=== PATIENT | female | born 1955 ===

== ENCOUNTER 2018-06-24 10:52 | Observation (INO) | payer MEDICAID ==
[2018-06-24 10:58] VITALS: BMI 29.2
[2018-06-24] MEDS ORDERED: Sodium Chloride 0.9% 1,000 ML IV STA (11:11)
--- NOTE | 2018-06-24 11:50 | ED PDOC ---
Syncope/Near Syncope/Dizziness Time Seen by Provider: 06/24/18 11:02 Chief Complaint (Nursing): Weakness/Neurological Deficit Chief Complaint (Provider): Weakness/Neurological Deficit History Per: Patient History/Exam Limitations: no limitations Onset/Duration Of Symptoms: Days (x1 week ago ) Current Symptoms Are (Timing): Still Present Additional Complaint(s): Kathleen Stokes is a 62 year old female with a past medical history of diabetes, HTN and rheumatoid arthritis, who presents to the emergency department after being brought in by family for decreased mentation, confusion, blank stare and possible syncope this morning while having breakfast. Patient does have difficulty ambulating for the past x3 months due to rheumatoid arthritis. He does not have any new focal weakness. Patient is complaining of extremity pain but does not have fever, vomiting or urinary symptoms. PMD: patient is from [place] Past Medical History Reviewed: Historical Data, Nursing Documentation, Vital Signs Vital Signs: Last Vital Signs Temp 97 F L 06/24/18 10:58 Pulse 108 H 06/24/18 10:58 Resp 18 06/24/18 10:58 BP 132/69 06/24/18 10:58 Pulse Ox 96 06/24/18 10:58 - Medical History PMH: Diabetes, HTN, Hypercholesterolemia, Chronic Kidney Disease, Rheumatoid Arthritis - Surgical History Other surgeries: left wrist surgery - Family History Family History: States: Unknown Family Hx - Allergies Allergies/Adverse Reactions: Allergies Allergy/AdvReac Type Severity Reaction Status Date / Time No Known Allergies Allergy Verified 06/24/18 11:09 Review of Systems ROS Statement: Except As Marked, All Systems Reviewed And Found Negative Constitutional: Positive for: Fever Gastrointestinal: Positive for: Vomiting Genitourinary Female: Negative for: Dysuria, Frequency, Incontinence, Hematuria Musculoskeletal: Positive for: Other (extremity pain) Neurological: Positive for: Other (decreased mentation, confusion and blank stare; possible syncope) Physical Exam - Reviewed Nursing Documentation Reviewed: Yes Vital Signs Reviewed: Yes - Physical Exam Appears: Positive for: Non-toxic, No Acute Distress Cardiovascular/Chest: Positive for: Regular Rate, Rhythm. Negative for: Murmur Respiratory: Positive for: Normal Breath Sounds. Negative for: Respiratory Distress Gastrointestinal/Abdominal: Positive for: Normal Exam, Soft. Negative for: Tenderness Extremity: Positive for: Deformity (of fingers and lower extremities consistent with RA ). Negative for: Other (edema) Neurologic/Psych: Positive for: Alert, Oriented (x3). Negative for: Motor/Sensory Deficits - Laboratory Results Result Diagrams: 06/24/18 12:04 06/24/18 12:04 - ECG O2 Sat by Pulse Oximetry: 96 (RA) Pulse Ox Interpretation: Normal Medical Decision Making Medical Decision Making: Time: 1110 Impression: AMS as well as syncope. Will obtain CT of hea as well as CBC and other chemistry. No focal deficits at this time. Plan: --VBG shock panel --Head CT without contrast --Ekg --CMP --Cbc with differential --Chest xray --Sodium chloride 1,000 ml --Blood culture --Urine culture --UA Scribe Attestation: Documented by Florian Duong, acting as a scribe for Clayton Medina MD. Symptomatic anemia Hgb 7.6 Stool for occult blood sent. Will transfuse [address] in obs Provider Scribe Attestation: All medical record entries made by the Scribe were at my direction and personally dictated by me. I have reviewed the chart and agree that the record accurately reflects my personal performance of the history, physical exam, medical decision making, and the department course for this patient. I have also personally directed, reviewed, and agree with the discharge instructions and disposition. Disposition - Clinical Impression Clinical Impression: Anemia, Syncope - Patient ED Disposition Is Patient to be Admitted: Yes - Disposition Disposition Time: 12:45 Condition: FAIR Forms: [employer] ([employer]) - Pt Status Changed To: Hospital Disposition Of: Observation - POA Present On Arrival: None
[2018-06-24 12:06] LABS: VENOUS BLOOD GAS BASE EXCESS 1.2 mmol/L (0.0-2.0); VENOUS BLOOD GAS PCO2 44 mmHg (40-60); VENOUS BLOOD GAS PO2 45 mm/Hg (30-55); VENOUS BLOOD PH 7.39 (7.32-7.43)
[2018-06-24 12:19] LABS: ALB/GLOB RATIO 0.8 (1.0-2.1); ALBUMIN 3.3 g/dL (3.5-5.0); ALT/SGPT 32 U/L (9-52); AST/SGOT 36 U/L (14-36); BLOOD UREA NITROGEN 40 mg/dl (7-17); GFR NON-AFRICAN AMERICAN 24
[2018-06-24 12:20] LABS: BASO % 0.2 % (0.0-2.0); EOS # 0.3 K/uL (0.0-0.7); EOS % 4.2 % (0.0-4.0); HEMOGLOBIN 7.6 g/dL (12.0-16.0); LYMPH # 0.4 K/uL (1.0-4.3); LYMPH % 5.8 % (20.0-40.0); MEAN CELL VOLUME 78.5 fl (81.0-99.0); MEAN CORPUSCULAR HEMOGLOBIN 25.3 pg (27.0-31.0); MEAN CORPUSCULAR HGB CONC 32.3 g/dL (33.0-37.0); MEAN PLATELET VOLUME 8.4 fl (7.2-11.7); MONO # 0.5 K/uL (0.0-0.8); MONO % 6.9 % (0.0-10.0); NEUT # 5.5 K/uL (1.8-7.0); NEUT % 82.9 % (50.0-75.0); PLATELET COUNT 426 K/uL (130-400); RBC 2.98 Mil/uL (3.80-5.20); RED CELL DISTRIBUTION WIDTH 17.5 % (11.5-14.5); WHITE BLOOD COUNT 6.7 K/uL (4.8-10.8)
--- NOTE | 2018-06-24 12:45 | CT ---
Date of service: 06/24/2018 PROCEDURE: CT HEAD WITHOUT CONTRAST. HISTORY: r/o bleed COMPARISON: None available. TECHNIQUE: Axial computed tomography images were obtained through the head/brain without intravenous contrast. Radiation dose: Total exam DLP = 764.72 mGy-cm. This CT exam was performed using one or more of the following dose reduction techniques: Automated exposure control, adjustment of the mA and/or kV according to patient size, and/or use of iterative reconstruction technique. FINDINGS: HEMORRHAGE: No intracranial hemorrhage. 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 There are mild chronic microangiopathic changes. There is no mass, mass effect or abnormal extra-axial fluid collection. There is no territorial infarction. The midline sagittal structures are normal.There are coarse atherosclerotic calcifications in the cavernous carotid arteries. VENTRICLES: There is mild age-related global parenchymal volume loss and proportionate enlargement of the ventricles and cortical sulci. CALVARIUM: There is no calvarial fracture or extracranial soft tissue swelling. PARANASAL SINUSES: Predominantly clear. MASTOID AIR CELLS: Predominantly clear. OTHER FINDINGS: None. IMPRESSION: No acute intracranial abnormality. 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 Mild chronic microangiopathic changes and mild age-related global parenchymal volume loss.
[2018-06-24 12:56] LABS: ANISOCYTOSIS SLIGHT; BANDS 1 % (0-2); BASOPHIL 1 % (0-2); EOSINOPHIL 2 % (0-7); HYPOCHROMIC MODERATE; LARGE PLATELETS PRESENT; LYMPHOCYTE 5 % (20-50); MONOCYTE 6 % (0-10); NEUTROPHIL 85 % (42-75); OVALOCYTES SLIGHT; PLATELET CLUMPS PRESENT; PLATELET ESTIMATE INCREASED (NORMAL); TOTAL CELLS COUNTED 100
--- NOTE | 2018-06-24 14:04 | CP.PCM.HP ---
History of Present Illness - History of Present Illness History of Present Illness: 62 y/o F with a PMHx of RA, DM2, ?CKD, HTN and HLD was brought to ED by family due to generalized weakness since 1.5 weeks ago and possible syncope. Niece believes that pt had an episode of LOC that last for several minutes. Niece is b y bedside, explains that pt hit her head with table while eating due to weakness and became unresponsive to verbal and tactile stimulation for ~20 minutes. Pt remembers eating breakfast but does NOT remember anything else, just remembers coming here. Pt aslo complains of bilateral knee, ankles and leg pain that exacerbates with movement and walking. Pt denies headache, fever, chills, cough, chest pain, SOB, diaphoresis, N/V/D, rash. --Pt came from [place] 11 days ago, has been getting progressively weaker and weaker, bed-bound most of the time and complaining of bilateral leg pain. As per niece, pt has been having recurrent falls during the past several months in [place], one of them was 3 months ago which require surgical procedure for L wrist fracture. PMD: None NKDA MEDS: Gabapentin 400mg daily, Cilostazol 50mg daily, Losartan 100mg daily, Glipizide 10mg daily, Metoprolol Succ 100 Q12H, Simvastatin 40mg daily, Aspirin 81mg daily. -PMHx: RA, DM2, ?CKD, HTN and HLD. (?possible brain aneurysm as per niece, >5 years ago in [place]) -PSHx: Left wrist fracture repair. -FHx: NC -SHx: denied tobacco, alcohol or rec drugs. At ED: --CBC showed microcytic anemia, Hgb 7.6. --CMP showed BUN/Creat 40/2.1-high; GFR 24-stage 4. --VBG shock panel-unremarkable --Head CT: No acute intracranial abnormality. --Ekg: unremarkable --CXR: no active pulmonary disease. --1 L of NSS administered. Present on Admission - Present on Admission Any Indicators Present on Admission: No History of DVT/PE: No Urinary Catheter: No Decubitus Ulcer Present: No Review of Systems - Constitutional Constitutional: Weakness. absent: Chills, Fever - EENT Eyes: absent: Change in Vision Nose/Mouth/Throat: absent: Nasal Congestion, Sinus Pain, Sore Throat, Neck Pain, Neck Mass - Cardiovascular Cardiovascular: absent: Chest Pain, Claudication, Dyspnea, Edema - Respiratory Respiratory: absent: Cough, Dyspnea, Hemoptysis - Gastrointestinal Gastrointestinal: absent: Abdominal Pain, Belching, Bloating, Nausea, Vomiting - Genitourinary Genitourinary: absent: Dysuria, Hematuria, Pyuria - Musculoskeletal Musculoskeletal: Arthralgias (b/l knee, ankles and hands.), Myalgias (b/l leg pain. ) Past Patient History - Infectious Disease Hx of Infectious Diseases: None - Past Social History Smoking Status: Never Smoked - CARDIAC Hx Cardiac Disorders: Yes (HTN,HLD) - PULMONARY Hx Respiratory Disorders: No - NEUROLOGICAL Hx Neurological Disorder: No - HEENT Hx HEENT Problems: No - RENAL Hx Chronic Kidney Disease: Yes - ENDOCRINE/METABOLIC Hx Endocrine Disorders: Yes (DM) - HEMATOLOGICAL/ONCOLOGICAL Hx Blood Disorders: No - INTEGUMENTARY Hx Dermatological Problems: No - MUSCULOSKELETAL/RHEUMATOLOGICAL Hx Musculoskeletal Disorders: Yes (ARTHRITIS) - GENITOURINARY/GYNECOLOGICAL Hx Genitourinary Disorders: No - PSYCHIATRIC Hx Psychophysiologic Disorder: No - SURGICAL HISTORY Hx Surgeries: Yes Other/Comment: left wrist surgery - ANESTHESIA Hx Anesthesia: Yes Hx Anesthesia Reactions: No Meds Allergies/Adverse Reactions: Allergies Allergy/AdvReac Type Severity Reaction Status Date / Time No Known Allergies Allergy Verified 06/24/18 11:09 Physical Exam - Constitutional Appears: No Acute Distress - Head Exam Head Exam: ATRAUMATIC, NORMAL INSPECTION - Eye Exam Eye Exam: EOMI - ENT Exam ENT Exam: Mucous Membranes Moist - Neck Exam Neck exam: Positive for: Full Rom, Normal Inspection. Negative for: Lymphadenopathy - Respiratory Exam Respiratory Exam: Clear to Auscultation Bilateral, NORMAL BREATHING PATTERN. absent: Rales, Rhonchi, Wheezes - Cardiovascular Exam Cardiovascular Exam: +S1, +S2 - GI/Abdominal Exam GI & Abdominal Exam: Soft. absent: Distended, Guarding, Hernia, Rebound, Rigid, Tenderness - Extremities Exam Extremities exam: Positive for: calf tenderness, full ROM, normal inspection, tenderness (on b/l knee and foot). Negative for: pedal edema - Back Exam Back exam: absent: CVA tenderness (L), CVA tenderness (R) - Neurological Exam Neurological exam: Alert, Oriented x3 - Psychiatric Exam Psychiatric exam: Normal Mood - Skin Additional comments: On Left inguinal area: presence of ~17 cm diameter erythematous desquamative dermatitis. Results - Vital Signs Recent Vital Signs: Last Vital Signs Temp 97 F L 06/24/18 13:15 Pulse 108 H 06/24/18 13:15 Resp 18 06/24/18 13:15 BP 132/69 06/24/18 13:15 Pulse Ox 96 06/24/18 12:45 - Labs Result Diagrams: 06/24/18 12:04 06/24/18 12:04 Labs: Laboratory Results - last 24 hr 06/24/18 06/24/18 06/24/18 12:02 12:04 12:04 WBC 6.7 RBC 2.98 L Hgb 7.6 L Hct 23.4 L MCV 78.5 L MCH 25.3 L MCHC 32.3 L RDW 17.5 H Plt Count 426 H MPV 8.4 Neut % (Auto) 82.9 H Lymph % (Auto) 5.8 L Carbon % (Auto) 6.9 Eos % (Auto) 4.2 H Baso % (Auto) 0.2 Neut # (Auto) 5.5 Lymph # (Auto) 0.4 L Carbon # (Auto) 0.5 Eos # (Auto) 0.3 Baso # (Auto) 0.0 Neutrophils % (Manual) 85 H Band Neutrophils % 1 Lymphocytes % (Manual) 5 L Monocytes % (Manual) 6 Eosinophils % (Manual) 2 Basophils % (Manual) 1 Platelet Estimate Increased H Plt Clumps, EDTA Present Large Platelets Present Hypochromasia (manual) Moderate Anisocytosis (manual) Slight Ovalocytes Slight pO2 45 VBG pH 7.39 VBG pCO2 44 VBG HCO3 25.4 VBG Total CO2 28.0 VBG O2 Sat (Calc) 83.6 H VBG Base Excess 1.2 VBG Potassium 4.5 A-a O2 Difference 50.0 Sodium 135.0 135 Chloride 104.0 102 Glucose 110 H Lactate 1.7 FiO2 21.0 Potassium 4.5 Carbon Dioxide 24 Anion Gap 14 BUN 40 H Creatinine 2.1 H Est GFR ( Amer) 29 Est GFR (Non-Af Amer) 24 Random Glucose 116 H Calcium 9.0 Total Bilirubin < 0.1 L AST 36 ALT 32 Alkaline Phosphatase 75 Total Protein 7.6 Albumin 3.3 L Globulin 4.3 H Albumin/Globulin Ratio 0.8 L Venous Blood Potassium 4.5 Crossmatch BBK History Checked 06/24/18 13:10 WBC RBC Hgb Hct MCV MCH MCHC RDW Plt Count MPV Neut % (Auto) Lymph % (Auto) Carbon % (Auto) Eos % (Auto) Baso % (Auto) Neut # (Auto) Lymph # (Auto) Carbon # (Auto) Eos # (Auto) Baso # (Auto) Neutrophils % (Manual) Band Neutrophils % Lymphocytes % (Manual) Monocytes % (Manual) Eosinophils % (Manual) Basophils % (Manual) Platelet Estimate Plt Clumps, EDTA Large Platelets Hypochromasia (manual) Anisocytosis (manual) Ovalocytes pO2 VBG pH VBG pCO2 VBG HCO3 VBG Total CO2 VBG O2 Sat (Calc) VBG Base Excess VBG Potassium A-a O2 Difference Sodium Chloride Glucose Lactate FiO2 Potassium Carbon Dioxide Anion Gap BUN Creatinine Est GFR ( Amer) Est GFR (Non-Af Amer) Random Glucose Calcium Total Bilirubin AST ALT Alkaline Phosphatase Total Protein Albumin Globulin Albumin/Globulin Ratio Venous Blood Potassium Crossmatch See Detail BBK History Checked No verified bt Assessment & Plan - Assessment and Plan (Free Text) Assessment: 62 y/o F with a PMHx of RA, DM2, ?CKD, HTN and HLD admitted for evaluation and management generalized weakness, symptomatic anemia and possible syncope. PLAN: >?Syncope --Likely due to severe weakness and chronic fatigue. --CBC showed microcytic anemia, Hgb 7.6. --Head CT: No acute intracranial abnormality. --Blood works ordered: CBC, BMP, vitamin b12, HbA1c, lipid panel, vitamin D, thyroid panel, iron panel. --Echocardiogram, US of b/l carotids, were ordered. --F/U tomorrow labs. >Microcytic anemia, symptomatic --Most lively chronic, rule out iron deficiency vs anemia of chronic disease. --Tachycardic. --Hgb 7.6. --2 PRBC's being transfused. --Work-up for anemia was ordered. F/U results. --F/U FOBT >Acute kidney injury vs Chronic Kidney disease --BUN/Creat 40/2.1-high; GFR 24-stage 4. --Renal sonogram for assistance in the diagnosis of CKD. --IV Fluids: NSS at 100mL/hr. --F/U renal function test. >Weakness --Head CT: No acute intracranial abnormality. --Possibly due to chronic anemia, malnutrition, vitamin deficiency. --F/U labs: vitamin B12, CBC after transfusion. >Intertrigo --Nystatin powder TID ordered. >DM 2 --Home meds resumed --Insulin Sliding Scale --Hypoglycemia protocol --HbA1c ordered. >HTN --Home meds resumed >HLD --Home meds resumed. --Lipid panel ordered >Rheumatoid Arthritis. --Will treat pain. >DVT prophylaxis --SCD's for now --F/U FOBT --Considering Heparin or low dose Lovenox since kidney failure. - Date & Time Date: 06/24/18 Time: 15:30
[2018-06-24] MEDS ORDERED: Cilostazol 50 mg Tab UD PO SCH (15:00)
--- NOTE | 2018-06-24 15:41 | RAD ---
Date of service: 06/24/2018 HISTORY: Cough COMPARISON: No prior. FINDINGS: LUNGS: The lungs are well inflated and clear. PLEURA: No pleural effusions or pneumothorax. CARDIOVASCULAR: The heart is normal in size. No aortic atherosclerotic calcification present. OSSEOUS STRUCTURES: Within normal limits for the patient's age. VISUALIZED UPPER ABDOMEN: Normal. OTHER FINDINGS: None. IMPRESSION: No active pulmonary disease.
[2018-06-24] MEDS: Metoprolol Succinate 100 mg XL Tab PO SCH (16:36)
[2018-06-24] MEDS ORDERED: Dextrose 50% SYRINGE Inj (50 ml) IV PRN (17:16)
[2018-06-24] MEDS ORDERED: Glucagon Recombinant 1 mg Inj IM PRN (17:16)
[2018-06-24 20:58] LABS: SQUAMOUS EPITHIAL 7 /hpf (0-5); URINE BACTERIA RARE (<OCC); URINE BILIRUBIN NEGATIVE (NEGATIVE); URINE BLOOD NEGATIVE (NEGATIVE); URINE CLARITY SLIGHTY-CLOUDY (Clear); URINE COLOR YELLOW (YELLOW); URINE GLUCOSE (UA) NEG (NEGATIVE); URINE LEUKOCYTE ESTERASE NEG Leu/uL (Negative); URINE PROTEIN 30 mg/dL (NEGATIVE); URINE UROBILINOGEN 0.2-1.0 mg/dL (0.2-1.0)
[2018-06-24] MEDS: Sodium Chloride 0.9% 1,000 ML IV SCH (21:29)
[2018-06-24] MEDS: Insulin Lispro (humaLOG) 100 Units/ml Inj SC SCH (22:00)
--- NOTE | 2018-06-25 00:21 | CARD ---
APPROVED REPORT Date of service: 06/24/2018 EXAM: Two-dimensional and M-mode echocardiogram with Doppler and color Doppler. Other Information Quality : AverageRhythm : NSR Technically limited study due to Poor Short [place],due to heavly calcified annulus. INDICATION Syncope 2D DIMENSIONS IVSd0.76 (0.7-1.1cm)LVDd4.41 (3.9-5.9cm) LVOT Diameter1.79 (1.8-2.4cm)PWd0.99 (0.7-1.1cm) IVSs1.13 (0.8-1.2cm)LVDs2.98 (2.5-4.0cm) FS (%) 32.5 %PWs1.02 (0.8-1.2cm) M-Mode DIMENSIONS Left Atrium (MM)3.86 (2.5-4.0cm)Aortic Root2.51 (2.2-3.7cm) Aortic Cusp Exc.1.57 (1.5-2.0cm) Aortic Valve AoV Peak Avivsxjj902.0cm/sAoV VTI29.5cmAO Peak GR.13mmHg LVOT Peak Yarultin858.7cm/sLVOT VTI19.83cmAO Mean GR.7mmHg YUNIOR (VMAX)1.79fw1LOP (VTI)1.02cm2 Mitral Valve MV E Hphgbjhc04.2cm/sMV DECEL [id number] A Uiqdpkmm393.4cm/s MV UHK83pvY/A ratio0.5MVA (PHT)3.45cm2 TDI E/Lateral E'0.0E/Medial E'0.0 LEFT VENTRICLE The left ventricle is normal size. There is normal left ventricular wall thickness. The left ventricular systolic function is normal. The estimated ejection fraction is 60-65% No regional wall motion abnormalities noted.. Transmitral Doppler flow pattern is Grade I-abnormal relaxation pattern. No left ventricle thrombus noted on this study. There is no ventricular septal defect visualized. There is no left ventricular aneurysm. There is no mass noted in the left ventricle. RIGHT VENTRICLE The right ventricle is normal size. There is normal right ventricular wall thickness. The right ventricular systolic function is normal. ATRIA The left atrium size is normal. The right atrium size is normal. The interatrial septum is intact with no evidence for an atrial septal defect. AORTIC VALVE The aortic valve is normal in structure. No aortic regurgitation is present. There is no aortic valvular stenosis. There is no aortic valvular vegetation. MITRAL VALVE The mitral valve is normal in structure. There is mitral annular calcification. There is no evidence of mitral valve prolapse. There is no mitral valve stenosis. There is no mitral valve regurgitation noted. TRICUSPID VALVE The tricuspid valve is normal in structure. There is no tricuspid valve regurgitation noted. There is no tricuspid valve prolapse or vegetation. There is no tricuspid valve stenosis. PULMONIC VALVE The pulmonary valve is normal in structure. There is no pulmonic valvular regurgitation. There is no pulmonic valvular stenosis. GREAT VESSELS The aortic root is normal in size. The ascending aorta is normal in size. The pulmonary artery is normal. The IVC is normal in size and collapses >50% with inspiration. PERICARDIAL EFFUSION There is no pericardial effusion. There is no pleural effusion. <Conclusion> The estimated ejection fraction is 60-65% Transmitral Doppler flow pattern is Grade I-abnormal relaxation pattern. The left atrium size is normal. There is mitral annular calcification. There is no significant tricuspid valve regurgitation noted.
--- NOTE | 2018-06-25 00:29 | CARD ---
APPROVED REPORT Date of service: 06/24/2018 EKG Measurement Heart [id number] [place] [id number] <Conclusion> Normal sinus rhythm Normal ECG
[2018-06-25 06:19] LABS: BASO % 0.1 % (0.0-2.0); EOS # 0.2 K/uL (0.0-0.7); EOS % 4.1 % (0.0-4.0); HEMOGLOBIN 7.4 g/dL (12.0-16.0); LYMPH # 0.4 K/uL (1.0-4.3); LYMPH % 7.6 % (20.0-40.0); MEAN CELL VOLUME 81.1 fl (81.0-99.0); MEAN CORPUSCULAR HEMOGLOBIN 26.7 pg (27.0-31.0); MEAN CORPUSCULAR HGB CONC 32.9 g/dL (33.0-37.0); MEAN PLATELET VOLUME 7.7 fl (7.2-11.7); MONO # 0.3 K/uL (0.0-0.8); MONO % 5.4 % (0.0-10.0); NEUT # 4.3 K/uL (1.8-7.0); NEUT % 82.8 % (50.0-75.0); RBC 2.79 Mil/uL (3.80-5.20); RED CELL DISTRIBUTION WIDTH 18.2 % (11.5-14.5); WHITE BLOOD COUNT 5.2 K/uL (4.8-10.8)
[2018-06-25 06:41] LABS: CALCIUM 8.1 mg/dL (8.4-10.2)
[2018-06-25 06:43] LABS: IRON 24 ug/dL (37-170)
[2018-06-25 06:53] LABS: % IRON SATURATION 11 % (20-55); TOTAL IRON BINDING CAPACITY 216 ug/dL (250-450)
[2018-06-25 07:04] LABS: T3 0.536 nmol/L (1.49-2.60)
[2018-06-25 07:14] LABS: ERYTHROCYTE SEDIMENTATION RATE > 120 mm/hr (0-30)
[2018-06-25] MEDS: Insulin Lispro (humaLOG) 100 Units/ml Inj SC SCH ×4 (07:39→23:00)
[2018-06-25] MEDS: Sodium Chloride 0.9% 1,000 ML IV SCH ×2 (08:17→17:46)
[2018-06-25] MEDS ORDERED: Influenza Vaccine 60 MCG/0.5 ML SYR (3 yr & up) IM ONE (09:00)
[2018-06-25] MEDS ORDERED: Enoxaparin 30 mg Syringe SC SCH (09:00)
[2018-06-25] MEDS ORDERED: Pneumococcal 23-Valent Vaccine IM ONE (09:00)
[2018-06-25] MEDS: Levothyroxine 100 MCG TAB PO SCH (09:26)
[2018-06-25] MEDS: Metoprolol Succinate 100 mg XL Tab PO SCH (09:26)
--- NOTE | 2018-06-25 10:20 | CP.PCM.PN ---
Subjective - Date & Time of Evaluation Date of Evaluation: 06/25/18 Time of Evaluation: 10:14 - Subjective Subjective: Pt is feeling better,but still needs antibiotics and steroids. He is very keen on going home, and will then think about where he wants his treatment,[facility] or in Dr Jimenez's office. The chemo unit is closed until friday and the chemo nurses will be available on friday. In the meanwhile, if he decides to stay he should have a life port placed I am going to be away on vacation until jul 11, and Dr Alex Garcia will cover for me until then Objective - Vital Signs/Intake and Output Vital Signs (last 24 hours): Temp Pulse Resp BP Pulse Ox 97.4 F L 87 18 148/77 100 06/25/18 08:14 06/25/18 09:33 06/25/18 08:14 06/25/18 09:33 06/25/18 08:14 - Medications Medications: Current Medications Acetaminophen (Tylenol 325mg Tab) 650 mg PO Q6 PRN PRN Reason: Pain, moderate (4-7) Last Admin: 06/24/18 15:21 Dose: 650 mg Amlodipine Besylate (Norvasc) 5 mg PO DAILY [facility] Last Admin: 06/25/18 09:33 Dose: 5 mg Aspirin (Aspirin Chewable) 81 mg PO DAILY [facility] Last Admin: 06/25/18 09:36 Dose: 81 mg Atorvastatin Calcium (Lipitor) 20 mg PO HS [facility] Last Admin: 06/24/18 21:29 Dose: 20 mg Cilostazol (Pletal) 50 mg PO DAILY [facility] Last Admin: 06/24/18 16:37 Dose: 50 mg Dextrose (Dextrose 50% Inj) 0 ml IV STAT PRN; Protocol PRN Reason: Hypoglycemia Protocol Last Admin: 06/25/18 05:56 Dose: 25 ml Dextrose (Glutose 15) 0 gm PO ONCE PRN; Protocol PRN Reason: Hypoglycemia Protocol Enoxaparin Sodium (Lovenox) 30 mg SC DAILY [facility]; Protocol Glipizide (Glucotrol) 10 mg PO DAILY [facility] Last Admin: 06/24/18 16:39 Dose: 10 mg Glucagon (Glucagen Diagnostic Kit) 0 mg IM STAT PRN; Protocol PRN Reason: Hypoglycemia Protocol Sodium Chloride (Sodium Chloride 0.9%) 1,000 mls @ 100 mls/hr IV .Q10H [facility] Stop: 06/25/18 21:00 Last Admin: 06/25/18 08:17 Dose: 100 mls/hr Ibuprofen (Motrin Tab) 600 mg PO Q6 PRN PRN Reason: Pain, severe (8-10) Insulin Human Lispro (Humalog) 0 units SC ACCU-CHECK [facility]; Protocol Last Admin: 06/25/18 07:39 Dose: Not Given Levothyroxine Sodium (Synthroid) 100 mcg PO DAILY@0630 [facility] Last Admin: 06/25/18 09:26 Dose: 100 mcg Metoprolol Succinate (Toprol Xl) 100 mg PO DAILY [facility] Last Admin: 06/25/18 09:26 Dose: 100 mg Nystatin (Nystop Topical Powder) 1 applic TOP TID [facility] Last Admin: 06/24/18 19:48 Dose: Not Given - Labs Labs: 06/25/18 06:10 06/25/18 06:10
--- NOTE | 2018-06-25 10:31 | CP.PCM.PN ---
<Tay Guerrier - Last Filed: 06/25/18 15:38> Subjective - Date & Time of Evaluation Date of Evaluation: 06/25/18 Time of Evaluation: 09:10 - Subjective Subjective: 62 y/o F was evaluated and examined by bedside. Pt reports feeling much better, has more energy, b/l leg pain is mild and tolerable. Pt with good appetite. Pt afebrile, tolerating PO, with NO acute events overnight. Objective - Vital Signs/Intake and Output Vital Signs (last 24 hours): Temp Pulse Resp BP Pulse Ox 97.4 F L 87 18 148/77 100 06/25/18 08:14 06/25/18 09:33 06/25/18 08:14 06/25/18 09:33 06/25/18 08:14 - Medications Medications: Current Medications Acetaminophen (Tylenol 325mg Tab) 650 mg PO Q6 PRN PRN Reason: Pain, moderate (4-7) Last Admin: 06/24/18 15:21 Dose: 650 mg Amlodipine Besylate (Norvasc) 5 mg PO DAILY [facility] Last Admin: 06/25/18 09:33 Dose: 5 mg Aspirin (Aspirin Chewable) 81 mg PO DAILY [facility] Last Admin: 06/25/18 09:36 Dose: 81 mg Atorvastatin Calcium (Lipitor) 20 mg PO HS [facility] Last Admin: 06/24/18 21:29 Dose: 20 mg Cilostazol (Pletal) 50 mg PO DAILY [facility] Last Admin: 06/24/18 16:37 Dose: 50 mg Dextrose (Dextrose 50% Inj) 0 ml IV STAT PRN; Protocol PRN Reason: Hypoglycemia Protocol Last Admin: 06/25/18 05:56 Dose: 25 ml Dextrose (Glutose 15) 0 gm PO ONCE PRN; Protocol PRN Reason: Hypoglycemia Protocol Enoxaparin Sodium (Lovenox) 30 mg SC DAILY [facility]; Protocol Glipizide (Glucotrol) 10 mg PO DAILY [facility] Last Admin: 06/24/18 16:39 Dose: 10 mg Glucagon (Glucagen Diagnostic Kit) 0 mg IM STAT PRN; Protocol PRN Reason: Hypoglycemia Protocol Sodium Chloride (Sodium Chloride 0.9%) 1,000 mls @ 100 mls/hr IV .Q10H [facility] Stop: 06/25/18 21:00 Last Admin: 06/25/18 08:17 Dose: 100 mls/hr Ibuprofen (Motrin Tab) 600 mg PO Q6 PRN PRN Reason: Pain, severe (8-10) Insulin Human Lispro (Humalog) 0 units SC ACCU-CHECK [facility]; Protocol Last Admin: 06/25/18 07:39 Dose: Not Given Levothyroxine Sodium (Synthroid) 100 mcg PO DAILY@0630 [facility] Last Admin: 06/25/18 09:26 Dose: 100 mcg Metoprolol Succinate (Toprol Xl) 100 mg PO DAILY [facility] Last Admin: 06/25/18 09:26 Dose: 100 mg Nystatin (Nystop Topical Powder) 1 applic TOP TID [facility] Last Admin: 06/24/18 19:48 Dose: Not Given - Labs Labs: 06/25/18 06:10 06/25/18 06:10 - Constitutional Appears: No Acute Distress - Head Exam Head Exam: ATRAUMATIC, NORMAL INSPECTION - Eye Exam Eye Exam: EOMI, Normal appearance - ENT Exam ENT Exam: Mucous Membranes Moist - Neck Exam Neck Exam: Full ROM, Normal Inspection. absent: Meningismus - Respiratory Exam Respiratory Exam: NORMAL BREATHING PATTERN. absent: Decreased Breath Sounds, Rhonchi, Wheezes - Cardiovascular Exam Cardiovascular Exam: +S1, +S2 - GI/Abdominal Exam GI & Abdominal Exam: Soft. absent: Distended, Guarding, Tenderness - Extremities Exam Extremities Exam: Full ROM. absent: Calf Tenderness, Pedal Edema Additional comments: B/L lower leg with remarkable dark discoloration. - Back Exam Back Exam: absent: CVA tenderness (L), CVA tenderness (R) - Neurological Exam Neurological Exam: Alert, Awake, Oriented x3 - Psychiatric Exam Psychiatric exam: Normal Affect, Normal Mood - Skin Additional comments: Posible diffuse dark hyperpigmentation. Assessment and Plan - Assessment and Plan (Free Text) Assessment: 62 y/o F with a PMHx of RA, DM2, ?CKD, HTN and HLD admitted for evaluation and management generalized weakness, symptomatic anemia and possible syncope. --Head CT: No acute intracranial abnormality. PLAN: >?Syncope --Likely due to severe weakness and chronic fatigue. --Echocardiogram: LVEF 60-65%, grade I abnormal relaxation. --US of b/l carotids: Unremarkable, <50% stenosis. --Suspicion for cardiac or neuro-vascular etiologies is low. --Lipid panel was WNL. >Microcytic anemia, symptomatic --Most lively chronic, rule out iron deficiency vs anemia of chronic disease. --Hgb 7.4 decreased after 1 ubit PRBC transfusion. No gross bleeding apparent. --1 PRBC's was transfused. --Iron-low, TIBC-low, Ferritin 275-high. --Hematology consult, Dr Barrie Lopez. --F/U FOBT >Hypothyroidism --TSH 61.3-high, FT4 0.44-low --Levothyroxine 100mcg daily was initiated. --F/U serum TSH in 4-6 weeks. >Acute kidney injury vs Chronic Kidney disease --Improved from yesterday. --BUN/Creat 31/1.5-high; GFR 42-stage 3. --Renal sonogram: unremarkable. --IV Fluids: NSS at 100mL/hr. --F/U renal function test. --Losartan stopped. >Weakness --Possibly due to chronic anemia, malnutrition, vitamin deficiency, hypothyroidism --vitamin B-12: 287-bordeline low -> IM Cyanocobalamin administered. --TSH 61.3-high, FT4 0.44-low --Levothyroxine 100mcg was initiated. >Intertrigo --Nystatin powder TID ordered. >DM 2 --HbA1c 5.5, number low possibly due to anemia. --Glipizide was stopped due to hypoglycemia and HbA1c being low. --Insulin Sliding Scale --Hypoglycemia protocol >HTN --Due to Hx of CKD, Losartan was stopped. --Norvasc 5mg initiated. >HLD --Home meds resumed. --Lipid panel was WNL. >Rheumatoid Arthritis. --Will treat pain. >DVT prophylaxis --SCD's for now --Hold Lovenox due to anemia and possible bleeding. <Karoline Rousseau - Last Filed: 06/27/18 00:29> Objective - Vital Signs/Intake and Output Vital Signs (last 24 hours): Temp Pulse Resp BP Pulse Ox 98.0 F 88 20 159/70 H 98 06/26/18 15:48 06/26/18 15:48 06/26/18 15:48 06/26/18 15:48 06/26/18 15:48 - Labs Labs: 06/26/18 05:37 06/26/18 05:37 Attending/Attestation - Attestation I have personally seen and examined this patient.: Yes I have fully participated in the care of the patient.: Yes I have reviewed all pertinent clinical information, including history, physical exam and plan: Yes Notes (Text): 06/27/18 00:29 agree with findings and plan as above
--- NOTE | 2018-06-25 14:23 | US ---
Date of service: 06/25/2018 PROCEDURE: Ultrasound of the Kidneys HISTORY: CKD COMPARISON: None available. TECHNIQUE: Sonogram of the kidneys. FINDINGS: RIGHT KIDNEY: Measures: 4.5 x 10.1 cm. Normal in size, contour and echogenicity. No stone, solid mass lesion or hydronephrosis visualized. LEFT KIDNEY: Measures: 5.2 x 9.8 cm. Normal in size, contour and echogenicity. No stone, solid mass lesion or hydronephrosis visualized. OTHER FINDINGS: None. IMPRESSION: Unremarkable renal sonogram.
--- NOTE | 2018-06-25 14:23 | US ---
Date of service: 06/25/2018 PROCEDURE: Duplex ultrasound of the carotid and vertebral arteries. HISTORY: ?Syncope, ?TIA COMPARISON: None available. TECHNIQUE: Grayscale and duplex Doppler evaluation of the cervical carotid and vertebral arteries were performed. The common carotid, carotid bifurcations and cervical ICA and proximal ECA were evaluated. The vertebral arteries were evaluated for gross patency and direction. FINDINGS: RIGHT CAROTID ARTERIES: Common Carotid Artery: Maximal flow velocity of 100.0 cm/s. Carotid Bifurcation: Normal. Internal Carotid Artery:Heterogeneous plaque formation. Maximal flow velocity of 66.9 cm/s. External Carotid Artery (proximal branches): Maximal flow velocity of 159.8 cm/s. ICA/CCA Ratio: 0.9 LEFT CAROTID ARTERIES: Common Carotid Artery: Maximal flow velocity of 94.0 cm/s. Carotid Bifurcation: Normal. Internal Carotid Artery:Heterogeneous plaque formation. Maximal flow velocity of 82.0 cm/s. External Carotid Artery (proximal branches): Maximal flow velocity of 110.3 cm/s. ICA/CCA Ratio: 1.2 VERTEBRAL ARTERIES: Right Vertebral Artery: Patent. Antegrade flow. Left Vertebral Artery: Patent. Antegrade flow. OTHER FINDINGS: Atherosclerotic calcification present. IMPRESSION: Right ICA degree of stenosis: Less than 50% Left ICA degree of stenosis: Less than 50% Reference Internal Carotid Artery (ICA) Peak Systolic Velocity (PSV) for above: 1. Less than 50% stenosis less than 125 cm/s peak systolic velocity 2. 50-69% stenosis 125-230cm/s peak systolic velocity 3. Greater than 70% but less than near occlusion greater than 230 cm/s peak systolic velocity
[2018-06-26 05:56] LABS: HEMOGLOBIN 8.1 g/dL (12.0-16.0); MEAN CORPUSCULAR HEMOGLOBIN 26.1 pg (27.0-31.0); MEAN CORPUSCULAR HGB CONC 32.2 g/dL (33.0-37.0); RBC 3.11 Mil/uL (3.80-5.20); RED CELL DISTRIBUTION WIDTH 18.8 % (11.5-14.5); WHITE BLOOD COUNT 4.1 K/uL (4.8-10.8)
[2018-06-26] MEDS: Levothyroxine 100 MCG TAB PO SCH (06:06)
[2018-06-26 06:15] LABS: ALB/GLOB RATIO 0.7 (1.0-2.1); ALBUMIN 2.5 g/dL (3.5-5.0); CALCIUM 8.5 mg/dL (8.4-10.2)
[2018-06-26 06:29] VITALS: RESP 20
[2018-06-26] MEDS: Insulin Lispro (humaLOG) 100 Units/ml Inj SC SCH ×2 (07:45→12:00)
[2018-06-26] MEDS ORDERED: Cholecalciferol 1,000 INTLU TAB PO SCH (09:00)
[2018-06-26] MEDS: Metoprolol Succinate 100 mg XL Tab PO SCH (09:31)
[2018-06-26] MEDS ORDERED: Epoetin Alfa 20000 UNIT/ML Inj SC ONE (10:03)
--- NOTE | 2018-06-26 12:04 | CP.PCM.CON ---
Past Patient History - Infectious Disease Hx of Infectious Diseases: None - Past Social History Smoking Status: Never Smoked - CARDIAC Hx Cardiac Disorders: Yes (HTN,HLD) - PULMONARY Hx Respiratory Disorders: No - NEUROLOGICAL Hx Neurological Disorder: No - HEENT Hx HEENT Problems: No - RENAL Hx Chronic Kidney Disease: Yes - ENDOCRINE/METABOLIC Hx Endocrine Disorders: Yes (DM) - HEMATOLOGICAL/ONCOLOGICAL Hx Blood Disorders: No - INTEGUMENTARY Hx Dermatological Problems: No - MUSCULOSKELETAL/RHEUMATOLOGICAL Hx Musculoskeletal Disorders: Yes (ARTHRITIS) - GASTROINTESTINAL Hx Gastrointestinal Disorders: No - GENITOURINARY/GYNECOLOGICAL Hx Genitourinary Disorders: No - PSYCHIATRIC Hx Psychophysiologic Disorder: No - SURGICAL HISTORY Hx Surgeries: Yes Other/Comment: left wrist surgery - ANESTHESIA Hx Anesthesia: Yes Hx Anesthesia Reactions: No Meds Home Medications: Home Medication List Medication Instructions Recorded Confirmed Type Aspirin [Aspirin Chewable] 81 mg PO DAILY chew 06/26/18 Rx Cyanocobalamin (Vitamin B-12) 1 tab PO DAILY #30 tab 06/26/18 Rx [Vitamin B12 68 mg-2 mg] Levothyroxine [Synthroid] 100 mcg PO DAILY@0630 60 Days #60 06/26/18 Rx tab Nystatin [Nystop Topical Powder] 1 applic TOP TID #2 bottle 06/26/18 Rx amLODIPine [Norvasc] 5 mg PO DAILY 30 Days #30 tab 06/26/18 Rx Allergies/Adverse Reactions: Allergies Allergy/AdvReac Type Severity Reaction Status Date / Time No Known Allergies Allergy Verified 06/24/18 11:09 - Medications Medications: Current Medications Acetaminophen (Tylenol 325mg Tab) 650 mg PO Q6 PRN PRN Reason: Pain, moderate (4-7) Last Admin: 06/24/18 15:21 Dose: 650 mg Amlodipine Besylate (Norvasc) 5 mg PO DAILY [facility] Last Admin: 06/26/18 09:32 Dose: 5 mg Aspirin (Aspirin Chewable) 81 mg PO DAILY [facility] Last Admin: 06/26/18 09:32 Dose: 81 mg Atorvastatin Calcium (Lipitor) 20 mg PO HS [facility] Last Admin: 06/25/18 21:38 Dose: 20 mg Cholecalciferol (Vitamin D) 1,000 intlu PO DAILY [facility] Last Admin: 06/26/18 09:31 Dose: 1,000 intlu Dextrose (Dextrose 50% Inj) 0 ml IV STAT PRN; Protocol PRN Reason: Hypoglycemia Protocol Last Admin: 06/25/18 05:56 Dose: 25 ml Dextrose (Glutose 15) 0 gm PO ONCE PRN; Protocol PRN Reason: Hypoglycemia Protocol Enoxaparin Sodium (Lovenox) 30 mg SC DAILY [facility]; Protocol Last Admin: 06/25/18 11:31 Dose: 30 mg Glucagon (Glucagen Diagnostic Kit) 0 mg IM STAT PRN; Protocol PRN Reason: Hypoglycemia Protocol Ibuprofen (Motrin Tab) 600 mg PO Q6 PRN PRN Reason: Pain, severe (8-10) Last Admin: 06/25/18 14:02 Dose: 600 mg Insulin Human Lispro (Humalog) 0 units SC ACCU-CHECK [facility]; Protocol Last Admin: 06/26/18 07:45 Dose: Not Given Levothyroxine Sodium (Synthroid) 100 mcg PO DAILY@0630 [facility] Last Admin: 06/26/18 06:06 Dose: 100 mcg Metoprolol Succinate (Toprol Xl) 100 mg PO DAILY [facility] Last Admin: 06/26/18 09:31 Dose: 100 mg Nystatin (Nystop Topical Powder) 1 applic TOP TID [facility] Last Admin: 06/26/18 12:02 Dose: 1 applic Results - Vital Signs Recent Vital Signs: Last Vital Signs Temp 98.1 F 06/26/18 07:33 Pulse 89 06/26/18 10:35 Resp 20 06/26/18 07:33 BP 155/71 H 06/26/18 07:33 Pulse Ox 100 06/26/18 10:35 - Labs Result Diagrams: 06/26/18 05:37 06/26/18 05:37 Labs: Laboratory Results - last 24 hr 06/25/18 06/25/18 06/25/18 06:10 16:37 18:00 WBC RBC Hgb Hct MCV MCH MCHC RDW Plt Count Sodium Potassium Chloride Carbon Dioxide Anion Gap BUN Creatinine Est GFR ( Amer) Est GFR (Non-Af Amer) POC Glucose (mg/dL) 158 H Random Glucose Calcium Total Bilirubin AST ALT Alkaline Phosphatase Total Protein Albumin Globulin Albumin/Globulin Ratio 25-OH Vitamin D Total 17.4 L Stool Occult Blood Negative 06/25/18 06/26/18 06/26/18 22:05 05:37 05:37 WBC 4.1 L RBC 3.11 L Hgb 8.1 L Hct 25.2 L MCV 81.0 MCH 26.1 L MCHC 32.2 L RDW 18.8 H Plt Count 316 Sodium 138 Potassium 4.3 Chloride 109 H Carbon Dioxide 24 Anion Gap 9 L BUN 23 H Creatinine 1.4 H Est GFR ( Amer) 46 Est GFR (Non-Af Amer) 38 POC Glucose (mg/dL) 111 H Random Glucose 83 Calcium 8.5 Total Bilirubin 0.1 L AST 35 ALT 37 Alkaline Phosphatase 67 Total Protein 6.4 Albumin 2.5 L D Globulin 3.9 Albumin/Globulin Ratio 0.7 L 25-OH Vitamin D Total Stool Occult Blood 06/26/18 06/26/18 05:41 11:01 WBC RBC Hgb Hct MCV MCH MCHC RDW Plt Count Sodium Potassium Chloride Carbon Dioxide Anion Gap BUN Creatinine Est GFR ( Amer) Est GFR (Non-Af Amer) POC Glucose (mg/dL) 78 100 Random Glucose Calcium Total Bilirubin AST ALT Alkaline Phosphatase Total Protein Albumin Globulin Albumin/Globulin Ratio 25-OH Vitamin D Total Stool Occult Blood
--- NOTE | 2018-06-26 14:13 | CP.PCM.DIS ---
Provider - Provider Date of Admission: 06/24/18 12:42 Attending physician: Antonette Broderick MD Primary care physician: None Consults: 06/24/18 15:14 Wound Care [Nursing Referral for Wound Care] Routine Comment: Physician Instructions: Reason For Exam: redness under abdominal fold 06/25/18 08:58 Hematology Oncology Consult Routine Comment: Consulting Provider: Alex Garcia Consulting Physician: Alex Garcia Reason for Consult: anemia, remarkably elevated ferritin, Time Spent in preparation of Discharge (in minutes): 45 Diagnosis - Discharge Diagnosis (1) Hypothyroidism (acquired) Status: Acute Comment: --Levothyroxine 100mcg PO daily was initiated. (2) Microcytic anemia Status: Acute Comment: --Decreased iron, increased Ferritin, elevated ESR. Likely anemia of chronic disease due to Hx of rheumatoid arthritis. (3) Diabetes mellitus type 2 in nonobese Status: Acute Comment: --Glipizide stopped due to hypoglycemia. HbA1c 5.5. Needs follow-up. (4) Hypertension Status: Acute Comment: --Losartan stopped due to acute kidney injury and decreased renal function. Norvasc 5mg was started. Hospital Course - Lab Results Lab Results: Micro Results 06/24/18 12:04 Blood-Venous Blood Culture - Preliminary NO GROWTH AFTER 48 HOURS 06/24/18 20:16 Urine Urine Culture - Final Lactobacillus Species Most Recent Lab Values WBC 4.1 K/uL (4.8-10.8) L 06/26/18 05:37 RBC 3.11 Mil/uL (3.80-5.20) L 06/26/18 05:37 Hgb 8.1 g/dL (12.0-16.0) L 06/26/18 05:37 Hct 25.2 % (34.0-47.0) L 06/26/18 05:37 MCV 81.0 fl (81.0-99.0) 06/26/18 05:37 MCH 26.1 pg (27.0-31.0) L 06/26/18 05:37 MCHC 32.2 g/dL (33.0-37.0) L 06/26/18 05:37 RDW 18.8 % (11.5-14.5) H 06/26/18 05:37 Plt Count 316 K/uL (130-400) 06/26/18 05:37 MPV 7.7 fl (7.2-11.7) 06/25/18 06:10 Neut % (Auto) 82.8 % (50.0-75.0) H 06/25/18 06:10 Lymph % (Auto) 7.6 % (20.0-40.0) L 06/25/18 06:10 [place] % (Auto) 5.4 % (0.0-10.0) 06/25/18 06:10 Eos % (Auto) 4.1 % (0.0-4.0) H 06/25/18 06:10 Baso % (Auto) 0.1 % (0.0-2.0) 06/25/18 06:10 Neut # (Auto) 4.3 K/uL (1.8-7.0) 06/25/18 06:10 Lymph # (Auto) 0.4 K/uL (1.0-4.3) L 06/25/18 06:10 [place] # (Auto) 0.3 K/uL (0.0-0.8) 06/25/18 06:10 Eos # (Auto) 0.2 K/uL (0.0-0.7) 06/25/18 06:10 Baso # (Auto) 0.0 K/uL (0.0-0.2) 06/25/18 06:10 Neutrophils % (Manual) 85 % (42-75) H 06/24/18 12:04 Band Neutrophils % 1 % (0-2) 06/24/18 12:04 Lymphocytes % (Manual) 5 % (20-50) L 06/24/18 12:04 Monocytes % (Manual) 6 % (0-10) 06/24/18 12:04 Eosinophils % (Manual) 2 % (0-7) 06/24/18 12:04 Basophils % (Manual) 1 % (0-2) 06/24/18 12:04 Platelet Estimate Increased (NORMAL) H 06/24/18 12:04 Plt Clumps, EDTA Present 06/24/18 12:04 Large Platelets Present 06/24/18 12:04 Hypochromasia (manual) Moderate 06/24/18 12:04 Anisocytosis (manual) Slight 06/24/18 12:04 Ovalocytes Slight 06/24/18 12:04 ESR > 120 mm/hr (0-30) H 06/25/18 06:10 Retic Count 1.7 % (0.5-1.5) H 06/25/18 06:10 pO2 45 mm/Hg (30-55) 06/24/18 12:02 VBG pH 7.39 (7.32-7.43) 06/24/18 12:02 VBG pCO2 44 mmHg (40-60) 06/24/18 12:02 VBG HCO3 25.4 mmol/L 06/24/18 12:02 VBG Total CO2 28.0 mmol/L (22-28) 06/24/18 12:02 VBG O2 Sat (Calc) 83.6 % (40-65) H 06/24/18 12:02 VBG Base Excess 1.2 mmol/L (0.0-2.0) 06/24/18 12:02 VBG Potassium 4.5 mmol/L (3.6-5.2) 06/24/18 12:02 A-a O2 Difference 50.0 mm/Hg 06/24/18 12:02 Sodium 135.0 mmol/L (132-148) 06/24/18 12:02 Chloride 104.0 mmol/L (98-107) 06/24/18 12:02 Glucose 110 mg/dL (65-105) H 06/24/18 12:02 Lactate 1.7 mmol/L (0.7-2.1) 06/24/18 12:02 FiO2 21.0 % 06/24/18 12:02 Sodium 138 mmol/l (132-148) 06/26/18 05:37 Potassium 4.3 MMOL/L (3.6-5.0) 06/26/18 05:37 Chloride 109 mmol/L (98-107) H 06/26/18 05:37 Carbon Dioxide 24 mmol/L (22-30) 06/26/18 05:37 Anion Gap 9 (10-20) L 06/26/18 05:37 BUN 23 mg/dl (7-17) H 06/26/18 05:37 Creatinine 1.4 mg/dl (0.7-1.2) H 06/26/18 05:37 Est GFR ( Amer) 46 06/26/18 05:37 Est GFR (Non-Af Amer) 38 06/26/18 05:37 POC Glucose (mg/dL) 100 mg/dL (65-110) 06/26/18 11:01 Random Glucose 83 mg/dL (65-105) 06/26/18 05:37 Hemoglobin A1c 5.5 % (4.2-6.5) 06/25/18 06:10 Calcium 8.5 mg/dL (8.4-10.2) 06/26/18 05:37 Iron 24 ug/dL (37-170) L 06/25/18 06:10 TIBC 216 ug/dL (250-450) L 06/25/18 06:10 % Saturation 11 % (20-55) L 06/25/18 06:10 Ferritin 275.0 ng/Ml (11.1-264.0) H 06/25/18 06:10 Total Bilirubin 0.1 mg/dl (0.2-1.3) L 06/26/18 05:37 AST 35 U/L (14-36) 06/26/18 05:37 ALT 37 U/L (9-52) 06/26/18 05:37 Alkaline Phosphatase 67 U/L (38-126) 06/26/18 05:37 Total Protein 6.4 G/DL (6.3-8.2) 06/26/18 05:37 Albumin 2.5 g/dL (3.5-5.0) L D 06/26/18 05:37 Globulin 3.9 gm/dL (2.2-3.9) 06/26/18 05:37 Albumin/Globulin Ratio 0.7 (1.0-2.1) L 06/26/18 05:37 Triglycerides 75 mg/DL (0-149) 06/25/18 06:10 Cholesterol 101 mg/dL (0-199) 06/25/18 06:10 LDL Cholesterol Direct 49 mg/dL (0-129) 06/25/18 06:10 HDL Cholesterol 41 MG/DL (30-70) 06/25/18 06:10 Vitamin B12 287 pg/mL (239-931) 06/25/18 06:10 25-OH Vitamin D Total 17.4 NG/ML (30.0-100.0) L 06/25/18 06:10 Free T4 0.44 ng/dL (0.78-2.19) L 06/25/18 06:10 Total T3 0.536 nmol/L (1.49-2.60) L 06/25/18 06:10 TSH 3rd Generation 61.30 mIU/ML (0.46-4.68) H 06/25/18 06:10 Venous Blood Potassium 4.5 mmol/L (3.6-5.2) 06/24/18 12:02 Urine Color Yellow (YELLOW) 06/24/18 20:16 Urine Clarity Slighty-cloudy (Clear) 06/24/18 20:16 Urine pH 5.0 (5.0-8.0) 06/24/18 20:16 Ur Specific [place] 1.016 (1.003-1.030) 06/24/18 20:16 Urine Protein 30 mg/dL (NEGATIVE) 06/24/18 20:16 Urine Glucose (UA) Neg mg/dL (NEGATIVE) 06/24/18 20:16 Urine Ketones Negative mg/dL (NEGATIVE) 06/24/18 20:16 Urine Blood Negative (NEGATIVE) 06/24/18 20:16 Urine Nitrate Negative (NEGATIVE) 06/24/18 20:16 Urine Bilirubin Negative (NEGATIVE) 06/24/18 20:16 Urine Urobilinogen 0.2-1.0 mg/dL (0.2-1.0) 06/24/18 20:16 Ur Leukocyte Esterase Neg Raya/uL (Negative) 06/24/18 20:16 Urine RBC (Auto) < 1 /hpf (0-3) 06/24/18 20:16 Urine Microscopic WBC 2 /hpf (0-5) 06/24/18 20:16 Ur Squamous Epith Cells 7 /hpf (0-5) H 06/24/18 20:16 Urine Bacteria Rare (<OCC) 06/24/18 20:16 Hyaline Casts 3-5 /hpf (0-2) H 06/24/18 20:16 Stool Occult Blood Negative (NEGATIVE) 06/25/18 18:00 Blood Type O POSITIVE 06/24/18 13:10 Blood Type Confirm O POSITIVE 06/24/18 13:36 Antibody Screen Negative 06/24/18 13:10 Crossmatch See Detail 06/24/18 13:10 BBK History Checked No verified bt 06/24/18 13:10 - Hospital Course Hospital Course: 62 y/o F with a PMHx of RA, DM2, ?CKD, HTN and HLD was brought to ED by family due to generalized weakness since 1.5 weeks ago and LOC. Pt admitted for evaluation and management of generalized weakness, symptomatic anemia and possible syncope. -Hgb of 7.6 at ED. Pt was transfused 1 unit of PRBC's. Hgb dropped to 7.4. Likely duet to hemoconcentration caused by dehydration from first sample. -Labwoors remarkable for microcytic anemia, low serum iron, elevated ferritin, elevated ESR, elevated reticulocyte count. Hematology was consulted, recommended not to start iron supplementation and repeat CBC in 1 month. Procrit was adminitered today. 2 days of IM Cyanocobalamine was administered. -TSH 61.3-high, FT4 0.44-low. -Head CT: No acute intracranial abnormality. Echocardiogram: LVEF 60-65%, grade I abnormal relaxation.US of b/l carotids: Unremarkable, <50% stenosis. --Pt was initiated on Levothyroxine 100mcg PO daily. Due to MINNIE, Losartan was discontinued and PO Norvasc initiated. Pt presented hypoglycemia episodes and HgbA1c was 5.5, Glipizide was stopped. Procrit was adminitered today. 2 days of IM Cyanocobalamine was administered. Lipid panel was under control. Simvastatin was reinitiated; however, recommend to stop if bilateral leg weakness and pain persists. --Today. pt reported feeling well, no acute complaints, weakness remarkably improved, renal function improved, Hgb of 8.1, was able to walk around with walker. Pt afebrile, tolerating PO, is dicharged home with the following medications. Medication List: >Levothyroxine 100mcg tab PO daily >Amlodipine 5 mf PO daily >Nystatin Powder, to apply to L inguinal and abdomen folds 3times a day. >Vitamin B-12 tablets, 1 tab PO daily >Continue: -Metoprolol Succincate ER 100mg PO daily -Simvastatin 40mg PO daily -Gabapentin 400mg PO nightly --Appointment was made on 07/06/[address] Salinas at 09:20am. Niece was made aware of medication charge and patient f/u appointment. - Date & Time of H&P Date of H&P: 06/24/18 Time of H&P: 14:02 Discharge Exam - Head Exam Head Exam: ATRAUMATIC, NORMAL INSPECTION - Eye Exam Eye Exam: EOMI, Normal appearance - ENT Exam ENT Exam: Mucous Membranes Moist - Neck Exam Neck exam: Full Rom, Normal Inspection - Respiratory Exam Respiratory Exam: UNREMARKABLE. absent: Rhonchi, Wheezes, Respiratory Distress - Cardiovascular Exam Cardiovascular Exam: +S1, +S2 - GI/Abdominal Exam GI & Abdominal Exam: Normal Bowel Sounds, Soft. absent: Distended, Guarding, Tenderness - Back Exam Back exam: absent: CVA tenderness (L), CVA tenderness (R) - Neurological Exam Neurological exam: Alert, Oriented x3 Discharge Plan - Discharge Medications Prescriptions: amLODIPine [Norvasc] 5 mg PO DAILY 30 Days #30 tab Cyanocobalamin (Vitamin B-12) [Vitamin B12 68 mg-2 mg] 1 tab PO DAILY #30 tab Levothyroxine [Synthroid] 100 mcg PO DAILY@0630 60 Days #60 tab Nystatin [Nystop Topical Powder] 1 applic TOP TID #2 bottle - Follow Up Plan Condition: FAIR Disposition: HOME/ ROUTINE Instructions: Anemia of Chronic Disease Additional Instructions: --Appointment was made on 07/06/18 at 09:20am with Dr Salinas at [facility] ([address] [place] [address], [id number]) --Glipizide and Losartan were stopped. --Do not take Iron supplements yet. Medication List: >Levothyroxine 100mcg tab PO daily >Amlodipine 5 mf PO daily >Nystatin Powder, to apply to L inguinal and abdomen folds 3times a day. >Vitamin B-12 tablets, 1 tab PO daily >Continue: -Metoprolol Succincate ER 100mg PO daily -Simvastatin 40mg PO daily -Gabapentin 400mg PO nightly Referrals: [facility] [place] [Outside]
[2018-06-26 15:49] VITALS: BP 159/70; PULSE 88; TEMP 98; O2SAT 98
== END 2018-06-26 16:17 | disposition home or self-care (01) ==
LOC: H.ER 10:52 → H.ERHOLD 12:42 → H.TEL 14:56
PROVIDERS: ADMIT Hospitalist; ATTEND Hospitalist
DX: D50.9 Iron deficiency anemia, unspecified (principal); N17.9 Acute kidney failure, unspecified; D63.8 Anemia in other chronic diseases classified elsewhere; E86.0 Dehydration; E11.22 Type 2 diabetes mellitus with diabetic chronic kidney disease; E11.649 Type 2 diabetes mellitus with hypoglycemia without coma; E03.9 Hypothyroidism, unspecified; N18.9 Chronic kidney disease, unspecified; I12.9 Hypertensive chronic kidney disease with stage 1 through stage 4 chronic kidney disease, or unspecified chronic kidney disease; E11.42 Type 2 diabetes mellitus with diabetic polyneuropathy; B37.2 Candidiasis of skin and nail; R26.89 Other abnormalities of gait and mobility; M06.9 Rheumatoid arthritis, unspecified; E78.5 Hyperlipidemia, unspecified; E78.00 Pure hypercholesterolemia, unspecified; R70.0 Elevated erythrocyte sedimentation rate; Z23 Encounter for immunization; R29.6 Repeated falls; Z79.84 Long term (current) use of oral hypoglycemic drugs
CPT/HCPCS: 36415; 36430; 70450; 71045; 76770; 80048; 80053; 80061; 81003; 82306; 82607; 82728; 82803; 82948; 83036; 83540; 83550; 84439; 84443; 84480; 85025; 85027; 85044; 85651; 86038; 86850; 86900; 86920; 87040; 87086; 90471; 90674; 90732; 93005; 93306; 93880; 97162; 99285; G0328; G0378; G8978; G8979; J1650; J3420; J7030; P9051; Q4081

== ENCOUNTER 2018-08-31 14:06 | Inpatient (IN) | payer MEDICAID, SELFPAY ==
[2018-08-31 14:06] VITALS: BMI 29.2
[2018-08-31] MEDS ORDERED: Oxycodone/Acetaminophen 5/325 mg Tab PO STA (14:57)
--- NOTE | 2018-08-31 15:05 | ED PDOC ---
HPI: General Adult Time Seen by Provider: 08/31/18 14:40 Chief Complaint (Nursing): Weakness/Neurological Deficit Chief Complaint (Provider): Weakness/Neurological Deficit History Per: Patient, Family (niece) History/Exam Limitations: no limitations Onset/Duration Of Symptoms: Days (3x days) Current Symptoms Are (Timing): Still Present Severity: Moderate Additional Complaint(s): 62 year old female with a past medical history of hypertension and hypercholesterolemia presents to the ED for an evaluation of generalized weakness and altered mental status worsening for the past 3x days. As per patient's niece, patient has been increasingly disoriented and confused for the past 3x days. Patient also has been more weak, with less mobility, and has been falling asleep throughout the day, has been incontinent of urine, and has had a decrease in appetite. Patient also complains of worsening chronic body pain for the past 2x weeks. Niece also states that the wounds on the patient's lower extremities have opened and have been draining and odorous. Patient states that she has been taking aleve and tylenol (last dose was today) with no relief. Patient denies taking antibiotics for open leg wounds. Niece is unsure if patient has diabetes, a history of vascular problems, or dementia as the patient recently moved to the from [place] (6x months ago). Patient's niece spoke with today, who advised the patient be evaluated in the ED. Niece denies fevers, nausea, vomiting, cough,and shortness of breath. Of note: Patient was hospitalized 6x months ago for dehydration and a fall. PMD: Marie Salinas MD Past Medical History Reviewed: Historical Data, Nursing Documentation, Vital Signs Vital Signs: Last Vital Signs Temp 98.0 F 08/31/18 14:12 Pulse 89 08/31/18 14:50 Resp 17 08/31/18 14:50 BP 95/65 L 08/31/18 14:12 Pulse Ox 100 08/31/18 14:50 AVNI Report Viewed: Yes - Medical History PMH: Anemia, Arthritis, Diabetes, Fractures, HTN, Hypercholesterolemia, Chronic Kidney Disease, Rheumatoid Arthritis Denies: HIV, Hyperthyroidism, Hypothyroidism, Osteoporosis, Sickle Cell Disease - Surgical History Other surgeries: wrist surgery in [place]. brain aneurysm surgery 2x years ago [place] - Family History Family History: States: No Known Family Hx - Home Medications Home Medications: Ambulatory Orders Medication Instructions Recorded Gabapentin [Neurontin] 400 mg PO HS 06/24/18 Metoprolol Succinate 100 mg PO DAILY 06/24/18 Aspirin [Aspirin Chewable] 81 mg PO DAILY chew 06/26/18 Cyanocobalamin (Vitamin B-12) 1 tab PO DAILY #30 tab 06/26/18 [Vitamin B12 68 mg-2 mg] Levothyroxine [Synthroid] 100 mcg PO DAILY@0630 60 Days #60 06/26/18 tab amLODIPine [Norvasc] 5 mg PO DAILY 30 Days #30 tab 06/26/18 Acetaminophen [Tylenol Arthritis] 2 tab PO BID 08/31/18 - Allergies Allergies/Adverse Reactions: Allergies Allergy/AdvReac Type Severity Reaction Status Date / Time No Known Allergies Allergy Verified 06/24/18 11:09 Review of Systems Constitutional: Positive for: Weakness (increased), Other (lack of appetite). Negative for: Fever Respiratory: Negative for: Cough, Shortness of Breath Gastrointestinal: Negative for: Nausea, Vomiting Genitourinary Female: Positive for: Incontinence Musculoskeletal: Positive for: Other (worsening chronic body pain. opening of wounds with odorous draining on right heel, left foot, and left leg.) Neurological: Positive for: Altered Mental Status (confusion, disorientation) Physical Exam - Reviewed Nursing Documentation Reviewed: Yes Vital Signs Reviewed: Yes - Physical Exam Appears: Positive for: Well, Non-toxic, No Acute Distress Head Exam: Positive for: ATRAUMATIC, NORMOCEPHALIC Skin: Positive for: Normal Color, Warm, Dry Eye Exam: Positive for: Normal appearance, EOMI, PERRL ENT: Positive for: Normal ENT Inspection Cardiovascular/Chest: Positive for: Regular Rate, Rhythm Respiratory: Positive for: Normal Breath Sounds Pulses-Dorsalis Pedis (L): 2+ Pulses-Dorsalis Pedis (R): 2+ Gastrointestinal/Abdominal: Positive for: Normal Exam, Soft. Negative for: Tenderness Extremity: Positive for: Other (bilateral legs: no swelling. posterior aspect of right heel: 5 cm diameter dry wound. Lateral aspect of left foot: 5 cm diameter dry wound. Left lateral lower leg: ulcer 5 cm diameter with yellow discharge). Negative for: Swelling (no crepitus) Neurologic/Psych: Positive for: Alert, Oriented (3x) - Laboratory Results Result Diagrams: 08/31/18 15:30 08/31/18 15:30 - ECG ECG: Positive for: Interpreted By Me, Viewed By Me ECG Rhythm: Positive for: Sinus Rhythm (normal). Negative for: Normal QRS (abnormal), ST/T Changes Rate: 88 O2 Sat by Pulse Oximetry: 100 (RA) Pulse Ox Interpretation: Normal - CT Scan/US ct head w/o contrast Other Rad Studies (CT/US): Read By Radiologist, Radiology Report Reviewed (see MDM note) Medical Decision Making Medical Decision Makin:40 Initial impression: 62 year old female with open wounds of legs, generalized weakness, and altered mental status. Differential diagnoses include but are not limited to infection of the ulcers of the legs, dehydration, urinary tract infection, and acute renal failure. Less likely, but also to be considered are intracranial mass or bleeding, and CVA. Initial plan: * CT head w/o contrast * XRay foot left 3 views * Xray foot right 3 views * CMP * magnesium * phosphorous * dipstick * CBC with diff * erythrocyte sedimentation rate * PT and PTT * blood culture * urine culture * urinalysis * percocet 5/325 mg tab 1 tab PO * reevaluation 15:30 Discussed case with podiatry resident who will evaluate patient at bedside for infected foot ulcers and will consult for podiatry attending Dr. Brown. 15:43 CT head read and reviewed by radiologist FINDINGS: HEMORRHAGE: No intracranial hemorrhage. BRAIN: Good corticomedullary differentiation is seen. Reiterated diffuse cerebral a trophy and chronic microangiopathy. No suspicious extra-axial fluid collection is identified and the midline brain anatomy appears grossly nonfocal as imaged. No mass effect identified. 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 VENTRICLES: Unremarkable. No hydrocephalus. CALVARIUM: Unremarkable. PARANASAL SINUSES: Unremarkable as visualized. No significant inflammatory changes. MASTOID AIR CELLS: Unremarkable as visualized. No inflammatory changes. OTHER FINDINGS: None. IMPRESSION: No definite acute intracranial findings by standard CT criteria. 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 16:43 Spoke with regarding patient's admission. Patient will be admitted under Dr. Rousseau's service. Also discussed case with podiatry resident who recommends patient be admitted, be prescribed antibiotics, and have an MRI of lower extremities as per . ------ Scribe Attestation: Documented byNikia Back, acting as a scribe for Ca Sanchez MD. Provider Scribe Attestation: All medical record entries made by the Scribe were at my direction and personally dictated by me. I have reviewed the chart and agree that the record accurately reflects my personal performance of the history, physical exam, medical decision making, and the department course for this patient. I have also personally directed, reviewed, and agree with the discharge instructions and disposition. Disposition - Clinical Impression Clinical Impression: Anemia, Leg ulcer, Wound infection, Sepsis - Patient ED Disposition Is Patient to be Admitted: Yes Discussed With DrJoseph: Karoline Rousseau Doctor Will See Patient In The: ED Counseled Patient/Family Regarding: Studies Performed, Diagnosis - Disposition Disposition Time: 16:00 Condition: FAIR - Pt Status Changed To: Hospital Disposition Of: Inpatient - Admit Certification Admit to Inpatient:: After my assessment, the patient will require hospitalization for at least two midnights. This is because of the severity of symptoms shown, intensity of services needed, and/or the medical risk in this patient being treated as an outpatient. - POA Present On Arrival: Pressure Ulcer
[2018-08-31] MEDS ORDERED: Oxycodone/Acetaminophen 5/325 mg Tab ONE (15:07)
--- NOTE | 2018-08-31 15:47 | CT ---
Date of service: 08/31/2018 PROCEDURE: CT HEAD WITHOUT CONTRAST. HISTORY: AMS COMPARISON: Noncontrast head CT 06/24/2018. TECHNIQUE: Axial computed tomography images were obtained through the head/brain without intravenous contrast. Radiation dose: Total exam DLP = 835.28 mGy-cm. This CT exam was performed using one or more of the following dose reduction techniques: Automated exposure control, adjustment of the mA and/or kV according to patient size, and/or use of iterative reconstruction technique. FINDINGS: HEMORRHAGE: No intracranial hemorrhage. BRAIN: Good corticomedullary differentiation is seen. Reiterated diffuse cerebral atrophy and chronic microangiopathy. No suspicious extra-axial fluid collection is identified and the midline brain anatomy appears grossly nonfocal as imaged. No mass effect identified. 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 VENTRICLES: Unremarkable. No hydrocephalus. CALVARIUM: Unremarkable. PARANASAL SINUSES: Unremarkable as visualized. No significant inflammatory changes. MASTOID AIR CELLS: Unremarkable as visualized. No inflammatory changes. OTHER FINDINGS: None. IMPRESSION: No definite acute intracranial findings by standard CT criteria. 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
[2018-08-31 15:50] LABS: VENOUS BLOOD GAS BASE EXCESS 4.2 mmol/L (0.0-2.0); VENOUS BLOOD GAS PCO2 50 mmHg (40-60); VENOUS BLOOD GAS PO2 28 mm/Hg (30-55); VENOUS BLOOD PH 7.39 (7.32-7.43)
[2018-08-31 15:50] LABS: BASO % 0.3 % (0.0-2.0); EOS # 0.2 K/uL (0.0-0.7); EOS % 1.7 % (0.0-4.0); LYMPH # 0.6 K/uL (1.0-4.3); LYMPH % 6.2 % (20.0-40.0); MEAN CORPUSCULAR HEMOGLOBIN 25.5 pg (27.0-31.0); MEAN CORPUSCULAR HGB CONC 31.9 g/dL (33.0-37.0); MEAN PLATELET VOLUME 8.1 fl (7.2-11.7); MONO # 0.9 K/uL (0.0-0.8); MONO % 8.8 % (0.0-10.0); PLATELET COUNT 406 K/uL (130-400); RBC 3.14 Mil/uL (3.80-5.20); RED CELL DISTRIBUTION WIDTH 16.2 % (11.5-14.5); WHITE BLOOD COUNT 9.7 K/uL (4.8-10.8)
[2018-08-31] MEDS ORDERED: Povidone Iodine Oint 10% Foilpak UD ONE (15:57)
[2018-08-31 16:01] LABS: ALB/GLOB RATIO 0.7 (1.0-2.1); ALBUMIN 3.1 g/dL (3.5-5.0); CALCIUM 9.4 mg/dL (8.4-10.2)
[2018-08-31] MEDS ORDERED: Piperacillin/Tazobact 3.375 GM in Sodium Chloride 0.9% 100 ML IVPB STA (16:12)
[2018-08-31] MEDS ORDERED: Sodium Chloride 0.9% 1,000 ML IV STA (16:17)
--- NOTE | 2018-08-31 16:41 | CP.PCM.CON ---
History of Present Illness - History of Present Illness History of Present Illness: Podiatry consult note for attending Dr. Brown: 62 year old female with a past medical history of Rheumatoid arthritis, hypertension and hypercholesterolemia seen and evaluated in the ED for b/l LE ulcerations. Patient looks pale and toxic. Her family was at the bedside. As per patient's niece, patient has been increasingly disoriented and confused for the past 3x days. Patient also has been more weak, with less mobility, and has been falling asleep throughout the day and has had a decrease in appetite. Patient niece states that the patient has wounds in her bilateral lower extremities. She states that it started as hyperkeratotic lesions that was there since the patient came from [facility]. She states that 2 weeks ago it started to open and draining malodorous pus. Patient states that it's painful. Patient niece denies taking antibiotics for open leg wounds. Niece is unsure if patient has diabetes, a history of vascular problems, or dementia as the patient recently moved to the from [place] (6x months ago). As per the patient Niece there was no recent fevers, nausea, vomiting, cough,and shortness of breath. PMHx: RA, HTN and HLD. (?possible brain aneurysm as per niece, >5 years ago in [place]) PSHx: Left wrist fracture repair. Possible brain aneurism surgery? Allergies: NKDA Social Hx: denied tobacco, alcohol or rec drugs. Review of Systems - Review of Systems Review of Systems: As per HPI - Constitutional Constitutional: As Per HPI Past Patient History - Infectious Disease Hx of Infectious Diseases: None - Past Social History Smoking Status: Never Smoked - CARDIAC Hx Hypercholesterolemia: Yes Hx Hypertension: Yes - PULMONARY Hx Respiratory Disorders: No - NEUROLOGICAL Hx Neurological Disorder: No - HEENT Hx HEENT Problems: No - RENAL Hx Chronic Kidney Disease: Yes - ENDOCRINE/METABOLIC Hx Hyperthyroidism: No Hx Hypothyroidism: No - HEMATOLOGICAL/ONCOLOGICAL Hx Anemia: Yes Hx Human Immunodeficiency Virus (HIV): No Hx Sickle Cell Disease: No - INTEGUMENTARY Hx Dermatological Problems: No - MUSCULOSKELETAL/RHEUMATOLOGICAL Hx Arthritis: Yes Hx Fractures: Yes Hx Osteoporosis: No Hx Rheumatoid Arthritis: Yes - GASTROINTESTINAL Hx Gastrointestinal Disorders: No - GENITOURINARY/GYNECOLOGICAL Hx Genitourinary Disorders: No - PSYCHIATRIC Hx Psychophysiologic Disorder: No Hx Substance Use: No - SURGICAL HISTORY Hx Surgeries: Yes Other/Comment: left wrist surgery - ANESTHESIA Hx Anesthesia: Yes Hx Anesthesia Reactions: No Meds Allergies/Adverse Reactions: Allergies Allergy/AdvReac Type Severity Reaction Status Date / Time No Known Allergies Allergy Verified 06/24/18 11:09 - Medications Medications: Current Medications Collagenase (Santyl) 1 applic TOP DAILY SANDOR Vancomycin HCl 1 gm/ Sodium (Chloride) 250 mls @ 166.667 mls/hr IVPB STAT STA; Protocol Stop: 08/31/18 17:42 Piperacillin Sod/Tazobactam (Sod 3.375 gm/ Sodium Chloride) 100 mls @ 100 mls/hr IVPB STAT STA; Protocol Stop: 08/31/18 17:11 Sodium Chloride (Sodium Chloride 0.9%) 1,000 mls @ 1,000 mls/hr IV .Q1H STA Stop: 08/31/18 17:16 Physical Exam - Constitutional Appears: Toxic - Head Exam Head Exam: ATRAUMATIC - Extremities Exam Additional comments: B/L lower extremity focused exam: Vascular: DP/PT are 2/4 b/l, Cap refill < 3 seconds to all digits, Temp gradient warm to cool from proximal to distal, no edema appreciated to b/l extremities. Neuro: Gross sensation intact, protective sensation diminished. Derm: Left: An ulcer noted in the lateral aspect of the foot measuring 1.8 cm X 1.2 cm X 0.2 cm. Base is necrotic. Hyperkeratotic edges. positive purulent drainage noted. No tracking, positive undermining, No probe to bone. No delma-ulcerative erythema noted. Another ulcer noted in the left heel 4 cm X 2.3 cm X 0.4 cm. Base is necrotic. Hyperkeratotic edges. positive purulent drainage noted. positive tracking, positive undermining, Positive probe to bone. positive delma- ulcerative erythema noted. A third ulcer noted in the upper lateral aspect of the left leg measuring 1.5 cm X 1.2 cm X 0.1 cm. Base is necrotic. Hyperkeratotic edges. positive purulent drainage noted. No tracking, No undermining, Positive probe to bone. Delma-ulcerative erythema and induration noted. Right: ulcer noted in the left heel 3.6 cm X 1.8 cm X 0.4 cm. Base is necrotic. Hyperkeratotic edges. positive purulent drainage noted. positive tracking, positive undermining, Positive probe to bone. positive delma-ulcerative erythema noted. MSK: Muscle power 5/5 to all groups, Pain noted on palpating the delma- ulcerative areas. - Neurological Exam Neurological exam: Alert Results - Vital Signs Recent Vital Signs: Last Vital Signs Temp 98.0 F 08/31/18 14:12 Pulse 88 08/31/18 16:18 Resp 17 08/31/18 14:50 BP 95/65 L 08/31/18 14:12 Pulse Ox 100 08/31/18 16:18 - Labs Result Diagrams: 08/31/18 15:30 08/31/18 15:30 Labs: Laboratory Results - last 24 hr 08/31/18 08/31/18 08/31/18 15:30 15:30 15:47 WBC 9.7 D RBC 3.14 L Hgb 8.0 L Hct 25.1 L MCV 80.0 L MCH 25.5 L MCHC 31.9 L RDW 16.2 H Plt Count 406 H MPV 8.1 Neut % (Auto) 83.0 H Lymph % (Auto) 6.2 L [place] % (Auto) 8.8 Eos % (Auto) 1.7 Baso % (Auto) 0.3 Neut # (Auto) 8.0 H Lymph # (Auto) 0.6 L [place] # (Auto) 0.9 H Eos # (Auto) 0.2 Baso # (Auto) 0.0 pO2 28 L VBG pH 7.39 VBG pCO2 50 VBG HCO3 27.0 VBG Total CO2 31.8 H VBG O2 Sat (Calc) 52.9 VBG Base Excess 4.2 H VBG Potassium 4.3 Glucose 165 H Lactate 1.8 FiO2 21.0 Sodium 134 135.0 Potassium 4.5 Chloride 97 L 100.0 Carbon Dioxide 25 Anion Gap 17 BUN 26 H Creatinine 1.4 H Est GFR ( Amer) 46 Est GFR (Non-Af Amer) 38 Random Glucose 167 H Calcium 9.4 Phosphorus 4.2 Magnesium 2.3 Total Bilirubin 0.2 AST 26 ALT 13 Alkaline Phosphatase 96 Total Protein 7.7 Albumin 3.1 L Globulin 4.7 H Albumin/Globulin Ratio 0.7 L Venous Blood Potassium 4.3 Assessment & Plan - Assessment and Plan (Free Text) Assessment: 62 year old female with a past medical history of Rheumatoid arthritis, hypertension and hypercholesterolemia seen and evaluated in the ED for b/l LE ulcerations. Plan: Patient seen and evaluated at the ED. Discussed in detail with Dr. Brown Charts, labs and vitals reviewed; Afebrile, WBC 9.7. Wound culture collected and sent to lab. B/L foot 3 views X-ray; No acute findings LE CRISTIANE/PVR ordered. Ordered B/L foot MRI and left upper leg MRI B/L LE venous duplex orderd B/L ulcers cleaned with betadine then dressed with xeroform and DSD Ordered Santyl to be added to the dressing starting tomorrow. ID consulted. ID on board Reccs appreciated. Patient received stat dose of IV abx in the ED Patient will be admitted by the primary team. Thank you for the consult. Podiatry will follow up the patient while in house. - Date & Time Date: 08/31/18 Time: 17:01
[2018-08-31] MEDS ORDERED: Piperacillin/Tazobact 3.375 gm Inj IVPB ONE (16:49)
[2018-08-31] MEDS ORDERED: Vancomycin 1 g Inj ONE (16:50)
[2018-08-31 17:48] LABS: ANISOCYTOSIS MARKED; BANDS 4 % (0-2); HYPOCHROMIC MODERATE; LYMPHOCYTE 8 % (20-50); MICROCYTOSIS MODERATE; MONOCYTE 11 % (0-10); NEUTROPHIL 77 % (42-75); PLATELET ESTIMATE NORMAL (NORMAL); POIKILOCYTOSIS MODERATE; POLYCHROMIC SLIGHT; TOTAL CELLS COUNTED 100
[2018-08-31 17:49] LABS: OVALOCYTES SLIGHT; SCHISTOCYTES SLIGHT
--- NOTE | 2018-08-31 17:59 | RAD ---
Date of service: 08/31/2018 PROCEDURE: Bilateral ankles HISTORY: LE infection. R/O gas. COMPARISON: August 31, 2018 TECHNIQUE: Standard protocol for this study/examination. FINDINGS: Right ankle: Plantar and Achilles Tendon insertion calcaneal spurs. No fractures identified. Superficial ulcer adjacent to the calcaneus, by at least 16 mm of soft tissue. No osteomyelitis detected. Left ankle: Plantar and Achilles Tendon insertion calcaneal spurs. No fractures identified. Superficial ulcer from the adjacent calcaneus by 13 mm. IMPRESSION: Soft tissue findings/superficial ulcers. No radiographic manifestations of osteomyelitis.
--- NOTE | 2018-08-31 18:01 | RAD ---
PROCEDURE: Radiographs of the right great toe. TECHNIQUE:: AP radiograph of the right foot, with oblique and lateral view of the right great toe. COMPARISON: None. FINDINGS: BONES: No radiographic manifestations of acute osteomyelitis. JOINTS: Normal. SOFT TISSUES: Normal. OTHER FINDINGS: None. IMPRESSION: No acute findings/evidence of osteomyelitis.
--- NOTE | 2018-08-31 18:01 | RAD ---
Date of service: 08/31/2018 PROCEDURE: Left Foot Radiographs. HISTORY: left foot ulcer COMPARISON: None. FINDINGS: BONES: No radiographic evidence of osteomyelitis. JOINTS: Normal. SOFT TISSUES: Normal. OTHER FINDINGS: None. IMPRESSION: No acute findings related to/ accounting for the clinical presentation.
--- NOTE | 2018-08-31 18:02 | RAD ---
Date of service: Exam insert air singh 08/31/2018 PROCEDURE: Radiographs of the bilateral Tibiae and Fibulae. HISTORY: LE infection. R/O gas COMPARISON: None available. TECHNIQUE: Frontal and lateral views obtained. FINDINGS: BONES: RIGHT TIBIA: No fracture or destructive lesion. LEFT TIBIA: No fracture or destructive lesion. JOINT SPACES: RIGHT TIBIA: Normal. LEFT TIBIA: Normal. SOFT TISSUES: RIGHT TIBIA: Normal. LEFT TIBIA: Normal. OTHER FINDINGS: None. IMPRESSION: No acute findings, unremarkable radiographs of the bilateral tibia and fibula. No evidence of air/gas within visible soft tissues.
[2018-08-31 18:11] LABS: ERYTHROCYTE SEDIMENTATION RATE > 120 mm/hr (0-30)
[2018-08-31] MEDS ORDERED: Dextrose 50% SYRINGE Inj (50 ml) IV PRN (20:13)
[2018-08-31] MEDS ORDERED: Glucagon Recombinant 1 mg Inj IM PRN (20:13)
--- NOTE | 2018-08-31 20:31 | CP.PCM.HP ---
<Pieter Costello - Last Filed: 08/31/18 22:13> History of Present Illness - History of Present Illness History of Present Illness: History obtained from patient and niece at bedside and chart review. Pt is AOx2 Pt is a 62 y/o female with hx of HTN, DM, Hypothyroidism, Rheumatoid arthritis, Chronic foot ulcers, and brain aneurysm (repaired), brought to ED by niece on recommendation from her PMD for evaluation of foul odor drainage from her chronic foot/leg wounds. She also reports concern that for the past 2 weeks, she has been become more withdrawn, not speaking much, intermittently disoriented/confused and speaking incoherently. She also states her mobility has been more debilitated and unstable during this time. Niece states she believes she is "deeply depressed." Pt also states that she feels depressed. She denies passive/active suicidal thoughts. She denies any recent illness, fever/chills, difficulty breathing, n/v/d, hx of head trauma, or recent antibiotic use. ROS: +urinary incontinence (new) w/ foul odor urine, + Dysuria, constipation (chronic) PMD: Dr. Salinas PMHX: HTN, DM, Hypothyroidism, Rheumatoid arthritis, Chronic foot ulcers, and brain aneurysm (repaired) Hospitalizations: Last hospitalized in May for AMS, diagnosed and treated for dehydration with return of mental status to baseline PSurgHx: Left wrist fracture repair. Aneurysm Clipping? Allergies: NKDA Social Hx: denied tobacco, EOTH or rec drugs. Lives with sister. Ambulates with rolling walker. Niece denies hx of dementia Present on Admission - Present on Admission Any Indicators Present on Admission: No Review of Systems - Constitutional Constitutional: Frequent Falls, Weakness. absent: Fever - Cardiovascular Cardiovascular: Leg Ulcers. absent: Chest Pain, Dyspnea - Respiratory Respiratory: absent: Cough - Gastrointestinal Gastrointestinal: Constipation. absent: Abdominal Pain - Genitourinary Genitourinary: Urinary Incontinence. absent: Dysuria - Musculoskeletal Musculoskeletal: Arthralgias - Neurological Neurological: Behavioral Changes, Confusion - Psychiatric Psychiatric: Depression Past Patient History - Infectious Disease Hx of Infectious Diseases: None - Past Social History Smoking Status: Never Smoked - CARDIAC Hx Hypercholesterolemia: Yes Hx Hypertension: Yes - PULMONARY Hx Respiratory Disorders: No - NEUROLOGICAL Hx Neurological Disorder: No - HEENT Hx HEENT Problems: No - RENAL Hx Chronic Kidney Disease: Yes - ENDOCRINE/METABOLIC Hx Hyperthyroidism: No Hx Hypothyroidism: No - HEMATOLOGICAL/ONCOLOGICAL Hx Anemia: Yes Hx Human Immunodeficiency Virus (HIV): No Hx Sickle Cell Disease: No - INTEGUMENTARY Hx Dermatological Problems: No - MUSCULOSKELETAL/RHEUMATOLOGICAL Hx Arthritis: Yes Hx Fractures: Yes Hx Osteoporosis: No Hx Rheumatoid Arthritis: Yes - GASTROINTESTINAL Hx Gastrointestinal Disorders: No - GENITOURINARY/GYNECOLOGICAL Hx Genitourinary Disorders: No - PSYCHIATRIC Hx Psychophysiologic Disorder: No Hx Substance Use: No - SURGICAL HISTORY Hx Surgeries: Yes Other/Comment: left wrist surgery - ANESTHESIA Hx Anesthesia: Yes Hx Anesthesia Reactions: No Meds Allergies/Adverse Reactions: Allergies Allergy/AdvReac Type Severity Reaction Status Date / Time No Known Allergies Allergy Verified 06/24/18 11:09 Physical Exam - Constitutional Appears: No Acute Distress (Comfortable appearing elderly female, answers questions appropriately ) - Head Exam Head Exam: NORMAL INSPECTION - Eye Exam Eye Exam: Normal appearance - ENT Exam ENT Exam: Mucous Membranes Moist - Neck Exam Neck exam: Positive for: Full Rom - Respiratory Exam Respiratory Exam: Clear to Auscultation Bilateral. absent: Accessory Muscle Us e, Rales, Wheezes - Cardiovascular Exam Cardiovascular Exam: REGULAR RHYTHM. absent: Systolic Murmur - GI/Abdominal Exam GI & Abdominal Exam: Normal Bowel Sounds, Soft. absent: Distended, Tenderness - Extremities Exam Extremities exam: Negative for: pedal edema Additional comments: Both extremities wrapped in bandage, toes visible which are warm with good capillary refill and no motor/sensory grossly in tact. Popliteal pulse weakly palpable BL. - Back Exam Back exam: absent: CVA tenderness (L), CVA tenderness (R) - Neurological Exam Neurological exam: Alert (Alert, oriented to name and time only) - Psychiatric Exam Psychiatric exam: Normal Affect - Skin Skin Exam: Normal Color Results - Vital Signs Recent Vital Signs: Last Vital Signs Temp 98.3 F 08/31/18 17:05 Pulse 88 08/31/18 17:05 Resp 18 08/31/18 17:05 BP 147/80 08/31/18 17:05 Pulse Ox 100 08/31/18 17:05 - Labs Result Diagrams: 08/31/18 15:30 08/31/18 15:30 Labs: Laboratory Results - last 24 hr 08/31/18 08/31/18 08/31/18 15:30 15:30 15:47 WBC 9.7 D RBC 3.14 L Hgb 8.0 L Hct 25.1 L MCV 80.0 L MCH 25.5 L MCHC 31.9 L RDW 16.2 H Plt Count 406 H MPV 8.1 Neut % (Auto) 83.0 H Lymph % (Auto) 6.2 L Owsley % (Auto) 8.8 Eos % (Auto) 1.7 Baso % (Auto) 0.3 Neut # (Auto) 8.0 H Lymph # (Auto) 0.6 L Owsley # (Auto) 0.9 H Eos # (Auto) 0.2 Baso # (Auto) 0.0 Neutrophils % (Manual) 77 H Band Neutrophils % 4 H Lymphocytes % (Manual) 8 L Monocytes % (Manual) 11 H Platelet Estimate Normal Polychromasia Slight Hypochromasia (manual) Moderate Poikilocytosis (manual Moderate Anisocytosis (manual) Marked Microcytosis (manual) Moderate Ovalocytes Slight Schistocytes Slight ESR > 120 H pO2 28 L VBG pH 7.39 VBG pCO2 50 VBG HCO3 27.0 VBG Total CO2 31.8 H VBG O2 Sat (Calc) 52.9 VBG Base Excess 4.2 H VBG Potassium 4.3 Glucose 165 H Lactate 1.8 FiO2 21.0 Sodium 134 135.0 Potassium 4.5 Chloride 97 L 100.0 Carbon Dioxide 25 Anion Gap 17 BUN 26 H Creatinine 1.4 H Est GFR ( Amer) 46 Est GFR (Non-Af Amer) 38 Random Glucose 167 H Calcium 9.4 Phosphorus 4.2 Magnesium 2.3 Total Bilirubin 0.2 AST 26 ALT 13 Alkaline Phosphatase 96 Total Protein 7.7 Albumin 3.1 L Globulin 4.7 H Albumin/Globulin Ratio 0.7 L Venous Blood Potassium 4.3 Blood Type Antibody Screen BBK History Checked 08/31/18 16:45 WBC RBC Hgb Hct MCV MCH MCHC RDW Plt Count MPV Neut % (Auto) Lymph % (Auto) Owsley % (Auto) Eos % (Auto) Baso % (Auto) Neut # (Auto) Lymph # (Auto) Owsley # (Auto) Eos # (Auto) Baso # (Auto) Neutrophils % (Manual) Band Neutrophils % Lymphocytes % (Manual) Monocytes % (Manual) Platelet Estimate Polychromasia Hypochromasia (manual) Poikilocytosis (manual Anisocytosis (manual) Microcytosis (manual) Ovalocytes Schistocytes ESR pO2 VBG pH VBG pCO2 VBG HCO3 VBG Total CO2 VBG O2 Sat (Calc) VBG Base Excess VBG Potassium Glucose Lactate FiO2 Sodium Potassium Chloride Carbon Dioxide Anion Gap BUN Creatinine Est GFR ( Amer) Est GFR (Non-Af Amer) Random Glucose Calcium Phosphorus Magnesium Total Bilirubin AST ALT Alkaline Phosphatase Total Protein Albumin Globulin Albumin/Globulin Ratio Venous Blood Potassium Blood Type O POSITIVE Antibody Screen Negative BBK History Checked Patient has bt Assessment & Plan - Assessment and Plan (Free Text) Assessment: Pt is a 62 y/o female with hx of HTN, DM, Hypothyroidism, Rheumatoid arthritis, Chronic foot ulcers admitted for multiple foot/leg ulcers w/ foul odor drainage, elevated ESR, Bandemia, and Altered mental status x2 weeks. #Multiple Foot Ulcers, Bilaterally - Wound probed to bone by Podiatry, strong suspicion for Osteomyelitis - Afebrile, No leukocytosis, +Bandemia 4, Lactate normal, ESR 120 - S/P Vanco and Zosyn in ED and 1L NS Bolus - Will continue w/ Vanco and Zosyn - Pain Scale as ordered - Podiatry consulted, Dr. Brown - ID Consulted, Dr. Contreras - Wound Care Nursing, tight glycemic control, offloading from ulcers - F/U MRI: Ankle and foot BL ordered - F/U Duplex Vein BL - F/U CBC, Bcx, Wcx #Worsening Mental status - Family noted decline in neuromental status over 2 weeks - May be encephalopathy related to acute infection vs pseudodementia vs uncontrolled hypothyroidism - Head CT negative for acute process; old infarcts and age related degenerative changes seen - Neurochecks q4 - Treat all possible reversible processes; if persists consider Psych consult for possible dementia/behavior disorder/depression #Urinary Incontinence - New as per niece - May have underlying infection considering dysuria and foul odor urine - No urinary retention on exam - F/U Ucx #CKD - Stable - Crea 1.4, GFR 38 (Basline Crea 1.4-1.5, GFR 35-38) - Likely related to P-ANCA (glomerular disease) vs DM/HTN - Renal dose adjustments for nephrotoxic medication (check Vanco trough) #Hypothyroidism -Last TSH 61, T3 0.53, T4 0.4 from May -Will repeat as low thyroid function can influence mentation (myxedematous psychosis?) -C/W with home medication, Levothyroxine 100mg daily #Rheumatoid Arthritis -Pain controlled with Tylenol -Prior labs reviewed: +RF, +Anti CCP, + pANCa #Anemia - Hg 8 (Baseline 7-8), MCV 80 - Anemia workup in last admission revealed Anemia of Chronic Disease and B12 def - C/W B12 oral meds - Monitor H/H #Poor mobility/Debilitation - OT for ADL's - PT to be ordered for gait/mobility/strength pending weight bearing status from Podiatry #DVT ppx -Lovenox 40mg SQ daily given CreaCl >40 -Will avoid SCD given active ulcers Code status to be established once family has discussion, Full Code for now Next of Kin (Niece): Danni Discussed case with Dr. Soham Costello, PGY2 <Karoline Rousseau - Last Filed: 09/01/18 18:59> Results - Vital Signs Recent Vital Signs: Last Vital Signs Temp 98.9 F 09/01/18 18:16 Pulse 86 09/01/18 18:16 Resp 18 09/01/18 18:16 BP 145/82 09/01/18 18:16 Pulse Ox 99 09/01/18 16:31 - Labs Result Diagrams: 09/01/18 05:55 09/01/18 05:55 Labs: Laboratory Results - last 24 hr 08/31/18 08/31/18 08/31/18 16:45 17:03 22:35 WBC RBC Hgb Hct MCV MCH MCHC RDW Plt Count MPV Neut % (Auto) Lymph % (Auto) Owsley % (Auto) Eos % (Auto) Baso % (Auto) Neut # (Auto) Lymph # (Auto) Owsley # (Auto) Eos # (Auto) Baso # (Auto) Sodium Potassium Chloride Carbon Dioxide Anion Gap BUN Creatinine Est GFR ( Amer) Est GFR (Non-Af Amer) POC Glucose (mg/dL) 125 H Random Glucose Calcium Iron TIBC % Saturation Ferritin C-Reactive Protein 167.60 H Thyroxine (T4) TSH 3rd Generation Urine Color Urine Clarity Urine pH Ur Specific Rosalia Urine Protein Urine Glucose (UA) Urine Ketones Urine Blood Urine Nitrate Urine Bilirubin Urine Urobilinogen Ur Leukocyte Esterase Urine RBC (Auto) Urine Microscopic WBC Ur Squamous Epith Cells Urine Bacteria Hyaline Casts Blood Type O POSITIVE Antibody Screen Negative Crossmatch See Detail BBK History Checked Patient has bt 09/01/18 09/01/18 09/01/18 05:28 05:55 05:55 WBC 7.5 RBC 2.62 L Hgb 6.8 L Hct 20.8 L MCV 79.2 L MCH 25.8 L MCHC 32.6 L RDW 16.5 H Plt Count 348 MPV 8.3 Neut % (Auto) 81.8 H Lymph % (Auto) 6.6 L Owsley % (Auto) 8.6 Eos % (Auto) 2.8 Baso % (Auto) 0.2 Neut # (Auto) 6.1 Lymph # (Auto) 0.5 L Owsley # (Auto) 0.6 Eos # (Auto) 0.2 Baso # (Auto) 0.0 Sodium 134 Potassium 4.1 Chloride 98 Carbon Dioxide 27 Anion Gap 13 BUN 21 H Creatinine 1.4 H Est GFR ( Amer) 46 Est GFR (Non-Af Amer) 38 POC Glucose (mg/dL) 85 Random Glucose 85 Calcium 8.7 Iron TIBC % Saturation Ferritin C-Reactive Protein Thyroxine (T4) 6.55 TSH 3rd Generation 5.47 H Urine Color Urine Clarity Urine pH Ur Specific Rosalia Urine Protein Urine Glucose (UA) Urine Ketones Urine Blood Urine Nitrate Urine Bilirubin Urine Urobilinogen Ur Leukocyte Esterase Urine RBC (Auto) Urine Microscopic WBC Ur Squamous Epith Cells Urine Bacteria Hyaline Casts Blood Type Antibody Screen Crossmatch BBK History Checked 09/01/18 09/01/18 09/01/18 09:15 09:15 10:31 WBC RBC Hgb Hct MCV MCH MCHC RDW Plt Count MPV Neut % (Auto) Lymph % (Auto) Owsley % (Auto) Eos % (Auto) Baso % (Auto) Neut # (Auto) Lymph # (Auto) Owsley # (Auto) Eos # (Auto) Baso # (Auto) Sodium Potassium Chloride Carbon Dioxide Anion Gap BUN Creatinine Est GFR ( Amer) Est GFR (Non-Af Amer) POC Glucose (mg/dL) 141 H Random Glucose Calcium Iron 13 L TIBC 180 L % Saturation 7 L Ferritin 318.0 H C-Reactive Protein Thyroxine (T4) TSH 3rd Generation Urine Color Urine Clarity Urine pH Ur Specific Rosalia Urine Protein Urine Glucose (UA) Urine Ketones Urine Blood Urine Nitrate Urine Bilirubin Urine Urobilinogen Ur Leukocyte Esterase Urine RBC (Auto) Urine Microscopic WBC Ur Squamous Epith Cells Urine Bacteria Hyaline Casts Blood Type Antibody Screen Crossmatch BBK History Checked 09/01/18 09/01/18 13:00 15:45 WBC RBC Hgb Hct MCV MCH MCHC RDW Plt Count MPV Neut % (Auto) Lymph % (Auto) Owsley % (Auto) Eos % (Auto) Baso % (Auto) Neut # (Auto) Lymph # (Auto) Owsley # (Auto) Eos # (Auto) Baso # (Auto) Sodium Potassium Chloride Carbon Dioxide Anion Gap BUN Creatinine Est GFR ( Amer) Est GFR (Non-Af Amer) POC Glucose (mg/dL) 113 H Random Glucose Calcium Iron TIBC % Saturation Ferritin C-Reactive Protein Thyroxine (T4) TSH 3rd Generation Urine Color Yellow Urine Clarity Cloudy Urine pH 5.0 Ur Specific Rosalia 1.019 Urine Protein 30 Urine Glucose (UA) Neg Urine Ketones Negative Urine Blood Small Urine Nitrate Negative Urine Bilirubin Negative Urine Urobilinogen 0.2-1.0 Ur Leukocyte Esterase Neg Urine RBC (Auto) 5 H Urine Microscopic WBC 1 Ur Squamous Epith Cells 8 H Urine Bacteria Rare Hyaline Casts 0-2 Blood Type Antibody Screen Crossmatch BBK History Checked Attending/Attestation - Attestation I have personally seen and examined this patient.: Yes I have fully participated in the care of the patient.: Yes I have reviewed all pertinent clinical information: Yes Notes (Text): 09/01/18 18:59 agree with findings and plan as above
[2018-08-31] MEDS: Insulin Regular 100 units/ml SC SCH (22:50)
[2018-09-01] MEDS: Oxycodone/Acetaminophen 5/325 mg Tab PO PRN ×3 (03:31→23:36)
[2018-09-01] MEDS: Levothyroxine 100 MCG TAB PO SCH (06:09)
[2018-09-01 06:32] LABS: BASO % 0.2 % (0.0-2.0); EOS # 0.2 K/uL (0.0-0.7); EOS % 2.8 % (0.0-4.0); HEMOGLOBIN 6.8 g/dL (12.0-16.0); LYMPH # 0.5 K/uL (1.0-4.3); LYMPH % 6.6 % (20.0-40.0); MEAN CELL VOLUME 79.2 fl (81.0-99.0); MEAN CORPUSCULAR HEMOGLOBIN 25.8 pg (27.0-31.0); MEAN CORPUSCULAR HGB CONC 32.6 g/dL (33.0-37.0); MEAN PLATELET VOLUME 8.3 fl (7.2-11.7); MONO # 0.6 K/uL (0.0-0.8); MONO % 8.6 % (0.0-10.0); NEUT # 6.1 K/uL (1.8-7.0); NEUT % 81.8 % (50.0-75.0); RBC 2.62 Mil/uL (3.80-5.20); RED CELL DISTRIBUTION WIDTH 16.5 % (11.5-14.5); WHITE BLOOD COUNT 7.5 K/uL (4.8-10.8)
[2018-09-01 07:14] LABS: CALCIUM 8.7 mg/dL (8.4-10.2)
[2018-09-01] MEDS ORDERED: Enoxaparin 30 mg Syringe SC SCH (09:00)
[2018-09-01] MEDS: Insulin Regular 100 units/ml SC SCH ×4 (09:27→21:51)
[2018-09-01] MEDS: Pantoprazole 40 mg EC Tab PO SCH (09:28)
[2018-09-01] MEDS: Santyl Collagenase OINTMENT TOP SCH (09:28)
--- NOTE | 2018-09-01 09:30 | CP.PCM.CON ---
History of Present Illness - History of Present Illness History of Present Illness: Infectious Disease Consultation Note- HPI- History obtained from pt's niece who is at her bedside. Pt. is a 62 year old female with PMH of DM II, HTN, hypothyroidism, RA, , brain aneurysm s/p repair who was brought to ED because her niece noticed that pt. is more confused and dioriented and she also noticed foul odor from the feet of the patient. The pt. is found to have multiple chronic ulcers in her ankle and feet and the niece does not know how long these lesions have been there. pt. lives alone but her sister and niece check in on her. pt. found to have multiple chronic ulers of her feet and based on MRI found to be OM of the b/l ankles and right heel. as per niece pt. does not walk at home . pt. currently is awake and alert and she states she feels better than on admission. denies any fever or chills, denies any ROMERO, denies any cough or sob, denies any chest pain, denies any abd. pain, denies any nausea, denies any diarrhea, denies any dysurea. has pain in b/l feet . Review of Systems - Review of Systems Review of Systems: ROS- as stated in HPI. Past Patient History - Infectious Disease Hx of Infectious Diseases: None - Past Medical History & Family History Past Medical History?: Yes - Past Social History Smoking Status: Never Smoked - CARDIAC Hx Cardiac Disorders: Yes Hx Hypercholesterolemia: Yes Hx Hypertension: Yes - PULMONARY Hx Respiratory Disorders: No - NEUROLOGICAL Hx Neurological Disorder: No - HEENT Hx HEENT Problems: No - RENAL Hx Chronic Kidney Disease: Yes - ENDOCRINE/METABOLIC Hx Endocrine Disorders: No Hx Hyperthyroidism: No Hx Hypothyroidism: No - HEMATOLOGICAL/ONCOLOGICAL Hx Blood Disorders: Yes Hx Anemia: Yes Hx Sickle Cell Disease: No - INTEGUMENTARY Hx Dermatological Problems: No - MUSCULOSKELETAL/RHEUMATOLOGICAL Hx Musculoskeletal Disorders: Yes Hx Arthritis: Yes Hx Falls: Yes - GASTROINTESTINAL Hx Gastrointestinal Disorders: No - GENITOURINARY/GYNECOLOGICAL Hx Genitourinary Disorders: No - PSYCHIATRIC Hx Psychophysiologic Disorder: No Hx Substance Use: No - SURGICAL HISTORY Hx Surgeries: Yes Other/Comment: left wrist surgery, brain surgery - ANESTHESIA Hx Anesthesia: Yes Hx Anesthesia Reactions: No Meds Allergies/Adverse Reactions: Allergies Allergy/AdvReac Type Severity Reaction Status Date / Time No Known Allergies Allergy Verified 06/24/18 11:09 - Medications Medications: Current Medications Acetaminophen (Tylenol 325mg Tab) 650 mg PO Q6 PRN PRN Reason: Pain, Mild (1-3) Acetaminophen (Tylenol 325mg Tab) 650 mg PO Q6 PRN PRN Reason: Fever >100.4 F Aspirin (Aspirin Chewable) 81 mg PO DAILY [facility] Collagenase (Santyl) 1 applic TOP DAILY [facility] Cyanocobalamin (Vitamin B12 1000 Mcg Tab) 1,000 mcg PO DAILY [facility] Dextrose (Dextrose 50% Inj) 0 ml IV STAT PRN; Protocol PRN Reason: Hypoglycemia Protocol Dextrose (Glutose 15) 0 gm PO ONCE PRN; Protocol PRN Reason: Hypoglycemia Protocol Glucagon (Glucagen Diagnostic Kit) 0 mg IM STAT PRN; Protocol PRN Reason: Hypoglycemia Protocol Vancomycin HCl 500 mg/ Sodium (Chloride) 100 mls @ 100 mls/hr IVPB Q12 [facility]; Protocol Piperacillin Sod/Tazobactam (Sod 2.25 gm/ Sodium Chloride) 100 mls @ 100 mls/hr IVPB Q6H [facility]; Protocol Last Admin: 09/01/18 06:09 Dose: 100 mls/hr Insulin Human Regular (Humulin R) 0 units SC ACHS [facility]; Protocol Last Admin: 08/31/18 22:50 Dose: Not Given Levothyroxine Sodium (Synthroid) 100 mcg PO DAILY@0630 [facility] Last Admin: 09/01/18 06:09 Dose: 100 mcg Ondansetron HCl (Zofran Inj) 4 mg IVP Q6 PRN PRN Reason: Nausea/Vomiting Oxycodone/Acetaminophen (Percocet 5/325 Mg Tab) 1 tab PO Q6 PRN PRN Reason: Pain, moderate (4-7) Stop: 09/03/18 19:46 Last Admin: 09/01/18 03:31 Dose: 1 tab Pantoprazole Sodium (Protonix Ec Tab) 40 mg PO DAILY [facility] Physical Exam - Constitutional Appears: No Acute Distress - Eye Exam Eye Exam: EOMI - ENT Exam ENT Exam: Normal Oropharynx - Neck Exam Neck exam: Positive for: Full Rom - Respiratory Exam Respiratory Exam: Clear to Auscultation Bilateral, NORMAL BREATHING PATTERN - Cardiovascular Exam Cardiovascular Exam: RRR, +S1, +S2 - GI/Abdominal Exam GI & Abdominal Exam: Normal Bowel Sounds, Soft Additional comments: NT, ND - Extremities Exam Additional comments: left lateral ankle with 2 round ulcerated lesions with necrosis in middle, malodor present, no active discharge left lateral patellar region also with ulcerated ncrotic round lesion right heel region with larger uler with central necrosis and underlying scant discharge with malodor no erythema of the surrounding skin - Neurological Exam Neurological exam: Alert Additional comments: AAO x 2 - Additional Findings Additional findings: Laboratory Results - last 72 hr 08/31/18 08/31/18 08/31/18 15:30 15:30 15:47 WBC 9.7 D RBC 3.14 L Hgb 8.0 L Hct 25.1 L MCV 80.0 L MCH 25.5 L MCHC 31.9 L RDW 16.2 H Plt Count 406 H MPV 8.1 Neut % (Auto) 83.0 H Lymph % (Auto) 6.2 L [place] % (Auto) 8.8 Eos % (Auto) 1.7 Baso % (Auto) 0.3 Neut # (Auto) 8.0 H Lymph # (Auto) 0.6 L [place] # (Auto) 0.9 H Eos # (Auto) 0.2 Baso # (Auto) 0.0 Neutrophils % (Manual) 77 H Band Neutrophils % 4 H Lymphocytes % (Manual) 8 L Monocytes % (Manual) 11 H Platelet Estimate Normal Polychromasia Slight Hypochromasia (manual) Moderate Poikilocytosis (manual Moderate Anisocytosis (manual) Marked Microcytosis (manual) Moderate Ovalocytes Slight Schistocytes Slight ESR > 120 H pO2 28 L VBG pH 7.39 VBG pCO2 50 VBG HCO3 27.0 VBG Total CO2 31.8 H VBG O2 Sat (Calc) 52.9 VBG Base Excess 4.2 H VBG Potassium 4.3 Glucose 165 H Lactate 1.8 FiO2 21.0 Sodium 134 135.0 Potassium 4.5 Chloride 97 L 100.0 Carbon Dioxide 25 Anion Gap 17 BUN 26 H Creatinine 1.4 H Est GFR ( Amer) 46 Est GFR (Non-Af Amer) 38 POC Glucose (mg/dL) Random Glucose 167 H Calcium 9.4 Phosphorus 4.2 Magnesium 2.3 Iron TIBC % Saturation Ferritin Total Bilirubin 0.2 AST 26 ALT 13 Alkaline Phosphatase 96 C-Reactive Protein Total Protein 7.7 Albumin 3.1 L Globulin 4.7 H Albumin/Globulin Ratio 0.7 L Thyroxine (T4) TSH 3rd Generation Venous Blood Potassium 4.3 Urine Color Urine Clarity Urine pH Ur Specific [place] Urine Protein Urine Glucose (UA) Urine Ketones Urine Blood Urine Nitrate Urine Bilirubin Urine Urobilinogen Ur Leukocyte Esterase Urine RBC (Auto) Urine Microscopic WBC Ur Squamous Epith Cells Urine Bacteria Hyaline Casts Blood Type Antibody Screen Crossmatch BBK History Checked 08/31/18 08/31/18 08/31/18 16:45 17:03 22:35 WBC RBC Hgb Hct MCV MCH MCHC RDW Plt Count MPV Neut % (Auto) Lymph % (Auto) [place] % (Auto) Eos % (Auto) Baso % (Auto) Neut # (Auto) Lymph # (Auto) [place] # (Auto) Eos # (Auto) Baso # (Auto) Neutrophils % (Manual) Band Neutrophils % Lymphocytes % (Manual) Monocytes % (Manual) Platelet Estimate Polychromasia Hypochromasia (manual) Poikilocytosis (manual Anisocytosis (manual) Microcytosis (manual) Ovalocytes Schistocytes ESR pO2 VBG pH VBG pCO2 VBG HCO3 VBG Total CO2 VBG O2 Sat (Calc) VBG Base Excess VBG Potassium Glucose Lactate FiO2 Sodium Potassium Chloride Carbon Dioxide Anion Gap BUN Creatinine Est GFR ( Amer) Est GFR (Non-Af Amer) POC Glucose (mg/dL) 125 H Random Glucose Calcium Phosphorus Magnesium Iron TIBC % Saturation Ferritin Total Bilirubin AST ALT Alkaline Phosphatase C-Reactive Protein 167.60 H Total Protein Albumin Globulin Albumin/Globulin Ratio Thyroxine (T4) TSH 3rd Generation Venous Blood Potassium Urine Color Urine Clarity Urine pH Ur Specific [place] Urine Protein Urine Glucose (UA) Urine Ketones Urine Blood Urine Nitrate Urine Bilirubin Urine Urobilinogen Ur Leukocyte Esterase Urine RBC (Auto) Urine Microscopic WBC Ur Squamous Epith Cells Urine Bacteria Hyaline Casts Blood Type O POSITIVE Antibody Screen Negative Crossmatch See Detail BBK History Checked Patient has bt 09/01/18 09/01/18 09/01/18 05:28 05:55 05:55 WBC 7.5 RBC 2.62 L Hgb 6.8 L Hct 20.8 L MCV 79.2 L MCH 25.8 L MCHC 32.6 L RDW 16.5 H Plt Count 348 MPV 8.3 Neut % (Auto) 81.8 H Lymph % (Auto) 6.6 L [place] % (Auto) 8.6 Eos % (Auto) 2.8 Baso % (Auto) 0.2 Neut # (Auto) 6.1 Lymph # (Auto) 0.5 L [place] # (Auto) 0.6 Eos # (Auto) 0.2 Baso # (Auto) 0.0 Neutrophils % (Manual) Band Neutrophils % Lymphocytes % (Manual) Monocytes % (Manual) Platelet Estimate Polychromasia Hypochromasia (manual) Poikilocytosis (manual Anisocytosis (manual) Microcytosis (manual) Ovalocytes Schistocytes ESR pO2 VBG pH VBG pCO2 VBG HCO3 VBG Total CO2 VBG O2 Sat (Calc) VBG Base Excess VBG Potassium Glucose Lactate FiO2 Sodium 134 Potassium 4.1 Chloride 98 Carbon Dioxide 27 Anion Gap 13 BUN 21 H Creatinine 1.4 H Est GFR ( Amer) 46 Est GFR (Non-Af Amer) 38 POC Glucose (mg/dL) 85 Random Glucose 85 Calcium 8.7 Phosphorus Magnesium Iron TIBC % Saturation Ferritin Total Bilirubin AST ALT Alkaline Phosphatase C-Reactive Protein Total Protein Albumin Globulin Albumin/Globulin Ratio Thyroxine (T4) 6.55 TSH 3rd Generation 5.47 H Venous Blood Potassium Urine Color Urine Clarity Urine pH Ur Specific [place] Urine Protein Urine Glucose (UA) Urine Ketones Urine Blood Urine Nitrate Urine Bilirubin Urine Urobilinogen Ur Leukocyte Esterase Urine RBC (Auto) Urine Microscopic WBC Ur Squamous Epith Cells Urine Bacteria Hyaline Casts Blood Type Antibody Screen Crossmatch BBK History Checked 09/01/18 09/01/18 09/01/18 09:15 09:15 10:31 WBC RBC Hgb Hct MCV MCH MCHC RDW Plt Count MPV Neut % (Auto) Lymph % (Auto) [place] % (Auto) Eos % (Auto) Baso % (Auto) Neut # (Auto) Lymph # (Auto) [place] # (Auto) Eos # (Auto) Baso # (Auto) Neutrophils % (Manual) Band Neutrophils % Lymphocytes % (Manual) Monocytes % (Manual) Platelet Estimate Polychromasia Hypochromasia (manual) Poikilocytosis (manual Anisocytosis (manual) Microcytosis (manual) Ovalocytes Schistocytes ESR pO2 VBG pH VBG pCO2 VBG HCO3 VBG Total CO2 VBG O2 Sat (Calc) VBG Base Excess VBG Potassium Glucose Lactate FiO2 Sodium Potassium Chloride Carbon Dioxide Anion Gap BUN Creatinine Est GFR ( Amer) Est GFR (Non-Af Amer) POC Glucose (mg/dL) 141 H Random Glucose Calcium Phosphorus Magnesium Iron 13 L TIBC 180 L % Saturation 7 L Ferritin 318.0 H Total Bilirubin AST ALT Alkaline Phosphatase C-Reactive Protein Total Protein Albumin Globulin Albumin/Globulin Ratio Thyroxine (T4) TSH 3rd Generation Venous Blood Potassium Urine Color Urine Clarity Urine pH Ur Specific [place] Urine Protein Urine Glucose (UA) Urine Ketones Urine Blood Urine Nitrate Urine Bilirubin Urine Urobilinogen Ur Leukocyte Esterase Urine RBC (Auto) Urine Microscopic WBC Ur Squamous Epith Cells Urine Bacteria Hyaline Casts Blood Type Antibody Screen Crossmatch BBK History Checked 09/01/18 09/01/18 13:00 15:45 WBC RBC Hgb Hct MCV MCH MCHC RDW Plt Count MPV Neut % (Auto) Lymph % (Auto) [place] % (Auto) Eos % (Auto) Baso % (Auto) Neut # (Auto) Lymph # (Auto) [place] # (Auto) Eos # (Auto) Baso # (Auto) Neutrophils % (Manual) Band Neutrophils % Lymphocytes % (Manual) Monocytes % (Manual) Platelet Estimate Polychromasia Hypochromasia (manual) Poikilocytosis (manual Anisocytosis (manual) Microcytosis (manual) Ovalocytes Schistocytes ESR pO2 VBG pH VBG pCO2 VBG HCO3 VBG Total CO2 VBG O2 Sat (Calc) VBG Base Excess VBG Potassium Glucose Lactate FiO2 Sodium Potassium Chloride Carbon Dioxide Anion Gap BUN Creatinine Est GFR ( Amer) Est GFR (Non-Af Amer) POC Glucose (mg/dL) 113 H Random Glucose Calcium Phosphorus Magnesium Iron TIBC % Saturation Ferritin Total Bilirubin AST ALT Alkaline Phosphatase C-Reactive Protein Total Protein Albumin Globulin Albumin/Globulin Ratio Thyroxine (T4) TSH 3rd Generation Venous Blood Potassium Urine Color Yellow Urine Clarity Cloudy Urine pH 5.0 Ur Specific [place] 1.019 Urine Protein 30 Urine Glucose (UA) Neg Urine Ketones Negative Urine Blood Small Urine Nitrate Negative Urine Bilirubin Negative Urine Urobilinogen 0.2-1.0 Ur Leukocyte Esterase Neg Urine RBC (Auto) 5 H Urine Microscopic WBC 1 Ur Squamous Epith Cells 8 H Urine Bacteria Rare Hyaline Casts 0-2 Blood Type Antibody Screen Crossmatch BBK History Checked Microbiology 08/31/18 16:00 Foot - Left Gram Stain - Final 08/31/18 15:36 Drainage Gram Stain - Final 08/31/18 15:45 Blood Blood Culture - Preliminary NO GROWTH AFTER 24 HOURS 08/31/18 15:30 Blood Blood Culture - Preliminary NO GROWTH AFTER 24 HOURS Results - Vital Signs Recent Vital Signs: Last Vital Signs Temp 98.2 F 09/01/18 07:43 Pulse 83 09/01/18 07:43 Resp 19 09/01/18 07:43 BP 139/70 09/01/18 07:43 Pulse Ox 98 09/01/18 07:43 - Labs Result Diagrams: 09/01/18 05:55 09/01/18 05:55 Labs: Laboratory Results - last 24 hr 08/31/18 08/31/18 08/31/18 15:30 15:30 15:47 WBC 9.7 D RBC 3.14 L Hgb 8.0 L Hct 25.1 L MCV 80.0 L MCH 25.5 L MCHC 31.9 L RDW 16.2 H Plt Count 406 H MPV 8.1 Neut % (Auto) 83.0 H Lymph % (Auto) 6.2 L [place] % (Auto) 8.8 Eos % (Auto) 1.7 Baso % (Auto) 0.3 Neut # (Auto) 8.0 H Lymph # (Auto) 0.6 L [place] # (Auto) 0.9 H Eos # (Auto) 0.2 Baso # (Auto) 0.0 Neutrophils % (Manual) 77 H Band Neutrophils % 4 H Lymphocytes % (Manual) 8 L Monocytes % (Manual) 11 H Platelet Estimate Normal Polychromasia Slight Hypochromasia (manual) Moderate Poikilocytosis (manual Moderate Anisocytosis (manual) Marked Microcytosis (manual) Moderate Ovalocytes Slight Schistocytes Slight ESR > 120 H pO2 28 L VBG pH 7.39 VBG pCO2 50 VBG HCO3 27.0 VBG Total CO2 31.8 H VBG O2 Sat (Calc) 52.9 VBG Base Excess 4.2 H VBG Potassium 4.3 Glucose 165 H Lactate 1.8 FiO2 21.0 Sodium 134 135.0 Potassium 4.5 Chloride 97 L 100.0 Carbon Dioxide 25 Anion Gap 17 BUN 26 H Creatinine 1.4 H Est GFR ( Amer) 46 Est GFR (Non-Af Amer) 38 POC Glucose (mg/dL) Random Glucose 167 H Calcium 9.4 Phosphorus 4.2 Magnesium 2.3 Total Bilirubin 0.2 AST 26 ALT 13 Alkaline Phosphatase 96 Total Protein 7.7 Albumin 3.1 L Globulin 4.7 H Albumin/Globulin Ratio 0.7 L Thyroxine (T4) TSH 3rd Generation Venous Blood Potassium 4.3 Blood Type Antibody Screen Crossmatch BBK History Checked 08/31/18 08/31/18 09/01/18 16:45 22:35 05:28 WBC RBC Hgb Hct MCV MCH MCHC RDW Plt Count MPV Neut % (Auto) Lymph % (Auto) [place] % (Auto) Eos % (Auto) Baso % (Auto) Neut # (Auto) Lymph # (Auto) [place] # (Auto) Eos # (Auto) Baso # (Auto) Neutrophils % (Manual) Band Neutrophils % Lymphocytes % (Manual) Monocytes % (Manual) Platelet Estimate Polychromasia Hypochromasia (manual) Poikilocytosis (manual Anisocytosis (manual) Microcytosis (manual) Ovalocytes Schistocytes ESR pO2 VBG pH VBG pCO2 VBG HCO3 VBG Total CO2 VBG O2 Sat (Calc) VBG Base Excess VBG Potassium Glucose Lactate FiO2 Sodium Potassium Chloride Carbon Dioxide Anion Gap BUN Creatinine Est GFR ( Amer) Est GFR (Non-Af Amer) POC Glucose (mg/dL) 125 H 85 Random Glucose Calcium Phosphorus Magnesium Total Bilirubin AST ALT Alkaline Phosphatase Total Protein Albumin Globulin Albumin/Globulin Ratio Thyroxine (T4) TSH 3rd Generation Venous Blood Potassium Blood Type O POSITIVE Antibody Screen Negative Crossmatch See Detail BBK History Checked Patient has bt 09/01/18 09/01/18 05:55 05:55 WBC 7.5 RBC 2.62 L Hgb 6.8 L Hct 20.8 L MCV 79.2 L MCH 25.8 L MCHC 32.6 L RDW 16.5 H Plt Count 348 MPV 8.3 Neut % (Auto) 81.8 H Lymph % (Auto) 6.6 L [place] % (Auto) 8.6 Eos % (Auto) 2.8 Baso % (Auto) 0.2 Neut # (Auto) 6.1 Lymph # (Auto) 0.5 L [place] # (Auto) 0.6 Eos # (Auto) 0.2 Baso # (Auto) 0.0 Neutrophils % (Manual) Band Neutrophils % Lymphocytes % (Manual) Monocytes % (Manual) Platelet Estimate Polychromasia Hypochromasia (manual) Poikilocytosis (manual Anisocytosis (manual) Microcytosis (manual) Ovalocytes Schistocytes ESR pO2 VBG pH VBG pCO2 VBG HCO3 VBG Total CO2 VBG O2 Sat (Calc) VBG Base Excess VBG Potassium Glucose Lactate FiO2 Sodium 134 Potassium 4.1 Chloride 98 Carbon Dioxide 27 Anion Gap 13 BUN 21 H Creatinine 1.4 H Est GFR ( Amer) 46 Est GFR (Non-Af Amer) 38 POC Glucose (mg/dL) Random Glucose 85 Calcium 8.7 Phosphorus Magnesium Total Bilirubin AST ALT Alkaline Phosphatase Total Protein Albumin Globulin Albumin/Globulin Ratio Thyroxine (T4) 6.55 TSH 3rd Generation 5.47 H Venous Blood Potassium Blood Type Antibody Screen Crossmatch BBK History Checked Microbiology 08/31/18 16:00 Foot - Left Gram Stain - Final 08/31/18 15:36 Drainage Gram Stain - Final 08/31/18 15:45 Blood Blood Culture - Preliminary NO GROWTH AFTER 24 HOURS 08/31/18 15:30 Blood Blood Culture - Preliminary NO GROWTH AFTER 24 HOURS Assessment & Plan (1) Leg ulcer Status: Acute (2) Wound infection Status: Acute (3) Diabetes mellitus type 2 in nonobese Status: Acute (4) Osteomyelitis Status: Acute - Assessment and Plan (Free Text) Assessment: A/P- 62 year old female with multiple medical conditions and chronic foot and ankle ulcers admitted with infection of these ulcers . afebrile normal wbc High ESR MRI report as per radiology b/l ankle bone OM and right heel OM. blood cx- neg x 2 wound cx- pending Plan- pending wound cx result advise to continue with current abx regimen of zosyna nd vanco. keep vanco trough <15. based on OM pt. will need at least 4-6 weeks of abx pending wound cx result. also she will need wound care and possible debridement of the ulcers by podiatry. all above d/w patietn and her niece and with . all their questions were answered. Thank you for allowing me to take part in the care of this patient.
[2018-09-01 10:10] LABS: IRON 13 ug/dL (37-170)
[2018-09-01 10:20] LABS: % IRON SATURATION 7 % (20-55); TOTAL IRON BINDING CAPACITY 180 ug/dL (250-450)
--- NOTE | 2018-09-01 10:56 | CP.PCM.PN ---
Subjective - Date & Time of Evaluation Date of Evaluation: 09/01/18 Time of Evaluation: 10:49 - Subjective Subjective: Podiatry consult note for attending Dr. Brown: 62 year old female patient seen and evaluated in the bedside for b/l LE infected ulcerations. Patient states that she is feeling better today but she still have pain in her lower extremities. Patient denies any overnight acute events. Patient denies any overnight fevers, nausea, vomiting, cough,and shortness of breath. She denies any other pedal complaint at this time Objective - Vital Signs/Intake and Output Vital Signs (last 24 hours): Temp Pulse Resp BP Pulse Ox 98.2 F 83 19 139/70 98 09/01/18 07:43 09/01/18 07:43 09/01/18 07:43 09/01/18 07:43 09/01/18 07:43 - Medications Medications: Current Medications Acetaminophen (Tylenol 325mg Tab) 650 mg PO Q6 PRN PRN Reason: Pain, Mild (1-3) Acetaminophen (Tylenol 325mg Tab) 650 mg PO Q6 PRN PRN Reason: Fever >100.4 F Aspirin (Aspirin Chewable) 81 mg PO DAILY [facility] Collagenase (Santyl) 1 applic TOP DAILY [facility] Last Admin: 09/01/18 09:28 Dose: 1 appl Cyanocobalamin (Vitamin B12 1000 Mcg Tab) 1,000 mcg PO DAILY [facility] Last Admin: 09/01/18 09:28 Dose: 1,000 mcg Dextrose (Dextrose 50% Inj) 0 ml IV STAT PRN; Protocol PRN Reason: Hypoglycemia Protocol Dextrose (Glutose 15) 0 gm PO ONCE PRN; Protocol PRN Reason: Hypoglycemia Protocol Glucagon (Glucagen Diagnostic Kit) 0 mg IM STAT PRN; Protocol PRN Reason: Hypoglycemia Protocol Vancomycin HCl 500 mg/ Sodium (Chloride) 100 mls @ 100 mls/hr IVPB Q12 [facility]; Protocol Last Admin: 09/01/18 09:55 Dose: 100 mls/hr Piperacillin Sod/Tazobactam (Sod 2.25 gm/ Sodium Chloride) 100 mls @ 100 mls/hr IVPB Q6H [facility]; Protocol Last Admin: 09/01/18 06:09 Dose: 100 mls/hr Insulin Human Regular (Humulin R) 0 units SC ACHS [facility]; Protocol Last Admin: 09/01/18 09:27 Dose: Not Given Levothyroxine Sodium (Synthroid) 100 mcg PO DAILY@0630 [facility] Last Admin: 09/01/18 06:09 Dose: 100 mcg Ondansetron HCl (Zofran Inj) 4 mg IVP Q6 PRN PRN Reason: Nausea/Vomiting Oxycodone/Acetaminophen (Percocet 5/325 Mg Tab) 1 tab PO Q6 PRN PRN Reason: Pain, moderate (4-7) Stop: 09/03/18 19:46 Last Admin: 09/01/18 09:35 Dose: 1 tab Pantoprazole Sodium (Protonix Ec Tab) 40 mg PO DAILY [facility] Last Admin: 09/01/18 09:28 Dose: 40 mg Sodium Hypochlorite (Dakins Solution 0.125%) 1 appl EXT DAILY [facility] - Labs Labs: 09/01/18 05:55 09/01/18 05:55 - Head Exam Head Exam: ATRAUMATIC, NORMOCEPHALIC - Extremities Exam Additional comments: B/L lower extremity focused exam: Vascular: DP/PT are 2/4 b/l, Cap refill < 3 seconds to all digits, Temp gradient warm to cool from proximal to distal, no edema appreciated to b/l extremities. Neuro: Gross sensation intact, protective sensation diminished. Derm: Left: An ulcer noted in the lateral aspect of the foot measuring 1.8 cm X 1.2 cm X 0.2 cm. Base is necrotic. Hyperkeratotic edges. positive purulent drainage noted. No tracking, positive undermining, No probe to bone. No diana-ulcerative erythema noted. Another ulcer noted in the left heel 4 cm X 2.3 cm X 0.4 cm. Base is necrotic. Hyperkeratotic edges. positive purulent drainage noted. positive tracking, positive undermining, Positive probe to bone. positive diana- ulcerative erythema noted. A third ulcer noted in the upper lateral aspect of the left leg measuring 1.5 cm X 1.2 cm X 0.1 cm. Base is necrotic. Hyperkeratotic edges. positive purulent drainage noted. No tracking, No undermining, Positive probe to bone. Diana-ulcerative erythema and induration noted. Right: ulcer noted in the left heel 3.6 cm X 1.8 cm X 0.4 cm. Base is necrotic. Hyperkeratotic edges. positive purulent drainage noted. positive tracking, positive undermining, Positive probe to bone. positive diana-ulcerative erythema noted. MSK: Muscle power 5/5 to all groups, Pain noted on palpating the diana- ulcerative areas. - Neurological Exam Neurological Exam: Alert, Awake, Oriented x3 - Psychiatric Exam Psychiatric exam: Normal Affect, Normal Mood Assessment and Plan - Assessment and Plan (Free Text) Assessment: 62 year old female patient seen and evaluated in the bedside for b/l LE infected ulcerations. Plan: Patient seen and evaluated at the bedside. Discussed in detail with Dr. Stephanie Marroquin [employer] service used for translation, Number; [id number]. Charts, labs and vitals reviewed; Afebrile, WBC 7.5. Wound culture: Pending. B/L foot x-ray: No evidence of OM B/L ankle x-ray: Superficial ulcerations. B/L tib/fibula x-ray: No acute findings. LE CRISTIANE/PVR: Pending report. B/L foot MRI: Pending report. B/L ankle MRI: Pending report. Left upper leg MRI: Pending report. B/L LE venous duplex ordered B/L ulcers cleaned with saline then dressed with santyl and DSD. Ordered dakins to clean the ulcers, starting tomorrow. Ordered multipodus boot. Patient to stay in the multipodus boot while in bed. Ordered PT evaluation for offloading heel shoe. Patient to bear weight as tolerated in the heel offloading shoe. ID on board Reccs appreciated. Patient to continue IV abx as per ID. Podiatry will continue to follow up the patient while in house.
--- NOTE | 2018-09-01 11:26 | CP.PCM.PN ---
<Josie Harvey - Last Filed: 09/01/18 12:10> Subjective - Date & Time of Evaluation Date of Evaluation: 09/01/18 Time of Evaluation: 10:49 - Subjective Subjective: Progress note for Dr. Rousseau, 62 yo female seen and evaluated at bedside. Patients niece is noted to be at bedside. Patient is noted to be alert and awake. Denies weakness or pain in her legs. Denies acute overnight events. She denies any recent illness, fever/chills, difficulty breathing, n/v/d, hx of head trauma, or recent antibiotic use. Objective - Vital Signs/Intake and Output Vital Signs (last 24 hours): Temp Pulse Resp BP Pulse Ox 98.2 F 83 19 139/70 98 09/01/18 07:43 09/01/18 07:43 09/01/18 07:43 09/01/18 07:43 09/01/18 07:43 - Medications Medications: Current Medications Acetaminophen (Tylenol 325mg Tab) 650 mg PO Q6 PRN PRN Reason: Pain, Mild (1-3) Acetaminophen (Tylenol 325mg Tab) 650 mg PO Q6 PRN PRN Reason: Fever >100.4 F Aspirin (Aspirin Chewable) 81 mg PO DAILY [facility] Collagenase (Santyl) 1 applic TOP DAILY [facility] Last Admin: 09/01/18 09:28 Dose: 1 appl Cyanocobalamin (Vitamin B12 1000 Mcg Tab) 1,000 mcg PO DAILY [facility] Last Admin: 09/01/18 09:28 Dose: 1,000 mcg Dextrose (Dextrose 50% Inj) 0 ml IV STAT PRN; Protocol PRN Reason: Hypoglycemia Protocol Dextrose (Glutose 15) 0 gm PO ONCE PRN; Protocol PRN Reason: Hypoglycemia Protocol Glucagon (Glucagen Diagnostic Kit) 0 mg IM STAT PRN; Protocol PRN Reason: Hypoglycemia Protocol Vancomycin HCl 500 mg/ Sodium (Chloride) 100 mls @ 100 mls/hr IVPB Q12 [facility]; Protocol Last Admin: 09/01/18 09:55 Dose: 100 mls/hr Piperacillin Sod/Tazobactam (Sod 2.25 gm/ Sodium Chloride) 100 mls @ 100 mls/hr IVPB Q6H [facility]; Protocol Last Admin: 09/01/18 06:09 Dose: 100 mls/hr Insulin Human Regular (Humulin R) 0 units SC ACHS [facility]; Protocol Last Admin: 09/01/18 09:27 Dose: Not Given Levothyroxine Sodium (Synthroid) 100 mcg PO DAILY@0630 [facility] Last Admin: 09/01/18 06:09 Dose: 100 mcg Ondansetron HCl (Zofran Inj) 4 mg IVP Q6 PRN PRN Reason: Nausea/Vomiting Oxycodone/Acetaminophen (Percocet 5/325 Mg Tab) 1 tab PO Q6 PRN PRN Reason: Pain, moderate (4-7) Stop: 09/03/18 19:46 Last Admin: 09/01/18 09:35 Dose: 1 tab Pantoprazole Sodium (Protonix Ec Tab) 40 mg PO DAILY [facility] Last Admin: 09/01/18 09:28 Dose: 40 mg - Labs Labs: 09/01/18 05:55 09/01/18 05:55 - Constitutional Appears: Well, Non-toxic, No Acute Distress - Head Exam Head Exam: ATRAUMATIC, NORMOCEPHALIC - Eye Exam Eye Exam: Normal appearance Pupil Exam: NORMAL ACCOMODATION - ENT Exam ENT Exam: Mucous Membranes Moist - Respiratory Exam Respiratory Exam: Clear to Ausculation Bilateral, NORMAL BREATHING PATTERN - Cardiovascular Exam Cardiovascular Exam: REGULAR RHYTHM, +S1, +S2 - GI/Abdominal Exam GI & Abdominal Exam: Normal Bowel Sounds. absent: Distended, Tenderness - Extremities Exam Extremities Exam: Full ROM Additional comments: Both extremities wrapped in bandage, toes visible which are warm with good capillary refill and no motor/sensory grossly in tact. Popliteal pulse weakly palpable BL. - Neurological Exam Neurological Exam: Alert, Awake Assessment and Plan - Assessment and Plan (Free Text) Assessment: Pt is a 62 y/o female with hx of HTN, DM, Hypothyroidism, Rheumatoid arthritis, Chronic foot ulcers admitted for multiple foot/leg ulcers w/ foul odor drainage, elevated ESR, Bandemia, and Altered mental status x2 weeks. Plan: #Multiple Foot Ulcers, Bilaterally - Wound probed to bone by Podiatry, strong suspicion for Osteomyelitis - Afebrile, No leukocytosis, +Bandemia 4, Lactate normal, ESR 120 - Will continue w/ Vanco and Zosyn - Pain Scale as ordered - Podiatry consulted, Dr. Brown; recs appreciated - ID Consulted, Dr. Contreras - Wound Care Nursing, tight glycemic control, offloading from ulcers - F/U MRI: Ankle and foot BL: pending official read - F/U Duplex Vein BL - F/U Bcx, Wcx; pending - PICC Line ordered #Worsening Mental status - Family noted decline in neuromental status over 2 weeks - May be encephalopathy related to acute infection vs pseudodementia vs uncontrolled hypothyroidism - Head CT negative for acute process; old infarcts and age related degenerative changes seen - Neurochecks q4 - Treat all possible reversible processes; if persists consider Psych consult for possible dementia/behavior disorder/depression #Urinary Incontinence - May have underlying infection considering dysuria and foul odor urine - No urinary retention on exam - F/U Ucx #CKD - Stable - Crea 1.4, GFR 38 (Basline Crea 1.4-1.5, GFR 35-38) - Likely related to P-ANCA (glomerular disease) vs DM/HTN - Renal dose adjustments for nephrotoxic medication (check Vanco trough) #Hypothyroidism -TSH 5.47, T4 6.55 -C/W with home medication, Levothyroxine 100mg daily #Rheumatoid Arthritis -Pain controlled with Tylenol -Prior labs reviewed: +RF, +Anti CCP, + pANCa #Anemia - Hg 6.8 (Baseline 7-8), MCV 80 - Anemia workup in last admission revealed Anemia of Chronic Disease and B12 def - C/W B12 oral meds - Monitor H/H - 2 units of PRBC transfused after patients niece signed the consent. #Poor mobility/Debilitation - OT for ADL's - PT to be ordered for gait/mobility/strength pending weight bearing status from Podiatry #DVT ppx -Lovenox 40mg SQ daily given CreaCl >40 - Aspirin 81 mg PO - Hold off on anticoagulants secondary to low hgb -Will avoid SCD given active ulcers Code status to be established once family has discussion, Full Code for now Next of Kin (Niece): Danni <Karoline Rousseau - Last Filed: 09/01/18 18:59> Objective - Vital Signs/Intake and Output Vital Signs (last 24 hours): Temp Pulse Resp BP Pulse Ox 98.9 F 86 18 145/82 99 09/01/18 18:16 09/01/18 18:16 09/01/18 18:16 09/01/18 18:16 09/01/18 16:31 Intake and Output: 09/01/18 09/01/18 06:59 18:59 Intake Total 0 Balance 0 - Medications Medications: Current Medications Acetaminophen (Tylenol 325mg Tab) 650 mg PO Q6 PRN PRN Reason: Pain, Mild (1-3) Acetaminophen (Tylenol 325mg Tab) 650 mg PO Q6 PRN PRN Reason: Fever >100.4 F Aspirin (Aspirin Chewable) 81 mg PO DAILY [facility] Collagenase (Santyl) 1 applic TOP DAILY [facility] Last Admin: 09/01/18 09:28 Dose: 1 appl Cyanocobalamin (Vitamin B12 1000 Mcg Tab) 1,000 mcg PO DAILY [facility] Last Admin: 09/01/18 09:28 Dose: 1,000 mcg Dextrose (Dextrose 50% Inj) 0 ml IV STAT PRN; Protocol PRN Reason: Hypoglycemia Protocol Dextrose (Glutose 15) 0 gm PO ONCE PRN; Protocol PRN Reason: Hypoglycemia Protocol Enoxaparin Sodium (Lovenox) 40 mg SC DAILY [facility]; Protocol Glucagon (Glucagen Diagnostic Kit) 0 mg IM STAT PRN; Protocol PRN Reason: Hypoglycemia Protocol Vancomycin HCl 500 mg/ Sodium (Chloride) 100 mls @ 100 mls/hr IVPB Q12 [facility]; Protocol Last Admin: 09/01/18 09:55 Dose: 100 mls/hr Piperacillin Sod/Tazobactam (Sod 2.25 gm/ Sodium Chloride) 100 mls @ 100 mls/hr IVPB Q6H [facility]; Protocol Last Admin: 09/01/18 18:20 Dose: Not Given Insulin Human Regular (Humulin R) 0 units SC ACHS [facility]; Protocol Last Admin: 09/01/18 16:11 Dose: Not Given Levothyroxine Sodium (Synthroid) 100 mcg PO DAILY@0630 [facility] Last Admin: 09/01/18 06:09 Dose: 100 mcg Ondansetron HCl (Zofran Inj) 4 mg IVP Q6 PRN PRN Reason: Nausea/Vomiting Oxycodone/Acetaminophen (Percocet 5/325 Mg Tab) 1 tab PO Q6 PRN PRN Reason: Pain, moderate (4-7) Stop: 09/03/18 19:46 Last Admin: 09/01/18 09:35 Dose: 1 tab Pantoprazole Sodium (Protonix Ec Tab) 40 mg PO DAILY [facility] Last Admin: 09/01/18 09:28 Dose: 40 mg Sodium Hypochlorite (Dakins Solution 0.125%) 1 appl EXT DAILY [facility] - Labs Labs: 09/01/18 05:55 09/01/18 05:55 Attending/Attestation - Attestation I have personally seen and examined this patient.: Yes I have fully participated in the care of the patient.: Yes I have reviewed all pertinent clinical information, including history, physical exam and plan: Yes Notes (Text): 09/01/18 18:59 agree with findings and plan as above
--- NOTE | 2018-09-01 12:39 | MRI ---
Date of service: 08/31/2018 PROCEDURE: MRI Right Ankle HISTORY: Pain. COMPARISON: None available. TECHNIQUE: Multiecho multiplanar sequences were performed through the right ankle without the use of intravenous contrast. FINDINGS: ANTERIOR EXTENSOR TENDONS: No intrinsic signal abnormality identified. MEDIAL FLEXOR TENDONS: No intrinsic signal abnormality identified. PERONEAL TENDONS: No intrinsic signal abnormality identified. ANTERIOR INFERIOR TIBIOFIBULAR (SYNDESMOSIS): No intrinsic signal abnormality identified. POSTERIOR INFERIOR TIBIOFIBULAR (SYNDESMOSIS): No intrinsic signal abnormality identified. ANTERIOR TALOFIBULAR LIGAMENT: No intrinsic signal abnormality identified. POSTERIOR TALOFIBULAR LIGAMENT: No intrinsic signal abnormality identified. PLANTAR FASCIA: Intact. SINUS TARSI: Normal. ACHILLES TENDON: Normal. DELTOID LIGAMENT COMPLEX - DEEP: Normal. CALCANEOFIBULAR LIGAMENT: Normal. SPRING (PLANTAR CALCANEO-NAVICULAR) LIGAMENT: Normal. BONES: Heterogeneous signal changes are identified which included edema affecting the distal tibia and fibula, talus, tarsal bones diffusely at least the 4th and 5th metatarsal bases suspicious for osteomyelitis. The presence of edema within the flexor hallucis longus and digitorum longus muscles as well as tibialis posterior muscle further supports possibility of infectious process though inflammatory process including autoimmune would be difficult to completely exclude. Reflex sympathetic dystrophy is also not excluded and further clinical correlation is advised. CARTILAGE: Moderate diffuse chondromalacia is appreciated accompanied by cortical sclerosis compatible with degenerative changes throughout the midfoot and hindfoot anatomy indication throughout the digits. JOINT FLUID: Normal. MUSCLES: See bone section above. OTHER FINDINGS: Prominent cellulitis/ulcer identified at the posterior medial heel soft tissues with adjacent calcaneal reaction. IMPRESSION: Indeterminate pattern of bony edema throughout the ankle and midfoot/hindfoot anatomy indicative of osteomyelitis particularly at the calcaneus adjacent to a soft tissue ulcer posteriorly. Abnormal Marrow signal throughout the entire midfoot and hindfoot including inferior tibia and possibly fibula may also reflect osteomyelitis though given its widespread pattern which includes various musculature as well, consider other inflammatory causes, reflex sympathetic dystrophy and other etiologies. Further clinical correlation is recommended. Preliminary report provided by Gibson, 08/31/2018 11:44 p.m..
--- NOTE | 2018-09-01 12:49 | MRI ---
Date of service: 08/31/2018 PROCEDURE: MRI Left Ankle HISTORY: Pain. COMPARISON: Bilateral ankle radiographs 08/31/2018. TECHNIQUE: Multiecho multiplanar sequences were performed through the left ankle without the use of intravenous contrast. FINDINGS: ANTERIOR EXTENSOR TENDONS: Normal. MEDIAL FLEXOR TENDONS: Normal. PERONEAL TENDONS: Normal. ANTERIOR INFERIOR TIBIOFIBULAR (SYNDESMOSIS): Normal. POSTERIOR INFERIOR TIBIOFIBULAR (SYNDESMOSIS): Normal. ANTERIOR TALOFIBULAR LIGAMENT: Normal. POSTERIOR TALOFIBULAR LIGAMENT: Normal. PLANTAR FASCIA: Normal. SINUS TARSI: Normal. ACHILLES TENDON: Normal. DELTOID LIGAMENT COMPLEX - DEEP: Normal. CALCANEOFIBULAR LIGAMENT: Normal. SPRING (PLANTAR CALCANEO-NAVICULAR) LIGAMENT: Normal. BONES: Focal ulceration is appreciated lateral to the posterior calcaneus with local cellulitis. Lesser cellulitis seen surrounding the entire ankle and midfoot/hindfoot soft tissue complex. No abscess appreciable. However, there is edema which is quite intense identified at the inferolateral portion of the calcaneus highly suggestive of osteomyelitis. In addition, similar to the right ankle, there edema seen scattered in a heterogeneous fashion involving the talus and tarsal bones diffusely with the cuboid least affected. The bases of at least the 2nd through 5th metatarsal bones are affected. No erosive changes are identified in the pattern is nonspecific but could reflect diffuse osteomyelitis though other etiologies including select sympathetic dystrophy or other inflammatory causes are possibility with posttraumatic changes less likely. No definite fracture plane is encountered. Edematous changes in the flexor muscle compartment is appreciated distally but spares the tendons and ligaments. No suspicious fluid collection or definite abscess identified. CARTILAGE: Moderate chondromalacia affects the tibiotalar joint as well as the subtalar joint compatible with degenerative joint disease with similar changes present throughout the tarsal tarsal articulations. JOINT FLUID: Normal. MUSCLES: Normal. OTHER FINDINGS: None . IMPRESSION: Overall pattern is highly suggestive of osteomyelitis at the calcaneus and is difficult to exclude at the remaining midfoot/hindfoot and right ankle bony elements. Unfortunately, widespread mottled/heterogeneous Marrow edema is appreciated not only involving the ankle but osseous elements of the midfoot and hindfoot also suspicious for osteomyelitis with differentiated diagnosis of RSD order other inflammatory causes. Posttraumatic etiology is unlikely. Further clinical correlation is recommended.
[2018-09-01 13:23] LABS: SQUAMOUS EPITHIAL 8 /hpf (0-5); URINE BACTERIA RARE (<OCC); URINE BILIRUBIN NEGATIVE (NEGATIVE); URINE BLOOD SMALL (NEGATIVE); URINE CLARITY CLOUDY (Clear); URINE COLOR YELLOW (YELLOW); URINE GLUCOSE (UA) NEG (NEGATIVE); URINE HYALINE CAST 0-2 /hpf (0-2); URINE LEUKOCYTE ESTERASE NEG Leu/uL (Negative); URINE PROTEIN 30 mg/dL (NEGATIVE); URINE UROBILINOGEN 0.2-1.0 mg/dL (0.2-1.0)
--- NOTE | 2018-09-01 13:44 | MRI ---
Date of service: 08/31/2018 PROCEDURE: MRI Left Foot HISTORY: Pain. COMPARISON: None available. TECHNIQUE: Multiecho multiplanar sequences were performed through the left foot without the use of intravenous contrast. FINDINGS: BONES: There are abnormal bony signal changes identified throughout the entire hindfoot and midfoot bones compatible with scattered edema. The proximal phalanges of the 2nd and 3rd digits are also affected. No fracture or subluxation is seen associated and there is variable soft tissue edema in the subcutaneous fat throughout the left foot as well. No fluid collection is identified. A separate MRI of the left ankle, edema related to a soft tissue ulcer at the left heel was identified and this is a clear demonstration of osteomyelitis of the left foot. Abnormal signal changes throughout the remainder of the left foot are nonspecific could reflect the same though other etiologies including RSD, other inflammatory processes and trauma are difficult to exclude (trauma is highly unlikely in this distribution) and further clinical correlation is advised. MUSCLES: Family unremarkable muscle signal intensity throughout the left foot. SOFT TISSUES: Diffuse subcutaneous edema is appreciated throughout the left foot and ankle subcutaneous fat indicative of cellulitis without definite abscess formation appreciable. LISFRANC LIGAMENT: No intrinsic signal abnormality identified. PLANTAR PLATE: No tear appreciable. EXTENSOR TENDONS: No intrinsic signal abnormality identified. FLEXOR TENDONS: No intrinsic signal abnormality identified. OTHER FINDINGS: None. IMPRESSION: Nonspecific heterogeneous pattern of edema primarily at the left midfoot and hindfoot bones as discussed above few cellulitis is appreciate primarily affecting midfoot and hindfoot distribution as well. The 2nd and 3rd digits are also affected at the pattern is nonspecific and could reflect osteomyelitis though other etiologies including RSD and other inflammatory causes are not excluded. Further clinical correlation is advised. Posttraumatic etiology is felt to be unlikely.
--- NOTE | 2018-09-01 13:49 | MRI ---
Date of service: 08/31/2018 PROCEDURE: MRI Right Foot HISTORY: Pain. COMPARISON: None available. TECHNIQUE: Multiecho multiplanar sequences were performed through the right foot without the use of intravenous contrast. FINDINGS: BONES: Normal Marrow signal changes are scattered throughout the bones of the midfoot and hindfoot diffusely but without erosive changes identified. Similar changes affect the base of the 5th metatarsal bone in the anterior portion of the 1st metatarsal bone as well as the proximal phalanx of the great toe. Mild cellulitis pattern affects the subcutaneous fat throughout the visualized foot although no abscess identified at this time. Although osteomyelitis is clearly suggested, other etiologies are included in the differential diagnosis including reflex sympathetic dystrophy and other inflammatory causes. Posttraumatic etiology is not completely excluded though this would be unlikely given the heterogeneous relatively diffuse distribution of the findings. Further clinical correlation is recommended. MUSCLES: Normal. SOFT TISSUES: Normal. LISFRANC LIGAMENT: Normal. PLANTAR PLATE: Intact without tear. EXTENSOR TENDONS: Normal. FLEXOR TENDONS: Normal. OTHER FINDINGS: None. IMPRESSION: Nonspecific pattern of heterogeneous abnormal edema scattered throughout the midfoot and hindfoot bony anatomy as well as the 1st and 5th metatarsal bones and proximal phalanx right great toe. For osteomyelitis or other inflammatory causes. Please see limited differential diagnosis described above.
--- NOTE | 2018-09-01 14:00 | MRI ---
Date of service: 08/31/2018 PROCEDURE: LEFT LOWER EXTREMITY MRI WITHOUT CONTRAST HISTORY: left leg ulcer COMPARISON: Bilateral tibia fibula radiographs 08/31/2018. TECHNIQUE: Multiplanar multisequential MR imaging of the left lower extremity is in performed from the knee to the ankle using wide [id number] for evaluation of left leg ulcer. No similar comparison available. FINDINGS: There is an area of subcutaneous as well as deep fatty edema identified at the distal left leg soft tissues approximately 6-7 cm above the level the ankle suspicious for potential ulcer. This is not a definitive finding as the ulcer may be elsewhere but is otherwise difficult to localize. While there is no definitive edema identified in the Marrow of the mid and distal left tibia or fibula, there is prominent edema identified surrounding the left knee joint and is also incidentally captured at the right knee. Corresponding radiography does exhibit significant degenerative joint disease but somewhat discordant with the level of edema seen at the distal femur proximal tibia, particularly at the right side. Symmetric degenerative changes seen radiographically but edema pattern is somewhat more prominent at the right than left knee bony components. Osteomyelitis is not felt to be definitive consider potential other etiologies including degenerative joint disease though other inflammatory processes are possibility. Trauma is felt to be unlikely. Other inflammatory processes felt unlikely given the lack of abnormal signal in the remainder of the tibia and fibula. Motion artifacts degrade this examination significantly. Fat suppression is heterogeneous, limiting the evaluation. Still, edematous changes are suggested mildly in the subcutaneous fat bilaterally, diffusely and raise question of bilateral lower extremity cellulitis on a least a mild basis. IMPRESSION: Edematous changes are seen in the Marrow of the osseous elements at the bilateral knee joints slightly greater the right than left. Osteomyelitis is not favored. Please see discussion above with limited differs diagnosis. Questionable ulcer distal posterior leg soft tissues. Mild bilateral lower extremity cellulitis. No definite abscess appreciated bilaterally.
--- NOTE | 2018-09-01 15:07 | RAD ---
Date of service: 09/01/2018 HISTORY: PICC INSERTION VERIFICATION COMPARISON: FRONTAL CHEST RADIOGRAPH 06/24/2018. FINDINGS: Interval right PICC inserted terminating at the right atrium. Consider retracting the PICC 2-3 cm. LUNGS: Questionable overlap bronchovascular structures in the right base versus atelectasis. left lung appears clear. PLEURA: No significant pleural effusion identified, no pneumothorax apparent. CARDIOVASCULAR: No aortic atherosclerotic calcification present. Normal cardiac size. No pulmonary vascular congestion. OSSEOUS STRUCTURES: No significant abnormalities. VISUALIZED UPPER ABDOMEN: Normal. OTHER FINDINGS: None. IMPRESSION: Crowding of bronchovascular markings is suggests at the right base with atelectasis or infiltrate less likely. Remaining lung michel are clear bilaterally otherwise. Interval PICC inserted terminating at the right atrium. Consider retraction 2-3 cm followed by confirmation radiography.
--- NOTE | 2018-09-01 15:53 | RAD ---
Date of service: 09/01/2018 HISTORY: picc line re-confirmation COMPARISON: 09/01/2018. FINDINGS: The right PICC line terminates in the SVC. LUNGS: The lungs are well inflated. There is mild pulmonary venous congestion and prominent central vasculature. No focal consolidation. PLEURA: No pleural effusions or pneumothorax. CARDIOVASCULAR: The heart is normal in size. No aortic atherosclerotic calcifications present. OSSEOUS STRUCTURES: Within normal limits for the patient's age. VISUALIZED UPPER ABDOMEN: Normal. OTHER FINDINGS: None. IMPRESSION: Right PICC line terminates in the SVC. No acute findings.
--- NOTE | 2018-09-01 18:00 | US ---
Date of service: 09/01/2018 PROCEDURE: Bilateral lower extremity venous duplex Doppler. HISTORY: R/O DVT COMPARISON: None available. TECHNIQUE: Bilateral common femoral, superficial femoral,, popliteal and right posterior tibial veins were evaluated. Flow was assessed with color Doppler, compressibility, assessment of phasic flow and augmentation response. The left posterior tibial vein could not be evaluated due to bandages. FINDINGS: COMMON FEMORAL VEIN: Right CFV: Unremarkable. Left CFV: Unremarkable. SUPERFICIAL FEMORAL VEIN: Right SFV: Unremarkable. Left SFV: Unremarkable. POPLITEAL VEIN: Right Popliteal: Unremarkable. Left Popliteal: Unremarkable. POSTERIOR TIBIAL VEIN: Right PTV: Unremarkable. Left PTV: Unremarkable. OTHER FINDINGS: There are multiple enlarged right inguinal lymph nodes, the largest measures 2.0 x 1.4 x 1.1 cm. IMPRESSION: 1. No evidence of deep venous thrombosis. 2. Right inguinal lymph adenopathy, nonspecific and could be reactive, infectious or inflammatory in etiology. Clinical follow-up is advised.
[2018-09-02] MEDS: Levothyroxine 100 MCG TAB PO SCH (06:08)
[2018-09-02 06:29] LABS: HEMOGLOBIN 10.6 g/dL (12.0-16.0); MEAN CELL VOLUME 80.4 fl (81.0-99.0); MEAN CORPUSCULAR HEMOGLOBIN 26.6 pg (27.0-31.0); MEAN CORPUSCULAR HGB CONC 33.1 g/dL (33.0-37.0); RBC 3.98 Mil/uL (3.80-5.20); RED CELL DISTRIBUTION WIDTH 15.9 % (11.5-14.5); WHITE BLOOD COUNT 7.4 K/uL (4.8-10.8)
[2018-09-02 06:45] LABS: ALB/GLOB RATIO 0.7 (1.0-2.1); CALCIUM 9.1 mg/dL (8.4-10.2)
[2018-09-02] MEDS: Insulin Regular 100 units/ml SC SCH ×4 (07:53→22:16)
[2018-09-02] MEDS: Oxycodone/Acetaminophen 5/325 mg Tab PO PRN ×2 (08:53→16:14)
[2018-09-02] MEDS: Pantoprazole 40 mg EC Tab PO SCH (08:54)
[2018-09-02] MEDS: Santyl Collagenase OINTMENT TOP SCH (08:55)
--- NOTE | 2018-09-02 09:52 | CP.PCM.PN ---
Subjective - Date & Time of Evaluation Date of Evaluation: 09/02/18 Time of Evaluation: 09:45 - Subjective Subjective: Podiatry progress note for attending Dr. Brown: 62 year old female patient seen and evaluated in the bedside for b/l LE infected ulcerations. Patient was in pain in her lower extremities during the visit. SHe received the pain medication before the visit.As per her chart there was no overnight acute events. As per Chart there was no overnight fevers, nausea, vomiting, cough,and shortness of breath. She denies any other pedal complaint at this time Objective - Vital Signs/Intake and Output Vital Signs (last 24 hours): Temp Pulse Resp BP Pulse Ox 97.8 F 88 20 112/68 95 09/02/18 08:40 09/02/18 08:40 09/02/18 08:40 09/02/18 08:40 09/02/18 08:40 Intake and Output: 09/02/18 09/02/18 06:59 18:59 Intake Total 50 Balance 50 - Medications Medications: Current Medications Acetaminophen (Tylenol 325mg Tab) 650 mg PO Q6 PRN PRN Reason: Pain, Mild (1-3) Acetaminophen (Tylenol 325mg Tab) 650 mg PO Q6 PRN PRN Reason: Fever >100.4 F Aspirin (Aspirin Chewable) 81 mg PO DAILY [facility] Collagenase (Santyl) 1 applic TOP DAILY [facility] Last Admin: 09/02/18 08:55 Dose: 1 appl Cyanocobalamin (Vitamin B12 1000 Mcg Tab) 1,000 mcg PO DAILY [facility] Last Admin: 09/02/18 08:55 Dose: 1,000 mcg Dextrose (Dextrose 50% Inj) 0 ml IV STAT PRN; Protocol PRN Reason: Hypoglycemia Protocol Dextrose (Glutose 15) 0 gm PO ONCE PRN; Protocol PRN Reason: Hypoglycemia Protocol Enoxaparin Sodium (Lovenox) 40 mg SC DAILY [facility]; Protocol Glucagon (Glucagen Diagnostic Kit) 0 mg IM STAT PRN; Protocol PRN Reason: Hypoglycemia Protocol Vancomycin HCl 500 mg/ Sodium (Chloride) 100 mls @ 100 mls/hr IVPB Q12 [facility]; Protocol Last Admin: 09/02/18 08:59 Dose: 100 mls/hr Piperacillin Sod/Tazobactam (Sod 2.25 gm/ Sodium Chloride) 100 mls @ 100 mls/hr IVPB 0400,1000,1600,2200 [facility]; Protocol Last Admin: 09/02/18 09:00 Dose: 100 mls/hr Insulin Human Regular (Humulin R) 0 units SC ACHS [facility]; Protocol Last Admin: 09/02/18 07:53 Dose: Not Given Levothyroxine Sodium (Synthroid) 100 mcg PO DAILY@0630 [facility] Last Admin: 09/02/18 06:08 Dose: 100 mcg Ondansetron HCl (Zofran Inj) 4 mg IVP Q6 PRN PRN Reason: Nausea/Vomiting Oxycodone/Acetaminophen (Percocet 5/325 Mg Tab) 1 tab PO Q6 PRN PRN Reason: Pain, moderate (4-7) Stop: 09/03/18 19:46 Last Admin: 09/02/18 08:53 Dose: 1 tab Pantoprazole Sodium (Protonix Ec Tab) 40 mg PO DAILY [facility] Last Admin: 09/02/18 08:54 Dose: 40 mg Sodium Hypochlorite (Dakins Solution 0.125%) 1 appl EXT DAILY [facility] Last Admin: 09/02/18 08:54 Dose: 1 appl - Labs Labs: 09/02/18 06:00 09/02/18 06:00 - Head Exam Head Exam: ATRAUMATIC - Extremities Exam Additional comments: B/L lower extremity focused exam: Vascular: DP/PT are 2/4 b/l, Cap refill < 3 seconds to all digits, Temp gradient warm to cool from proximal to distal, no edema appreciated to b/l extremities. Neuro: Gross sensation intact, protective sensation diminished. Derm: Left: An ulcer noted in the lateral aspect of the foot measuring 1.8 cm X 1.2 cm X 0.2 cm. Base is necrotic. Hyperkeratotic edges. positive purulent drainage noted. No tracking, positive undermining, No probe to bone. No diana-ulcerative erythema noted. Another ulcer noted in the left heel 4 cm X 2.3 cm X 0.4 cm. Base is necrotic. Hyperkeratotic edges. positive purulent drainage noted. positive tracking, positive undermining, Positive probe to bone. positive diana- ulcerative erythema noted. A third ulcer noted in the upper lateral aspect of the left leg measuring 1.5 cm X 1.2 cm X 0.1 cm. Base is necrotic. Hyperkeratotic edges. positive purulent drainage noted. No tracking, No undermining, Positive probe to bone. Diana-ulcerative erythema and induration noted. Right: ulcer noted in the left heel 3.6 cm X 1.8 cm X 0.4 cm. Base is necrotic. Hyperkeratotic edges. positive purulent drainage noted. positive tracking, positive undermining, Positive probe to bone. positive diana-ulcerative erythema noted. MSK: Muscle power 5/5 to all groups, Pain noted on palpating the diana- ulcerative areas. - Neurological Exam Neurological Exam: Alert, Awake Assessment and Plan - Assessment and Plan (Free Text) Assessment: 62 year old female patient seen and evaluated in the bedside for b/l LE infected ulcerations. Plan: Patient seen and evaluated at the bedside. Discussed in detail with Dr. Stephanie Marroquin in class special education teacher service used for translation, Number; [id number]. Charts, labs and vitals reviewed; Afebrile, WBC 7.4. Wound culture: Pending. B/L foot x-ray: No evidence of OM B/L ankle x-ray: Superficial ulcerations. B/L tib/fibula x-ray: No acute findings. LE CRISTIANE/PVR: Pending report. Left ankle MRI: Overall pattern is highly suggestive of osteomyelitis at the calcaneus and is difficult to exclude at the remaining midfoot/hindfoot and right ankle bony elements. Unfortunately, widespread mottled/heterogeneous Marrow edema is appreciated not only involving the ankle but osseous elements of the midfoot and hindfoot also suspicious for osteomyelitis with differentiated diagnosis of RSD order other inflammatory causes. Posttraumatic etiology is unlikely. Further clinical correlation is recommended. Right ankle MRI: Indeterminate pattern of bony edema throughout the ankle and midfoot/hindfoot anatomy indicative of osteomyelitis particularly at the calcaneus adjacent to a soft tissue ulcer posteriorly. Abnormal Marrow signal throughout the entire midfoot and hindfoot including inferior tibia and possibly fibula may also reflect osteomyelitis though given its widespread pattern which includes various musculature as well, consider other inflammatory causes, reflex sympathetic dystrophy and other etiologies. Further clinical correlation is recommended. Right foot MRI: Nonspecific pattern of heterogeneous abnormal edema scattered throughout the midfoot and hindfoot bony anatomy as well as the 1st and 5th metatarsal bones and proximal phalanx right great toe. For osteomyelitis or other inflammatory causes. Clinical correlation suggestive of OM. Left foot MRI: Nonspecific heterogeneous pattern of edema primarily at the left midfoot and hindfoot bones as discussed above few cellulitis is appreciate primarily affecting midfoot and hindfoot distribution as well. The 2nd and 3rd digits are also affected at the pattern is nonspecific and could reflect osteomyelitis though other etiologies including RSD and other inflammatory causes are not excluded. Further clinical correlation suggestive of OM. B/L Lower Extremity MRI: Edematous changes are seen in the Marrow of the osseous elements at the bilateral knee joints slightly greater the right than left. Osteomyelitis is not favored. Questionable ulcer distal posterior leg soft tissues. Mild bilateral lower extremity cellulitis. No definite abscess appreciated bilaterally. Patient will got a PICC line yesterday for long course (4-6 weeks) of IV Abx. ESR: >120, CRP: 167.60 B/L LE venous duplex: No DVT, Right inguinal lymphadenopathy B/L ulcers cleaned with saline and dakins then dressed with santyl, Mepilex for the upper left leg wound and DSD and santyl for the rest of the ulcers. Patient to stay in the multipodus boot while in bed. Ordered PT evaluation for offloading heel shoe. Patient to bear weight as tolerated in the heel offloading shoe. ID on board Reccs appreciated. Patient to continue IV abx as per ID. Podiatry will continue to follow up the patient while in house.
--- NOTE | 2018-09-02 10:04 | CP.PCM.PN ---
Subjective - Date & Time of Evaluation Date of Evaluation: 09/02/18 Time of Evaluation: 10:04 - Subjective Subjective: ID note- Pt. seen and examined today. c/o pain in b/l feet. has right arm picc line now. Objective - Vital Signs/Intake and Output Vital Signs (last 24 hours): Temp Pulse Resp BP Pulse Ox 97.8 F 88 20 112/68 95 09/02/18 08:40 09/02/18 08:40 09/02/18 08:40 09/02/18 08:40 09/02/18 08:40 Intake and Output: 09/02/18 09/02/18 06:59 18:59 Intake Total 50 Balance 50 - Medications Medications: Current Medications Acetaminophen (Tylenol 325mg Tab) 650 mg PO Q6 PRN PRN Reason: Pain, Mild (1-3) Acetaminophen (Tylenol 325mg Tab) 650 mg PO Q6 PRN PRN Reason: Fever >100.4 F Aspirin (Aspirin Chewable) 81 mg PO DAILY [facility] Collagenase (Santyl) 1 applic TOP DAILY [facility] Last Admin: 09/02/18 08:55 Dose: 1 appl Cyanocobalamin (Vitamin B12 1000 Mcg Tab) 1,000 mcg PO DAILY [facility] Last Admin: 09/02/18 08:55 Dose: 1,000 mcg Dextrose (Dextrose 50% Inj) 0 ml IV STAT PRN; Protocol PRN Reason: Hypoglycemia Protocol Dextrose (Glutose 15) 0 gm PO ONCE PRN; Protocol PRN Reason: Hypoglycemia Protocol Enoxaparin Sodium (Lovenox) 40 mg SC DAILY [facility]; Protocol Glucagon (Glucagen Diagnostic Kit) 0 mg IM STAT PRN; Protocol PRN Reason: Hypoglycemia Protocol Vancomycin HCl 500 mg/ Sodium (Chloride) 100 mls @ 100 mls/hr IVPB Q12 [facility]; Protocol Last Admin: 09/02/18 08:59 Dose: 100 mls/hr Piperacillin Sod/Tazobactam (Sod 2.25 gm/ Sodium Chloride) 100 mls @ 100 mls/hr IVPB 0400,1000,1600,2200 [facility]; Protocol Last Admin: 09/02/18 09:00 Dose: 100 mls/hr Insulin Human Regular (Humulin R) 0 units SC ACHS [facility]; Protocol Last Admin: 09/02/18 07:53 Dose: Not Given Levothyroxine Sodium (Synthroid) 100 mcg PO DAILY@0630 [facility] Last Admin: 09/02/18 06:08 Dose: 100 mcg Ondansetron HCl (Zofran Inj) 4 mg IVP Q6 PRN PRN Reason: Nausea/Vomiting Oxycodone/Acetaminophen (Percocet 5/325 Mg Tab) 1 tab PO Q6 PRN PRN Reason: Pain, moderate (4-7) Stop: 09/03/18 19:46 Last Admin: 09/02/18 08:53 Dose: 1 tab Pantoprazole Sodium (Protonix Ec Tab) 40 mg PO DAILY [facility] Last Admin: 09/02/18 08:54 Dose: 40 mg Sodium Hypochlorite (Dakins Solution 0.125%) 1 appl EXT DAILY [facility] Last Admin: 09/02/18 08:54 Dose: 1 appl - Labs Labs: - Additional Findings Additional findings: - Constitutional Appears: No Acute Distress - Eye Exam Eye Exam: EOMI - ENT Exam ENT Exam: Normal Oropharynx - Neck Exam Neck exam: Positive for: Full Rom - Respiratory Exam Respiratory Exam: Clear to Auscultation Bilateral, NORMAL BREATHING PATTERN - Cardiovascular Exam Cardiovascular Exam: RRR, +S1, +S2 - GI/Abdominal Exam GI & Abdominal Exam: Normal Bowel Sounds, Soft Additional comments: NT, ND - Extremities Exam Additional comments: left lateral ankle with 2 round ulcerated lesions with necrosis in middle, malodor present, no active discharge left lateral patellar region also with ulcerated ncrotic round lesion right heel region with larger uler with central necrosis and underlying scant discharge with malodor no erythema of the surrounding skin - Neurological Exam Neurological exam: Alert Additional comments: AAO x 2 Laboratory Results - last 72 hr 08/31/18 08/31/18 08/31/18 15:30 15:30 15:47 WBC 9.7 D RBC 3.14 L Hgb 8.0 L Hct 25.1 L MCV 80.0 L MCH 25.5 L MCHC 31.9 L RDW 16.2 H Plt Count 406 H MPV 8.1 Neut % (Auto) 83.0 H Lymph % (Auto) 6.2 L [place] % (Auto) 8.8 Eos % (Auto) 1.7 Baso % (Auto) 0.3 Neut # (Auto) 8.0 H Lymph # (Auto) 0.6 L [place] # (Auto) 0.9 H Eos # (Auto) 0.2 Baso # (Auto) 0.0 Neutrophils % (Manual) 77 H Band Neutrophils % 4 H Lymphocytes % (Manual) 8 L Monocytes % (Manual) 11 H Platelet Estimate Normal Polychromasia Slight Hypochromasia (manual) Moderate Poikilocytosis (manual Moderate Anisocytosis (manual) Marked Microcytosis (manual) Moderate Ovalocytes Slight Schistocytes Slight ESR > 120 H pO2 28 L VBG pH 7.39 VBG pCO2 50 VBG HCO3 27.0 VBG Total CO2 31.8 H VBG O2 Sat (Calc) 52.9 VBG Base Excess 4.2 H VBG Potassium 4.3 Glucose 165 H Lactate 1.8 FiO2 21.0 Sodium 134 135.0 Potassium 4.5 Chloride 97 L 100.0 Carbon Dioxide 25 Anion Gap 17 BUN 26 H Creatinine 1.4 H Est GFR ( Amer) 46 Est GFR (Non-Af Amer) 38 POC Glucose (mg/dL) Random Glucose 167 H Calcium 9.4 Phosphorus 4.2 Magnesium 2.3 Iron TIBC % Saturation Ferritin Total Bilirubin 0.2 AST 26 ALT 13 Alkaline Phosphatase 96 C-Reactive Protein Total Protein 7.7 Albumin 3.1 L Globulin 4.7 H Albumin/Globulin Ratio 0.7 L Thyroxine (T4) TSH 3rd Generation Venous Blood Potassium 4.3 Urine Color Urine Clarity Urine pH Ur Specific [place] Urine Protein Urine Glucose (UA) Urine Ketones Urine Blood Urine Nitrate Urine Bilirubin Urine Urobilinogen Ur Leukocyte Esterase Urine RBC (Auto) Urine Microscopic WBC Ur Squamous Epith Cells Urine Bacteria Hyaline Casts Blood Type Antibody Screen Crossmatch BBK History Checked 08/31/18 08/31/18 08/31/18 16:45 17:03 22:35 WBC RBC Hgb Hct MCV MCH MCHC RDW Plt Count MPV Neut % (Auto) Lymph % (Auto) [place] % (Auto) Eos % (Auto) Baso % (Auto) Neut # (Auto) Lymph # (Auto) [place] # (Auto) Eos # (Auto) Baso # (Auto) Neutrophils % (Manual) Band Neutrophils % Lymphocytes % (Manual) Monocytes % (Manual) Platelet Estimate Polychromasia Hypochromasia (manual) Poikilocytosis (manual Anisocytosis (manual) Microcytosis (manual) Ovalocytes Schistocytes ESR pO2 VBG pH VBG pCO2 VBG HCO3 VBG Total CO2 VBG O2 Sat (Calc) VBG Base Excess VBG Potassium Glucose Lactate FiO2 Sodium Potassium Chloride Carbon Dioxide Anion Gap BUN Creatinine Est GFR ( Amer) Est GFR (Non-Af Amer) POC Glucose (mg/dL) 125 H Random Glucose Calcium Phosphorus Magnesium Iron TIBC % Saturation Ferritin Total Bilirubin AST ALT Alkaline Phosphatase C-Reactive Protein 167.60 H Total Protein Albumin Globulin Albumin/Globulin Ratio Thyroxine (T4) TSH 3rd Generation Venous Blood Potassium Urine Color Urine Clarity Urine pH Ur Specific [place] Urine Protein Urine Glucose (UA) Urine Ketones Urine Blood Urine Nitrate Urine Bilirubin Urine Urobilinogen Ur Leukocyte Esterase Urine RBC (Auto) Urine Microscopic WBC Ur Squamous Epith Cells Urine Bacteria Hyaline Casts Blood Type O POSITIVE Antibody Screen Negative Crossmatch See Detail BBK History Checked Patient has bt 09/01/18 09/01/18 09/01/18 05:28 05:55 05:55 WBC 7.5 RBC 2.62 L Hgb 6.8 L Hct 20.8 L MCV 79.2 L MCH 25.8 L MCHC 32.6 L RDW 16.5 H Plt Count 348 MPV 8.3 Neut % (Auto) 81.8 H Lymph % (Auto) 6.6 L [place] % (Auto) 8.6 Eos % (Auto) 2.8 Baso % (Auto) 0.2 Neut # (Auto) 6.1 Lymph # (Auto) 0.5 L [place] # (Auto) 0.6 Eos # (Auto) 0.2 Baso # (Auto) 0.0 Neutrophils % (Manual) Band Neutrophils % Lymphocytes % (Manual) Monocytes % (Manual) Platelet Estimate Polychromasia Hypochromasia (manual) Poikilocytosis (manual Anisocytosis (manual) Microcytosis (manual) Ovalocytes Schistocytes ESR pO2 VBG pH VBG pCO2 VBG HCO3 VBG Total CO2 VBG O2 Sat (Calc) VBG Base Excess VBG Potassium Glucose Lactate FiO2 Sodium 134 Potassium 4.1 Chloride 98 Carbon Dioxide 27 Anion Gap 13 BUN 21 H Creatinine 1.4 H Est GFR ( Amer) 46 Est GFR (Non-Af Amer) 38 POC Glucose (mg/dL) 85 Random Glucose 85 Calcium 8.7 Phosphorus Magnesium Iron TIBC % Saturation Ferritin Total Bilirubin AST ALT Alkaline Phosphatase C-Reactive Protein Total Protein Albumin Globulin Albumin/Globulin Ratio Thyroxine (T4) 6.55 TSH 3rd Generation 5.47 H Venous Blood Potassium Urine Color Urine Clarity Urine pH Ur Specific [place] Urine Protein Urine Glucose (UA) Urine Ketones Urine Blood Urine Nitrate Urine Bilirubin Urine Urobilinogen Ur Leukocyte Esterase Urine RBC (Auto) Urine Microscopic WBC Ur Squamous Epith Cells Urine Bacteria Hyaline Casts Blood Type Antibody Screen Crossmatch BBK History Checked 09/01/18 09/01/18 09/01/18 09:15 09:15 10:31 WBC RBC Hgb Hct MCV MCH MCHC RDW Plt Count MPV Neut % (Auto) Lymph % (Auto) [place] % (Auto) Eos % (Auto) Baso % (Auto) Neut # (Auto) Lymph # (Auto) [place] # (Auto) Eos # (Auto) Baso # (Auto) Neutrophils % (Manual) Band Neutrophils % Lymphocytes % (Manual) Monocytes % (Manual) Platelet Estimate Polychromasia Hypochromasia (manual) Poikilocytosis (manual Anisocytosis (manual) Microcytosis (manual) Ovalocytes Schistocytes ESR pO2 VBG pH VBG pCO2 VBG HCO3 VBG Total CO2 VBG O2 Sat (Calc) VBG Base Excess VBG Potassium Glucose Lactate FiO2 Sodium Potassium Chloride Carbon Dioxide Anion Gap BUN Creatinine Est GFR ( Amer) Est GFR (Non-Af Amer) POC Glucose (mg/dL) 141 H Random Glucose Calcium Phosphorus Magnesium Iron 13 L TIBC 180 L % Saturation 7 L Ferritin 318.0 H Total Bilirubin AST ALT Alkaline Phosphatase C-Reactive Protein Total Protein Albumin Globulin Albumin/Globulin Ratio Thyroxine (T4) TSH 3rd Generation Venous Blood Potassium Urine Color Urine Clarity Urine pH Ur Specific [place] Urine Protein Urine Glucose (UA) Urine Ketones Urine Blood Urine Nitrate Urine Bilirubin Urine Urobilinogen Ur Leukocyte Esterase Urine RBC (Auto) Urine Microscopic WBC Ur Squamous Epith Cells Urine Bacteria Hyaline Casts Blood Type Antibody Screen Crossmatch BBK History Checked 09/01/18 09/01/18 09/01/18 13:00 15:45 21:19 WBC RBC Hgb Hct MCV MCH MCHC RDW Plt Count MPV Neut % (Auto) Lymph % (Auto) [place] % (Auto) Eos % (Auto) Baso % (Auto) Neut # (Auto) Lymph # (Auto) [place] # (Auto) Eos # (Auto) Baso # (Auto) Neutrophils % (Manual) Band Neutrophils % Lymphocytes % (Manual) Monocytes % (Manual) Platelet Estimate Polychromasia Hypochromasia (manual) Poikilocytosis (manual Anisocytosis (manual) Microcytosis (manual) Ovalocytes Schistocytes ESR pO2 VBG pH VBG pCO2 VBG HCO3 VBG Total CO2 VBG O2 Sat (Calc) VBG Base Excess VBG Potassium Glucose Lactate FiO2 Sodium Potassium Chloride Carbon Dioxide Anion Gap BUN Creatinine Est GFR ( Amer) Est GFR (Non-Af Amer) POC Glucose (mg/dL) 113 H 106 Random Glucose Calcium Phosphorus Magnesium Iron TIBC % Saturation Ferritin Total Bilirubin AST ALT Alkaline Phosphatase C-Reactive Protein Total Protein Albumin Globulin Albumin/Globulin Ratio Thyroxine (T4) TSH 3rd Generation Venous Blood Potassium Urine Color Yellow Urine Clarity Cloudy Urine pH 5.0 Ur Specific [place] 1.019 Urine Protein 30 Urine Glucose (UA) Neg Urine Ketones Negative Urine Blood Small Urine Nitrate Negative Urine Bilirubin Negative Urine Urobilinogen 0.2-1.0 Ur Leukocyte Esterase Neg Urine RBC (Auto) 5 H Urine Microscopic WBC 1 Ur Squamous Epith Cells 8 H Urine Bacteria Rare Hyaline Casts 0-2 Blood Type Antibody Screen Crossmatch BBK History Checked 09/01/18 09/02/18 09/02/18 21:19 05:13 06:00 WBC 7.4 RBC 3.98 Hgb 10.6 L D Hct 32.0 L MCV 80.4 L MCH 26.6 L MCHC 33.1 RDW 15.9 H Plt Count 338 MPV Neut % (Auto) Lymph % (Auto) [place] % (Auto) Eos % (Auto) Baso % (Auto) Neut # (Auto) Lymph # (Auto) [place] # (Auto) Eos # (Auto) Baso # (Auto) Neutrophils % (Manual) Band Neutrophils % Lymphocytes % (Manual) Monocytes % (Manual) Platelet Estimate Polychromasia Hypochromasia (manual) Poikilocytosis (manual Anisocytosis (manual) Microcytosis (manual) Ovalocytes Schistocytes ESR pO2 VBG pH VBG pCO2 VBG HCO3 VBG Total CO2 VBG O2 Sat (Calc) VBG Base Excess VBG Potassium Glucose Lactate FiO2 Sodium Potassium Chloride Carbon Dioxide Anion Gap BUN Creatinine Est GFR ( Amer) Est GFR (Non-Af Amer) POC Glucose (mg/dL) 106 74 Random Glucose Calcium Phosphorus Magnesium Iron TIBC % Saturation Ferritin Total Bilirubin AST ALT Alkaline Phosphatase C-Reactive Protein Total Protein Albumin Globulin Albumin/Globulin Ratio Thyroxine (T4) TSH 3rd Generation Venous Blood Potassium Urine Color Urine Clarity Urine pH Ur Specific [place] Urine Protein Urine Glucose (UA) Urine Ketones Urine Blood Urine Nitrate Urine Bilirubin Urine Urobilinogen Ur Leukocyte Esterase Urine RBC (Auto) Urine Microscopic WBC Ur Squamous Epith Cells Urine Bacteria Hyaline Casts Blood Type Antibody Screen Crossmatch BBK History Checked 09/02/18 09/02/18 06:00 10:46 WBC RBC Hgb Hct MCV MCH MCHC RDW Plt Count MPV Neut % (Auto) Lymph % (Auto) [place] % (Auto) Eos % (Auto) Baso % (Auto) Neut # (Auto) Lymph # (Auto) [place] # (Auto) Eos # (Auto) Baso # (Auto) Neutrophils % (Manual) Band Neutrophils % Lymphocytes % (Manual) Monocytes % (Manual) Platelet Estimate Polychromasia Hypochromasia (manual) Poikilocytosis (manual Anisocytosis (manual) Microcytosis (manual) Ovalocytes Schistocytes ESR pO2 VBG pH VBG pCO2 VBG HCO3 VBG Total CO2 VBG O2 Sat (Calc) VBG Base Excess VBG Potassium Glucose Lactate FiO2 Sodium 135 Potassium 4.4 Chloride 98 Carbon Dioxide 26 Anion Gap 15 BUN 15 Creatinine 1.3 H Est GFR ( Amer) 50 Est GFR (Non-Af Amer) 41 POC Glucose (mg/dL) 138 H Random Glucose 79 Calcium 9.1 Phosphorus Magnesium Iron TIBC % Saturation Ferritin Total Bilirubin 0.7 AST 26 ALT 12 Alkaline Phosphatase 93 C-Reactive Protein Total Protein 7.3 Albumin 3.0 L Globulin 4.2 H Albumin/Globulin Ratio 0.7 L Thyroxine (T4) TSH 3rd Generation Venous Blood Potassium Urine Color Urine Clarity Urine pH Ur Specific [place] Urine Protein Urine Glucose (UA) Urine Ketones Urine Blood Urine Nitrate Urine Bilirubin Urine Urobilinogen Ur Leukocyte Esterase Urine RBC (Auto) Urine Microscopic WBC Ur Squamous Epith Cells Urine Bacteria Hyaline Casts Blood Type Antibody Screen Crossmatch BBK History Checked Microbiology 09/01/18 14:45 Urine Random Urine Culture - Final No Growth (<1,000 CFU/ML) 09/01/18 18:00 Leg - Left Gram Stain - Final 09/01/18 18:00 Leg - Left Wound Culture - Preliminary Gram Negative Deni Beta Hemolytic Strep Group B 08/31/18 15:36 Drainage Gram Stain - Final 08/31/18 15:36 Drainage Wound Culture - Preliminary Gram Negative Deni 08/31/18 16:00 Foot - Left Gram Stain - Final 08/31/18 16:00 Foot - Left Wound Culture - Preliminary Gram Negative Deni 08/31/18 15:45 Blood Blood Culture - Preliminary NO GROWTH AFTER 24 HOURS 08/31/18 15:30 Blood Blood Culture - Preliminary NO GROWTH AFTER 24 HOURS Assessment and Plan (1) Leg ulcer Status: Acute (2) Wound infection Status: Acute (3) Diabetes mellitus type 2 in nonobese Status: Acute (4) Osteomyelitis Status: Acute - Assessment and Plan (Free Text) Assessment: A/P- 62 year old female with multiple medical conditions and chronic foot and ankle ulcers admitted with infection of these ulcers . afebrile normal wbc High ESR MRI report as per radiology b/l ankle bone OM and right heel OM. blood cx- neg x 2 wound cx- GNR x 2 left leg cx- GNR and beta hemolytic strep Plan- pending wound cx ID and sensitivity advise to continue with current abx regimen of zosyn and vanco. keep vanco trough <15. based on OM pt. will need at least 4-6 weeks of abx pending wound cx result. also she will need wound care and possible debridement of the ulcers by podiatry. all above d/w negar and her niece and with .
--- NOTE | 2018-09-02 10:18 | CP.PCM.PN ---
Subjective - Date & Time of Evaluation Date of Evaluation: 09/02/18 Time of Evaluation: 10:16 - Subjective Subjective: Progress note for Dr. Burks, 62 yo female seen and evaluated at bedside. Patients niece is noted to be at bedside. Patient is noted to be alert and awake. Admits to severe pain in her legs. Denies acute overnight events. She denies any recent illness, fever/chills, difficulty breathing, n/v/d. Objective - Vital Signs/Intake and Output Vital Signs (last 24 hours): Temp Pulse Resp BP Pulse Ox 97.8 F 88 20 112/68 95 09/02/18 08:40 09/02/18 08:40 09/02/18 08:40 09/02/18 08:40 09/02/18 08:40 Intake and Output: 09/02/18 09/02/18 06:59 18:59 Intake Total 50 Balance 50 - Medications Medications: Current Medications Acetaminophen (Tylenol 325mg Tab) 650 mg PO Q6 PRN PRN Reason: Pain, Mild (1-3) Acetaminophen (Tylenol 325mg Tab) 650 mg PO Q6 PRN PRN Reason: Fever >100.4 F Aspirin (Aspirin Chewable) 81 mg PO DAILY [facility] Collagenase (Santyl) 1 applic TOP DAILY [facility] Last Admin: 09/02/18 08:55 Dose: 1 appl Cyanocobalamin (Vitamin B12 1000 Mcg Tab) 1,000 mcg PO DAILY [facility] Last Admin: 09/02/18 08:55 Dose: 1,000 mcg Dextrose (Dextrose 50% Inj) 0 ml IV STAT PRN; Protocol PRN Reason: Hypoglycemia Protocol Dextrose (Glutose 15) 0 gm PO ONCE PRN; Protocol PRN Reason: Hypoglycemia Protocol Enoxaparin Sodium (Lovenox) 40 mg SC DAILY [facility]; Protocol Glucagon (Glucagen Diagnostic Kit) 0 mg IM STAT PRN; Protocol PRN Reason: Hypoglycemia Protocol Vancomycin HCl 500 mg/ Sodium (Chloride) 100 mls @ 100 mls/hr IVPB Q12 [facility]; Protocol Last Admin: 09/02/18 08:59 Dose: 100 mls/hr Piperacillin Sod/Tazobactam (Sod 2.25 gm/ Sodium Chloride) 100 mls @ 100 mls/hr IVPB 0400,1000,1600,2200 [facility]; Protocol Last Admin: 09/02/18 09:00 Dose: 100 mls/hr Insulin Human Regular (Humulin R) 0 units SC ACHS [facility]; Protocol Last Admin: 09/02/18 07:53 Dose: Not Given Levothyroxine Sodium (Synthroid) 100 mcg PO DAILY@0630 [facility] Last Admin: 09/02/18 06:08 Dose: 100 mcg Morphine Sulfate (Morphine) 4 mg IVP Q6 PRN PRN Reason: Pain, severe (8-10) Ondansetron HCl (Zofran Inj) 4 mg IVP Q6 PRN PRN Reason: Nausea/Vomiting Oxycodone/Acetaminophen (Percocet 5/325 Mg Tab) 1 tab PO Q6 PRN PRN Reason: Pain, moderate (4-7) Stop: 09/03/18 19:46 Last Admin: 09/02/18 08:53 Dose: 1 tab Pantoprazole Sodium (Protonix Ec Tab) 40 mg PO DAILY [facility] Last Admin: 09/02/18 08:54 Dose: 40 mg Sodium Hypochlorite (Dakins Solution 0.125%) 1 appl EXT DAILY [facility] Last Admin: 09/02/18 08:54 Dose: 1 appl - Labs Labs: 09/02/18 06:00 09/02/18 06:00 - Constitutional Appears: Well, Non-toxic, No Acute Distress - Head Exam Head Exam: ATRAUMATIC - Eye Exam Eye Exam: Normal appearance Pupil Exam: NORMAL ACCOMODATION - ENT Exam ENT Exam: Mucous Membranes Moist - Cardiovascular Exam Cardiovascular Exam: REGULAR RHYTHM - Extremities Exam Additional comments: b/l lower extremity clean dry and intact Assessment and Plan - Assessment and Plan (Free Text) Assessment: Pt is a 62 y/o female with hx of HTN, DM, Hypothyroidism, Rheumatoid arthritis, Chronic foot ulcers admitted for multiple foot/leg ulcers w/ foul odor drainage, elevated ESR, Bandemia, and Altered mental status x2 weeks Plan: #Multiple Foot Ulcers, Bilaterally - Wound probed to bone by Podiatry, strong suspicion for Osteomyelitis - Afebrile, No leukocytosis, +Bandemia 4, Lactate normal, ESR 120 - Will continue w/ Vanco and Zosyn - Pain Scale as ordered - Podiatry consulted, Dr. Brown; recs appreciated - ID Consulted, Dr. Contreras - Wound Care Nursing, tight glycemic control, offloading from ulcers - MRI: Ankle and foot BL:OM of multiple bones on right and left leg and foot. - Duplex Vein no DVT - Wcx; no growth after 24 hours - PICC Line ordered and pending #Worsening Mental status - Family noted decline in neuromental status over 2 weeks - May be encephalopathy related to acute infection vs pseudodementia vs uncontrolled hypothyroidism - Head CT negative for acute process; old infarcts and age related degenerative changes seen - Neurochecks q4 - Treat all possible reversible processes; if persists consider Psych consult for possible dementia/behavior disorder/depression #Urinary Incontinence - May have underlying infection considering dysuria and foul odor urine - No urinary retention on exam - F/U Ucx #CKD - Stable - Crea 1.4, GFR 38 (Basline Crea 1.4-1.5, GFR 35-38) - Likely related to P-ANCA (glomerular disease) vs DM/HTN - Renal dose adjustments for nephrotoxic medication (check Vanco trough) #Hypothyroidism -TSH 5.47, T4 6.55 -C/W with home medication, Levothyroxine 100mg daily #Rheumatoid Arthritis -Pain controlled with Tylenol. Morphine 4 gm q6 pRN ordered for severe pain -Prior labs reviewed: +RF, +Anti CCP, + pANCa #Anemia - Hg 10.6 (Baseline 7-8), MCV 80.4 s/o transfusion of 2 units. - Anemia workup in last admission revealed Anemia of Chronic Disease and B12 def - C/W B12 oral meds - Monitor H/H #Poor mobility/Debilitation - OT for ADL's - PT to be ordered for gait/mobility/strength #DVT ppx -Lovenox 40mg SQ daily given CreaCl >40 - Aspirin 81 mg PO -Will avoid SCD given active ulcers Code status to be established once family has discussion, Full Code for now Next of Kin (Niece): Danni
[2018-09-02] MEDS: Morphine 4 MG/ML VIAL IVP PRN ×2 (12:26→22:41)
--- NOTE | 2018-09-02 17:32 | US ---
Date of service: 2018-08-31 20:17:40 PROCEDURE: Duplex ultrasound of the bilateral lower extremity arteries. Bilateral lower extremity arterial ultrasound HISTORY: B/L LE ulceration. COMPARISON: None available. TECHNIQUE: Grayscale and duplex Doppler evaluation of the bilateral common femoral, superficial femoral, popliteal, posterior tibial and dorsalis pedis arteries was performed.. FINDINGS: RIGHT LOWER EXTREMITY: RIGHT COMMON FEMORAL ARTERY: Monophasic, severely diseased spectral pattern. Maximal flow velocity of 104.9 cm/s. RIGHT SUPERFICIAL FEMORAL ARTERY: Monophasic severely disease spectral pattern. Maximal flow velocity of 83.9 cm/s. RIGHT POPLITEAL ARTERY:Monophasic severely disease spectral pattern. Maximal flow velocity of 112.4 cm/s. RIGHT POSTERIOR TIBIAL ARTERY: Monophasic severely disease spectral pattern. Maximal flow velocity of 99.8 cm/s. RIGHT DORSALIS PEDIS ARTERY: Monophasic severely disease spectral pattern. Maximal flow velocity of 57.2 cm/s. RIGHT ANTERIOR TIBIAL ARTERY: Severely diseased artery manifested monophasic blood flow. Maximal flow velocity of 57.2 centimeter/second. LEFT LOWER EXTREMITY: LEFT COMMON FEMORAL ARTERY: Monophasic severely disease spectral pattern. Maximal flow velocity of 103.9 cm/s. LEFT SUPERFICIAL FEMORAL ARTERY: Monophasic severely disease spectral pattern. Maximal flow velocity of 84.8 cm/s. LEFT POPLITEAL ARTERY:Monophasic severely disease spectral pattern. Maximal flow velocity of 125.9 cm/s. LEFT POSTERIOR TIBIAL ARTERY: Obscured by bandages. LEFT DORSALIS PEDIS ARTERY: Obscured by bandages. LEFT ANTERIOR TIBIAL ARTERY monophasic indicating severely diseased artery. Maximal flow velocity of 54.9 cm/s. OTHER FINDINGS: None. IMPRESSION: Severely disease bilateral lower extremity arterial system although a high-grade stenosis of the distal abdominal aorta and/or bilateral iliac arterial system are not completely excluded. If there is no contraindication to iodinated contrast administration, consider follow-up contrast CT angiography of the aortic iliac arterial system with bilateral lower extremity runoff.
[2018-09-03] MEDS: Levothyroxine 100 MCG TAB PO SCH (06:08)
--- NOTE | 2018-09-03 06:16 | CARD ---
APPROVED REPORT Date of service: 08/31/2018 EKG Measurement Heart [id number] <Conclusion> Normal sinus rhythm Possible Left atrial enlargement Cannot rule out small or absent R waves V1-V3, may be due to lead placement or possible septal infarct age undetermined. Abnormal ECG
[2018-09-03] MEDS: Morphine 4 MG/ML VIAL IVP PRN (07:07)
[2018-09-03] MEDS: Insulin Regular 100 units/ml SC SCH ×4 (07:14→22:00)
--- NOTE | 2018-09-03 08:44 | CP.PCM.CON ---
History of Present Illness - History of Present Illness History of Present Illness: Jamal Dorantes PGY1 Cardio consult note for Dr Baldemar Marroquin sharepoint application architect used to communicate with patient Pt is a 62 yo female non smoker with a PMH of HTN, DM, hypothyroidsim, HLD, presented to the ED after being sent in by her primary care physician for bilateral foot wounds with malodorous discharge. Pt states the pain has been going on for the past week with associated discharge. Pt is a poor historian, the history was obtained in part from chart review and speaking with the pt nurse. Pt denies chest pain or SOB. A 12 point ROS was obtained and added to the HPI where appropriate. Past Patient History - Infectious Disease Hx of Infectious Diseases: None - Past Medical History & Family History Past Medical History?: Yes - Past Social History Smoking Status: Never Smoked - CARDIAC Hx Cardiac Disorders: Yes Hx Hypercholesterolemia: Yes Hx Hypertension: Yes - PULMONARY Hx Respiratory Disorders: No - NEUROLOGICAL Hx Neurological Disorder: No - HEENT Hx HEENT Problems: No - RENAL Hx Chronic Kidney Disease: Yes - ENDOCRINE/METABOLIC Hx Endocrine Disorders: No Hx Hyperthyroidism: No Hx Hypothyroidism: No - HEMATOLOGICAL/ONCOLOGICAL Hx Blood Disorders: Yes Hx Anemia: Yes Hx Sickle Cell Disease: No - INTEGUMENTARY Hx Dermatological Problems: No - MUSCULOSKELETAL/RHEUMATOLOGICAL Hx Musculoskeletal Disorders: Yes Hx Arthritis: Yes Hx Falls: Yes - GASTROINTESTINAL Hx Gastrointestinal Disorders: No - GENITOURINARY/GYNECOLOGICAL Hx Genitourinary Disorders: No - PSYCHIATRIC Hx Psychophysiologic Disorder: No Hx Substance Use: No - SURGICAL HISTORY Hx Surgeries: Yes Other/Comment: left wrist surgery, brain surgery - ANESTHESIA Hx Anesthesia: Yes Hx Anesthesia Reactions: No Meds Allergies/Adverse Reactions: Allergies Allergy/AdvReac Type Severity Reaction Status Date / Time No Known Allergies Allergy Verified 06/24/18 11:09 - Medications Medications: Current Medications Acetaminophen (Tylenol 325mg Tab) 650 mg PO Q6 PRN PRN Reason: Pain, Mild (1-3) Acetaminophen (Tylenol 325mg Tab) 650 mg PO Q6 PRN PRN Reason: Fever >100.4 F Aspirin (Aspirin Chewable) 81 mg PO DAILY [facility] Collagenase (Santyl) 1 applic TOP DAILY [facility] Last Admin: 09/02/18 08:55 Dose: 1 appl Cyanocobalamin (Vitamin B12 1000 Mcg Tab) 1,000 mcg PO DAILY [facility] Last Admin: 09/02/18 08:55 Dose: 1,000 mcg Dextrose (Dextrose 50% Inj) 0 ml IV STAT PRN; Protocol PRN Reason: Hypoglycemia Protocol Dextrose (Glutose 15) 0 gm PO ONCE PRN; Protocol PRN Reason: Hypoglycemia Protocol Enoxaparin Sodium (Lovenox) 40 mg SC DAILY [facility]; Protocol Glucagon (Glucagen Diagnostic Kit) 0 mg IM STAT PRN; Protocol PRN Reason: Hypoglycemia Protocol Vancomycin HCl 500 mg/ Sodium (Chloride) 100 mls @ 100 mls/hr IVPB Q12 [facility]; Protocol Last Admin: 09/02/18 20:48 Dose: 100 mls/hr Piperacillin Sod/Tazobactam (Sod 2.25 gm/ Sodium Chloride) 100 mls @ 100 mls/hr IVPB 0400,1000,1600,2200 [facility]; Protocol Last Admin: 09/03/18 03:42 Dose: 100 mls/hr Insulin Human Regular (Humulin R) 0 units SC ACHS [facility]; Protocol Last Admin: 09/03/18 07:14 Dose: Not Given Levothyroxine Sodium (Synthroid) 100 mcg PO DAILY@0630 [facility] Last Admin: 09/03/18 06:08 Dose: 100 mcg Morphine Sulfate (Morphine) 4 mg IVP Q6 PRN PRN Reason: Pain, severe (8-10) Last Admin: 09/03/18 07:07 Dose: 4 mg Ondansetron HCl (Zofran Inj) 4 mg IVP Q6 PRN PRN Reason: Nausea/Vomiting Oxycodone/Acetaminophen (Percocet 5/325 Mg Tab) 1 tab PO Q6 PRN PRN Reason: Pain, moderate (4-7) Stop: 09/03/18 19:46 Last Admin: 09/02/18 16:14 Dose: 1 tab Pantoprazole Sodium (Protonix Ec Tab) 40 mg PO DAILY [facility] Last Admin: 09/02/18 08:54 Dose: 40 mg Sodium Hypochlorite (Dakins Solution 0.125%) 1 appl EXT DAILY [facility] Last Admin: 09/02/18 08:54 Dose: 1 appl Physical Exam - Constitutional Appears: No Acute Distress - Head Exam Head Exam: ATRAUMATIC, NORMOCEPHALIC - Eye Exam Eye Exam: EOMI - ENT Exam ENT Exam: Mucous Membranes Moist - Neck Exam Neck exam: Positive for: Full Rom - Respiratory Exam Respiratory Exam: Clear to Auscultation Bilateral, NORMAL BREATHING PATTERN. absent: Accessory Muscle Use, Respiratory Distress - Cardiovascular Exam Cardiovascular Exam: RRR, +S1, +S2. absent: Diastolic murmur, Systolic Murmur - GI/Abdominal Exam GI & Abdominal Exam: Normal Bowel Sounds, Soft - Extremities Exam Extremities exam: Positive for: full ROM, pedal pulses present. Negative for: pedal edema Additional comments: BL LE bandages are clean dry and intact, tender to palpation - Skin Skin Exam: Dry, Normal Color, Warm Results - Vital Signs Recent Vital Signs: Last Vital Signs Temp 97.5 F L 09/03/18 08:14 Pulse 108 H 09/03/18 08:14 Resp 20 09/03/18 08:14 BP 173/89 H 09/03/18 08:14 Pulse Ox 97 09/03/18 08:14 - Labs Result Diagrams: 09/02/18 06:00 09/02/18 06:00 Labs: Laboratory Results - last 24 hr 09/02/18 09/02/18 09/02/18 06:00 10:46 16:04 POC Glucose (mg/dL) 138 H 89 Vancomycin Trough RPR Nonreactive 09/02/18 09/03/18 09/03/18 22:21 05:20 05:40 POC Glucose (mg/dL) 106 97 Vancomycin Trough 20.1 H RPR Assessment & Plan - Assessment and Plan (Free Text) Assessment: Diabetic foot ulcer HTN Hypothyroidsim HLD HA1C follow up Foot MRI 08/31/18: possible osteomyelitis, but inflammatory causes cannot be ruled out Ankle MRI 08/31/18: bony edema which may be indicative of osteomyelitis, but there is also muscular involvement which may be from an inflammatory cause Dupplex of LE 08/31/18 severely diseased BL LE arterial system although a high grade stenosis of distal abdominal aorta, may need contrast CT angio LE US 09/01/18: no evidence of DVT Medications ASA Pt seen, examined, assessment and plan discussed with Dr Baldemar Dorantes PGY1 - Date & Time Date: 09/03/18 Time: 08:46
[2018-09-03] MEDS: Enoxaparin 40 mg Syringe SC SCH (08:52)
[2018-09-03] MEDS: Santyl Collagenase OINTMENT TOP SCH (08:52)
[2018-09-03] MEDS: Pantoprazole 40 mg EC Tab PO SCH (08:53)
--- NOTE | 2018-09-03 10:03 | CP.PCM.PN ---
Subjective - Date & Time of Evaluation Date of Evaluation: 09/03/18 Time of Evaluation: 09:57 - Subjective Subjective: Podiatry progress note for attending Dr. Brown: 62 year old female patient seen and evaluated in the bedside for b/l LE infected ulcerations. Patient states that she still has sever pain in her lower extremities at the ulcer site. As per Chart there was no overnight fevers, nausea, vomiting, cough,and shortness of breath. She denies any other pedal complaint at this time Objective - Vital Signs/Intake and Output Vital Signs (last 24 hours): Temp Pulse Resp BP Pulse Ox 97.5 F L 108 H 20 173/89 H 97 09/03/18 08:14 09/03/18 08:14 09/03/18 08:14 09/03/18 08:14 09/03/18 08:14 - Medications Medications: Current Medications Acetaminophen (Tylenol 325mg Tab) 650 mg PO Q6 PRN PRN Reason: Pain, Mild (1-3) Acetaminophen (Tylenol 325mg Tab) 650 mg PO Q6 PRN PRN Reason: Fever >100.4 F Aspirin (Aspirin Chewable) 81 mg PO DAILY [facility] Last Admin: 09/03/18 08:53 Dose: 81 mg Collagenase (Santyl) 1 applic TOP DAILY [facility] Last Admin: 09/03/18 08:52 Dose: 1 appl Cyanocobalamin (Vitamin B12 1000 Mcg Tab) 1,000 mcg PO DAILY [facility] Last Admin: 09/03/18 08:53 Dose: 1,000 mcg Dextrose (Dextrose 50% Inj) 0 ml IV STAT PRN; Protocol PRN Reason: Hypoglycemia Protocol Dextrose (Glutose 15) 0 gm PO ONCE PRN; Protocol PRN Reason: Hypoglycemia Protocol Enoxaparin Sodium (Lovenox) 40 mg SC DAILY [facility]; Protocol Last Admin: 09/03/18 08:52 Dose: 40 mg Glucagon (Glucagen Diagnostic Kit) 0 mg IM STAT PRN; Protocol PRN Reason: Hypoglycemia Protocol Vancomycin HCl 500 mg/ Sodium (Chloride) 100 mls @ 100 mls/hr IVPB Q12 [facility]; Protocol Last Admin: 09/02/18 20:48 Dose: 100 mls/hr Piperacillin Sod/Tazobactam (Sod 2.25 gm/ Sodium Chloride) 100 mls @ 100 mls/hr IVPB 0400,1000,1600,2200 [facility]; Protocol Last Admin: 09/03/18 09:00 Dose: 100 mls/hr Insulin Human Regular (Humulin R) 0 units SC ACHS [facility]; Protocol Last Admin: 09/03/18 07:14 Dose: Not Given Levothyroxine Sodium (Synthroid) 100 mcg PO DAILY@0630 [facility] Last Admin: 09/03/18 06:08 Dose: 100 mcg Morphine Sulfate (Morphine) 4 mg IVP Q6 PRN PRN Reason: Pain, severe (8-10) Last Admin: 09/03/18 07:07 Dose: 4 mg Ondansetron HCl (Zofran Inj) 4 mg IVP Q6 PRN PRN Reason: Nausea/Vomiting Oxycodone/Acetaminophen (Percocet 5/325 Mg Tab) 1 tab PO Q6 PRN PRN Reason: Pain, moderate (4-7) Stop: 09/03/18 19:46 Last Admin: 09/02/18 16:14 Dose: 1 tab Pantoprazole Sodium (Protonix Ec Tab) 40 mg PO DAILY [facility] Last Admin: 09/03/18 08:53 Dose: 40 mg Sodium Hypochlorite (Dakins Solution 0.125%) 1 appl EXT DAILY [facility] Last Admin: 09/02/18 08:54 Dose: 1 appl - Labs Labs: 09/02/18 06:00 09/02/18 06:00 - Head Exam Head Exam: ATRAUMATIC - Extremities Exam Additional comments: B/L lower extremity focused exam: Vascular: DP/PT are 2/4 b/l, Cap refill < 3 seconds to all digits, Temp gradient warm to cool from proximal to distal, no edema appreciated to b/l extremities. Neuro: Gross sensation intact, protective sensation diminished. Derm: Left: An ulcer noted in the lateral aspect of the foot measuring 1.8 cm X 1.2 cm X 0.2 cm. Base is necrotic. positive purulent drainage noted. No tracking, positive undermining, No probe to bone. No delma-ulcerative erythema noted. Another ulcer noted in the left heel 4 cm X 2.3 cm X 0.4 cm. Base is necrotic. Partially macerated edges. positive purulent drainage noted. positive tracking, positive undermining, Positive probe to bone. positive delma-ulcerative erythema noted. A third ulcer noted in the upper lateral aspect of the left leg measuring 1.5 cm X 1.2 cm X 0.1 cm. Base is necrotic. positive purulent drainage noted. No tracking, No undermining, Positive probe to bone. Delma-ulcerative erythema and induration noted. Right: ulcer noted in the left heel 3.6 cm X 1.8 cm X 0.4 cm. Base is necrotic. partially macerated edges. positive purulent drainage noted. positive tracking, positive undermining, Positive probe to bone. positive delma-ulcerative erythema noted. MSK: Muscle power 5/5 to all groups, Pain noted on palpating the delma- ulcerative areas. - Neurological Exam Neurological Exam: Alert, Awake Assessment and Plan - Assessment and Plan (Free Text) Assessment: 62 year old female patient seen and evaluated in the bedside for b/l LE infected ulcerations. Plan: -Patient seen and evaluated at the bedside. -Discussed in detail with Dr. Brown -Charts, labs and vitals reviewed; Afebrile, WBC 7.4 (09/02). -Wound culture: Citrobacter diversus, Beta hemolytic strept group B -B/L foot x-ray: No evidence of OM -B/L ankle x-ray: Superficial ulcerations. -B/L tib/fibula x-ray: No acute findings. -LE CRISTIANE/PVR: Sever biateral LE arterial disease, distal abdominal aorta stenosis and or bilateral iliac stenosis not excluded. Concider follow up contrasr CT a ngio of aorto-iliac system with bilateral LE runoff. -Left ankle MRI: Overall pattern is highly suggestive of osteomyelitis at the calcaneus and is difficult to exclude at the remaining midfoot/hindfoot and right ankle bony elements. Unfortunately, widespread mottled/heterogeneous Marrow edema is appreciated not only involving the ankle but osseous elements of the midfoot and hindfoot also suspicious for osteomyelitis with differentiated diagnosis of RSD order other inflammatory causes. Posttraumatic etiology is unlikely. Further clinical correlation is recommended. -Right ankle MRI: Indeterminate pattern of bony edema throughout the ankle and midfoot/hindfoot anatomy indicative of osteomyelitis particularly at the calcaneus adjacent to a soft tissue ulcer posteriorly. Abnormal Marrow signal throughout the entire midfoot and hindfoot including inferior tibia and possibly fibula may also reflect osteomyelitis though given its widespread pattern which includes various musculature as well, consider other inflammatory causes, reflex sympathetic dystrophy and other etiologies. Further clinical correlation is recommended. -Right foot MRI: Nonspecific pattern of heterogeneous abnormal edema scattered throughout the midfoot and hindfoot bony anatomy as well as the 1st and 5th metatarsal bones and proximal phalanx right great toe. For osteomyelitis or other inflammatory causes. Clinical correlation suggestive of OM. -Left foot MRI: Nonspecific heterogeneous pattern of edema primarily at the left midfoot and hindfoot bones as discussed above few cellulitis is appreciate primarily affecting midfoot and hindfoot distribution as well. The 2nd and 3rd digits are also affected at the pattern is nonspecific and could reflect osteomyelitis though other etiologies including RSD and other inflammatory causes are not excluded. Further clinical correlation suggestive of OM. -B/L Lower Extremity MRI: Edematous changes are seen in the Marrow of the osseous elements at the bilateral knee joints slightly greater the right than left. Osteomyelitis is not favored. Questionable ulcer distal posterior leg soft tissues. Mild bilateral lower extremity cellulitis. No definite abscess appreciated bilaterally. -Patient will got a PICC line yesterday for long course (4-6 weeks) of IV Abx. -ESR: >120, CRP: 167.60 -B/L LE venous duplex: No DVT, Right inguinal lymphadenopathy -Ordered Vascular consult. -Partial debridement of the necrotic tissues done at the bedside. -B/L ulcers cleaned with saline and dakins then dressed with santyl, Mepilex for the upper left leg wound and DSD and santyl for the rest of the ulcers. -Patient to stay in the multipodus boot while in bed. -Ordered PT evaluation for offloading heel shoe. -Patient to bear weight as tolerated in the heel offloading shoe. -ID on board Reccs appreciated. -Patient to continue IV abx as per ID. -Podiatry will continue to follow up the patient while in house.
--- NOTE | 2018-09-03 10:39 | CP.PCM.PN ---
<Josie Harvey - Last Filed: 09/03/18 11:29> Subjective - Date & Time of Evaluation Date of Evaluation: 09/03/18 Time of Evaluation: 10:37 - Subjective Subjective: Progress note for Dr. Burks 62 yo female seen and evaluated at bedside. Patients niece is noted to be at bedside. Patient is noted to be alert and awake. Admits to severe pain in her legs. Denies acute overnight events. She denies any recent illness, fever/chills, difficulty breathing, n/v/d. Objective - Vital Signs/Intake and Output Vital Signs (last 24 hours): Temp Pulse Resp BP Pulse Ox 97.5 F L 108 H 20 173/89 H 97 09/03/18 08:14 09/03/18 08:14 09/03/18 08:14 09/03/18 08:14 09/03/18 08:14 - Medications Medications: Current Medications Acetaminophen (Tylenol 325mg Tab) 650 mg PO Q6 PRN PRN Reason: Pain, Mild (1-3) Acetaminophen (Tylenol 325mg Tab) 650 mg PO Q6 PRN PRN Reason: Fever >100.4 F Aspirin (Aspirin Chewable) 81 mg PO DAILY [facility] Last Admin: 09/03/18 08:53 Dose: 81 mg Collagenase (Santyl) 1 applic TOP DAILY [facility] Last Admin: 09/03/18 08:52 Dose: 1 appl Cyanocobalamin (Vitamin B12 1000 Mcg Tab) 1,000 mcg PO DAILY [facility] Last Admin: 09/03/18 08:53 Dose: 1,000 mcg Dextrose (Dextrose 50% Inj) 0 ml IV STAT PRN; Protocol PRN Reason: Hypoglycemia Protocol Dextrose (Glutose 15) 0 gm PO ONCE PRN; Protocol PRN Reason: Hypoglycemia Protocol Enoxaparin Sodium (Lovenox) 40 mg SC DAILY [facility]; Protocol Last Admin: 09/03/18 08:52 Dose: 40 mg Glucagon (Glucagen Diagnostic Kit) 0 mg IM STAT PRN; Protocol PRN Reason: Hypoglycemia Protocol Vancomycin HCl 500 mg/ Sodium (Chloride) 100 mls @ 100 mls/hr IVPB Q12 [facility]; Protocol Last Admin: 09/02/18 20:48 Dose: 100 mls/hr Piperacillin Sod/Tazobactam (Sod 2.25 gm/ Sodium Chloride) 100 mls @ 100 mls/hr IVPB 0400,1000,1600,2200 [facility]; Protocol Last Admin: 09/03/18 09:00 Dose: 100 mls/hr Insulin Human Regular (Humulin R) 0 units SC ACHS [facility]; Protocol Last Admin: 09/03/18 07:14 Dose: Not Given Levothyroxine Sodium (Synthroid) 100 mcg PO DAILY@0630 [facility] Last Admin: 09/03/18 06:08 Dose: 100 mcg Morphine Sulfate (Morphine) 4 mg IVP Q6 PRN PRN Reason: Pain, severe (8-10) Last Admin: 09/03/18 07:07 Dose: 4 mg Ondansetron HCl (Zofran Inj) 4 mg IVP Q6 PRN PRN Reason: Nausea/Vomiting Oxycodone/Acetaminophen (Percocet 5/325 Mg Tab) 1 tab PO Q6 PRN PRN Reason: Pain, moderate (4-7) Stop: 09/03/18 19:46 Last Admin: 09/02/18 16:14 Dose: 1 tab Pantoprazole Sodium (Protonix Ec Tab) 40 mg PO DAILY [facility] Last Admin: 09/03/18 08:53 Dose: 40 mg Sodium Hypochlorite (Dakins Solution 0.125%) 1 appl EXT DAILY [facility] Last Admin: 09/02/18 08:54 Dose: 1 appl - Labs Labs: 09/02/18 06:00 09/02/18 06:00 - Constitutional Appears: Well, Non-toxic, No Acute Distress - Head Exam Head Exam: ATRAUMATIC, NORMOCEPHALIC - Eye Exam Eye Exam: Normal appearance Pupil Exam: NORMAL ACCOMODATION - ENT Exam ENT Exam: Mucous Membranes Moist - Cardiovascular Exam Cardiovascular Exam: REGULAR RHYTHM, +S1, +S2 - Extremities Exam Extremities Exam: Normal Inspection Additional comments: dressing d/c/i - Neurological Exam Neurological Exam: Alert, Awake, Oriented x3 - Psychiatric Exam Psychiatric exam: Normal Affect - Skin Skin Exam: Normal Color Assessment and Plan - Assessment and Plan (Free Text) Assessment: Pt is a 62 y/o female with hx of HTN, DM, Hypothyroidism, Rheumatoid arthritis, Chronic foot ulcers admitted for multiple foot/leg ulcers w/ foul odor drainage, elevated ESR, Bandemia, and Altered mental status x2 weeks Plan: #Multiple Foot Ulcers, Bilaterally - Wound probed to bone by Podiatry, strong suspicion for Osteomyelitis - Afebrile, No leukocytosis, +Bandemia 4, Lactate normal, ESR 120 - Will continue w/ Vanco and Zosyn - Pain Scale as ordered - Podiatry consulted, Dr. Brown; recs appreciated - ID Consulted, Dr. Conterras - Wound Care Nursing, tight glycemic control, offloading from ulcers - MRI LE from knee to ankle :showed no OM , no abscess - MRI: Left ankle MRI :showed suggestive pattern of OM at the calcaneus and is difficult to exclude at the remaining midfoot/hindfoot and right ankle bony elements. Unfortunately, widespread mottled/heterogeneous Marrow edema is appreciated not only involving the ankle but osseous elements of the midfoot and hindfoot also suspicious for osteomyelitis with differentiated diagnosis of RSD order other inflammatory causes. MRI right ankle :Indeterminate pattern of bony edema throughout the ankle and midfoot/hindfoot anatomy indicative of osteomyelitis particularly at the calcaneus adjacent to a soft tissue ulcer posteriorly. Abnormal Marrow signal throughout the entire midfoot and hindfoot including inferior tibia and possibly fibula may also reflect osteomyelitis though given its widespread pattern which includes various musculature as well, consider other inflammatory causes, reflex sympathetic dystrophy and other etiologies. Further clinical correlation is recommended. - MRI right foot :Nonspecific pattern of heterogeneous abnormal edema scattered throughout the midfoot and hindfoot bony anatomy as well as the 1st and 5th metatarsal bones and proximal phalanx right great toe. -MRI left foot :Indeterminate pattern of bony edema throughout the ankle and midfoot/hindfoot anatomy indicative of osteomyelitis particularly at the c alcaneus adjacent to a soft tissue ulcer posteriorly. Abnormal Marrow signal throughout the entire midfoot and hindfoot including inferior tibia and possibly fibula may also reflect osteomyelitis though given its widespread pattern which includes various musculature as well, consider other inflammatory causes, reflex sympathetic dystrophy and other etiologies. - Duplex Vein no DVT -Arterial duplex: severely diseased b/l LE arterial system. - Vascular consulted; Dr Mcdermott will see patient today. Recommends to hold off on CT angio. CrCl- 42.7 - Wcx; citrobacter diversus, beta hemolytic strep group b - PICC Line in place #Worsening Mental status - Family noted decline in neuromental status over 2 weeks - May be encephalopathy related to acute infection vs pseudodementia vs uncontrolled hypothyroidism - Head CT negative for acute process; old infarcts and age related degenerative changes seen - Treat all possible reversible processes; if persists consider Psych consult for possible dementia/behavior disorder/depression #Urinary Incontinence - May have underlying infection considering dysuria and foul odor urine - No urinary retention on exam - Ucx: no growth #CKD - Stable - Crea 1.4, GFR 38 (Basline Crea 1.4-1.5, GFR 35-38) - Likely related to P-ANCA (glomerular disease) vs DM/HTN - Renal dose adjustments for nephrotoxic medication (check Vanco trough) #Hypothyroidism -TSH 5.47, T4 6.55 -C/W with home medication, Levothyroxine 100mg daily #Rheumatoid Arthritis -Pain controlled with Tylenol. Morphine 4 gm q6 pRN ordered for severe pain -Prior labs reviewed: +RF, +Anti CCP, + pANCa #Anemia - Hg 10.6 (Baseline 7-8), MCV 80.4 s/o transfusion of 2 units. - Anemia workup in last admission revealed Anemia of Chronic Disease and B12 def - C/W B12 oral meds - Monitor H/H #Poor mobility/Debilitation - OT for ADL's - PT to be ordered for gait/mobility/strength #DVT ppx -Lovenox 40mg SQ daily given CreaCl >40 - Aspirin 81 mg PO -Will avoid SCD given active ulcers Code status to be established once family has discussion, Full Code for now Next of Kin (Niece): Danni <Karoline oRusseau - Last Filed: 09/04/18 18:50> Objective - Vital Signs/Intake and Output Vital Signs (last 24 hours): Temp Pulse Resp BP Pulse Ox 99.8 F H 84 20 145/77 98 09/04/18 16:34 09/04/18 16:34 09/04/18 16:34 09/04/18 16:34 09/04/18 16:34 - Medications Medications: Current Medications Acetaminophen (Tylenol 325mg Tab) 650 mg PO Q6 PRN PRN Reason: Pain, Mild (1-3) Acetaminophen (Tylenol 325mg Tab) 650 mg PO Q6 PRN PRN Reason: Fever >100.4 F Aspirin (Aspirin Chewable) 81 mg PO DAILY [facility] Last Admin: 09/04/18 09:38 Dose: 81 mg Collagenase (Santyl) 1 applic TOP DAILY [facility] Last Admin: 09/04/18 09:19 Dose: 1 appl Cyanocobalamin (Vitamin B12 1000 Mcg Tab) 1,000 mcg PO DAILY [facility] Last Admin: 09/04/18 09:39 Dose: 1,000 mcg Dextrose (Dextrose 50% Inj) 0 ml IV STAT PRN; Protocol PRN Reason: Hypoglycemia Protocol Dextrose (Glutose 15) 0 gm PO ONCE PRN; Protocol PRN Reason: Hypoglycemia Protocol Enoxaparin Sodium (Lovenox) 40 mg SC DAILY [facility]; Protocol Last Admin: 09/04/18 09:37 Dose: 40 mg Glucagon (Glucagen Diagnostic Kit) 0 mg IM STAT PRN; Protocol PRN Reason: Hypoglycemia Protocol Vancomycin HCl 500 mg/ Sodium (Chloride) 100 mls @ 100 mls/hr IVPB Q12 [facility]; Protocol Last Admin: 09/03/18 13:38 Dose: Not Given Ceftriaxone Sodium 1 gm/ (Sodium Chloride) 100 mls @ 100 mls/hr IVPB DAILY [facility]; Protocol Last Admin: 09/04/18 09:18 Dose: 100 mls/hr Insulin Human Regular (Humulin R) 0 units SC ACHS [facility]; Protocol Last Admin: 09/04/18 16:00 Dose: Not Given Levothyroxine Sodium (Synthroid) 100 mcg PO DAILY@0630 [facility] Last Admin: 09/04/18 06:48 Dose: 100 mcg Morphine Sulfate (Morphine) 4 mg IVP Q6 PRN PRN Reason: Pain, severe (8-10) Last Admin: 09/04/18 06:30 Dose: 4 mg Ondansetron HCl (Zofran Inj) 4 mg IVP Q6 PRN PRN Reason: Nausea/Vomiting Pantoprazole Sodium (Protonix Ec Tab) 40 mg PO DAILY [facility] Last Admin: 09/04/18 09:38 Dose: 40 mg Sodium Hypochlorite (Dakins Solution 0.125%) 1 appl EXT DAILY [facility] Last Admin: 09/04/18 09:17 Dose: 1 appl - Labs Labs: 09/04/18 06:15 09/04/18 06:15 Attending/Attestation - Attestation I have personally seen and examined this patient.: Yes I have fully participated in the care of the patient.: Yes I have reviewed all pertinent clinical information, including history, physical exam and plan: Yes Notes (Text): 09/04/18 18:50 agree with findings and plan as above plan for cta per IC
--- NOTE | 2018-09-03 10:47 | CP.PCM.PN ---
Subjective - Date & Time of Evaluation Date of Evaluation: 09/03/18 Time of Evaluation: 10:47 - Subjective Subjective: ID Note- Pt. seen and examined. no new events. Objective - Vital Signs/Intake and Output Vital Signs (last 24 hours): Temp Pulse Resp BP Pulse Ox 97.5 F L 108 H 20 173/89 H 97 09/03/18 08:14 09/03/18 08:14 09/03/18 08:14 09/03/18 08:14 09/03/18 08:14 - Medications Medications: Current Medications Acetaminophen (Tylenol 325mg Tab) 650 mg PO Q6 PRN PRN Reason: Pain, Mild (1-3) Acetaminophen (Tylenol 325mg Tab) 650 mg PO Q6 PRN PRN Reason: Fever >100.4 F Aspirin (Aspirin Chewable) 81 mg PO DAILY [facility] Last Admin: 09/03/18 08:53 Dose: 81 mg Collagenase (Santyl) 1 applic TOP DAILY [facility] Last Admin: 09/03/18 08:52 Dose: 1 appl Cyanocobalamin (Vitamin B12 1000 Mcg Tab) 1,000 mcg PO DAILY [facility] Last Admin: 09/03/18 08:53 Dose: 1,000 mcg Dextrose (Dextrose 50% Inj) 0 ml IV STAT PRN; Protocol PRN Reason: Hypoglycemia Protocol Dextrose (Glutose 15) 0 gm PO ONCE PRN; Protocol PRN Reason: Hypoglycemia Protocol Enoxaparin Sodium (Lovenox) 40 mg SC DAILY [facility]; Protocol Last Admin: 09/03/18 08:52 Dose: 40 mg Glucagon (Glucagen Diagnostic Kit) 0 mg IM STAT PRN; Protocol PRN Reason: Hypoglycemia Protocol Vancomycin HCl 500 mg/ Sodium (Chloride) 100 mls @ 100 mls/hr IVPB Q12 [facility]; Protocol Last Admin: 09/02/18 20:48 Dose: 100 mls/hr Piperacillin Sod/Tazobactam (Sod 2.25 gm/ Sodium Chloride) 100 mls @ 100 mls/hr IVPB 0400,1000,1600,2200 [facility]; Protocol Last Admin: 09/03/18 09:00 Dose: 100 mls/hr Insulin Human Regular (Humulin R) 0 units SC ACHS [facility]; Protocol Last Admin: 09/03/18 07:14 Dose: Not Given Levothyroxine Sodium (Synthroid) 100 mcg PO DAILY@0630 [facility] Last Admin: 09/03/18 06:08 Dose: 100 mcg Morphine Sulfate (Morphine) 4 mg IVP Q6 PRN PRN Reason: Pain, severe (8-10) Last Admin: 09/03/18 07:07 Dose: 4 mg Ondansetron HCl (Zofran Inj) 4 mg IVP Q6 PRN PRN Reason: Nausea/Vomiting Oxycodone/Acetaminophen (Percocet 5/325 Mg Tab) 1 tab PO Q6 PRN PRN Reason: Pain, moderate (4-7) Stop: 09/03/18 19:46 Last Admin: 09/02/18 16:14 Dose: 1 tab Pantoprazole Sodium (Protonix Ec Tab) 40 mg PO DAILY [facility] Last Admin: 09/03/18 08:53 Dose: 40 mg Sodium Hypochlorite (Dakins Solution 0.125%) 1 appl EXT DAILY [facility] Last Admin: 09/02/18 08:54 Dose: 1 appl - Labs Labs: - Additional Findings Additional findings: - Constitutional Appears: No Acute Distress - Eye Exam Eye Exam: EOMI - ENT Exam ENT Exam: Normal Oropharynx - Neck Exam Neck exam: Positive for: Full Rom - Respiratory Exam Respiratory Exam: Clear to Auscultation Bilateral, NORMAL BREATHING PATTERN - Cardiovascular Exam Cardiovascular Exam: RRR, +S1, +S2 - GI/Abdominal Exam GI & Abdominal Exam: Normal Bowel Sounds, Soft Additional comments: NT, ND - Extremities Exam Additional comments: left lateral ankle with 2 round ulcerated lesions with necrosis in middle, malodor present, no active discharge left lateral patellar region also with ulcerated necrotic round lesion right heel region with larger uler with central necrosis and underlying scant discharge no erythema of the surrounding skin - Neurological Exam Neurological exam: Alert Additional comments: AAO x 3 Laboratory Results - last 72 hr 08/31/18 08/31/18 08/31/18 16:45 17:03 22:35 WBC RBC Hgb Hct MCV MCH MCHC RDW Plt Count MPV Neut % (Auto) Lymph % (Auto) [place] % (Auto) Eos % (Auto) Baso % (Auto) Neut # (Auto) Lymph # (Auto) [place] # (Auto) Eos # (Auto) Baso # (Auto) Sodium Potassium Chloride Carbon Dioxide Anion Gap BUN Creatinine Est GFR ( Amer) Est GFR (Non-Af Amer) POC Glucose (mg/dL) 125 H Random Glucose Hemoglobin A1c Calcium Iron TIBC % Saturation Ferritin Total Bilirubin AST ALT Alkaline Phosphatase C-Reactive Protein 167.60 H Total Protein Albumin Globulin Albumin/Globulin Ratio Thyroxine (T4) TSH 3rd Generation Urine Color Urine Clarity Urine pH Ur Specific [place] Urine Protein Urine Glucose (UA) Urine Ketones Urine Blood Urine Nitrate Urine Bilirubin Urine Urobilinogen Ur Leukocyte Esterase Urine RBC (Auto) Urine Microscopic WBC Ur Squamous Epith Cells Urine Bacteria Hyaline Casts Vancomycin Trough RPR Blood Type O POSITIVE Antibody Screen Negative Crossmatch See Detail BBK History Checked Patient has bt 09/01/18 09/01/18 09/01/18 05:28 05:55 05:55 WBC 7.5 RBC 2.62 L Hgb 6.8 L Hct 20.8 L MCV 79.2 L MCH 25.8 L MCHC 32.6 L RDW 16.5 H Plt Count 348 MPV 8.3 Neut % (Auto) 81.8 H Lymph % (Auto) 6.6 L [place] % (Auto) 8.6 Eos % (Auto) 2.8 Baso % (Auto) 0.2 Neut # (Auto) 6.1 Lymph # (Auto) 0.5 L [place] # (Auto) 0.6 Eos # (Auto) 0.2 Baso # (Auto) 0.0 Sodium 134 Potassium 4.1 Chloride 98 Carbon Dioxide 27 Anion Gap 13 BUN 21 H Creatinine 1.4 H Est GFR ( Amer) 46 Est GFR (Non-Af Amer) 38 POC Glucose (mg/dL) 85 Random Glucose 85 Hemoglobin A1c Calcium 8.7 Iron TIBC % Saturation Ferritin Total Bilirubin AST ALT Alkaline Phosphatase C-Reactive Protein Total Protein Albumin Globulin Albumin/Globulin Ratio Thyroxine (T4) 6.55 TSH 3rd Generation 5.47 H Urine Color Urine Clarity Urine pH Ur Specific [place] Urine Protein Urine Glucose (UA) Urine Ketones Urine Blood Urine Nitrate Urine Bilirubin Urine Urobilinogen Ur Leukocyte Esterase Urine RBC (Auto) Urine Microscopic WBC Ur Squamous Epith Cells Urine Bacteria Hyaline Casts Vancomycin Trough RPR Blood Type Antibody Screen Crossmatch BBK History Checked 09/01/18 09/01/18 09/01/18 09:15 09:15 10:31 WBC RBC Hgb Hct MCV MCH MCHC RDW Plt Count MPV Neut % (Auto) Lymph % (Auto) [place] % (Auto) Eos % (Auto) Baso % (Auto) Neut # (Auto) Lymph # (Auto) [place] # (Auto) Eos # (Auto) Baso # (Auto) Sodium Potassium Chloride Carbon Dioxide Anion Gap BUN Creatinine Est GFR ( Amer) Est GFR (Non-Af Amer) POC Glucose (mg/dL) 141 H Random Glucose Hemoglobin A1c Calcium Iron 13 L TIBC 180 L % Saturation 7 L Ferritin 318.0 H Total Bilirubin AST ALT Alkaline Phosphatase C-Reactive Protein Total Protein Albumin Globulin Albumin/Globulin Ratio Thyroxine (T4) TSH 3rd Generation Urine Color Urine Clarity Urine pH Ur Specific [place] Urine Protein Urine Glucose (UA) Urine Ketones Urine Blood Urine Nitrate Urine Bilirubin Urine Urobilinogen Ur Leukocyte Esterase Urine RBC (Auto) Urine Microscopic WBC Ur Squamous Epith Cells Urine Bacteria Hyaline Casts Vancomycin Trough RPR Blood Type Antibody Screen Crossmatch BBK History Checked 09/01/18 09/01/18 09/01/18 13:00 15:45 21:19 WBC RBC Hgb Hct MCV MCH MCHC RDW Plt Count MPV Neut % (Auto) Lymph % (Auto) [place] % (Auto) Eos % (Auto) Baso % (Auto) Neut # (Auto) Lymph # (Auto) [place] # (Auto) Eos # (Auto) Baso # (Auto) Sodium Potassium Chloride Carbon Dioxide Anion Gap BUN Creatinine Est GFR ( Amer) Est GFR (Non-Af Amer) POC Glucose (mg/dL) 113 H 106 Random Glucose Hemoglobin A1c Calcium Iron TIBC % Saturation Ferritin Total Bilirubin AST ALT Alkaline Phosphatase C-Reactive Protein Total Protein Albumin Globulin Albumin/Globulin Ratio Thyroxine (T4) TSH 3rd Generation Urine Color Yellow Urine Clarity Cloudy Urine pH 5.0 Ur Specific [place] 1.019 Urine Protein 30 Urine Glucose (UA) Neg Urine Ketones Negative Urine Blood Small Urine Nitrate Negative Urine Bilirubin Negative Urine Urobilinogen 0.2-1.0 Ur Leukocyte Esterase Neg Urine RBC (Auto) 5 H Urine Microscopic WBC 1 Ur Squamous Epith Cells 8 H Urine Bacteria Rare Hyaline Casts 0-2 Vancomycin Trough RPR Blood Type Antibody Screen Crossmatch BBK History Checked 09/01/18 09/02/18 09/02/18 21:19 05:13 06:00 WBC RBC Hgb Hct MCV MCH MCHC RDW Plt Count MPV Neut % (Auto) Lymph % (Auto) [place] % (Auto) Eos % (Auto) Baso % (Auto) Neut # (Auto) Lymph # (Auto) [place] # (Auto) Eos # (Auto) Baso # (Auto) Sodium Potassium Chloride Carbon Dioxide Anion Gap BUN Creatinine Est GFR ( Amer) Est GFR (Non-Af Amer) POC Glucose (mg/dL) 106 74 Random Glucose Hemoglobin A1c Calcium Iron TIBC % Saturation Ferritin Total Bilirubin AST ALT Alkaline Phosphatase C-Reactive Protein Total Protein Albumin Globulin Albumin/Globulin Ratio Thyroxine (T4) TSH 3rd Generation Urine Color Urine Clarity Urine pH Ur Specific [place] Urine Protein Urine Glucose (UA) Urine Ketones Urine Blood Urine Nitrate Urine Bilirubin Urine Urobilinogen Ur Leukocyte Esterase Urine RBC (Auto) Urine Microscopic WBC Ur Squamous Epith Cells Urine Bacteria Hyaline Casts Vancomycin Trough RPR Nonreactive Blood Type Antibody Screen Crossmatch BBK History Checked 09/02/18 09/02/18 09/02/18 06:00 06:00 10:46 WBC 7.4 RBC 3.98 Hgb 10.6 L D Hct 32.0 L MCV 80.4 L MCH 26.6 L MCHC 33.1 RDW 15.9 H Plt Count 338 MPV Neut % (Auto) Lymph % (Auto) [place] % (Auto) Eos % (Auto) Baso % (Auto) Neut # (Auto) Lymph # (Auto) [place] # (Auto) Eos # (Auto) Baso # (Auto) Sodium 135 Potassium 4.4 Chloride 98 Carbon Dioxide 26 Anion Gap 15 BUN 15 Creatinine 1.3 H Est GFR ( Amer) 50 Est GFR (Non-Af Amer) 41 POC Glucose (mg/dL) 138 H Random Glucose 79 Hemoglobin A1c Calcium 9.1 Iron TIBC % Saturation Ferritin Total Bilirubin 0.7 AST 26 ALT 12 Alkaline Phosphatase 93 C-Reactive Protein Total Protein 7.3 Albumin 3.0 L Globulin 4.2 H Albumin/Globulin Ratio 0.7 L Thyroxine (T4) TSH 3rd Generation Urine Color Urine Clarity Urine pH Ur Specific [place] Urine Protein Urine Glucose (UA) Urine Ketones Urine Blood Urine Nitrate Urine Bilirubin Urine Urobilinogen Ur Leukocyte Esterase Urine RBC (Auto) Urine Microscopic WBC Ur Squamous Epith Cells Urine Bacteria Hyaline Casts Vancomycin Trough RPR Blood Type Antibody Screen Crossmatch BBK History Checked 09/02/18 09/02/18 09/03/18 16:04 22:21 05:20 WBC RBC Hgb Hct MCV MCH MCHC RDW Plt Count MPV Neut % (Auto) Lymph % (Auto) [place] % (Auto) Eos % (Auto) Baso % (Auto) Neut # (Auto) Lymph # (Auto) [place] # (Auto) Eos # (Auto) Baso # (Auto) Sodium Potassium Chloride Carbon Dioxide Anion Gap BUN Creatinine Est GFR ( Amer) Est GFR (Non-Af Amer) POC Glucose (mg/dL) 89 106 97 Random Glucose Hemoglobin A1c Calcium Iron TIBC % Saturation Ferritin Total Bilirubin AST ALT Alkaline Phosphatase C-Reactive Protein Total Protein Albumin Globulin Albumin/Globulin Ratio Thyroxine (T4) TSH 3rd Generation Urine Color Urine Clarity Urine pH Ur Specific [place] Urine Protein Urine Glucose (UA) Urine Ketones Urine Blood Urine Nitrate Urine Bilirubin Urine Urobilinogen Ur Leukocyte Esterase Urine RBC (Auto) Urine Microscopic WBC Ur Squamous Epith Cells Urine Bacteria Hyaline Casts Vancomycin Trough RPR Blood Type Antibody Screen Crossmatch BBK History Checked 09/03/18 09/03/18 09/03/18 05:40 10:57 11:30 WBC RBC Hgb Hct MCV MCH MCHC RDW Plt Count MPV Neut % (Auto) Lymph % (Auto) [place] % (Auto) Eos % (Auto) Baso % (Auto) Neut # (Auto) Lymph # (Auto) [place] # (Auto) Eos # (Auto) Baso # (Auto) Sodium Potassium Chloride Carbon Dioxide Anion Gap BUN Creatinine Est GFR ( Amer) Est GFR (Non-Af Amer) POC Glucose (mg/dL) 108 Random Glucose Hemoglobin A1c 6.0 Calcium Iron TIBC % Saturation Ferritin Total Bilirubin AST ALT Alkaline Phosphatase C-Reactive Protein Total Protein Albumin Globulin Albumin/Globulin Ratio Thyroxine (T4) TSH 3rd Generation Urine Color Urine Clarity Urine pH Ur Specific [place] Urine Protein Urine Glucose (UA) Urine Ketones Urine Blood Urine Nitrate Urine Bilirubin Urine Urobilinogen Ur Leukocyte Esterase Urine RBC (Auto) Urine Microscopic WBC Ur Squamous Epith Cells Urine Bacteria Hyaline Casts Vancomycin Trough 20.1 H RPR Blood Type Antibody Screen Crossmatch BBK History Checked 09/03/18 15:39 WBC RBC Hgb Hct MCV MCH MCHC RDW Plt Count MPV Neut % (Auto) Lymph % (Auto) [place] % (Auto) Eos % (Auto) Baso % (Auto) Neut # (Auto) Lymph # (Auto) [place] # (Auto) Eos # (Auto) Baso # (Auto) Sodium Potassium Chloride Carbon Dioxide Anion Gap BUN Creatinine Est GFR ( Amer) Est GFR (Non-Af Amer) POC Glucose (mg/dL) 145 H Random Glucose Hemoglobin A1c Calcium Iron TIBC % Saturation Ferritin Total Bilirubin AST ALT Alkaline Phosphatase C-Reactive Protein Total Protein Albumin Globulin Albumin/Globulin Ratio Thyroxine (T4) TSH 3rd Generation Urine Color Urine Clarity Urine pH Ur Specific [place] Urine Protein Urine Glucose (UA) Urine Ketones Urine Blood Urine Nitrate Urine Bilirubin Urine Urobilinogen Ur Leukocyte Esterase Urine RBC (Auto) Urine Microscopic WBC Ur Squamous Epith Cells Urine Bacteria Hyaline Casts Vancomycin Trough RPR Blood Type Antibody Screen Crossmatch BBK History Checked Microbiology 08/31/18 15:45 Blood Blood Culture - Preliminary NO GROWTH AFTER 3 DAYS 08/31/18 15:30 Blood Blood Culture - Preliminary NO GROWTH AFTER 3 DAYS 08/31/18 16:00 Foot - Left Gram Stain - Final 08/31/18 16:00 Foot - Left Wound Culture - Final Citrobacter Diversus Beta Hemolytic Strep Group B 09/01/18 18:00 Leg - Left Gram Stain - Final 09/01/18 18:00 Leg - Left Wound Culture - Final Citrobacter Diversus Beta Hemolytic Strep Group B 08/31/18 15:36 Drainage Gram Stain - Final 08/31/18 15:36 Drainage Wound Culture - Preliminary Citrobacter Diversus 09/01/18 14:45 Urine Random Urine Culture - Final No Growth (<1,000 CFU/ML) Assessment and Plan (1) Leg ulcer Status: Acute (2) Wound infection Status: Acute (3) Diabetes mellitus type 2 in nonobese Status: Acute (4) Osteomyelitis Status: Acute - Assessment and Plan (Free Text) Assessment: A/P- 62 year old female with multiple medical conditions and chronic foot and ankle ulcers admitted with infection of these ulcers . afebrile normal wbc High ESR MRI report as per radiology b/l ankle bone OM and right heel OM. blood cx- neg x 2 wound cx- citrobacter and strep group b left leg cx- citrobacter and beta hemolytic strep Plan- based on sensitivity of the wound cx advise to d/c zosyn. can start pt. on ceftriaoxne 1 gram daily. continue with IV vanco, keep trough <15. based on OM pt. will need at least 4-6 weeks of abx . along with wound care.
[2018-09-04] MEDS: Morphine 4 MG/ML VIAL IVP PRN (06:30)
[2018-09-04] MEDS: Insulin Regular 100 units/ml SC SCH ×4 (06:36→23:03)
[2018-09-04 06:38] LABS: HEMOGLOBIN 11.1 g/dL (12.0-16.0); MEAN CELL VOLUME 80.3 fl (81.0-99.0); MEAN CORPUSCULAR HEMOGLOBIN 26.7 pg (27.0-31.0); MEAN CORPUSCULAR HGB CONC 33.2 g/dL (33.0-37.0); RBC 4.15 Mil/uL (3.80-5.20); RED CELL DISTRIBUTION WIDTH 16.1 % (11.5-14.5); WHITE BLOOD COUNT 6.5 K/uL (4.8-10.8)
[2018-09-04] MEDS: Levothyroxine 100 MCG TAB PO SCH (06:48)
[2018-09-04 07:01] LABS: ALB/GLOB RATIO 0.7 (1.0-2.1); ALBUMIN 3.2 g/dL (3.5-5.0); CALCIUM 9.3 mg/dL (8.4-10.2)
--- NOTE | 2018-09-04 08:50 | CP.PCM.PN ---
Subjective - Date & Time of Evaluation Date of Evaluation: 09/04/18 Time of Evaluation: 08:47 - Subjective Subjective: Podiatry progress note for attending Dr. Brown: 62 year old female patient seen and evaluated in the bedside for b/l LE infected ulcerations. Patient states that she still in pain in her lower extremities at the ulcer site. As per Chart there was no overnight fevers, nausea, vomiting, cough,and shortness of breath. She denies any other pedal complaint at this time. Patient received Morphine IV before dressing change. Objective - Vital Signs/Intake and Output Vital Signs (last 24 hours): Temp Pulse Resp BP Pulse Ox 98.0 F 95 H 20 156/76 H 99 09/04/18 08:17 09/04/18 08:17 09/04/18 08:17 09/04/18 08:17 09/04/18 08:17 - Medications Medications: Current Medications Acetaminophen (Tylenol 325mg Tab) 650 mg PO Q6 PRN PRN Reason: Pain, Mild (1-3) Acetaminophen (Tylenol 325mg Tab) 650 mg PO Q6 PRN PRN Reason: Fever >100.4 F Aspirin (Aspirin Chewable) 81 mg PO DAILY [facility] Last Admin: 09/03/18 08:53 Dose: 81 mg Collagenase (Santyl) 1 applic TOP DAILY [facility] Last Admin: 09/03/18 08:52 Dose: 1 appl Cyanocobalamin (Vitamin B12 1000 Mcg Tab) 1,000 mcg PO DAILY [facility] Last Admin: 09/03/18 08:53 Dose: 1,000 mcg Dextrose (Dextrose 50% Inj) 0 ml IV STAT PRN; Protocol PRN Reason: Hypoglycemia Protocol Dextrose (Glutose 15) 0 gm PO ONCE PRN; Protocol PRN Reason: Hypoglycemia Protocol Enoxaparin Sodium (Lovenox) 40 mg SC DAILY [facility]; Protocol Last Admin: 09/03/18 08:52 Dose: 40 mg Glucagon (Glucagen Diagnostic Kit) 0 mg IM STAT PRN; Protocol PRN Reason: Hypoglycemia Protocol Vancomycin HCl 500 mg/ Sodium (Chloride) 100 mls @ 100 mls/hr IVPB Q12 [facility]; Protocol Last Admin: 09/03/18 13:38 Dose: Not Given Ceftriaxone Sodium 1 gm/ (Sodium Chloride) 100 mls @ 100 mls/hr IVPB DAILY [facility]; Protocol Insulin Human Regular (Humulin R) 0 units SC ACHS [facility]; Protocol Last Admin: 09/04/18 06:36 Dose: Not Given Levothyroxine Sodium (Synthroid) 100 mcg PO DAILY@0630 [facility] Last Admin: 09/04/18 06:48 Dose: 100 mcg Morphine Sulfate (Morphine) 4 mg IVP Q6 PRN PRN Reason: Pain, severe (8-10) Last Admin: 09/04/18 06:30 Dose: 4 mg Ondansetron HCl (Zofran Inj) 4 mg IVP Q6 PRN PRN Reason: Nausea/Vomiting Pantoprazole Sodium (Protonix Ec Tab) 40 mg PO DAILY [facility] Last Admin: 09/03/18 08:53 Dose: 40 mg Sodium Hypochlorite (Dakins Solution 0.125%) 1 appl EXT DAILY [facility] Last Admin: 09/03/18 13:40 Dose: 1 appl - Labs Labs: 09/04/18 06:15 09/04/18 06:15 - Head Exam Head Exam: ATRAUMATIC - Extremities Exam Additional comments: B/L lower extremity focused exam: Vascular: DP/PT are 2/4 b/l, Cap refill < 3 seconds to all digits, Temp gradient warm to cool from proximal to distal, no edema appreciated to b/l extremities. Neuro: Gross sensation intact, protective sensation diminished. Derm: Left: An ulcer noted in the lateral aspect of the foot measuring 1.8 cm X 1.2 cm X 0.2 cm. Base is necrotic. Minimal purulent drainage noted. No tracking, positive undermining, No probe to bone. No delma-ulcerative erythema noted. Another ulcer noted in the left heel 4 cm X 2.3 cm X 0.4 cm. Base is necrotic. Partially macerated edges. Minimal purulent drainage noted. positive tracking, positive undermining, Positive probe to bone. positive delma-ulcerative erythema noted. A third ulcer noted in the upper lateral aspect of the left leg measuring 1.5 cm X 1.2 cm X 0.1 cm. Base is necrotic. Minimal purulent drainage noted. No tracking, No undermining, Positive probe to bone. Delma-ulcerative erythema and induration noted. Right: ulcer noted in the left heel 3.6 cm X 1.8 cm X 0.4 cm. Base is necrotic. Macerated edges. Minimal purulent drainage noted. positive tracking, positive undermining, Positive probe to bone. positive delma-ulcerative erythema noted. MSK: Muscle power 5/5 to all groups, Pain noted on palpating the delma- ulcerative areas. - Neurological Exam Neurological Exam: Alert, Awake Assessment and Plan - Assessment and Plan (Free Text) Assessment: 62 year old female patient seen and evaluated in the bedside for b/l LE infected ulcerations. Plan: -Patient seen and evaluated at the bedside. -Discussed in detail with Dr. Brown -Charts, labs and vitals reviewed; Afebrile, WBC 6.5. -Wound culture: Citrobacter diversus, Beta hemolytic strept group B -B/L foot x-ray: No evidence of OM -B/L ankle x-ray: Superficial ulcerations. -B/L tib/fibula x-ray: No acute findings. -LE CRISTIANE/PVR: Sever biateral LE arterial disease, distal abdominal aorta stenosis and or bilateral iliac stenosis not excluded. Concider follow up contrasr CT angio of aorto-iliac system with bilateral LE runoff. -Left ankle MRI: Overall pattern is highly suggestive of osteomyelitis at the calcaneus and is difficult to exclude at the remaining midfoot/hindfoot and right ankle bony elements. Unfortunately, widespread mottled/heterogeneous Mar row edema is appreciated not only involving the ankle but osseous elements of the midfoot and hindfoot also suspicious for osteomyelitis with differentiated diagnosis of RSD order other inflammatory causes. Posttraumatic etiology is unlikely. Further clinical correlation is recommended. -Right ankle MRI: Indeterminate pattern of bony edema throughout the ankle and midfoot/hindfoot anatomy indicative of osteomyelitis particularly at the calcaneus adjacent to a soft tissue ulcer posteriorly. Abnormal Marrow signal throughout the entire midfoot and hindfoot including inferior tibia and possibly fibula may also reflect osteomyelitis though given its widespread pattern which includes various musculature as well, consider other inflammatory causes, reflex sympathetic dystrophy and other etiologies. Further clinical correlation is recommended. -Right foot MRI: Nonspecific pattern of heterogeneous abnormal edema scattered throughout the midfoot and hindfoot bony anatomy as well as the 1st and 5th metatarsal bones and proximal phalanx right great toe. For osteomyelitis or other inflammatory causes. Clinical correlation suggestive of OM. -Left foot MRI: Nonspecific heterogeneous pattern of edema primarily at the left midfoot and hindfoot bones as discussed above few cellulitis is appreciate primarily affecting midfoot and hindfoot distribution as well. The 2nd and 3rd digits are also affected at the pattern is nonspecific and could reflect osteomyelitis though other etiologies including RSD and other inflammatory causes are not excluded. Further clinical correlation suggestive of OM. -B/L Lower Extremity MRI: Edematous changes are seen in the Marrow of the osseous elements at the bilateral knee joints slightly greater the right than left. Osteomyelitis is not favored. Questionable ulcer distal posterior leg so ft tissues. Mild bilateral lower extremity cellulitis. No definite abscess appreciated bilaterally. -Patient will got a PICC line yesterday for long course (4-6 weeks) of IV Abx. -ESR: >120, CRP: 167.60 -B/L LE venous duplex: No DVT, Right inguinal lymphadenopathy -Ordered Vascular consult; Reccs appreciated. -Spoke to Dr. Mcdermott yesterday who will see her today and he said there is no need to order CT angio as long as the ultrasound is positive putting in consideration that her creatinine clearance is 42.7. -B/L ulcers cleaned with saline and dakins then dressed with santyl, Mepilex for the upper left leg wound and DSD and santyl for the rest of the ulcers. -Patient to stay in the multipodus boot while in bed. -Ordered PT evaluation for offloading heel shoe. -Patient to bear weight as tolerated in the heel offloading shoe. -ID on board Reccs appreciated. -Patient to continue IV abx as per ID. -Podiatry will continue to follow up the patient while in house.
[2018-09-04] MEDS: Santyl Collagenase OINTMENT TOP SCH (09:19)
[2018-09-04] MEDS: Enoxaparin 40 mg Syringe SC SCH (09:37)
[2018-09-04] MEDS: Pantoprazole 40 mg EC Tab PO SCH (09:38)
--- NOTE | 2018-09-04 09:59 | CP.PCM.PN ---
<Josie Harvey - Last Filed: 09/04/18 13:26> Subjective - Date & Time of Evaluation Date of Evaluation: 09/04/18 Time of Evaluation: 09:52 - Subjective Subjective: Progress note for Dr. Rousseau 62 yo female seen and evaluated at bedside. Patient is noted to be drowsy and in pain at the time of visit. States she has severe pain in her legs. Denies acute overnight events. She denies any recent illness, fever/chills, difficulty breathing, n/v/d. Objective - Vital Signs/Intake and Output Vital Signs (last 24 hours): Temp Pulse Resp BP Pulse Ox 98.0 F 95 H 20 156/76 H 99 09/04/18 08:17 09/04/18 08:17 09/04/18 08:17 09/04/18 08:17 09/04/18 08:17 - Medications Medications: Current Medications Acetaminophen (Tylenol 325mg Tab) 650 mg PO Q6 PRN PRN Reason: Pain, Mild (1-3) Acetaminophen (Tylenol 325mg Tab) 650 mg PO Q6 PRN PRN Reason: Fever >100.4 F Aspirin (Aspirin Chewable) 81 mg PO DAILY [facility] Last Admin: 09/04/18 09:38 Dose: 81 mg Collagenase (Santyl) 1 applic TOP DAILY [facility] Last Admin: 09/04/18 09:19 Dose: 1 appl Cyanocobalamin (Vitamin B12 1000 Mcg Tab) 1,000 mcg PO DAILY [facility] Last Admin: 09/04/18 09:39 Dose: 1,000 mcg Dextrose (Dextrose 50% Inj) 0 ml IV STAT PRN; Protocol PRN Reason: Hypoglycemia Protocol Dextrose (Glutose 15) 0 gm PO ONCE PRN; Protocol PRN Reason: Hypoglycemia Protocol Enoxaparin Sodium (Lovenox) 40 mg SC DAILY [facility]; Protocol Last Admin: 09/04/18 09:37 Dose: 40 mg Glucagon (Glucagen Diagnostic Kit) 0 mg IM STAT PRN; Protocol PRN Reason: Hypoglycemia Protocol Vancomycin HCl 500 mg/ Sodium (Chloride) 100 mls @ 100 mls/hr IVPB Q12 [facility]; Protocol Last Admin: 09/03/18 13:38 Dose: Not Given Ceftriaxone Sodium 1 gm/ (Sodium Chloride) 100 mls @ 100 mls/hr IVPB DAILY [facility]; Protocol Last Admin: 09/04/18 09:18 Dose: 100 mls/hr Insulin Human Regular (Humulin R) 0 units SC ACHS [facility]; Protocol Last Admin: 09/04/18 06:36 Dose: Not Given Levothyroxine Sodium (Synthroid) 100 mcg PO DAILY@0630 [facility] Last Admin: 09/04/18 06:48 Dose: 100 mcg Morphine Sulfate (Morphine) 4 mg IVP Q6 PRN PRN Reason: Pain, severe (8-10) Last Admin: 09/04/18 06:30 Dose: 4 mg Ondansetron HCl (Zofran Inj) 4 mg IVP Q6 PRN PRN Reason: Nausea/Vomiting Pantoprazole Sodium (Protonix Ec Tab) 40 mg PO DAILY [facility] Last Admin: 09/04/18 09:38 Dose: 40 mg Sodium Hypochlorite (Dakins Solution 0.125%) 1 appl EXT DAILY [facility] Last Admin: 09/04/18 09:17 Dose: 1 appl - Labs Labs: 09/04/18 06:15 09/04/18 06:15 - Constitutional Appears: Well, Non-toxic, No Acute Distress - Head Exam Head Exam: ATRAUMATIC, NORMOCEPHALIC - Eye Exam Eye Exam: Normal appearance Pupil Exam: NORMAL ACCOMODATION - ENT Exam ENT Exam: Mucous Membranes Moist - Respiratory Exam Respiratory Exam: Clear to Ausculation Bilateral, NORMAL BREATHING PATTERN - Cardiovascular Exam Cardiovascular Exam: REGULAR RHYTHM, +S1, +S2 - Extremities Exam Extremities Exam: Tenderness - Neurological Exam Neurological Exam: Alert, Awake, Oriented x3 - Psychiatric Exam Psychiatric exam: Normal Affect Assessment and Plan - Assessment and Plan (Free Text) Assessment: Pt is a 62 y/o female with hx of HTN, DM, Hypothyroidism, Rheumatoid arthritis, Chronic foot ulcers admitted for multiple foot/leg ulcers w/ foul odor drainage, elevated ESR, Bandemia, and Altered mental status x2 weeks Plan: #Multiple Foot Ulcers, Bilaterally - Wound probed to bone by Podiatry, strong suspicion for Osteomyelitis - Afebrile, No leukocytosis, +Bandemia 4, Lactate normal, ESR 120 - Podiatry consulted, Dr. Brown; recs appreciated - ID Consulted, Dr. Contreras; recommends 4-6 weeks of IV antibiotics - Wound Care Nursing, tight glycemic control, offloading from ulcers - MRI LE from knee to ankle :showed no OM , no abscess - MRI: Left ankle MRI :showed suggestive pattern of OM at the calcaneus and is difficult to exclude at the remaining midfoot/hindfoot and right ankle bony elements. Unfortunately, widespread mottled/heterogeneous Marrow edema is appreciated not only involving the ankle but osseous elements of the midfoot and hindfoot also suspicious for osteomyelitis with differentiated diagnosis of RSD order other inflammatory causes. MRI right ankle :Indeterminate pattern of bony edema throughout the ankle and midfoot/hindfoot anatomy indicative of osteomyelitis particularly at the calcaneus adjacent to a soft tissue ulcer posteriorly. Abnormal Marrow signal throughout the entire midfoot and hindfoot including inferior tibia and possibly fibula may also reflect osteomyelitis though given its widespread pattern which includes various musculature as well, consider other inflammatory causes, reflex sympathetic dystrophy and other etiologies. Further clinical correlation is recommended. - MRI right foot :Nonspecific pattern of heterogeneous abnormal edema scattered throughout the midfoot and hindfoot bony anatomy as well as the 1st and 5th metatarsal bones and proximal phalanx right great toe. -MRI left foot :Indeterminate pattern of bony edema throughout the ankle and midfoot/hindfoot anatomy indicative of osteomyelitis particularly at the calcaneus adjacent to a soft tissue ulcer posteriorly. Abnormal Marrow signal throughout the entire midfoot and hindfoot including inferior tibia and possibly fibula may also reflect osteomyelitis though given its widespread pattern which includes various musculature as well, consider other inflammatory causes, reflex sympathetic dystrophy and other etiologies. - Duplex Vein no DVT -Arterial duplex: severely diseased b/l LE arterial system. - Vascular consulted; Dr Mcdermott will see patient today. CT Angio ordered. - Wcx; citrobacter diversus, beta hemolytic strep group b; c/w vancomycin and ceftriaxone - PICC Line in place #Worsening Mental status - Family noted decline in neuromental status over 2 weeks - May be encephalopathy related to acute infection vs pseudodementia vs uncon trolled hypothyroidism - Head CT negative for acute process; old infarcts and age related degenerative changes seen - Treat all possible reversible processes; if persists consider Psych consult for possible dementia/behavior disorder/depression #Urinary Incontinence - May have underlying infection considering dysuria and foul odor urine - No urinary retention on exam - Ucx: no growth #CKD - Stable - Crea 1.4, GFR 38 (Basline Crea 1.4-1.5, GFR 35-38) - Likely related to P-ANCA (glomerular disease) vs DM/HTN - Renal dose adjustments for nephrotoxic medication (check Vanco trough) #Hypothyroidism -TSH 5.47, T4 6.55 -C/W with home medication, Levothyroxine 100mg daily #Rheumatoid Arthritis -Pain controlled with Tylenol. Morphine 4 gm q6 pRN ordered for severe pain -Prior labs reviewed: +RF, +Anti CCP, + pANCa #Anemia - Hg 10.6 (Baseline 7-8), MCV 80.4 s/o transfusion of 2 units. - Anemia workup in last admission revealed Anemia of Chronic Disease and B12 def - C/W B12 oral meds - Monitor H/H #Poor mobility/Debilitation - OT for ADL's - PT to be ordered for gait/mobility/strength #DVT ppx -Lovenox 40mg SQ daily given CreaCl >40 - Aspirin 81 mg PO -Will avoid SCD given active ulcers Code status to be established once family has discussion, Full Code for now Next of Kin (Niece): Danni <Karoline Rousseau - Last Filed: 09/04/18 16:17> Objective - Vital Signs/Intake and Output Vital Signs (last 24 hours): Temp Pulse Resp BP Pulse Ox 98.0 F 69 20 156/76 H 99 09/04/18 08:17 09/04/18 11:59 09/04/18 08:17 09/04/18 08:17 09/04/18 11:59 - Medications Medications: Current Medications Acetaminophen (Tylenol 325mg Tab) 650 mg PO Q6 PRN PRN Reason: Pain, Mild (1-3) Acetaminophen (Tylenol 325mg Tab) 650 mg PO Q6 PRN PRN Reason: Fever >100.4 F Aspirin (Aspirin Chewable) 81 mg PO DAILY [facility] Last Admin: 09/04/18 09:38 Dose: 81 mg Collagenase (Santyl) 1 applic TOP DAILY [facility] Last Admin: 09/04/18 09:19 Dose: 1 appl Cyanocobalamin (Vitamin B12 1000 Mcg Tab) 1,000 mcg PO DAILY [facility] Last Admin: 09/04/18 09:39 Dose: 1,000 mcg Dextrose (Dextrose 50% Inj) 0 ml IV STAT PRN; Protocol PRN Reason: Hypoglycemia Protocol Dextrose (Glutose 15) 0 gm PO ONCE PRN; Protocol PRN Reason: Hypoglycemia Protocol Enoxaparin Sodium (Lovenox) 40 mg SC DAILY [facility]; Protocol Last Admin: 09/04/18 09:37 Dose: 40 mg Glucagon (Glucagen Diagnostic Kit) 0 mg IM STAT PRN; Protocol PRN Reason: Hypoglycemia Protocol Vancomycin HCl 500 mg/ Sodium (Chloride) 100 mls @ 100 mls/hr IVPB Q12 [facility]; Protocol Last Admin: 09/03/18 13:38 Dose: Not Given Ceftriaxone Sodium 1 gm/ (Sodium Chloride) 100 mls @ 100 mls/hr IVPB DAILY [facility]; Protocol Last Admin: 09/04/18 09:18 Dose: 100 mls/hr Insulin Human Regular (Humulin R) 0 units SC ACHS [facility]; Protocol Last Admin: 09/04/18 16:00 Dose: Not Given Levothyroxine Sodium (Synthroid) 100 mcg PO DAILY@0630 [facility] Last Admin: 09/04/18 06:48 Dose: 100 mcg Morphine Sulfate (Morphine) 4 mg IVP Q6 PRN PRN Reason: Pain, severe (8-10) Last Admin: 09/04/18 06:30 Dose: 4 mg Ondansetron HCl (Zofran Inj) 4 mg IVP Q6 PRN PRN Reason: Nausea/Vomiting Pantoprazole Sodium (Protonix Ec Tab) 40 mg PO DAILY [facility] Last Admin: 09/04/18 09:38 Dose: 40 mg Sodium Hypochlorite (Dakins Solution 0.125%) 1 appl EXT DAILY [facility] Last Admin: 09/04/18 09:17 Dose: 1 appl - Labs Labs: 09/04/18 06:15 09/04/18 06:15 Attending/Attestation - Attestation I have personally seen and examined this patient.: Yes I have fully participated in the care of the patient.: Yes I have reviewed all pertinent clinical information, including history, physical exam and plan: Yes Notes (Text): 09/04/18 16:17 Agree with findings and plan as above.
[2018-09-04] MEDS ORDERED: Iodixanol 320 MG/ML 100 ML BOTTLE IV ONE ×2 (12:13→12:14)
[2018-09-04] MEDS ORDERED: Sodium Chloride 0.9% 50 ML IV ONE (12:13)
--- NOTE | 2018-09-04 12:16 | CP.PCM.PN ---
<Jamal Dorantes - Last Filed: 09/04/18 12:19> Subjective - Date & Time of Evaluation Date of Evaluation: 09/04/18 Time of Evaluation: 07:00 - Subjective Subjective: Pt seen and examined this morning. No new complaints at this time. Objective - Vital Signs/Intake and Output Vital Signs (last 24 hours): Temp Pulse Resp BP Pulse Ox 98.0 F 95 H 20 156/76 H 99 09/04/18 08:17 09/04/18 08:17 09/04/18 08:17 09/04/18 08:17 09/04/18 08:17 - Medications Medications: Current Medications Acetaminophen (Tylenol 325mg Tab) 650 mg PO Q6 PRN PRN Reason: Pain, Mild (1-3) Acetaminophen (Tylenol 325mg Tab) 650 mg PO Q6 PRN PRN Reason: Fever >100.4 F Aspirin (Aspirin Chewable) 81 mg PO DAILY [facility] Last Admin: 09/04/18 09:38 Dose: 81 mg Collagenase (Santyl) 1 applic TOP DAILY [facility] Last Admin: 09/04/18 09:19 Dose: 1 appl Cyanocobalamin (Vitamin B12 1000 Mcg Tab) 1,000 mcg PO DAILY [facility] Last Admin: 09/04/18 09:39 Dose: 1,000 mcg Dextrose (Dextrose 50% Inj) 0 ml IV STAT PRN; Protocol PRN Reason: Hypoglycemia Protocol Dextrose (Glutose 15) 0 gm PO ONCE PRN; Protocol PRN Reason: Hypoglycemia Protocol Enoxaparin Sodium (Lovenox) 40 mg SC DAILY [facility]; Protocol Last Admin: 09/04/18 09:37 Dose: 40 mg Glucagon (Glucagen Diagnostic Kit) 0 mg IM STAT PRN; Protocol PRN Reason: Hypoglycemia Protocol Vancomycin HCl 500 mg/ Sodium (Chloride) 100 mls @ 100 mls/hr IVPB Q12 [facility]; Protocol Last Admin: 09/03/18 13:38 Dose: Not Given Ceftriaxone Sodium 1 gm/ (Sodium Chloride) 100 mls @ 100 mls/hr IVPB DAILY [facility]; Protocol Last Admin: 09/04/18 09:18 Dose: 100 mls/hr Insulin Human Regular (Humulin R) 0 units SC ACHS [facility]; Protocol Last Admin: 09/04/18 06:36 Dose: Not Given Levothyroxine Sodium (Synthroid) 100 mcg PO DAILY@0630 [facility] Last Admin: 09/04/18 06:48 Dose: 100 mcg Morphine Sulfate (Morphine) 4 mg IVP Q6 PRN PRN Reason: Pain, severe (8-10) Last Admin: 09/04/18 06:30 Dose: 4 mg Ondansetron HCl (Zofran Inj) 4 mg IVP Q6 PRN PRN Reason: Nausea/Vomiting Pantoprazole Sodium (Protonix Ec Tab) 40 mg PO DAILY [facility] Last Admin: 09/04/18 09:38 Dose: 40 mg Sodium Hypochlorite (Dakins Solution 0.125%) 1 appl EXT DAILY [facility] Last Admin: 09/04/18 09:17 Dose: 1 appl - Labs Labs: 09/04/18 06:15 09/04/18 06:15 - Constitutional Appears: No Acute Distress - Head Exam Head Exam: ATRAUMATIC, NORMOCEPHALIC - Eye Exam Eye Exam: EOMI - ENT Exam ENT Exam: Mucous Membranes Moist - Neck Exam Neck Exam: Full ROM - Respiratory Exam Respiratory Exam: Clear to Ausculation Bilateral, NORMAL BREATHING PATTERN. absent: Accessory Muscle Use - Cardiovascular Exam Cardiovascular Exam: RRR, +S1, +S2. absent: Diastolic murmur, Murmur - GI/Abdominal Exam GI & Abdominal Exam: Soft, Normal Bowel Sounds. absent: Tenderness - Extremities Exam Extremities Exam: Full ROM Additional comments: BL feet bandaged, clean dry and intact - Neurological Exam Neurological Exam: Alert, Oriented x3 - Psychiatric Exam Psychiatric exam: Normal Affect, Normal Mood - Skin Skin Exam: Dry Assessment and Plan - Assessment and Plan (Free Text) Assessment: Diabetic foot ulcer HTN Hypothyroidsim HLD Plan: Diabetic foot ulcer HTN Hypothyroidsim HLD HA1C 6.0 Foot MRI 08/31/18: possible osteomyelitis, but inflammatory causes cannot be ruled out Ankle MRI 08/31/18: bony edema which may be indicative of osteomyelitis, but there is also muscular involvement which may be from an inflammatory cause Dupplex of LE 08/31/18 severely diseased BL LE arterial system although a high grade stenosis of distal abdominal aorta, may need contrast CT angio LE US 09/01/18: no evidence of DVT Medications ASA Pt seen, examined, assessment and plan discussed with Dr Baldemar Dorantes PGY1 <Yohan Mcdermott - Last Filed: 09/04/18 20:47> Objective - Vital Signs/Intake and Output Vital Signs (last 24 hours): Temp Pulse Resp BP Pulse Ox 99.8 F H 84 20 145/77 98 09/04/18 16:34 09/04/18 16:34 09/04/18 16:34 09/04/18 16:34 09/04/18 16:34 - Medications Medications: Current Medications Acetaminophen (Tylenol 325mg Tab) 650 mg PO Q6 PRN PRN Reason: Pain, Mild (1-3) Acetaminophen (Tylenol 325mg Tab) 650 mg PO Q6 PRN PRN Reason: Fever >100.4 F Aspirin (Aspirin Chewable) 81 mg PO DAILY [facility] Last Admin: 09/04/18 09:38 Dose: 81 mg Collagenase (Santyl) 1 applic TOP DAILY [facility] Last Admin: 09/04/18 09:19 Dose: 1 appl Cyanocobalamin (Vitamin B12 1000 Mcg Tab) 1,000 mcg PO DAILY [facility] Last Admin: 09/04/18 09:39 Dose: 1,000 mcg Dextrose (Dextrose 50% Inj) 0 ml IV STAT PRN; Protocol PRN Reason: Hypoglycemia Protocol Dextrose (Glutose 15) 0 gm PO ONCE PRN; Protocol PRN Reason: Hypoglycemia Protocol Enoxaparin Sodium (Lovenox) 40 mg SC DAILY [facility]; Protocol Last Admin: 09/04/18 09:37 Dose: 40 mg Glucagon (Glucagen Diagnostic Kit) 0 mg IM STAT PRN; Protocol PRN Reason: Hypoglycemia Protocol Vancomycin HCl 500 mg/ Sodium (Chloride) 100 mls @ 100 mls/hr IVPB Q12 [facility]; Protocol Last Admin: 09/04/18 20:40 Dose: 100 mls/hr Ceftriaxone Sodium 1 gm/ (Sodium Chloride) 100 mls @ 100 mls/hr IVPB DAILY [facility]; Protocol Last Admin: 09/04/18 09:18 Dose: 100 mls/hr Insulin Human Regular (Humulin R) 0 units SC ACHS [facility]; Protocol Last Admin: 09/04/18 16:00 Dose: Not Given Levothyroxine Sodium (Synthroid) 100 mcg PO DAILY@0630 [facility] Last Admin: 09/04/18 06:48 Dose: 100 mcg Morphine Sulfate (Morphine) 4 mg IVP Q6 PRN PRN Reason: Pain, severe (8-10) Last Admin: 09/04/18 06:30 Dose: 4 mg Ondansetron HCl (Zofran Inj) 4 mg IVP Q6 PRN PRN Reason: Nausea/Vomiting Pantoprazole Sodium (Protonix Ec Tab) 40 mg PO DAILY [facility] Last Admin: 09/04/18 09:38 Dose: 40 mg Sodium Hypochlorite (Dakins Solution 0.125%) 1 appl EXT DAILY [facility] Last Admin: 09/04/18 09:17 Dose: 1 appl - Labs Labs: 09/04/18 06:15 09/04/18 06:15 Attending/Attestation - Attestation I have personally seen and examined this patient.: Yes I have fully participated in the care of the patient.: Yes I have reviewed all pertinent clinical information, including history, physical exam and plan: Yes Notes (Text): 09/04/18 20:47 CTA of LE ordered will need peripheral angiogram to be scheduled next week med rx ( asa, plavix, statins, bb , arb )
[2018-09-05] MEDS: Insulin Regular 100 units/ml SC SCH ×4 (07:08→22:00)
[2018-09-05] MEDS: Levothyroxine 100 MCG TAB PO SCH (07:09)
[2018-09-05] MEDS: Pantoprazole 40 mg EC Tab PO SCH (08:48)
[2018-09-05] MEDS: Enoxaparin 40 mg Syringe SC SCH (08:48)
[2018-09-05] MEDS: Santyl Collagenase OINTMENT TOP SCH ×2 (08:49→08:51)
--- NOTE | 2018-09-05 09:33 | CP.PCM.PN ---
<Duncan Chun - Last Filed: 09/05/18 11:33> Subjective - Date & Time of Evaluation Date of Evaluation: 09/05/18 Time of Evaluation: 09:33 - Subjective Subjective: pt seen and evaluated at bedside. No acute events overnight. Afebrile. Reports pain is controlled with medications. Lying comfortably in bed, NAD. Tolerating PO intake without issue. No other complaints/concerns. Objective - Vital Signs/Intake and Output Vital Signs (last 24 hours): Temp Pulse Resp BP Pulse Ox 98.2 F 90 20 161/74 H 99 09/05/18 09:02 09/05/18 09:02 09/05/18 09:02 09/05/18 09:02 09/05/18 09:02 - Medications Medications: Current Medications Acetaminophen (Tylenol 325mg Tab) 650 mg PO Q6 PRN PRN Reason: Pain, Mild (1-3) Acetaminophen (Tylenol 325mg Tab) 650 mg PO Q6 PRN PRN Reason: Fever >100.4 F Aspirin (Aspirin Chewable) 81 mg PO DAILY [facility] Last Admin: 09/05/18 08:48 Dose: 81 mg Collagenase (Santyl) 1 applic TOP DAILY [facility] Last Admin: 09/05/18 08:51 Dose: Not Given Cyanocobalamin (Vitamin B12 1000 Mcg Tab) 1,000 mcg PO DAILY [facility] Last Admin: 09/05/18 08:49 Dose: 1,000 mcg Dextrose (Dextrose 50% Inj) 0 ml IV STAT PRN; Protocol PRN Reason: Hypoglycemia Protocol Dextrose (Glutose 15) 0 gm PO ONCE PRN; Protocol PRN Reason: Hypoglycemia Protocol Enoxaparin Sodium (Lovenox) 40 mg SC DAILY [facility]; Protocol Last Admin: 09/05/18 08:48 Dose: 40 mg Glucagon (Glucagen Diagnostic Kit) 0 mg IM STAT PRN; Protocol PRN Reason: Hypoglycemia Protocol Vancomycin HCl 500 mg/ Sodium (Chloride) 100 mls @ 100 mls/hr IVPB Q12 [facility]; Protocol Last Admin: 09/05/18 08:53 Dose: 100 mls/hr Ceftriaxone Sodium 1 gm/ (Sodium Chloride) 100 mls @ 100 mls/hr IVPB DAILY [facility]; Protocol Last Admin: 09/05/18 08:51 Dose: 100 mls/hr Insulin Human Regular (Humulin R) 0 units SC ACHS [facility]; Protocol Last Admin: 09/05/18 07:08 Dose: Not Given Levothyroxine Sodium (Synthroid) 100 mcg PO DAILY@0630 [facility] Last Admin: 09/05/18 07:09 Dose: 100 mcg Morphine Sulfate (Morphine) 4 mg IVP Q6 PRN PRN Reason: Pain, severe (8-10) Last Admin: 09/04/18 06:30 Dose: 4 mg Ondansetron HCl (Zofran Inj) 4 mg IVP Q6 PRN PRN Reason: Nausea/Vomiting Pantoprazole Sodium (Protonix Ec Tab) 40 mg PO DAILY [facility] Last Admin: 09/05/18 08:48 Dose: 40 mg Sodium Hypochlorite (Dakins Solution 0.125%) 1 appl EXT DAILY [facility] Last Admin: 09/05/18 08:50 Dose: Not Given - Labs Labs: 09/04/18 06:15 09/04/18 06:15 - Constitutional Appears: Non-toxic, No Acute Distress, Unkempt, Older Than Stated Age - Head Exam Head Exam: ATRAUMATIC, NORMOCEPHALIC - Eye Exam Eye Exam: EOMI, PERRL. absent: Scleral icterus - ENT Exam ENT Exam: Mucous Membranes Moist Additional comments: halitosis - Neck Exam Neck Exam: Full ROM - Respiratory Exam Respiratory Exam: Clear to Ausculation Bilateral, NORMAL BREATHING PATTERN. absent: Rales, Rhonchi, Wheezes - Cardiovascular Exam Cardiovascular Exam: REGULAR RHYTHM, RRR, +S1, +S2. absent: Tachycardia, JVD, Murmur - GI/Abdominal Exam GI & Abdominal Exam: Soft, Normal Bowel Sounds. absent: Distended, Firm, Guarding, Rigid, Tenderness - Extremities Exam Extremities Exam: absent: Calf Tenderness, Normal Inspection (bandages C/D/I.) - Neurological Exam Neurological Exam: Alert, Awake, CN II-XII Intact - Psychiatric Exam Psychiatric exam: Normal Affect, Normal Mood Assessment and Plan - Assessment and Plan (Free Text) Assessment: Pt is a 62 y/o female with hx of HTN, DM, Hypothyroidism, Rheumatoid arthritis, Chronic foot ulcers admitted for multiple foot/leg ulcers w/ foul odor drainage admitted for osteomyelitis. Plan: 1) Multiple Foot Ulcers, Bilaterally - Wound probed to bone by Podiatry, strong suspicion for Osteomyelitis - Afebrile, No leukocytosis, +Bandemia 4, Lactate normal, ESR 120 - Podiatry consulted, Dr. Brown; recs appreciated - ID Consulted, Dr. Contreras; recommends 4-6 weeks of IV antibiotics - Wound Care Nursing, tight glycemic control, offloading from ulcers - MRI LE from knee to ankle :showed no OM , no abscess - MRI: Left ankle MRI :showed suggestive pattern of OM at the calcaneus and is difficult to exclude at the remaining midfoot/hindfoot and right ankle bony elements. Unfortunately, widespread mottled/heterogeneous Marrow edema is appreciated not only involving the ankle but osseous elements of the midfoot and hindfoot also suspicious for osteomyelitis with differentiated diagnosis of RSD order other inflammatory causes. MRI right ankle :Indeterminate pattern of bony edema throughout the ankle and midfoot/hindfoot anatomy indicative of osteomyelitis particularly at the calcaneus adjacent to a soft tissue ulcer posteriorly. Abnormal Marrow signal throughout the entire midfoot and hindfoot including inferior tibia and possibly fibula may also reflect osteomyelitis though given its widespread pattern which includes various musculature as well, consider other inflammatory causes, reflex sympathetic dystrophy and other etiologies. Further clinical correlation is recommended. - MRI right foot :Nonspecific pattern of heterogeneous abnormal edema scattered throughout the midfoot and hindfoot bony anatomy as well as the 1st and 5th m etatarsal bones and proximal phalanx right great toe. -MRI left foot :Indeterminate pattern of bony edema throughout the ankle and midfoot/hindfoot anatomy indicative of osteomyelitis particularly at the calcaneus adjacent to a soft tissue ulcer posteriorly. Abnormal Marrow signal throughout the entire midfoot and hindfoot including inferior tibia and possibly fibula may also reflect osteomyelitis though given its widespread pattern which includes various musculature as well, consider other inflammatory causes, reflex sympathetic dystrophy and other etiologies. - Duplex Vein no DVT -Arterial duplex: severely diseased b/l LE arterial system. - Vascular consulted; Dr Mcdermott. CT Angio ordered. - Wcx; citrobacter diversus, beta hemolytic strep group b; c/w vancomycin and ceftriaxone - PICC Line in place 2) CKD - Stable - Renal dose adjustments for nephrotoxic medication (check Vanco trough) 3) Hypothyroidism -TSH 5.47, T4 6.55 -C/W with home medication, Levothyroxine 100mg daily 4) Rheumatoid Arthritis -Pain controlled with Tylenol. Morphine 4 gm q6 pRN ordered for severe pain -Prior labs reviewed: +RF, +Anti CCP, + pANCa 5) Anemia -stable 6) Poor mobility/Debilitation - OT for ADL's - PT to be ordered for gait/mobility/strength 7) DVT ppx -Lovenox 40mg SQ daily given CrCl >40 Next of Kin (Niece): Danni <Karoline Rousseau Tatiana - Last Filed: 09/05/18 18:05> Objective - Vital Signs/Intake and Output Vital Signs (last 24 hours): Temp Pulse Resp BP Pulse Ox 99.6 F 93 H 20 133/76 99 09/05/18 17:10 09/05/18 17:10 09/05/18 17:10 09/05/18 17:10 09/05/18 17:10 - Medications Medications: Current Medications Acetaminophen (Tylenol 325mg Tab) 650 mg PO Q6 PRN PRN Reason: Pain, Mild (1-3) Acetaminophen (Tylenol 325mg Tab) 650 mg PO Q6 PRN PRN Reason: Fever >100.4 F Aspirin (Aspirin Chewable) 81 mg PO DAILY [facility] Last Admin: 09/05/18 08:48 Dose: 81 mg Collagenase (Santyl) 1 applic TOP DAILY [facility] Last Admin: 09/05/18 08:51 Dose: Not Given Cyanocobalamin (Vitamin B12 1000 Mcg Tab) 1,000 mcg PO DAILY [facility] Last Admin: 09/05/18 08:49 Dose: 1,000 mcg Dextrose (Dextrose 50% Inj) 0 ml IV STAT PRN; Protocol PRN Reason: Hypoglycemia Protocol Dextrose (Glutose 15) 0 gm PO ONCE PRN; Protocol PRN Reason: Hypoglycemia Protocol Enoxaparin Sodium (Lovenox) 40 mg SC DAILY [facility]; Protocol Last Admin: 09/05/18 08:48 Dose: 40 mg Glucagon (Glucagen Diagnostic Kit) 0 mg IM STAT PRN; Protocol PRN Reason: Hypoglycemia Protocol Vancomycin HCl 500 mg/ Sodium (Chloride) 100 mls @ 100 mls/hr IVPB Q12 [facility]; Protocol Last Admin: 09/05/18 08:53 Dose: 100 mls/hr Ceftriaxone Sodium 1 gm/ (Sodium Chloride) 100 mls @ 100 mls/hr IVPB DAILY [facility]; Protocol Last Admin: 09/05/18 08:51 Dose: 100 mls/hr Insulin Human Regular (Humulin R) 0 units SC ACHS [facility]; Protocol Last Admin: 03/09/19 16:51 Dose: Not Given Levothyroxine Sodium (Synthroid) 100 mcg PO DAILY@0630 [facility] Last Admin: 09/05/18 07:09 Dose: 100 mcg Morphine Sulfate (Morphine) 4 mg IVP Q6 PRN PRN Reason: Pain, severe (8-10) Last Admin: 09/05/18 10:32 Dose: 4 mg Ondansetron HCl (Zofran Inj) 4 mg IVP Q6 PRN PRN Reason: Nausea/Vomiting Pantoprazole Sodium (Protonix Ec Tab) 40 mg PO DAILY [facility] Last Admin: 09/05/18 08:48 Dose: 40 mg Sodium Hypochlorite (Dakins Solution 0.125%) 1 appl EXT DAILY [facility] Last Admin: 09/05/18 08:50 Dose: Not Given - Labs Labs: 09/04/18 06:15 09/04/18 06:15 Attending/Attestation - Attestation I have personally seen and examined this patient.: Yes I have fully participated in the care of the patient.: Yes I have reviewed all pertinent clinical information, including history, physical exam and plan: Yes Notes (Text): 09/05/18 18:05 agree with findings and plan as above.
[2018-09-05] MEDS: Morphine 4 MG/ML VIAL IVP PRN ×2 (10:32→18:09)
--- NOTE | 2018-09-05 12:20 | CT ---
Date of service: 09/04/2018 PROCEDURE: CT Angiography Abdomen, Pelvis and Lower Extremity with Contrast HISTORY: BL non healing foot wounds COMPARISON: None. TECHNIQUE: Technique: CT angiography of the abdomen, pelvis and bilateral lower extremities performed in the arterial phase of enhancement. Coronal and sagittal reformats, and well as rotating MIP images of the vessels generated at the workstation. Intravenous contrast dose: Radiation dose: Total exam DLP = 912.83 mGy-cm. This CT exam was performed using one or more of the following dose reduction techniques: Automated exposure control, adjustment of the mA and/or kV according to patient size, and/or use of iterative reconstruction technique. FINDINGS: CT ANGIOGRAPHY: ABDOMINAL AORTA:: No triple AAA or aortic dissection. MAJOR AORTIC BRANCHES: Celiac [place]: Unremarkable. Superior mesenteric artery: Unremarkable. Inferior mesenteric artery: Unremarkable. Renal arteries: Unremarkable. PELVIC ARTERIES: Right Common Iliac: Unremarkable. Right External Iliac: Unremarkable. Right Internal Iliac: Unremarkable. Left Common Iliac: Unremarkable. Left External Iliac: Unremarkable. Left Internal Iliac: Unremarkable. RIGHT LOWER EXTREMITY ARTERIES: Right Common Femoral: Unremarkable. Right Superficial Femoral: Unremarkable. Right Profunda Femoris: Unremarkable. Right Popliteal:Unremarkable. Right Anterior Tibial: Unremarkable. Right Tibioperoneal Trunk: Unremarkable. Right Posterior Tibial: Unremarkable. Right Peroneal: Unremarkable. Right dorsalis pedis : Unremarkable. LEFT LOWER EXTREMITY ARTERIES: Left Common Femoral: Unremarkable. Left Superficial Femoral: Unremarkable. Left Profunda Femoris: Unremarkable. Left Popliteal: Unremarkable. Left Anterior Tibial: Unremarkable. Left Tibioperoneal Trunk: Unremarkable. Left Posterior Tibial: Unremarkable. Left Peronea: Unremarkable. Left Dorsalis pedis: Unremarkable. Soft tissue ulcerations with subcutaneous gas bubbles in the posterior lateral left heel and posterior medial right heel compatible with cellulitis/focal gas gangrene but no gross osteomyelitis. NON-ANGIOGRAPHIC ASPECT OF THE EXAM: LOWER THORAX: Unremarkable. LIVER: Fatty liver. No gross lesion or ductal dilatation. GALLBLADDER AND BILE DUCTS: Sludge PANCREAS: Unremarkable. No gross lesion or ductal dilatation. SPLEEN: Unremarkable. ADRENALS: Unremarkable. No mass. KIDNEYS AND URETERS: Ольга in the left kidney no hydronephrosis. No solid mass. STOMACH AND BOWEL: Unremarkable. No obstruction. No gross mural thickening. APPENDIX: Normal appendix. PERITONEUM: Unremarkable. No free fluid. No free air. LYMPH NODES: Unremarkable. No enlarged lymph nodes. BLADDER: Unremarkable. REPRODUCTIVE: Unremarkable. BONES: No acute fracture. OTHER FINDINGS: Fat containing umbilical hernia. IMPRESSION: No occlusion or evidence of hemodynamically significant stenosis in the arterial system of the abdomen, pelvis or bilateral lower extremities. No triple AAA or aortic dissection.
--- NOTE | 2018-09-05 13:58 | CP.PCM.PN ---
Subjective - Date & Time of Evaluation Date of Evaluation: 09/05/18 Time of Evaluation: 13:56 - Subjective Subjective: Podiatry progress note for attending Dr. Brown: 62 year old female patient seen and evaluated in the bedside for b/l LE infected ulcerations. Patient states that she still in pain in her lower extremities at the ulcer site. As per Chart there was no overnight fevers, nausea, vomiting, cough,and shortness of breath. She denies any other pedal complaint at this time. Objective - Vital Signs/Intake and Output Vital Signs (last 24 hours): Temp Pulse Resp BP Pulse Ox 98.2 F 90 20 161/74 H 99 09/05/18 09:02 09/05/18 09:02 09/05/18 09:02 09/05/18 09:02 09/05/18 09:02 - Medications Medications: Current Medications Acetaminophen (Tylenol 325mg Tab) 650 mg PO Q6 PRN PRN Reason: Pain, Mild (1-3) Acetaminophen (Tylenol 325mg Tab) 650 mg PO Q6 PRN PRN Reason: Fever >100.4 F Aspirin (Aspirin Chewable) 81 mg PO DAILY [facility] Last Admin: 09/05/18 08:48 Dose: 81 mg Collagenase (Santyl) 1 applic TOP DAILY [facility] Last Admin: 09/05/18 08:51 Dose: Not Given Cyanocobalamin (Vitamin B12 1000 Mcg Tab) 1,000 mcg PO DAILY [facility] Last Admin: 09/05/18 08:49 Dose: 1,000 mcg Dextrose (Dextrose 50% Inj) 0 ml IV STAT PRN; Protocol PRN Reason: Hypoglycemia Protocol Dextrose (Glutose 15) 0 gm PO ONCE PRN; Protocol PRN Reason: Hypoglycemia Protocol Enoxaparin Sodium (Lovenox) 40 mg SC DAILY [facility]; Protocol Last Admin: 09/05/18 08:48 Dose: 40 mg Glucagon (Glucagen Diagnostic Kit) 0 mg IM STAT PRN; Protocol PRN Reason: Hypoglycemia Protocol Vancomycin HCl 500 mg/ Sodium (Chloride) 100 mls @ 100 mls/hr IVPB Q12 [facility]; Protocol Last Admin: 09/05/18 08:53 Dose: 100 mls/hr Ceftriaxone Sodium 1 gm/ (Sodium Chloride) 100 mls @ 100 mls/hr IVPB DAILY [facility]; Protocol Last Admin: 09/05/18 08:51 Dose: 100 mls/hr Insulin Human Regular (Humulin R) 0 units SC ACHS [facility]; Protocol Last Admin: 09/05/18 12:38 Dose: 1 unit Levothyroxine Sodium (Synthroid) 100 mcg PO DAILY@0630 [facility] Last Admin: 09/05/18 07:09 Dose: 100 mcg Morphine Sulfate (Morphine) 4 mg IVP Q6 PRN PRN Reason: Pain, severe (8-10) Last Admin: 09/05/18 10:32 Dose: 4 mg Ondansetron HCl (Zofran Inj) 4 mg IVP Q6 PRN PRN Reason: Nausea/Vomiting Pantoprazole Sodium (Protonix Ec Tab) 40 mg PO DAILY [facility] Last Admin: 09/05/18 08:48 Dose: 40 mg Sodium Hypochlorite (Dakins Solution 0.125%) 1 appl EXT DAILY [facility] Last Admin: 09/05/18 08:50 Dose: Not Given - Labs Labs: 09/04/18 06:15 09/04/18 06:15 - Constitutional Appears: Non-toxic - Head Exam Head Exam: ATRAUMATIC - Extremities Exam Additional comments: B/L lower extremity focused exam: Vascular: DP/PT are 2/4 b/l, Cap refill < 3 seconds to all digits, Temp gradient warm to cool from proximal to distal, no edema appreciated to b/l extremities. Neuro: Gross sensation intact, protective sensation diminished. Derm: Left: An ulcer noted in the lateral aspect of the foot measuring 1.8 cm X 1.2 cm X 0.2 cm. Base is necrotic. Minimal purulent drainage noted. No tracking, positive undermining, No probe to bone. No delma-ulcerative erythema noted. Another ulcer noted in the left heel 4 cm X 2.3 cm X 0.4 cm. Base is necrotic. Partially macerated edges. Minimal purulent drainage noted. positive tracking, positive undermining, Positive probe to bone. positive delma-ulcerative erythema noted. A third ulcer noted in the upper lateral aspect of the left leg measuring 1.5 cm X 1.2 cm X 0.1 cm. Base is necrotic. Minimal purulent drainage noted. No tracking, No undermining, Positive probe to bone. Delma-ulcerative erythema and induration noted. Right: ulcer noted in the left heel 3.6 cm X 1.8 cm X 0.4 cm. Base is necrotic. Macerated edges. Minimal purulent drainage noted. positive tracking, positive undermining, Positive probe to bone. positive delma-ulcerative erythema noted. MSK: Muscle power 5/5 to all groups, Pain noted on palpating the delma- ulcerative areas. - Neurological Exam Neurological Exam: Alert, Awake, Oriented x3 - Psychiatric Exam Psychiatric exam: Normal Affect, Normal Mood Assessment and Plan - Assessment and Plan (Free Text) Assessment: 62F with b/l LE infected ulcerations. Plan: -Patient seen and evaluated at the bedside. -Discussed in detail with Dr. Brown -Charts, labs and vitals reviewed; Afebrile, WBC 6.5. -Wound culture: Citrobacter diversus, Beta hemolytic strept group B -B/L foot x-ray: No evidence of OM -B/L ankle x-ray: Superficial ulcerations. -B/L tib/fibula x-ray: No acute findings. -LE CRISTIANE/PVR: Sever biateral LE arterial disease, distal abdominal aorta stenosis and or bilateral iliac stenosis not excluded. Concider follow up contrasr CT angio of aorto-iliac system with bilateral LE runoff. -Left ankle MRI: Overall pattern is highly suggestive of osteomyelitis at the calcaneus and is difficult to exclude at the remaining midfoot/hindfoot and right ankle bony elements. Unfortunately, widespread mottled/heterogeneous Marrow edema is appreciated not only involving the ankle but osseous elements of the midfoot and hindfoot also suspicious for osteomyelitis with differentiated diagnosis of RSD order other inflammatory causes. Posttraumatic etiology is unlikely. Further clinical correlation is recommended. -Right ankle MRI: Indeterminate pattern of bony edema throughout the ankle and midfoot/hindfoot anatomy indicative of osteomyelitis particularly at the calcane us adjacent to a soft tissue ulcer posteriorly. Abnormal Marrow signal throughout the entire midfoot and hindfoot including inferior tibia and possibly fibula may also reflect osteomyelitis though given its widespread pattern which includes various musculature as well, consider other inflammatory causes, reflex sympathetic dystrophy and other etiologies. Further clinical correlation is recommended. -Right foot MRI: Nonspecific pattern of heterogeneous abnormal edema scattered t hroughout the midfoot and hindfoot bony anatomy as well as the 1st and 5th metatarsal bones and proximal phalanx right great toe. For osteomyelitis or other inflammatory causes. Clinical correlation suggestive of OM. -Left foot MRI: Nonspecific heterogeneous pattern of edema primarily at the left midfoot and hindfoot bones as discussed above few cellulitis is appreciate primarily affecting midfoot and hindfoot distribution as well. The 2nd and 3rd digits are also affected at the pattern is nonspecific and could reflect osteomyelitis though other etiologies including RSD and other inflammatory causes are not excluded. Further clinical correlation suggestive of OM. -B/L Lower Extremity MRI: Edematous changes are seen in the Marrow of the osseous elements at the bilateral knee joints slightly greater the right than left. Osteomyelitis is not favored. Questionable ulcer distal posterior leg soft tissues. Mild bilateral lower extremity cellulitis. No definite abscess appreciated bilaterally. -Patient will got a PICC line yesterday for long course (4-6 weeks) of IV Abx. -ESR: >120, CRP: 167.60 -B/L LE venous duplex: No DVT, Right inguinal lymphadenopathy -Ordered Vascular consult; Reccs appreciated. -Spoke to Dr. Mcdermott yesterday who will see her today and he said there is no need to order CT angio as long as the ultrasound is positive putting in consideration that her creatinine clearance is 42.7. -B/L ulcers cleaned with saline and dakins then dressed with santyl, Mepilex for the upper left leg wound and DSD and santyl for the rest of the ulcers. -Patient to stay in the multipodus boot while in bed. -Ordered PT evaluation for offloading heel shoe. -Patient to bear weight as tolerated in the heel offloading shoe. -ID on board Reccs appreciated. -Patient to continue IV abx as per ID. -CT angio showed no significant stenosis or blockage -Podiatry will continue to follow up the patient while in house.
[2018-09-06] MEDS: Levothyroxine 100 MCG TAB PO SCH (06:40)
[2018-09-06] MEDS: Insulin Regular 100 units/ml SC SCH ×4 (06:44→22:07)
[2018-09-06] MEDS: Enoxaparin 40 mg Syringe SC SCH (08:24)
[2018-09-06] MEDS: Santyl Collagenase OINTMENT TOP SCH (08:26)
[2018-09-06] MEDS: Pantoprazole 40 mg EC Tab PO SCH (08:26)
[2018-09-06] MEDS: Morphine 4 MG/ML VIAL IVP PRN (09:15)
--- NOTE | 2018-09-06 10:21 | CP.PCM.PN ---
<Duncan Chun - Last Filed: 09/06/18 10:28> Subjective - Date & Time of Evaluation Date of Evaluation: 09/06/18 Time of Evaluation: 10:21 - Subjective Subjective: pt seen and evaluated at bedside. No acute events overnight. Afebrile. Reports pain is controlled with medications. Lying comfortably in bed, NAD. Tolerating PO intake without issue. BP with intermittent elevations, otherwise controlled. POX 99% on RA. No other complaints/concerns. Objective - Vital Signs/Intake and Output Vital Signs (last 24 hours): Temp Pulse Resp BP Pulse Ox 98.2 F 98 H 20 139/75 97 09/06/18 08:44 09/06/18 08:44 09/06/18 08:44 09/06/18 08:44 09/06/18 08:44 - Medications Medications: Current Medications Acetaminophen (Tylenol 325mg Tab) 650 mg PO Q6 PRN PRN Reason: Pain, Mild (1-3) Last Admin: 09/06/18 06:42 Dose: 650 mg Acetaminophen (Tylenol 325mg Tab) 650 mg PO Q6 PRN PRN Reason: Fever >100.4 F Aspirin (Aspirin Chewable) 81 mg PO DAILY [facility] Last Admin: 09/06/18 08:25 Dose: 81 mg Collagenase (Santyl) 1 applic TOP DAILY [facility] Last Admin: 09/06/18 08:26 Dose: 1 appl Cyanocobalamin (Vitamin B12 1000 Mcg Tab) 1,000 mcg PO DAILY [facility] Last Admin: 09/06/18 08:26 Dose: 1,000 mcg Dextrose (Dextrose 50% Inj) 0 ml IV STAT PRN; Protocol PRN Reason: Hypoglycemia Protocol Dextrose (Glutose 15) 0 gm PO ONCE PRN; Protocol PRN Reason: Hypoglycemia Protocol Enoxaparin Sodium (Lovenox) 40 mg SC DAILY [facility]; Protocol Last Admin: 09/06/18 08:24 Dose: 40 mg Glucagon (Glucagen Diagnostic Kit) 0 mg IM STAT PRN; Protocol PRN Reason: Hypoglycemia Protocol Vancomycin HCl 500 mg/ Sodium (Chloride) 100 mls @ 100 mls/hr IVPB Q12 [facility]; Protocol Last Admin: 09/06/18 08:28 Dose: 100 mls/hr Ceftriaxone Sodium 1 gm/ (Sodium Chloride) 100 mls @ 100 mls/hr IVPB DAILY [facility]; Protocol Last Admin: 09/06/18 08:29 Dose: 100 mls/hr Insulin Human Regular (Humulin R) 0 units SC ACHS [facility]; Protocol Last Admin: 09/06/18 06:44 Dose: Not Given Levothyroxine Sodium (Synthroid) 100 mcg PO DAILY@0630 [facility] Last Admin: 09/06/18 06:40 Dose: 100 mcg Morphine Sulfate (Morphine) 4 mg IVP Q6 PRN PRN Reason: Pain, severe (8-10) Last Admin: 09/06/18 09:15 Dose: 4 mg Ondansetron HCl (Zofran Inj) 4 mg IVP Q6 PRN PRN Reason: Nausea/Vomiting Pantoprazole Sodium (Protonix Ec Tab) 40 mg PO DAILY [facility] Last Admin: 09/06/18 08:26 Dose: 40 mg Sodium Hypochlorite (Dakins Solution 0.125%) 1 appl EXT DAILY [facility] Last Admin: 09/06/18 08:25 Dose: 1 appl - Labs Labs: 09/04/18 06:15 09/04/18 06:15 - Constitutional Appears: Non-toxic, No Acute Distress, Unkempt - Head Exam Head Exam: ATRAUMATIC - Eye Exam Eye Exam: EOMI Pupil Exam: PERRL - ENT Exam ENT Exam: Mucous Membranes Moist - Respiratory Exam Respiratory Exam: Clear to Ausculation Bilateral, NORMAL BREATHING PATTERN. absent: Rales, Rhonchi, Wheezes - Cardiovascular Exam Cardiovascular Exam: REGULAR RHYTHM, RRR, +S1, +S2. absent: JVD, Rubs, Murmur - GI/Abdominal Exam GI & Abdominal Exam: Soft, Normal Bowel Sounds. absent: Tenderness - Extremities Exam Extremities Exam: absent: Pedal Edema Additional comments: b/l LE dressings C/D/I Assessment and Plan - Assessment and Plan (Free Text) Assessment: Pt is a 62 y/o female with hx of HTN, DM, Hypothyroidism, Rheumatoid arthritis, Chronic foot ulcers admitted for multiple foot/leg ulcers w/ foul odor drainage admitted for osteomyelitis. Plan: 1) Multiple Foot Ulcers, Bilaterally - Wound probed to bone by Podiatry, strong suspicion for Osteomyelitis - Afebrile, No leukocytosis, +Bandemia 4, Lactate normal, ESR 120 - Podiatry consulted, Dr. Brown; recs appreciated - ID Consulted, Dr. Contreras; recommends 4-6 weeks of IV antibiotics - Wound Care Nursing, tight glycemic control, offloading from ulcers - MRI LE from knee to ankle :showed no OM , no abscess - MRI: Left ankle MRI :showed suggestive pattern of OM at the calcaneus and is difficult to exclude at the remaining midfoot/hindfoot and right ankle bony elements. Unfortunately, widespread mottled/heterogeneous Marrow edema is appreciated not only involving the ankle but osseous elements of the midfoot and hindfoot also suspicious for osteomyelitis with differentiated diagnosis of RSD order other inflammatory causes. MRI right ankle :Indeterminate pattern of bony edema throughout the ankle and midfoot/hindfoot anatomy indicative of osteomyelitis particularly at the calcaneus adjacent to a soft tissue ulcer posteriorly. Abnormal Marrow signal throughout the entire midfoot and hindfoot including inferior tibia and possibly fibula may also reflect osteomyelitis though given its widespread pattern which includes various musculature as well, consider other inflammatory causes, reflex sympathetic dystrophy and other etiologies. Further clinical correlation is recommended. - MRI right foot :Nonspecific pattern of heterogeneous abnormal edema scattered throughout the midfoot and hindfoot bony anatomy as well as the 1st and 5th metatarsal bones and proximal phalanx right great toe. -MRI left foot :Indeterminate pattern of bony edema throughout the ankle and midfoot/hindfoot anatomy indicative of osteomyelitis particularly at the calcaneus adjacent to a soft tissue ulcer posteriorly. Abnormal Marrow signal throughout the entire midfoot and hindfoot including inferior tibia and possibly fibula may also reflect osteomyelitis though given its widespread pattern which includes various musculature as well, consider other inflammatory causes, reflex sympathetic dystrophy and other etiologies. - Duplex Vein no DVT -Arterial duplex: severely diseased b/l LE arterial system. - Vascular consulted; Dr Mcdermott. CT Angio ordered. - Wcx; citrobacter diversus, beta hemolytic strep group b; c/w vancomycin and ceftriaxone - PICC Line in place 2) CKD - Stable - Renal dose adjustments for nephrotoxic medication (check Vanco trough) 3) Hypothyroidism -TSH 5.47, T4 6.55 -C/W with home medication, Levothyroxine 100mg daily 4) Rheumatoid Arthritis -Pain controlled with Tylenol. Morphine 4 gm q6 pRN ordered for severe pain -Prior labs reviewed: +RF, +Anti CCP, + pANCa 5) Anemia -stable 6) Poor mobility/Debilitation - OT for ADL's - PT to be ordered for gait/mobility/strength 7) DVT ppx -Lovenox 40mg SQ daily given CrCl >40 Next of Kin (Niece): Danni <Karoline Rousseau - Last Filed: 09/06/18 11:39> Objective - Vital Signs/Intake and Output Vital Signs (last 24 hours): Temp Pulse Resp BP Pulse Ox 98.2 F 98 H 20 139/75 97 09/06/18 08:44 09/06/18 08:44 09/06/18 08:44 09/06/18 08:44 09/06/18 08:44 - Medications Medications: Current Medications Acetaminophen (Tylenol 325mg Tab) 650 mg PO Q6 PRN PRN Reason: Pain, Mild (1-3) Last Admin: 09/06/18 06:42 Dose: 650 mg Acetaminophen (Tylenol 325mg Tab) 650 mg PO Q6 PRN PRN Reason: Fever >100.4 F Aspirin (Aspirin Chewable) 81 mg PO DAILY [facility] Last Admin: 09/06/18 08:25 Dose: 81 mg Collagenase (Santyl) 1 applic TOP DAILY [facility] Last Admin: 09/06/18 08:26 Dose: 1 appl Cyanocobalamin (Vitamin B12 1000 Mcg Tab) 1,000 mcg PO DAILY [facility] Last Admin: 09/06/18 08:26 Dose: 1,000 mcg Dextrose (Dextrose 50% Inj) 0 ml IV STAT PRN; Protocol PRN Reason: Hypoglycemia Protocol Dextrose (Glutose 15) 0 gm PO ONCE PRN; Protocol PRN Reason: Hypoglycemia Protocol Enoxaparin Sodium (Lovenox) 40 mg SC DAILY [facility]; Protocol Last Admin: 09/06/18 08:24 Dose: 40 mg Glucagon (Glucagen Diagnostic Kit) 0 mg IM STAT PRN; Protocol PRN Reason: Hypoglycemia Protocol Vancomycin HCl 500 mg/ Sodium (Chloride) 100 mls @ 100 mls/hr IVPB Q12 [facility]; Protocol Last Admin: 09/06/18 08:28 Dose: 100 mls/hr Ceftriaxone Sodium 1 gm/ (Sodium Chloride) 100 mls @ 100 mls/hr IVPB DAILY [facility]; Protocol Last Admin: 09/06/18 08:29 Dose: 100 mls/hr Insulin Human Regular (Humulin R) 0 units SC ACHS [facility]; Protocol Last Admin: 09/06/18 11:23 Dose: Not Given Levothyroxine Sodium (Synthroid) 100 mcg PO DAILY@0630 [facility] Last Admin: 09/06/18 06:40 Dose: 100 mcg Morphine Sulfate (Morphine) 4 mg IVP Q6 PRN PRN Reason: Pain, severe (8-10) Last Admin: 09/06/18 09:15 Dose: 4 mg Ondansetron HCl (Zofran Inj) 4 mg IVP Q6 PRN PRN Reason: Nausea/Vomiting Pantoprazole Sodium (Protonix Ec Tab) 40 mg PO DAILY [facility] Last Admin: 09/06/18 08:26 Dose: 40 mg Sodium Hypochlorite (Dakins Solution 0.125%) 1 appl EXT DAILY [facility] Last Admin: 09/06/18 08:25 Dose: 1 appl - Labs Labs: 09/04/18 06:15 09/04/18 06:15 Attending/Attestation - Attestation I have personally seen and examined this patient.: Yes I have fully participated in the care of the patient.: Yes I have reviewed all pertinent clinical information, including history, physical exam and plan: Yes Notes (Text): 09/06/18 11:39 agree with findings and plan as above
--- NOTE | 2018-09-06 11:29 | CP.PCM.PN ---
Subjective - Date & Time of Evaluation Date of Evaluation: 09/06/18 Time of Evaluation: 11:28 - Subjective Subjective: Podiatry progress note - Dr. Brown 62 year old female patient seen and evaluated in the bedside for b/l LE infected ulcerations. Patient states that she still in pain in her lower extremities at the ulcer site. As per Chart there was no overnight fevers, nausea, vomiting, cough,and shortness of breath. She denies any other pedal complaint at this time. Objective - Vital Signs/Intake and Output Vital Signs (last 24 hours): Temp Pulse Resp BP Pulse Ox 98.2 F 98 H 20 139/75 97 09/06/18 08:44 09/06/18 08:44 09/06/18 08:44 09/06/18 08:44 09/06/18 08:44 - Medications Medications: Current Medications Acetaminophen (Tylenol 325mg Tab) 650 mg PO Q6 PRN PRN Reason: Pain, Mild (1-3) Last Admin: 09/06/18 06:42 Dose: 650 mg Acetaminophen (Tylenol 325mg Tab) 650 mg PO Q6 PRN PRN Reason: Fever >100.4 F Aspirin (Aspirin Chewable) 81 mg PO DAILY [facility] Last Admin: 09/06/18 08:25 Dose: 81 mg Collagenase (Santyl) 1 applic TOP DAILY [facility] Last Admin: 09/06/18 08:26 Dose: 1 appl Cyanocobalamin (Vitamin B12 1000 Mcg Tab) 1,000 mcg PO DAILY [facility] Last Admin: 09/06/18 08:26 Dose: 1,000 mcg Dextrose (Dextrose 50% Inj) 0 ml IV STAT PRN; Protocol PRN Reason: Hypoglycemia Protocol Dextrose (Glutose 15) 0 gm PO ONCE PRN; Protocol PRN Reason: Hypoglycemia Protocol Enoxaparin Sodium (Lovenox) 40 mg SC DAILY [facility]; Protocol Last Admin: 09/06/18 08:24 Dose: 40 mg Glucagon (Glucagen Diagnostic Kit) 0 mg IM STAT PRN; Protocol PRN Reason: Hypoglycemia Protocol Vancomycin HCl 500 mg/ Sodium (Chloride) 100 mls @ 100 mls/hr IVPB Q12 [facility]; Protocol Last Admin: 09/06/18 08:28 Dose: 100 mls/hr Ceftriaxone Sodium 1 gm/ (Sodium Chloride) 100 mls @ 100 mls/hr IVPB DAILY [facility]; Protocol Last Admin: 09/06/18 08:29 Dose: 100 mls/hr Insulin Human Regular (Humulin R) 0 units SC ACHS [facility]; Protocol Last Admin: 09/06/18 11:23 Dose: Not Given Levothyroxine Sodium (Synthroid) 100 mcg PO DAILY@0630 [facility] Last Admin: 09/06/18 06:40 Dose: 100 mcg Morphine Sulfate (Morphine) 4 mg IVP Q6 PRN PRN Reason: Pain, severe (8-10) Last Admin: 09/06/18 09:15 Dose: 4 mg Ondansetron HCl (Zofran Inj) 4 mg IVP Q6 PRN PRN Reason: Nausea/Vomiting Pantoprazole Sodium (Protonix Ec Tab) 40 mg PO DAILY [facility] Last Admin: 09/06/18 08:26 Dose: 40 mg Sodium Hypochlorite (Dakins Solution 0.125%) 1 appl EXT DAILY [facility] Last Admin: 09/06/18 08:25 Dose: 1 appl - Labs Labs: 09/04/18 06:15 09/04/18 06:15 - Constitutional Appears: Non-toxic - Head Exam Head Exam: ATRAUMATIC - Extremities Exam Additional comments: B/L lower extremity focused exam: Vascular: DP/PT are 2/4 b/l, Cap refill < 3 seconds to all digits, Temp gradient warm to cool from proximal to distal, no edema appreciated to b/l extremities. Neuro: Gross sensation intact, protective sensation diminished. Derm: Left: An ulcer noted in the lateral aspect of the foot measuring 1.8 cm X 1.2 cm X 0.2 cm. Base is necrotic. Minimal purulent drainage noted. No tracking, positive undermining, No probe to bone. No delma-ulcerative erythema noted. Another ulcer noted in the left heel 4 cm X 2.3 cm X 0.4 cm. Base is necrotic. Partially macerated edges. Minimal purulent drainage noted. positive tracking, positive undermining, Positive probe to bone. positive delma-ulcerative erythema noted. A third ulcer noted in the upper lateral aspect of the left leg measuring 1.5 cm X 1.2 cm X 0.1 cm. Base is necrotic. Minimal purulent drainage noted. No tracking, No undermining, Positive probe to bone. Delma-ulcerative erythema and induration noted. Right: ulcer noted in the left heel 3.6 cm X 1.8 cm X 0.4 cm. Base is necrotic. Macerated edges. Minimal purulent drainage noted. positive tracking, positive undermining, Positive probe to bone. positive delma-ulcerative erythema noted. MSK: Muscle power 5/5 to all groups, Pain noted on palpating the delma- ulcerative areas - Neurological Exam Neurological Exam: Alert, Awake, Oriented x3 - Psychiatric Exam Psychiatric exam: Normal Affect, Normal Mood Assessment and Plan - Assessment and Plan (Free Text) Assessment: 62F with b/l LE infected ulcerations. Plan: -Patient seen and evaluated at the bedside. -Discussed in detail with Dr. Brown -Charts, labs and vitals reviewed; Afebrile, WBC 6.5(3/8) -Wound culture: Citrobacter diversus, Beta hemolytic strept group B -B/L foot x-ray: No evidence of OM -B/L ankle x-ray: Superficial ulcerations. -B/L tib/fibula x-ray: No acute findings. -LE CRISTIANE/PVR: Sever biateral LE arterial disease, distal abdominal aorta stenosis and or bilateral iliac stenosis not excluded. Concider follow up contrasr CT angio of aorto-iliac system with bilateral LE runoff. -Left ankle MRI: Overall pattern is highly suggestive of osteomyelitis at the calcaneus and is difficult to exclude at the remaining midfoot/hindfoot and right ankle bony elements. Unfortunately, widespread mottled/heterogeneous Marrow edema is appreciated not only involving the ankle but osseous elements of the midfoot and hindfoot also suspicious for osteomyelitis with differentiated diagnosis of RSD order other inflammatory causes. Posttraumatic etiology is u nlikely. Further clinical correlation is recommended. -Right ankle MRI: Indeterminate pattern of bony edema throughout the ankle and midfoot/hindfoot anatomy indicative of osteomyelitis particularly at the calcaneus adjacent to a soft tissue ulcer posteriorly. Abnormal Marrow signal throughout the entire midfoot and hindfoot including inferior tibia and possibly fibula may also reflect osteomyelitis though given its widespread pattern which includes various musculature as well, consider other inflammatory causes, reflex sympathetic dystrophy and other etiologies. Further clinical correlation is recommended. -Right foot MRI: Nonspecific pattern of heterogeneous abnormal edema scattered throughout the midfoot and hindfoot bony anatomy as well as the 1st and 5th metatarsal bones and proximal phalanx right great toe. For osteomyelitis or other inflammatory causes. Clinical correlation suggestive of OM. -Left foot MRI: Nonspecific heterogeneous pattern of edema primarily at the left midfoot and hindfoot bones as discussed above few cellulitis is appreciate primarily affecting midfoot and hindfoot distribution as well. The 2nd and 3rd digits are also affected at the pattern is nonspecific and could reflect osteomyelitis though other etiologies including RSD and other inflammatory causes are not excluded. Further clinical correlation suggestive of OM. -B/L Lower Extremity MRI: Edematous changes are seen in the Marrow of the osseous elements at the bilateral knee joints slightly greater the right than left. Osteomyelitis is not favored. Questionable ulcer distal posterior leg soft tissues. Mild bilateral lower extremity cellulitis. No definite abscess appreciated bilaterally. -Patient will got a PICC line yesterday for long course (4-6 weeks) of IV Abx. -ESR: >120, CRP: 167.60 -B/L LE venous duplex: No DVT, Right inguinal lymphadenopathy -Ordered Vascular consult; Reccs appreciated. -Spoke to Dr. Mcdermott yesterday who will see her today and he said there is no need to order CT angio as long as the ultrasound is positive putting in consideration that her creatinine clearance is 42.7. -B/L ulcers cleaned with saline and dakins then dressed with santyl, Mepilex for the upper left leg wound and DSD and santyl for the rest of the ulcers. -Patient to stay in the multipodus boot while in bed. -Ordered PT evaluation for offloading heel shoe. -Patient to bear weight as tolerated in the heel offloading shoe. -ID on board Reccs appreciated. -Patient to continue IV abx as per ID. -CT angio showed no significant stenosis or blockage -Podiatry will continue to follow up the patient while in house.
[2018-09-07] MEDS: Morphine 4 MG/ML VIAL IVP PRN ×3 (05:15→18:39)
[2018-09-07] MEDS: Levothyroxine 100 MCG TAB PO SCH (05:44)
[2018-09-07] MEDS: Insulin Regular 100 units/ml SC SCH ×4 (06:54→22:02)
[2018-09-07 07:01] LABS: MEAN CELL VOLUME 81.1 fl (81.0-99.0); MEAN CORPUSCULAR HEMOGLOBIN 26.6 pg (27.0-31.0); MEAN CORPUSCULAR HGB CONC 32.8 g/dL (33.0-37.0); RBC 3.59 Mil/uL (3.80-5.20); RED CELL DISTRIBUTION WIDTH 16.3 % (11.5-14.5); WHITE BLOOD COUNT 7.5 K/uL (4.8-10.8)
[2018-09-07 07:03] LABS: HEMOGLOBIN 9.5 g/dL (12.0-16.0)
[2018-09-07 07:06] LABS: CALCIUM 9.2 mg/dL (8.4-10.2)
--- NOTE | 2018-09-07 08:53 | CP.PCM.PN ---
Subjective - Date & Time of Evaluation Date of Evaluation: 09/07/18 Time of Evaluation: 08:50 - Subjective Subjective: Podiatry progress note - Dr. Brown 62 y/o F patient seen and evaluated at the bedside for b/l LE infected ulcerations with underlying osteomyelitis. Patient states that she still in pain in her lower extremities at the ulcer site. As per Chart there was no overnight fevers, nausea, vomiting, cough,and shortness of breath. She denies any other pedal complaint at this time. Patient received 2 mg Morphine IV before the dressing change. Objective - Vital Signs/Intake and Output Vital Signs (last 24 hours): Temp Pulse Resp BP Pulse Ox 98.1 F 91 H 19 166/77 H 98 09/07/18 07:55 09/07/18 07:55 09/07/18 07:55 09/07/18 07:55 09/07/18 07:55 - Medications Medications: Current Medications Acetaminophen (Tylenol 325mg Tab) 650 mg PO Q6 PRN PRN Reason: Pain, Mild (1-3) Last Admin: 09/06/18 22:14 Dose: 650 mg Acetaminophen (Tylenol 325mg Tab) 650 mg PO Q6 PRN PRN Reason: Fever >100.4 F Aspirin (Aspirin Chewable) 81 mg PO DAILY [facility] Last Admin: 09/06/18 08:25 Dose: 81 mg Collagenase (Santyl) 1 applic TOP DAILY [facility] Last Admin: 09/06/18 08:26 Dose: 1 appl Cyanocobalamin (Vitamin B12 1000 Mcg Tab) 1,000 mcg PO DAILY [facility] Last Admin: 09/06/18 08:26 Dose: 1,000 mcg Dextrose (Dextrose 50% Inj) 0 ml IV STAT PRN; Protocol PRN Reason: Hypoglycemia Protocol Dextrose (Glutose 15) 0 gm PO ONCE PRN; Protocol PRN Reason: Hypoglycemia Protocol Enoxaparin Sodium (Lovenox) 40 mg SC DAILY [facility]; Protocol Last Admin: 09/06/18 08:24 Dose: 40 mg Glucagon (Glucagen Diagnostic Kit) 0 mg IM STAT PRN; Protocol PRN Reason: Hypoglycemia Protocol Vancomycin HCl 500 mg/ Sodium (Chloride) 100 mls @ 100 mls/hr IVPB Q12 [facility]; Protocol Last Admin: 09/06/18 22:09 Dose: 100 mls/hr Ceftriaxone Sodium 1 gm/ (Sodium Chloride) 100 mls @ 100 mls/hr IVPB DAILY [facility]; Protocol Last Admin: 09/06/18 08:29 Dose: 100 mls/hr Insulin Human Regular (Humulin R) 0 units SC ACHS [facility]; Protocol Last Admin: 09/07/18 06:54 Dose: Not Given Levothyroxine Sodium (Synthroid) 100 mcg PO DAILY@0630 [facility] Last Admin: 09/07/18 05:44 Dose: 100 mcg Morphine Sulfate (Morphine) 4 mg IVP Q6 PRN PRN Reason: Pain, severe (8-10) Last Admin: 09/07/18 05:15 Dose: 4 mg Ondansetron HCl (Zofran Inj) 4 mg IVP Q6 PRN PRN Reason: Nausea/Vomiting Pantoprazole Sodium (Protonix Ec Tab) 40 mg PO DAILY [facility] Last Admin: 09/06/18 08:26 Dose: 40 mg Sodium Hypochlorite (Dakins Solution 0.125%) 1 appl EXT DAILY [facility] Last Admin: 09/06/18 08:25 Dose: 1 appl - Labs Labs: 09/07/18 05:55 09/07/18 05:55 - Head Exam Head Exam: ATRAUMATIC - Extremities Exam Additional comments: B/L lower extremity focused exam: Vascular: DP/PT are 2/4 b/l, Cap refill < 3 seconds to all digits, Temp gradient warm to cool from proximal to distal, no edema appreciated to b/l extremities. Neuro: Gross sensation intact, protective sensation diminished. Derm: Left: An ulcer noted in the lateral aspect of the foot measuring 1.8 cm X 1.2 cm X 0.2 cm. Base is necrotic. Minimal purulent drainage noted. No tracking, positive undermining, No probe to bone. No delma-ulcerative erythema noted. Another ulcer noted in the left heel 4 cm X 2.3 cm X 0.4 cm. Base is necrotic. Partially macerated edges. Minimal purulent drainage noted. positive tracking, p ositive undermining, Positive probe to bone. positive delma-ulcerative erythema noted. A third ulcer noted in the upper lateral aspect of the left leg measuring 1.5 cm X 1.2 cm X 0.1 cm. Base is necrotic. Minimal purulent drainage noted. No tracking, No undermining, Positive probe to bone. Delma-ulcerative erythema and induration noted. Right: ulcer noted in the left heel 3.6 cm X 1.8 cm X 0.4 cm. Base is necrotic. Mildly macerated edges. Minimal purulent drainage noted. positive tracking, positive undermining, Positive probe to bone. positive delma-ulcerative erythema noted. MSK: Muscle power 5/5 to all groups, Pain noted on palpating the delma- ulcerative areas - Neurological Exam Neurological Exam: Alert, Awake Assessment and Plan - Assessment and Plan (Free Text) Assessment: 62 y/o F patient seen and evaluated at the bedside for b/l LE infected ulcerations with underlying osteomyelitis. Plan: -Patient seen and evaluated at the bedside. -Discussed in detail with Dr. Brown -Charts, labs and vitals reviewed; Afebrile, WBC 7.5 -Wound culture: Citrobacter diversus, Beta hemolytic strept group B -B/L foot x-ray: No evidence of OM -B/L ankle x-ray: Superficial ulcerations. -B/L tib/fibula x-ray: No acute findings. -LE CRISTIANE/PVR: Sever biateral LE arterial disease, distal abdominal aorta stenosis and or bilateral iliac stenosis not excluded. Concider follow up contrast CT angio of aorto-iliac system with bilateral LE runoff. -Left ankle MRI: Overall pattern is highly suggestive of osteomyelitis at the calcaneus and is difficult to exclude at the remaining midfoot/hindfoot and right ankle bony elements. Unfortunately, widespread mottled/heterogeneous Marrow edema is appreciated not only involving the ankle but osseous elements of the midfoot and hindfoot also suspicious for osteomyelitis with differentiated diagnosis of RSD order other inflammatory causes. Posttraumatic etiology is unlikely. Further clinical correlation is recommended. -Right ankle MRI: Indeterminate pattern of bony edema throughout the ankle and midfoot/hindfoot anatomy indicative of osteomyelitis particularly at the calcaneus adjacent to a soft tissue ulcer posteriorly. Abnormal Marrow signal throughout the entire midfoot and hindfoot including inferior tibia and possibly fibula may also reflect osteomyelitis though given its widespread pattern which includes various musculature as well, consider other inflammatory causes, reflex sympathetic dystrophy and other etiologies. Further clinical correlation is recommended. -Right foot MRI: Nonspecific pattern of heterogeneous abnormal edema scattered throughout the midfoot and hindfoot bony anatomy as well as the 1st and 5th metatarsal bones and proximal phalanx right great toe. For osteomyelitis or other inflammatory causes. Clinical correlation suggestive of OM. -Left foot MRI: Nonspecific heterogeneous pattern of edema primarily at the left midfoot and hindfoot bones as discussed above few cellulitis is appreciate primarily affecting midfoot and hindfoot distribution as well. The 2nd and 3rd digits are also affected at the pattern is nonspecific and could reflect osteomyelitis though other etiologies including RSD and other inflammatory causes are not excluded. Further clinical correlation suggestive of OM. -B/L Lower Extremity MRI: Edematous changes are seen in the Marrow of the osseous elements at the bilateral knee joints slightly greater the right than left. Osteomyelitis is not favored. Questionable ulcer distal posterior leg soft tissues. Mild bilateral lower extremity cellulitis. No definite abscess appreciated bilaterally. -Patient will got a PICC line yesterday for long course (4-6 weeks) of IV Abx. -ESR: >120, CRP: 167.60 -B/L LE venous duplex: No DVT, Right inguinal lymphadenopathy -Ordered Vascular consult; Reccs appreciated. -Spoke to Dr. Mcdermott yesterday who will see her today and he said there is no need to order CT angio as long as the ultrasound is positive putting in consideration that her creatinine clearance is 42.7. -Patient received 2 mg Morphine IV before the dressing change. -B/L ulcers cleaned with saline and dakins then dressed with santyl, Mepilex for the upper left leg wound and DSD and santyl for the rest of the ulcers. -Patient to stay in the multipodus boot while in bed. -Patient to bear weight as tolerated in the heel offloading shoe. -ID on board Reccs appreciated. -Patient to continue IV abx as per ID. -CT angio showed no significant stenosis or blockage -Podiatry will continue to follow up the patient while in house.
--- NOTE | 2018-09-07 09:20 | CP.PCM.PN ---
<Josie Harvey - Last Filed: 09/07/18 11:03> Subjective - Date & Time of Evaluation Date of Evaluation: 09/07/18 Time of Evaluation: 09:18 - Subjective Subjective: pt seen and evaluated at bedside. No acute events overnight. Afebrile. Reports pain is controlled with medications. Lying comfortably in bed, NAD. Tolerating PO intake without issue. BP with intermittent elevations, otherwise controlled. No other complaints/concerns. Objective - Vital Signs/Intake and Output Vital Signs (last 24 hours): Temp Pulse Resp BP Pulse Ox 98.1 F 91 H 19 166/77 H 98 09/07/18 07:55 09/07/18 07:55 09/07/18 07:55 09/07/18 07:55 09/07/18 07:55 - Medications Medications: Current Medications Acetaminophen (Tylenol 325mg Tab) 650 mg PO Q6 PRN PRN Reason: Pain, Mild (1-3) Last Admin: 09/06/18 22:14 Dose: 650 mg Acetaminophen (Tylenol 325mg Tab) 650 mg PO Q6 PRN PRN Reason: Fever >100.4 F Aspirin (Aspirin Chewable) 81 mg PO DAILY [facility] Last Admin: 09/06/18 08:25 Dose: 81 mg Collagenase (Santyl) 1 applic TOP DAILY [facility] Last Admin: 09/06/18 08:26 Dose: 1 appl Cyanocobalamin (Vitamin B12 1000 Mcg Tab) 1,000 mcg PO DAILY [facility] Last Admin: 09/06/18 08:26 Dose: 1,000 mcg Dextrose (Dextrose 50% Inj) 0 ml IV STAT PRN; Protocol PRN Reason: Hypoglycemia Protocol Dextrose (Glutose 15) 0 gm PO ONCE PRN; Protocol PRN Reason: Hypoglycemia Protocol Enoxaparin Sodium (Lovenox) 40 mg SC DAILY [facility]; Protocol Last Admin: 09/06/18 08:24 Dose: 40 mg Glucagon (Glucagen Diagnostic Kit) 0 mg IM STAT PRN; Protocol PRN Reason: Hypoglycemia Protocol Vancomycin HCl 500 mg/ Sodium (Chloride) 100 mls @ 100 mls/hr IVPB Q12 [facility]; Protocol Last Admin: 09/06/18 22:09 Dose: 100 mls/hr Ceftriaxone Sodium 1 gm/ (Sodium Chloride) 100 mls @ 100 mls/hr IVPB DAILY [facility]; Protocol Last Admin: 09/06/18 08:29 Dose: 100 mls/hr Insulin Human Regular (Humulin R) 0 units SC ACHS [facility]; Protocol Last Admin: 09/07/18 06:54 Dose: Not Given Levothyroxine Sodium (Synthroid) 100 mcg PO DAILY@0630 [facility] Last Admin: 09/07/18 05:44 Dose: 100 mcg Morphine Sulfate (Morphine) 4 mg IVP Q6 PRN PRN Reason: Pain, severe (8-10) Last Admin: 09/07/18 05:15 Dose: 4 mg Ondansetron HCl (Zofran Inj) 4 mg IVP Q6 PRN PRN Reason: Nausea/Vomiting Pantoprazole Sodium (Protonix Ec Tab) 40 mg PO DAILY [facility] Last Admin: 09/06/18 08:26 Dose: 40 mg Sodium Hypochlorite (Dakins Solution 0.125%) 1 appl EXT DAILY [facility] Last Admin: 09/06/18 08:25 Dose: 1 appl - Labs Labs: 09/07/18 05:55 09/07/18 05:55 - Constitutional Appears: Well, Non-toxic, No Acute Distress - Head Exam Head Exam: ATRAUMATIC, NORMOCEPHALIC - Eye Exam Eye Exam: Normal appearance Pupil Exam: NORMAL ACCOMODATION - ENT Exam ENT Exam: Mucous Membranes Moist - Cardiovascular Exam Cardiovascular Exam: REGULAR RHYTHM - Extremities Exam Extremities Exam: Pedal Edema, Tenderness. absent: Full ROM - Neurological Exam Neurological Exam: Alert, Awake, Oriented x3 Assessment and Plan - Assessment and Plan (Free Text) Assessment: Pt is a 62 y/o female with hx of HTN, DM, Hypothyroidism, Rheumatoid arthritis, Chronic foot ulcers admitted for multiple foot/leg ulcers w/ foul odor drainage admitted for osteomyelitis. Plan: 1) Multiple Foot Ulcers, Bilaterally - Wound probed to bone by Podiatry, strong suspicion for Osteomyelitis - Afebrile, No leukocytosis, +Bandemia 4, Lactate normal, ESR 120 - Podiatry consulted, Dr. Brown; recs appreciated; plan for wound debridement - ID Consulted, Dr. Contreras; recommends 4-6 weeks of IV antibiotics - Wound Care Nursing, tight glycemic control, offloading from ulcers - MRI LE from knee to ankle :showed no OM , no abscess - MRI: Left ankle MRI :showed suggestive pattern of OM at the calcaneus and is difficult to exclude at the remaining midfoot/hindfoot and right ankle bony elements. Unfortunately, widespread mottled/heterogeneous Marrow edema is appreciated not only involving the ankle but osseous elements of the midfoot and hindfoot also suspicious for osteomyelitis with differentiated diagnosis of RSD order other inflammatory causes. MRI right ankle :Indeterminate pattern of bony edema throughout the ankle and midfoot/hindfoot anatomy indicative of osteomyelitis particularly at the calcaneus adjacent to a soft tissue ulcer posteriorly. Abnormal Marrow signal throughout the entire midfoot and hindfoot including inferior tibia and possibly fibula may also reflect osteomyelitis though given its widespread pattern which includes various musculature as well, consider other inflammatory causes, reflex sympathetic dystrophy and other etiologies. Further clinical correlation is recommended. - MRI right foot :Nonspecific pattern of heterogeneous abnormal edema scattered throughout the midfoot and hindfoot bony anatomy as well as the 1st and 5th metatarsal bones and proximal phalanx right great toe. -MRI left foot :Indeterminate pattern of bony edema throughout the ankle and midfoot/hindfoot anatomy indicative of osteomyelitis particularly at the calc aneus adjacent to a soft tissue ulcer posteriorly. Abnormal Marrow signal throughout the entire midfoot and hindfoot including inferior tibia and possibly fibula may also reflect osteomyelitis though given its widespread pattern which includes various musculature as well, consider other inflammatory causes, reflex sympathetic dystrophy and other etiologies. - Duplex Vein no DVT -Arterial duplex: severely diseased b/l LE arterial system. - Vascular consulted; Dr Mcdermott. CT Angio ordered- no vascular intervention, all vessels patent - Wcx; citrobacter diversus, beta hemolytic strep group b; c/w vancomycin and ceftriaxone - PICC Line in place 2) CKD - Stable - Renal dose adjustments for nephrotoxic medication (check Vanco trough) 3) Hypothyroidism -TSH 5.47, T4 6.55 -C/W with home medication, Levothyroxine 100mg daily 4) Rheumatoid Arthritis -Pain controlled with Tylenol. Morphine 4 gm q6 pRN ordered for severe pain -Prior labs reviewed: +RF, +Anti CCP, + pANCa 5) Anemia -stable 6) Poor mobility/Debilitation - OT for ADL's - PT to be ordered for gait/mobility/strength 7) DVT ppx -Lovenox 40mg SQ daily given CrCl >40 8) Cognitive impairment/depression - Psych consulted; appreciate recs - Neuro consult ordered; appreciate recs 9) Constipation - No bowel movement since admission -Fleet enema ordered Next of Kin (Niece): Danni <PalomaresErnesto sánchez D - Last Filed: 09/07/18 14:45> Objective - Vital Signs/Intake and Output Vital Signs (last 24 hours): Temp Pulse Resp BP Pulse Ox 98.1 F 91 H 19 166/77 H 98 09/07/18 07:55 09/07/18 07:55 09/07/18 07:55 09/07/18 07:55 09/07/18 07:55 - Medications Medications: Current Medications Acetaminophen (Tylenol 325mg Tab) 650 mg PO Q6 PRN PRN Reason: Pain, Mild (1-3) Last Admin: 09/06/18 22:14 Dose: 650 mg Acetaminophen (Tylenol 325mg Tab) 650 mg PO Q6 PRN PRN Reason: Fever >100.4 F Aspirin (Aspirin Chewable) 81 mg PO DAILY [facility] Last Admin: 09/07/18 09:30 Dose: 81 mg Collagenase (Santyl) 1 applic TOP DAILY [facility] Last Admin: 09/07/18 09:37 Dose: Not Given Cyanocobalamin (Vitamin B12 1000 Mcg Tab) 1,000 mcg PO DAILY [facility] Last Admin: 09/07/18 09:31 Dose: 1,000 mcg Dextrose (Dextrose 50% Inj) 0 ml IV STAT PRN; Protocol PRN Reason: Hypoglycemia Protocol Dextrose (Glutose 15) 0 gm PO ONCE PRN; Protocol PRN Reason: Hypoglycemia Protocol Enoxaparin Sodium (Lovenox) 40 mg SC DAILY [facility]; Protocol Last Admin: 09/07/18 09:31 Dose: 40 mg Glucagon (Glucagen Diagnostic Kit) 0 mg IM STAT PRN; Protocol PRN Reason: Hypoglycemia Protocol Vancomycin HCl 500 mg/ Sodium (Chloride) 100 mls @ 100 mls/hr IVPB Q12 [facility]; Protocol Last Admin: 09/07/18 09:31 Dose: 100 mls/hr Ceftriaxone Sodium 1 gm/ (Sodium Chloride) 100 mls @ 100 mls/hr IVPB DAILY [facility]; Protocol Last Admin: 09/07/18 09:32 Dose: 100 mls/hr Insulin Human Regular (Humulin R) 0 units SC ACHS [facility]; Protocol Last Admin: 09/07/18 12:05 Dose: 2 unit Levothyroxine Sodium (Synthroid) 100 mcg PO DAILY@0630 [facility] Last Admin: 09/07/18 05:44 Dose: 100 mcg Morphine Sulfate (Morphine) 4 mg IVP Q6 PRN PRN Reason: Pain, severe (8-10) Last Admin: 09/07/18 11:44 Dose: 4 mg Ondansetron HCl (Zofran Inj) 4 mg IVP Q6 PRN PRN Reason: Nausea/Vomiting Pantoprazole Sodium (Protonix Ec Tab) 40 mg PO DAILY [facility] Last Admin: 09/07/18 09:30 Dose: 40 mg Sodium Hypochlorite (Dakins Solution 0.125%) 1 appl EXT DAILY [facility] Last Admin: 09/07/18 09:36 Dose: Not Given - Labs Labs: 09/07/18 05:55 09/07/18 05:55 Attending/Attestation - Attestation I have personally seen and examined this patient.: Yes I have fully participated in the care of the patient.: Yes I have reviewed all pertinent clinical information, including history, physical exam and plan: Yes Notes (Text): 09/07/18 14:44 Patient seen and examined with resident. Case discussed and agreed with assessment. Patient would need longer treatment with IV Vanco and Rocephin because of osteomyelitis.
[2018-09-07] MEDS: Pantoprazole 40 mg EC Tab PO SCH (09:30)
[2018-09-07] MEDS: Enoxaparin 40 mg Syringe SC SCH (09:31)
[2018-09-07] MEDS: Santyl Collagenase OINTMENT TOP SCH (09:37)
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
[2018-09-08] MEDS: Morphine 4 MG/ML VIAL IVP PRN ×3 (00:05→17:39)
[2018-09-08] MEDS: Levothyroxine 100 MCG TAB PO SCH (05:41)
[2018-09-08] MEDS: Insulin Regular 100 units/ml SC SCH ×4 (08:33→21:57)
[2018-09-08] MEDS: Pantoprazole 40 mg EC Tab PO SCH (09:17)
--- NOTE | 2018-09-08 09:32 | CP.PCM.PN ---
<Josie Harvey - Last Filed: 09/08/18 10:10> Subjective - Date & Time of Evaluation Date of Evaluation: 09/08/18 Time of Evaluation: 09:32 - Subjective Subjective: Pt seen and evaluated at bedside. No acute events overnight. Afebrile. Reports pain is controlled with medications. Lying comfortably in bed, NAD. BP with intermittent elevations, otherwise controlled. Patient seems happier today. No other complaints/concerns. Objective - Vital Signs/Intake and Output Vital Signs (last 24 hours): Temp Pulse Resp BP Pulse Ox 97.3 F L 95 H 18 154/76 H 98 09/08/18 08:17 09/08/18 08:17 09/08/18 08:17 09/08/18 08:17 09/08/18 08:17 - Medications Medications: Current Medications Acetaminophen (Tylenol 325mg Tab) 650 mg PO Q6 PRN PRN Reason: Pain, Mild (1-3) Last Admin: 09/06/18 22:14 Dose: 650 mg Acetaminophen (Tylenol 325mg Tab) 650 mg PO Q6 PRN PRN Reason: Fever >100.4 F Aspirin (Aspirin Chewable) 81 mg PO DAILY [facility] Last Admin: 09/07/18 09:30 Dose: 81 mg Atenolol (Tenormin) 25 mg PO DAILY [facility] Collagenase (Santyl) 1 applic TOP DAILY [facility] Last Admin: 09/07/18 09:37 Dose: Not Given Cyanocobalamin (Vitamin B12 1000 Mcg Tab) 1,000 mcg PO DAILY [facility] Last Admin: 09/08/18 09:17 Dose: 1,000 mcg Dextrose (Dextrose 50% Inj) 0 ml IV STAT PRN; Protocol PRN Reason: Hypoglycemia Protocol Dextrose (Glutose 15) 0 gm PO ONCE PRN; Protocol PRN Reason: Hypoglycemia Protocol Enoxaparin Sodium (Lovenox) 40 mg SC DAILY [facility]; Protocol Last Admin: 09/07/18 09:31 Dose: 40 mg Glucagon (Glucagen Diagnostic Kit) 0 mg IM STAT PRN; Protocol PRN Reason: Hypoglycemia Protocol Vancomycin HCl 500 mg/ Sodium (Chloride) 100 mls @ 100 mls/hr IVPB Q12 [facility]; Protocol Last Admin: 09/08/18 09:20 Dose: 100 mls/hr Ceftriaxone Sodium 1 gm/ (Sodium Chloride) 100 mls @ 100 mls/hr IVPB DAILY [facility]; Protocol Last Admin: 09/08/18 09:19 Dose: 100 mls/hr Insulin Human Regular (Humulin R) 0 units SC ACHS [facility]; Protocol Last Admin: 09/07/18 22:02 Dose: Not Given Levothyroxine Sodium (Synthroid) 100 mcg PO DAILY@0630 [facility] Last Admin: 09/08/18 05:41 Dose: 100 mcg Morphine Sulfate (Morphine) 4 mg IVP Q6 PRN PRN Reason: Pain, severe (8-10) Last Admin: 09/08/18 07:03 Dose: 4 mg Ondansetron HCl (Zofran Inj) 4 mg IVP Q6 PRN PRN Reason: Nausea/Vomiting Last Admin: 09/08/18 00:06 Dose: 4 mg Pantoprazole Sodium (Protonix Ec Tab) 40 mg PO DAILY [facility] Last Admin: 09/08/18 09:17 Dose: 40 mg Sodium Hypochlorite (Dakins Solution 0.125%) 1 appl EXT DAILY [facility] Last Admin: 09/08/18 09:16 Dose: Not Given - Labs Labs: 09/07/18 05:55 09/07/18 05:55 - Constitutional Appears: Well, Non-toxic, No Acute Distress - Head Exam Head Exam: ATRAUMATIC, NORMOCEPHALIC - Eye Exam Eye Exam: Normal appearance Pupil Exam: NORMAL ACCOMODATION - ENT Exam ENT Exam: Mucous Membranes Moist - Respiratory Exam Respiratory Exam: Clear to Ausculation Bilateral, Wheezes - Cardiovascular Exam Cardiovascular Exam: REGULAR RHYTHM, +S1, +S2 - Neurological Exam Neurological Exam: Alert, Awake, Oriented x3 - Psychiatric Exam Psychiatric exam: Normal Affect Assessment and Plan - Assessment and Plan (Free Text) Assessment: Pt is a 62 y/o female with hx of HTN, DM, Hypothyroidism, Rheumatoid arthritis, Chronic foot ulcers admitted for multiple foot/leg ulcers w/ foul odor drainage admitted for osteomyelitis. Plan: 1) Multiple Foot Ulcers, Bilaterally - Wound probed to bone by Podiatry, strong suspicion for Osteomyelitis - Afebrile, No leukocytosis, +Bandemia 4, Lactate normal, ESR 120 - Podiatry consulted, Dr. Brown; recs appreciated; plan for wound debridement ; OR for wound debridement on Friday - Patient is medically optimized for wound debridement tomorrow. 09/09. Echo and CXR reviewed, Lovenox on hold, NPO order placed - ID Consulted, Dr. Contreras; recommends 4-6 weeks of IV antibiotics - Wound Care Nursing, tight glycemic control, offloading from ulcers - MRI LE from knee to ankle :showed no OM , no abscess - MRI: Left ankle MRI :showed suggestive pattern of OM at the calcaneus and is difficult to exclude at the remaining midfoot/hindfoot and right ankle bony elements. Unfortunately, widespread mottled/heterogeneous Marrow edema is appreciated not only involving the ankle but osseous elements of the midfoot and hindfoot also suspicious for osteomyelitis with differentiated diagnosis of RSD order other inflammatory causes. MRI right ankle :Indeterminate pattern of bony edema throughout the ankle and midfoot/hindfoot anatomy indicative of osteomyelitis particularly at the calcaneus adjacent to a soft tissue ulcer posteriorly. Abnormal Marrow signal throughout the entire midfoot and hindfoot including inferior tibia and possibly fibula may also reflect osteomyelitis though given its widespread pattern which includes various musculature as well, consider other inflammatory causes, reflex sympathetic dystrophy and other etiologies. Further clinical correlation is recommended. - MRI right foot :Nonspecific pattern of heterogeneous abnormal edema scattered throughout the midfoot and hindfoot bony anatomy as well as the 1st and 5th metatarsal bones and proximal phalanx right great toe. -MRI left foot :Indeterminate pattern of bony edema throughout the ankle and midfoot/hindfoot anatomy indicative of osteomyelitis particularly at the calcaneus adjacent to a soft tissue ulcer posteriorly. Abnormal Marrow signal throughout the entire midfoot and hindfoot including inferior tibia and possibly fibula may also reflect osteomyelitis though given its widespread pattern which includes various musculature as well, consider other inflammatory causes, reflex sympathetic dystrophy and other etiologies. - Duplex Vein no DVT -Arterial duplex: severely diseased b/l LE arterial system. - Vascular consulted; Dr Mcdermott. CT Angio ordered- no vascular intervention, all vessels patent - Wcx; citrobacter diversus, beta hemolytic strep group b; c/w vancomycin and ceftriaxone - PICC Line in place 2) CKD - Stable - Renal dose adjustments for nephrotoxic medication (check Vanco trough) 3) Hypothyroidism -TSH 5.47, T4 6.55 -C/W with home medication, Levothyroxine 100mg daily 4) Rheumatoid Arthritis -Pain controlled with Tylenol. Morphine 4 gm q6 pRN ordered for severe pain -Prior labs reviewed: +RF, +Anti CCP, + pANCa 5) Anemia -stable 6) Poor mobility/Debilitation - OT for ADL's - PT to be ordered for gait/mobility/strength 7) DVT ppx -Lovenox 40mg SQ daily given CrCl >40- on hold 8) Cognitive impairment/depression - Psych consulted; appreciate recs;recommend starting remeron 7.5 mg qhs and referral to outpatient psychiatric services on discharge - Neuro consult ordered; appreciate recs 9) Constipation - No bowel movement since admission -Fleet enema ordered 10) Hypertension -Atenolol 25 mg PO QD Next of Kin (Niece): Danni <Ernesto Palomares D - Last Filed: 09/08/18 15:21> Objective - Vital Signs/Intake and Output Vital Signs (last 24 hours): Temp Pulse Resp BP Pulse Ox 97.3 F L 95 H 18 154/76 H 98 09/08/18 09:00 09/08/18 10:35 09/08/18 09:00 09/08/18 10:35 09/08/18 09:00 - Medications Medications: Current Medications Acetaminophen (Tylenol 325mg Tab) 650 mg PO Q6 PRN PRN Reason: Pain, Mild (1-3) Last Admin: 09/06/18 22:14 Dose: 650 mg Acetaminophen (Tylenol 325mg Tab) 650 mg PO Q6 PRN PRN Reason: Fever >100.4 F Aspirin (Aspirin Chewable) 81 mg PO DAILY [facility] Last Admin: 09/07/18 09:30 Dose: 81 mg Atenolol (Tenormin) 25 mg PO DAILY [facility] Last Admin: 09/08/18 10:35 Dose: 25 mg Collagenase (Santyl) 1 applic TOP DAILY [facility] Last Admin: 09/08/18 09:38 Dose: Not Given Cyanocobalamin (Vitamin B12 1000 Mcg Tab) 1,000 mcg PO DAILY [facility] Last Admin: 09/08/18 09:17 Dose: 1,000 mcg Dextrose (Dextrose 50% Inj) 0 ml IV STAT PRN; Protocol PRN Reason: Hypoglycemia Protocol Dextrose (Glutose 15) 0 gm PO ONCE PRN; Protocol PRN Reason: Hypoglycemia Protocol Enoxaparin Sodium (Lovenox) 40 mg SC DAILY [facility]; Protocol Last Admin: 09/07/18 09:31 Dose: 40 mg Glucagon (Glucagen Diagnostic Kit) 0 mg IM STAT PRN; Protocol PRN Reason: Hypoglycemia Protocol Vancomycin HCl 500 mg/ Sodium (Chloride) 100 mls @ 100 mls/hr IVPB Q12 [facility]; Protocol Last Admin: 09/08/18 09:20 Dose: 100 mls/hr Ceftriaxone Sodium 1 gm/ (Sodium Chloride) 100 mls @ 100 mls/hr IVPB DAILY [facility]; Protocol Last Admin: 09/08/18 09:19 Dose: 100 mls/hr Insulin Human Regular (Humulin R) 0 units SC ACHS [facility]; Protocol Last Admin: 09/08/18 11:08 Dose: Not Given Levothyroxine Sodium (Synthroid) 100 mcg PO DAILY@0630 [facility] Last Admin: 09/08/18 05:41 Dose: 100 mcg Morphine Sulfate (Morphine) 4 mg IVP Q6 PRN PRN Reason: Pain, severe (8-10) Last Admin: 09/08/18 07:03 Dose: 4 mg Ondansetron HCl (Zofran Inj) 4 mg IVP Q6 PRN PRN Reason: Nausea/Vomiting Last Admin: 09/08/18 00:06 Dose: 4 mg Pantoprazole Sodium (Protonix Ec Tab) 40 mg PO DAILY [facility] Last Admin: 09/08/18 09:17 Dose: 40 mg Sodium Hypochlorite (Dakins Solution 0.125%) 1 appl EXT DAILY [facility] Last Admin: 09/08/18 09:16 Dose: Not Given - Labs Labs: 09/07/18 05:55 09/07/18 05:55 Attending/Attestation - Attestation I have personally seen and examined this patient.: Yes I have fully participated in the care of the patient.: Yes I have reviewed all pertinent clinical information, including history, physical exam and plan: Yes Notes (Text): 09/08/18 15:21 Patient seen and examined with resident. Case discussed and agreed with [facility] mix[facility].
--- NOTE | 2018-09-08 09:37 | CP.PCM.PN ---
Subjective - Date & Time of Evaluation Date of Evaluation: 09/08/18 Time of Evaluation: 09:35 - Subjective Subjective: Podiatry progress note - Dr. Brown 62 y/o F patient seen and evaluated at the bedside for b/l LE infected ulcerations with underlying osteomyelitis. Patient states that she still in pain in her lower extremities at the ulcer site. As per Chart there was no overnight fevers, nausea, vomiting, cough,and shortness of breath. She denies any other pedal complaint at this time. Objective - Vital Signs/Intake and Output Vital Signs (last 24 hours): Temp Pulse Resp BP Pulse Ox 97.3 F L 95 H 18 154/76 H 98 09/08/18 08:17 09/08/18 08:17 09/08/18 08:17 09/08/18 08:17 09/08/18 08:17 - Medications Medications: Current Medications Acetaminophen (Tylenol 325mg Tab) 650 mg PO Q6 PRN PRN Reason: Pain, Mild (1-3) Last Admin: 09/06/18 22:14 Dose: 650 mg Acetaminophen (Tylenol 325mg Tab) 650 mg PO Q6 PRN PRN Reason: Fever >100.4 F Aspirin (Aspirin Chewable) 81 mg PO DAILY [facility] Last Admin: 09/07/18 09:30 Dose: 81 mg Atenolol (Tenormin) 25 mg PO DAILY [facility] Collagenase (Santyl) 1 applic TOP DAILY [facility] Last Admin: 09/07/18 09:37 Dose: Not Given Cyanocobalamin (Vitamin B12 1000 Mcg Tab) 1,000 mcg PO DAILY [facility] Last Admin: 09/08/18 09:17 Dose: 1,000 mcg Dextrose (Dextrose 50% Inj) 0 ml IV STAT PRN; Protocol PRN Reason: Hypoglycemia Protocol Dextrose (Glutose 15) 0 gm PO ONCE PRN; Protocol PRN Reason: Hypoglycemia Protocol Enoxaparin Sodium (Lovenox) 40 mg SC DAILY [facility]; Protocol Last Admin: 09/07/18 09:31 Dose: 40 mg Glucagon (Glucagen Diagnostic Kit) 0 mg IM STAT PRN; Protocol PRN Reason: Hypoglycemia Protocol Vancomycin HCl 500 mg/ Sodium (Chloride) 100 mls @ 100 mls/hr IVPB Q12 [facility]; Protocol Last Admin: 09/08/18 09:20 Dose: 100 mls/hr Ceftriaxone Sodium 1 gm/ (Sodium Chloride) 100 mls @ 100 mls/hr IVPB DAILY [facility]; Protocol Last Admin: 09/08/18 09:19 Dose: 100 mls/hr Insulin Human Regular (Humulin R) 0 units SC ACHS [facility]; Protocol Last Admin: 09/08/18 08:33 Dose: Not Given Levothyroxine Sodium (Synthroid) 100 mcg PO DAILY@0630 [facility] Last Admin: 09/08/18 05:41 Dose: 100 mcg Morphine Sulfate (Morphine) 4 mg IVP Q6 PRN PRN Reason: Pain, severe (8-10) Last Admin: 09/08/18 07:03 Dose: 4 mg Ondansetron HCl (Zofran Inj) 4 mg IVP Q6 PRN PRN Reason: Nausea/Vomiting Last Admin: 09/08/18 00:06 Dose: 4 mg Pantoprazole Sodium (Protonix Ec Tab) 40 mg PO DAILY [facility] Last Admin: 09/08/18 09:17 Dose: 40 mg Sodium Hypochlorite (Dakins Solution 0.125%) 1 appl EXT DAILY [facility] Last Admin: 09/08/18 09:16 Dose: Not Given - Labs Labs: 09/07/18 05:55 09/07/18 05:55 - Constitutional Appears: No Acute Distress - Head Exam Head Exam: ATRAUMATIC, NORMOCEPHALIC - Extremities Exam Additional comments: B/L lower extremity focused exam: Vascular: DP/PT are 2/4 b/l, Cap refill < 3 seconds to all digits, Temp gradient warm to cool from proximal to distal, no edema appreciated to b/l extremities. Neuro: Gross sensation intact, protective sensation diminished. Derm: Left: An ulcer noted in the lateral aspect of the foot measuring 1.8 cm X 1.2 cm X 0.2 cm. Base is necrotic. Partially macerated edges. Minimal purulent drainage noted. No tracking, positive undermining, No probe to bone. No delma-ulcerative erythema noted. Another ulcer noted in the left heel 4 cm X 2.3 cm X 0.4 cm. Base is necrotic. Partially macerated edges. Minimal purulent drainage noted. positive tracking, positive undermining, Positive probe to bone. positive delma-ulcerative erythema noted. A third ulcer noted in the upper la teral aspect of the left leg measuring 1.5 cm X 1.2 cm X 0.1 cm. Base is necrotic. Minimal purulent drainage noted. No tracking, No undermining, Positive probe to bone. Delma-ulcerative erythema and induration noted. Right: ulcer noted in the left heel 3.6 cm X 1.8 cm X 0.4 cm. Base is necrotic. Partially macerated edges. Minimal purulent drainage noted. positive tracking, positive undermining, Positive probe to bone. positive delma-ulcerative erythema noted. MSK: Muscle power 5/5 to all groups, Pain noted on palpating the delma- ulcerative areas - Neurological Exam Neurological Exam: Alert, Awake, Oriented x3 Assessment and Plan - Assessment and Plan (Free Text) Assessment: 62 y/o F patient seen and evaluated at the bedside for b/l LE infected ulcerations with underlying osteomyelitis. Plan: -Patient seen and evaluated at the bedside. -Discussed in detail with Dr. Brown -Charts, labs and vitals reviewed; Afebrile, WBC 7.5 (09/07) -Wound culture: Citrobacter diversus, Beta hemolytic strept group B -B/L foot x-ray: No evidence of OM -B/L ankle x-ray: Superficial ulcerations. -B/L tib/fibula x-ray: No acute findings. -LE CRISTIANE/PVR: Sever biateral LE arterial disease, distal abdominal aorta stenosis and or bilateral iliac stenosis not excluded. Concider follow up contrast CT angio of aorto-iliac system with bilateral LE runoff. -Left ankle MRI: Overall pattern is highly suggestive of osteomyelitis at the calcaneus and is difficult to exclude at the remaining midfoot/hindfoot and rig ht ankle bony elements. Unfortunately, widespread mottled/heterogeneous Marrow edema is appreciated not only involving the ankle but osseous elements of the midfoot and hindfoot also suspicious for osteomyelitis with differentiated diagnosis of RSD order other inflammatory causes. Posttraumatic etiology is unlikely. Further clinical correlation is recommended. -Right ankle MRI: Indeterminate pattern of bony edema throughout the ankle and midfoot/hindfoot anatomy indicative of osteomyelitis particularly at the calcaneus adjacent to a soft tissue ulcer posteriorly. Abnormal Marrow signal throughout the entire midfoot and hindfoot including inferior tibia and possibly fibula may also reflect osteomyelitis though given its widespread pattern which includes various musculature as well, consider other inflammatory causes, reflex sympathetic dystrophy and other etiologies. Further clinical correlation is recommended. -Right foot MRI: Nonspecific pattern of heterogeneous abnormal edema scattered throughout the midfoot and hindfoot bony anatomy as well as the 1st and 5th metatarsal bones and proximal phalanx right great toe. For osteomyelitis or other inflammatory causes. Clinical correlation suggestive of OM. -Left foot MRI: Nonspecific heterogeneous pattern of edema primarily at the left midfoot and hindfoot bones as discussed above few cellulitis is appreciate primarily affecting midfoot and hindfoot distribution as well. The 2nd and 3rd digits are also affected at the pattern is nonspecific and could reflect osteomyelitis though other etiologies including RSD and other inflammatory causes are not excluded. Further clinical correlation suggestive of OM. -B/L Lower Extremity MRI: Edematous changes are seen in the Marrow of the osseous elements at the bilateral knee joints slightly greater the right than left. Osteomyelitis is not favored. Questionable ulcer distal posterior leg soft tissues. Mild bilateral lower extremity cellulitis. No definite abscess appreciated bilaterally. -Patient will got a PICC line yesterday for long course (4-6 weeks) of IV Abx. -ESR: >120, CRP: 167.60 -B/L LE venous duplex: No DVT, Right inguinal lymphadenopathy -Ordered Vascular consult; Reccs appreciated. -B/L ulcers cleaned with saline and dakins then dressed with Xeroform, Mepilex for the upper left leg wound and DSD and Xeroform for the rest of the ulcers. -Patient to stay in the multipodus boot while in bed. -Patient to bear weight as tolerated in the heel offloading shoe. -ID on board Reccs appreciated. -Patient to continue IV abx as per ID. -CT angio showed no significant stenosis or blockage. -Patient scheduled for b/l ulcer debridement surgery in the OR this upcoming Friday09/09/2018 11:30 am. * Patient to be cleared for surgery by medicine. * Please Hold the anticoagulant at the night of the surgery. * Patient to stay NPO starting the midnight of the surgery. -Podiatry will continue to follow up the patient while in house.
[2018-09-08] MEDS: Santyl Collagenase OINTMENT TOP SCH (09:38)
[2018-09-09] MEDS: Morphine 4 MG/ML VIAL IVP PRN (02:25)
[2018-09-09] MEDS: Levothyroxine 100 MCG TAB PO SCH (06:18)
[2018-09-09 06:46] LABS: HEMOGLOBIN 8.6 g/dL (12.0-16.0); MEAN CELL VOLUME 81.2 fl (81.0-99.0); MEAN CORPUSCULAR HEMOGLOBIN 26.3 pg (27.0-31.0); MEAN CORPUSCULAR HGB CONC 32.4 g/dL (33.0-37.0); RBC 3.28 Mil/uL (3.80-5.20); RED CELL DISTRIBUTION WIDTH 15.6 % (11.5-14.5); WHITE BLOOD COUNT 6.4 K/uL (4.8-10.8)
[2018-09-09 07:13] LABS: ALB/GLOB RATIO 0.8 (1.0-2.1); ALBUMIN 2.8 g/dL (3.5-5.0); CALCIUM 9.2 mg/dL (8.4-10.2)
[2018-09-09 07:15] LABS: INR 1.1; PROTHROMBIN TIME 12.7 Seconds (9.8-13.1)
[2018-09-09 07:18] LABS: PARTIAL THROMBOPLASTIN TIME 28.1 Seconds (25.6-37.1)
[2018-09-09] MEDS: Insulin Regular 100 units/ml SC SCH ×4 (07:53→22:14)
--- NOTE | 2018-09-09 09:08 | CP.PCM.PN ---
Subjective - Date & Time of Evaluation Date of Evaluation: 09/09/18 Time of Evaluation: 09:05 - Subjective Subjective: Podiatry progress note - Dr. Brown 62 y/o F patient seen and evaluated at the bedside for b/l LE infected ulcerations with underlying osteomyelitis. Patient states that she still in pain in her lower extremities at the ulcer sites. As per Chart there was no overnight fevers, nausea, vomiting, cough,and shortness of breath. She denies any other pedal complaint at this time. Patient is aware with her surgery today. Patient confirmed her NPO status. Objective - Vital Signs/Intake and Output Vital Signs (last 24 hours): Temp Pulse Resp BP Pulse Ox 97.8 F 100 H 18 170/76 H 98 09/09/18 08:52 09/09/18 08:52 09/09/18 08:52 09/09/18 08:52 09/09/18 08:52 - Medications Medications: Current Medications Acetaminophen (Tylenol 325mg Tab) 650 mg PO Q6 PRN PRN Reason: Pain, Mild (1-3) Last Admin: 09/06/18 22:14 Dose: 650 mg Acetaminophen (Tylenol 325mg Tab) 650 mg PO Q6 PRN PRN Reason: Fever >100.4 F Aspirin (Aspirin Chewable) 81 mg PO DAILY [facility] Last Admin: 09/07/18 09:30 Dose: 81 mg Atenolol (Tenormin) 25 mg PO DAILY [facility] Last Admin: 09/08/18 10:35 Dose: 25 mg Collagenase (Santyl) 1 applic TOP DAILY [facility] Last Admin: 09/08/18 09:38 Dose: Not Given Cyanocobalamin (Vitamin B12 1000 Mcg Tab) 1,000 mcg PO DAILY [facility] Last Admin: 09/08/18 09:17 Dose: 1,000 mcg Dextrose (Dextrose 50% Inj) 0 ml IV STAT PRN; Protocol PRN Reason: Hypoglycemia Protocol Dextrose (Glutose 15) 0 gm PO ONCE PRN; Protocol PRN Reason: Hypoglycemia Protocol Enoxaparin Sodium (Lovenox) 40 mg SC DAILY [facility]; Protocol Last Admin: 09/07/18 09:31 Dose: 40 mg Glucagon (Glucagen Diagnostic Kit) 0 mg IM STAT PRN; Protocol PRN Reason: Hypoglycemia Protocol Vancomycin HCl 500 mg/ Sodium (Chloride) 100 mls @ 100 mls/hr IVPB Q12 [facility]; Protocol Last Admin: 09/08/18 21:19 Dose: 100 mls/hr Ceftriaxone Sodium 1 gm/ (Sodium Chloride) 100 mls @ 100 mls/hr IVPB DAILY [facility]; Protocol Last Admin: 09/08/18 09:19 Dose: 100 mls/hr Insulin Human Regular (Humulin R) 0 units SC ACHS [facility]; Protocol Last Admin: 09/08/18 21:57 Dose: Not Given Levothyroxine Sodium (Synthroid) 100 mcg PO DAILY@0630 [facility] Last Admin: 09/09/18 06:18 Dose: 100 mcg Ondansetron HCl (Zofran Inj) 4 mg IVP Q6 PRN PRN Reason: Nausea/Vomiting Last Admin: 09/08/18 00:06 Dose: 4 mg Pantoprazole Sodium (Protonix Ec Tab) 40 mg PO DAILY [facility] Last Admin: 09/08/18 09:17 Dose: 40 mg Sodium Hypochlorite (Dakins Solution 0.125%) 1 appl EXT DAILY [facility] Last Admin: 09/08/18 09:16 Dose: Not Given - Labs Labs: 09/09/18 06:25 09/09/18 06:25 PT 12.7 Seconds (9.8-13.1) 09/09/18 07:05 INR 1.1 09/09/18 07:05 APTT 28.1 Seconds (25.6-37.1) 09/09/18 07:05 - Constitutional Appears: Non-toxic, No Acute Distress - Head Exam Head Exam: ATRAUMATIC, NORMOCEPHALIC - Extremities Exam Additional comments: B/L lower extremity focused exam: Patient is going to surgery today, B/L LE dressing was C/D/I. Dressing left intact. - Neurological Exam Neurological Exam: Alert, Awake Assessment and Plan - Assessment and Plan (Free Text) Assessment: 62 y/o F patient seen and evaluated at the bedside for b/l LE infected ulcerations with underlying osteomyelitis. Plan: -Patient seen and evaluated at the bedside. -Discussed in detail with Dr. Stephanie Boyce service captain number [id number] used for Nigerian translation. -Charts, labs and vitals reviewed; Afebrile, WBC 6.4 -Wound culture: Citrobacter diversus, Beta hemolytic strept group B -B/L foot x-ray: No evidence of OM -B/L ankle x-ray: Superficial ulcerations. -B/L tib/fibula x-ray: No acute findings. -LE CRISTIANE/PVR: Sever biateral LE arterial disease, distal abdominal aorta stenosis and or bilateral iliac stenosis not excluded. Concider follow up contrast CT angio of aorto-iliac system with bilateral LE runoff. -Left ankle MRI: Overall pattern is highly suggestive of osteomyelitis at the calcaneus and is difficult to exclude at the remaining midfoot/hindfoot and right ankle bony elements. Unfortunately, widespread mottled/heterogeneous Marrow edema is appreciated not only involving the ankle but osseous elements of the midfoot and hindfoot also suspicious for osteomyelitis with differentiated diagnosis of RSD order other inflammatory causes. Posttraumatic etiology is unlikely. Further clinical correlation is recommended. -Right ankle MRI: Indeterminate pattern of bony edema throughout the ankle and midfoot/hindfoot anatomy indicative of osteomyelitis particularly at the calcaneus adjacent to a soft tissue ulcer posteriorly. Abnormal Marrow signal throughout the entire midfoot and hindfoot including inferior tibia and possibly fibula may also reflect osteomyelitis though given its widespread pattern which includes various musculature as well, consider other inflammatory causes, reflex sympathetic dystrophy and other etiologies. Further clinical correlation is recommended. -Right foot MRI: Nonspecific pattern of heterogeneous abnormal edema scattered throughout the midfoot and hindfoot bony anatomy as well as the 1st and 5th metatarsal bones and proximal phalanx right great toe. For osteomyelitis or other inflammatory causes. Clinical correlation suggestive of OM. -Left foot MRI: Nonspecific heterogeneous pattern of edema primarily at the left midfoot and hindfoot bones as discussed above few cellulitis is appreciate primarily affecting midfoot and hindfoot distribution as well. The 2nd and 3rd digits are also affected at the pattern is nonspecific and could reflect osteomyelitis though other etiologies including RSD and other inflammatory causes are not excluded. Further clinical correlation suggestive of OM. -B/L Lower Extremity MRI: Edematous changes are seen in the Marrow of the osseous elements at the bilateral knee joints slightly greater the right than left. Osteomyelitis is not favored. Questionable ulcer distal posterior leg soft tissues. Mild bilateral lower extremity cellulitis. No definite abscess appreciated bilaterally. -Patient will got a PICC line yesterday for long course (4-6 weeks) of IV Abx. -ESR: >120, CRP: 167.60 -B/L LE venous duplex: No DVT, Right inguinal lymphadenopathy -Ordered Vascular consult; Reccs appreciated. -B/L LE Dressing was C/D/I. Dressing left intact. -Patient to stay in the multipodus boot while in bed. -Patient to bear weight as tolerated in the heel offloading shoe. -ID on board Reccs appreciated. -Patient to continue IV abx as per ID. -CT angio showed no significant stenosis or blockage. -Patient scheduled for b/l ulcer debridement surgery in the OR today at 11:30 am. * Patient is cleared for surgery by medicine. * Anticoagulant Held. * Patient to stay NPO starting the midnight of the surgery. -Podiatry will continue to follow up the patient while in house.
[2018-09-09] MEDS: Pantoprazole 40 mg EC Tab PO SCH (09:53)
[2018-09-09] MEDS: Santyl Collagenase OINTMENT TOP SCH (09:54)
[2018-09-09] MEDS ORDERED: Morphine 4 MG/ML VIAL IVP PRN (10:10)
--- NOTE | 2018-09-09 10:15 | CP.PCM.HP ---
<Josie Harvey - Last Filed: 09/09/18 10:18> History of Present Illness - History of Present Illness History of Present Illness: History obtained from patient and niece at bedside and chart review. Pt is AOx2 Pt is a 62 y/o female with hx of HTN, DM, Hypothyroidism, Rheumatoid arthritis, Chronic foot ulcers, and brain aneurysm (repaired), brought to ED by niece on recommendation from her PMD for evaluation of foul odor drainage from her chronic foot/leg wounds. She also reports concern that for the past few weeks, she has been become more withdrawn, not speaking much, intermittently disoriented/confused and speaking incoherently. She also states her mobility has been more debilitated and unstable during this time. Niece states she believes she is "deeply depressed." Pt also states that she feels depressed. She denies passive/active suicidal thoughts. She denies any recent illness, fever/chills, difficulty breathing, n/v/d, hx of head trauma, or recent antibiotic use. ROS: +urinary incontinence (new) w/ foul odor urine, + Dysuria, constipation (chronic) PMD: Dr. Salinas PMHX: HTN, DM, Hypothyroidism, Rheumatoid arthritis, Chronic foot ulcers, and brain aneurysm (repaired) Hospitalizations: Last hospitalized in May for AMS, diagnosed and treated for dehydration with return of mental status to baseline PSurgHx: Left wrist fracture repair. Aneurysm Clipping? Allergies: NKDA Social Hx: denied tobacco, EOTH or rec drugs. Lives with sister. Ambulates with rolling walker. Niece denies hx of dementia Present on Admission - Present on Admission Any Indicators Present on Admission: No Past Patient History - Infectious Disease Hx of Infectious Diseases: None - Past Medical History & Family History Past Medical History?: Yes - Past Social History Smoking Status: Never Smoked - CARDIAC Hx Hypercholesterolemia: Yes Hx Hypertension: Yes - PULMONARY Hx Respiratory Disorders: No - NEUROLOGICAL Hx Neurological Disorder: No - HEENT Hx HEENT Problems: No - RENAL Hx Chronic Kidney Disease: Yes - ENDOCRINE/METABOLIC Hx Diabetes Mellitus Type 2: Yes Hx Hypothyroidism: Yes - HEMATOLOGICAL/ONCOLOGICAL Hx Blood Disorders: Yes Hx Anemia: Yes Hx Sickle Cell Disease: No - INTEGUMENTARY Hx Dermatological Problems: No - MUSCULOSKELETAL/RHEUMATOLOGICAL Hx Rheumatoid Arthritis: Yes - GASTROINTESTINAL Hx Gastrointestinal Disorders: No - GENITOURINARY/GYNECOLOGICAL Hx Genitourinary Disorders: No - PSYCHIATRIC Hx Psychophysiologic Disorder: No Hx Substance Use: No - SURGICAL HISTORY Hx Surgeries: Yes Other/Comment: left wrist surgery, brain surgery - ANESTHESIA Hx Anesthesia: Yes Hx Anesthesia Reactions: No Meds Allergies/Adverse Reactions: Allergies Allergy/AdvReac Type Severity Reaction Status Date / Time No Known Allergies Allergy Verified 06/24/18 11:09 Physical Exam - Constitutional Appears: Well, Non-toxic, No Acute Distress - Head Exam Head Exam: ATRAUMATIC, NORMOCEPHALIC - Eye Exam Eye Exam: Normal appearance Pupil Exam: NORMAL ACCOMODATION - ENT Exam ENT Exam: Mucous Membranes Moist - Respiratory Exam Respiratory Exam: NORMAL BREATHING PATTERN - Cardiovascular Exam Cardiovascular Exam: REGULAR RHYTHM, +S1, +S2 - Extremities Exam Additional comments: B/L feet dressing with kerlix, clean dry and intact - Neurological Exam Neurological exam: Alert, Oriented x3 - Psychiatric Exam Psychiatric exam: Normal Affect Results - Vital Signs Recent Vital Signs: Last Vital Signs Temp 97.8 F 09/09/18 08:52 Pulse 100 H 09/09/18 09:56 Resp 18 09/09/18 08:52 BP 170/76 H 09/09/18 09:56 Pulse Ox 98 09/09/18 08:52 - Labs Result Diagrams: 09/09/18 06:25 09/09/18 06:25 Labs: Laboratory Results - last 24 hr 09/08/18 09/08/18 09/08/18 10:48 16:05 20:56 WBC RBC Hgb Hct MCV MCH MCHC RDW Plt Count PT INR APTT Sodium Potassium Chloride Carbon Dioxide Anion Gap BUN Creatinine Est GFR ( Amer) Est GFR (Non-Af Amer) POC Glucose (mg/dL) 108 111 H 105 Random Glucose Calcium Total Bilirubin AST ALT Alkaline Phosphatase Total Protein Albumin Globulin Albumin/Globulin Ratio Vancomycin Trough 09/09/18 09/09/18 09/09/18 05:48 06:25 06:25 WBC 6.4 RBC 3.28 L Hgb 8.6 L Hct 26.6 L MCV 81.2 MCH 26.3 L MCHC 32.4 L RDW 15.6 H Plt Count 278 PT INR APTT Sodium Potassium Chloride Carbon Dioxide Anion Gap BUN Creatinine Est GFR ( Amer) Est GFR (Non-Af Amer) POC Glucose (mg/dL) 87 Random Glucose Calcium Total Bilirubin AST ALT Alkaline Phosphatase Total Protein Albumin Globulin Albumin/Globulin Ratio Vancomycin Trough 24.5 H 09/09/18 09/09/18 06:25 07:05 WBC RBC Hgb Hct MCV MCH MCHC RDW Plt Count PT 12.7 INR 1.1 APTT 28.1 Sodium 137 Potassium 3.8 Chloride 103 Carbon Dioxide 29 Anion Gap 9 L BUN 17 Creatinine 1.5 H Est GFR ( Amer) 42 Est GFR (Non-Af Amer) 35 POC Glucose (mg/dL) Random Glucose 89 Calcium 9.2 Total Bilirubin 0.2 AST 24 ALT 15 Alkaline Phosphatase 77 Total Protein 6.5 Albumin 2.8 L Globulin 3.7 Albumin/Globulin Ratio 0.8 L Vancomycin Trough Assessment & Plan - Assessment and Plan (Free Text) Assessment: Pt is a 62 y/o female with hx of HTN, DM, Hypothyroidism, Rheumatoid arthritis, Chronic foot ulcers admitted for multiple foot/leg ulcers w/ foul odor drainage admitted for osteomyelitis. Patient is currently getting 4-6 weeks of IV antibiotics for osteomyelitis of multiple bones in the feet. Plan: 1) Multiple Foot Ulcers, Bilaterally - Wound probed to bone by Podiatry, strong suspicion for Osteomyelitis - Afebrile, No leukocytosis, +Bandemia 4, Lactate normal, ESR 120 - Podiatry consulted, Dr. Brown; recs appreciated; plan for wound debridement ; OR for wound debridement on Friday - Patient is medically optimized for wound debridement today. 09/09. Echo and CXR reviewed, Lovenox on hold, NPO order placed - ID Consulted, Dr. Contreras; recommends 4-6 weeks of IV antibiotics - Wound Care Nursing, tight glycemic control, offloading from ulcers - MRI LE from knee to ankle :showed no OM , no abscess - MRI: Left ankle MRI :showed suggestive pattern of OM at the calcaneus and is difficult to exclude at the remaining midfoot/hindfoot and right ankle bony bud ments. Unfortunately, widespread mottled/heterogeneous Marrow edema is appreciated not only involving the ankle but osseous elements of the midfoot and hindfoot also suspicious for osteomyelitis with differentiated diagnosis of RSD order other inflammatory causes. MRI right ankle :Indeterminate pattern of bony edema throughout the ankle and midfoot/hindfoot anatomy indicative of osteomyelitis particularly at the calcaneus adjacent to a soft tissue ulcer posteriorly. Abnormal Marrow signal throughout the entire midfoot and hindfoot including inferior tibia and possibly fibula may also reflect osteomyelitis though given its widespread pattern which includes various musculature as well, consider other inflammatory causes, reflex sympathetic dystrophy and other etiologies. Further clinical correlation is recommended. - MRI right foot :Nonspecific pattern of heterogeneous abnormal edema scattered throughout the midfoot and hindfoot bony anatomy as well as the 1st and 5th metatarsal bones and proximal phalanx right great toe. -MRI left foot :Indeterminate pattern of bony edema throughout the ankle and midfoot/hindfoot anatomy indicative of osteomyelitis particularly at the calcaneus adjacent to a soft tissue ulcer posteriorly. Abnormal Marrow signal throughout the entire midfoot and hindfoot including inferior tibia and possibly fibula may also reflect osteomyelitis though given its widespread pattern which includes various musculature as well, consider other inflammatory causes, reflex sympathetic dystrophy and other etiologies. - Duplex Vein no DVT -Arterial duplex: severely diseased b/l LE arterial system. - Vascular consulted; Dr Mcdermott. CT Angio ordered- no vascular intervention, all vessels patent - Wcx; citrobacter diversus, beta hemolytic strep group b; c/w vancomycin and ceftriaxone - PICC Line in place 2) CKD - Stable - Renal dose adjustments for nephrotoxic medication (check Vanco trough) 3) Hypothyroidism -TSH 5.47, T4 6.55 -C/W with home medication, Levothyroxine 100mg daily 4) Rheumatoid Arthritis -Pain controlled with Tylenol. Morphine 4 gm q6 pRN ordered for severe pain -Prior labs reviewed: +RF, +Anti CCP, + pANCa 5) Anemia -stable - Hgb 8.6 f/u post op - PT/PTT/INR ordered 6) Poor mobility/Debilitation - OT for ADL's - PT to be ordered for gait/mobility/strength 7) DVT ppx -Lovenox 40mg SQ daily given CrCl >40- on hold 8) Cognitive impairment/depression - Psych consulted; appreciate recs;recommend starting remeron 7.5 mg qhs and referral to outpatient psychiatric services on discharge - Neuro consult ordered; appreciate recs 9) Constipation - No bowel movement since admission -Fleet enema ordered 10) Hypertension -Atenolol 25 mg PO QD Next of Kin (Niece): Danni <Ernesto Palomares D - Last Filed: 09/09/18 11:32> Results - Vital Signs Recent Vital Signs: Last Vital Signs Temp 97.8 F 09/09/18 08:52 Pulse 100 H 09/09/18 09:56 Resp 18 09/09/18 08:52 BP 170/76 H 09/09/18 09:56 Pulse Ox 98 09/09/18 08:52 - Labs Result Diagrams: 09/09/18 06:25 09/09/18 06:25 Labs: Laboratory Results - last 24 hr 09/08/18 09/08/18 09/09/18 16:05 20:56 05:48 WBC RBC Hgb Hct MCV MCH MCHC RDW Plt Count PT INR APTT Sodium Potassium Chloride Carbon Dioxide Anion Gap BUN Creatinine Est GFR ( Amer) Est GFR (Non-Af Amer) POC Glucose (mg/dL) 111 H 105 87 Random Glucose Calcium Total Bilirubin AST ALT Alkaline Phosphatase Total Protein Albumin Globulin Albumin/Globulin Ratio Vancomycin Trough 09/09/18 09/09/18 09/09/18 06:25 06:25 06:25 WBC 6.4 RBC 3.28 L Hgb 8.6 L Hct 26.6 L MCV 81.2 MCH 26.3 L MCHC 32.4 L RDW 15.6 H Plt Count 278 PT INR APTT Sodium 137 Potassium 3.8 Chloride 103 Carbon Dioxide 29 Anion Gap 9 L BUN 17 Creatinine 1.5 H Est GFR ( Amer) 42 Est GFR (Non-Af Amer) 35 POC Glucose (mg/dL) Random Glucose 89 Calcium 9.2 Total Bilirubin 0.2 AST 24 ALT 15 Alkaline Phosphatase 77 Total Protein 6.5 Albumin 2.8 L Globulin 3.7 Albumin/Globulin Ratio 0.8 L Vancomycin Trough 24.5 H 09/09/18 09/09/18 07:05 11:17 WBC RBC Hgb Hct MCV MCH MCHC RDW Plt Count PT 12.7 INR 1.1 APTT 28.1 Sodium Potassium Chloride Carbon Dioxide Anion Gap BUN Creatinine Est GFR ( Amer) Est GFR (Non-Af Amer) POC Glucose (mg/dL) 79 Random Glucose Calcium Total Bilirubin AST ALT Alkaline Phosphatase Total Protein Albumin Globulin Albumin/Globulin Ratio Vancomycin Trough Attending/Attestation - Attestation I have personally seen and examined this patient.: Yes I have fully participated in the care of the patient.: Yes I have reviewed all pertinent clinical information: Yes Notes (Text): 09/09/18 11:30 Patient seen and examined with resident. Case discussed and agreed with mercy mixon. Patient is a 62 yo female admitted because of stasis dermatitis complicated with cellulitis and possible osteomyelitis of both legs. Patient is scheduled for surgical debridement by podiatry today
[2018-09-09] MEDS ORDERED: Propofol 10 mg/ml Inj (20 ML) ONE (11:21)
[2018-09-09] MEDS ORDERED: Midazolam 2 MG/2 ML VIAL ONE (11:23)
[2018-09-09] MEDS ORDERED: Lidocaine Hydrochloride 15 ML INJ ONE (11:33)
[2018-09-09] MEDS ORDERED: Bupivacaine HCl 0.25% PF (30 ml) Inj ONE (11:33)
[2018-09-09] MEDS ORDERED: Sodium Chloride 0.9% 250 ML IV ONE (11:45)
[2018-09-09] MEDS ORDERED: Lidocaine 1% Inj (20ml) IJ ONE (12:00)
[2018-09-09] MEDS ORDERED: Silver Sulfadiazine 1% CREAM (50 gm) ONE (12:05)
--- NOTE | 2018-09-09 12:31 | PCM.SURG1 ---
Surgeon's Initial Post Op Note - Surgeon's Notes Surgeon: Dr. Brown Reimbursement Director: Dr. Jerome PGY1 Type of Anesthesia: IV Sedation, Local Anesthesia Administered By: Tamela Pre-Operative Diagnosis: Bilateral lower extremity chronic wounds with osteomyelitis Operative Findings: see dictation. I 22cc 1:1 mix 0.25% marcaine plain 1% lidocaine plain. Versajet setting 4. silvadene DSD VADIM Post-Operative Diagnosis: same Operation Performed: wound debridement bilateral lower extremities with versajet Specimen/Specimens Removed: none Estimated Blood Loss: EBL {In ML}: 10 Blood Products Given: N/A Drains Used: No Drains Post-Op Condition: Good Date of Surgery/Procedure: 09/09/18 Time of Surgery/Procedure: 12:32
[2018-09-09 15:34] LABS: HEMOGLOBIN 9.8 g/dL (12.0-16.0)
[2018-09-09] MEDS: Sodium Chloride 0.9% 1,000 ML IV SCH ×2 (16:34→22:30)
--- NOTE | 2018-09-09 21:29 | CP.PCM.PN ---
Subjective - Date & Time of Evaluation Date of Evaluation: 09/09/18 Time of Evaluation: 14:00 - Subjective Subjective: ID Note- Pt. seen and examined today . pt. is s/p debridement of the b/l foot and left leg wound by podiatry earlier today. remains afebirle. Objective - Vital Signs/Intake and Output Vital Signs (last 24 hours): Temp Pulse Resp BP Pulse Ox 98 F 86 20 172/72 H 98 09/09/18 18:15 09/09/18 18:15 09/09/18 18:15 09/09/18 18:15 09/09/18 18:15 Intake and Output: 09/09/18 09/10/18 18:59 06:59 Intake Total 250 Balance 250 - Medications Medications: Current Medications Acetaminophen (Tylenol 325mg Tab) 650 mg PO Q6 PRN PRN Reason: Pain, Mild (1-3) Last Admin: 09/06/18 22:14 Dose: 650 mg Acetaminophen (Tylenol 325mg Tab) 650 mg PO Q6 PRN PRN Reason: Fever >100.4 F Aspirin (Aspirin Chewable) 81 mg PO DAILY [facility] Last Admin: 09/07/18 09:30 Dose: 81 mg Atenolol (Tenormin) 25 mg PO DAILY [facility] Last Admin: 09/09/18 09:56 Dose: 25 mg Collagenase (Santyl) 1 applic TOP DAILY [facility] Last Admin: 09/09/18 09:54 Dose: Not Given Cyanocobalamin (Vitamin B12 1000 Mcg Tab) 1,000 mcg PO DAILY [facility] Last Admin: 09/09/18 09:56 Dose: Not Given Dextrose (Dextrose 50% Inj) 0 ml IV STAT PRN; Protocol PRN Reason: Hypoglycemia Protocol Dextrose (Glutose 15) 0 gm PO ONCE PRN; Protocol PRN Reason: Hypoglycemia Protocol Enoxaparin Sodium (Lovenox) 40 mg SC DAILY [facility]; Protocol Last Admin: 09/07/18 09:31 Dose: 40 mg Glucagon (Glucagen Diagnostic Kit) 0 mg IM STAT PRN; Protocol PRN Reason: Hypoglycemia Protocol Vancomycin HCl 500 mg/ Sodium (Chloride) 100 mls @ 100 mls/hr IVPB Q12 [facility]; Protocol Last Admin: 09/09/18 21:14 Dose: 100 mls/hr Ceftriaxone Sodium 1 gm/ (Sodium Chloride) 100 mls @ 100 mls/hr IVPB DAILY [facility]; Protocol Last Admin: 09/09/18 09:54 Dose: 100 mls/hr Sodium Chloride (Sodium Chloride 0.9%) 1,000 mls @ 100 mls/hr IV .Q10H [facility] Last Admin: 09/09/18 16:34 Dose: 100 mls/hr Insulin Human Regular (Humulin R) 0 units SC ACHS [facility]; Protocol Last Admin: 09/09/18 17:24 Dose: Not Given Levothyroxine Sodium (Synthroid) 100 mcg PO DAILY@0630 [facility] Last Admin: 09/09/18 06:18 Dose: 100 mcg Morphine Sulfate (Morphine) 4 mg IVP Q6 PRN PRN Reason: Pain, severe (8-10) Last Admin: 09/09/18 18:36 Dose: 4 mg Morphine Sulfate (Morphine) 1 mg IVP Q15M PRN PRN Reason: Pain, moderate (4-7) Last Admin: 09/09/18 12:55 Dose: 1 mg Ondansetron HCl (Zofran Inj) 4 mg IVP Q6 PRN PRN Reason: Nausea/Vomiting Last Admin: 09/08/18 00:06 Dose: 4 mg Pantoprazole Sodium (Protonix Ec Tab) 40 mg PO DAILY [facility] Last Admin: 09/09/18 09:53 Dose: Not Given Silver Sulfadiazine (Silvadene 1% 20 Gm) 1 ea TOP DAILY [facility] Sodium Hypochlorite (Dakins Solution 0.125%) 1 appl EXT DAILY [facility] Last Admin: 09/09/18 09:52 Dose: Not Given - Labs Labs: - Additional Findings Additional findings: - Constitutional Appears: No Acute Distress - Eye Exam Eye Exam: EOMI - ENT Exam ENT Exam: Normal Oropharynx - Neck Exam Neck exam: Positive for: Full Rom - Respiratory Exam Respiratory Exam: Clear to Auscultation Bilateral, NORMAL BREATHING PATTERN - Cardiovascular Exam Cardiovascular Exam: RRR, +S1, +S2 - GI/Abdominal Exam GI & Abdominal Exam: Normal Bowel Sounds, Soft Additional comments: NT, ND - Extremities Exam Additional comments: \wrapped in post surgical dressing, dressing clean - Neurological Exam Neurological exam: Alert Additional comments: AAO x 3 Laboratory Results - last 72 hr 09/06/18 09/07/18 09/07/18 21:43 04:44 04:46 WBC RBC Hgb Hct MCV MCH MCHC RDW Plt Count PT INR APTT Sodium Potassium Chloride Carbon Dioxide Anion Gap BUN Creatinine Est GFR ( Amer) Est GFR (Non-Af Amer) POC Glucose (mg/dL) 119 H 95 95 Random Glucose Calcium Total Bilirubin AST ALT Alkaline Phosphatase Total Protein Albumin Globulin Albumin/Globulin Ratio Vancomycin Trough 09/07/18 09/07/18 09/07/18 05:55 05:55 10:37 WBC 7.5 RBC 3.59 L Hgb 9.5 L Hct 29.1 L MCV 81.1 MCH 26.6 L MCHC 32.8 L RDW 16.3 H Plt Count 285 PT INR APTT Sodium 136 Potassium 4.0 Chloride 104 Carbon Dioxide 25 Anion Gap 11 BUN 19 H Creatinine 1.4 H Est GFR ( Amer) 46 Est GFR (Non-Af Amer) 38 POC Glucose (mg/dL) 221 H Random Glucose 102 Calcium 9.2 Total Bilirubin AST ALT Alkaline Phosphatase Total Protein Albumin Globulin Albumin/Globulin Ratio Vancomycin Trough 09/07/18 09/07/18 09/08/18 15:18 20:51 05:24 WBC RBC Hgb Hct MCV MCH MCHC RDW Plt Count PT INR APTT Sodium Potassium Chloride Carbon Dioxide Anion Gap BUN Creatinine Est GFR ( Amer) Est GFR (Non-Af Amer) POC Glucose (mg/dL) 115 H 125 H 100 Random Glucose Calcium Total Bilirubin AST ALT Alkaline Phosphatase Total Protein Albumin Globulin Albumin/Globulin Ratio Vancomycin Trough 09/08/18 09/08/18 09/08/18 10:48 16:05 20:56 WBC RBC Hgb Hct MCV MCH MCHC RDW Plt Count PT INR APTT Sodium Potassium Chloride Carbon Dioxide Anion Gap BUN Creatinine Est GFR ( Amer) Est GFR (Non-Af Amer) POC Glucose (mg/dL) 108 111 H 105 Random Glucose Calcium Total Bilirubin AST ALT Alkaline Phosphatase Total Protein Albumin Globulin Albumin/Globulin Ratio Vancomycin Trough 09/09/18 09/09/18 09/09/18 05:48 06:25 06:25 WBC 6.4 RBC 3.28 L Hgb 8.6 L Hct 26.6 L MCV 81.2 MCH 26.3 L MCHC 32.4 L RDW 15.6 H Plt Count 278 PT INR APTT Sodium Potassium Chloride Carbon Dioxide Anion Gap BUN Creatinine Est GFR ( Amer) Est GFR (Non-Af Amer) POC Glucose (mg/dL) 87 Random Glucose Calcium Total Bilirubin AST ALT Alkaline Phosphatase Total Protein Albumin Globulin Albumin/Globulin Ratio Vancomycin Trough 24.5 H 09/09/18 09/09/18 09/09/18 06:25 07:05 11:17 WBC RBC Hgb Hct MCV MCH MCHC RDW Plt Count PT 12.7 INR 1.1 APTT 28.1 Sodium 137 Potassium 3.8 Chloride 103 Carbon Dioxide 29 Anion Gap 9 L BUN 17 Creatinine 1.5 H Est GFR ( Amer) 42 Est GFR (Non-Af Amer) 35 POC Glucose (mg/dL) 79 Random Glucose 89 Calcium 9.2 Total Bilirubin 0.2 AST 24 ALT 15 Alkaline Phosphatase 77 Total Protein 6.5 Albumin 2.8 L Globulin 3.7 Albumin/Globulin Ratio 0.8 L Vancomycin Trough 09/09/18 09/09/18 09/09/18 12:35 15:07 15:52 WBC RBC Hgb 9.8 L Hct 30.2 L MCV MCH MCHC RDW Plt Count PT INR APTT Sodium Potassium Chloride Carbon Dioxide Anion Gap BUN Creatinine Est GFR ( Amer) Est GFR (Non-Af Amer) POC Glucose (mg/dL) 81 80 Random Glucose Calcium Total Bilirubin AST ALT Alkaline Phosphatase Total Protein Albumin Globulin Albumin/Globulin Ratio Vancomycin Trough 09/09/18 20:50 WBC RBC Hgb Hct MCV MCH MCHC RDW Plt Count PT INR APTT Sodium Potassium Chloride Carbon Dioxide Anion Gap BUN Creatinine Est GFR ( Amer) Est GFR (Non-Af Amer) POC Glucose (mg/dL) 93 Random Glucose Calcium Total Bilirubin AST ALT Alkaline Phosphatase Total Protein Albumin Globulin Albumin/Globulin Ratio Vancomycin Trough Microbiology 08/31/18 15:30 Blood Blood Culture - Final NO GROWTH AFTER 5 DAYS 08/31/18 15:30 Blood Gram Stain - Final TEST NOT PERFORMED 08/31/18 15:45 Blood Blood Culture - Final NO GROWTH AFTER 5 DAYS 08/31/18 15:45 Blood Gram Stain - Final TEST NOT PERFORMED 08/31/18 15:36 Drainage Gram Stain - Final 08/31/18 15:36 Drainage Wound Culture - Final Citrobacter Diversus 08/31/18 16:00 Foot - Left Gram Stain - Final 08/31/18 16:00 Foot - Left Wound Culture - Final Citrobacter Diversus Beta Hemolytic Strep Group B 09/01/18 18:00 Leg - Left Gram Stain - Final 09/01/18 18:00 Leg - Left Wound Culture - Final Citrobacter Diversus Beta Hemolytic Strep Group B 09/01/18 14:45 Urine Random Urine Culture - Final No Growth (<1,000 CFU/ML) Assessment and Plan (1) Leg ulcer Status: Acute (2) Wound infection Status: Acute (3) Diabetes mellitus type 2 in nonobese Status: Acute (4) Osteomyelitis Status: Acute - Assessment and Plan (Free Text) Assessment: A/P- 62 year old female with multiple medical conditions and chronic foot and ankle ulcers admitted with infection of these ulcers . afebrile normal wbc High ESR MRI report as per radiology b/l ankle bone OM and right heel OM. blood cx- neg x 2 wound cx- citrobacter and strep group b left leg cx- citrobacter and beta hemolytic strep Plan- continue pt. on ceftriaoxne 1 gram daily. day #7 continue with IV vanco, keep trough <15. day #9 await Or wound cx results. advise toatl of 4 weeks of antibiotics, can be switched to oarl antibiotics once pt. is ready for discharge since as per podiatry the necrotic regions were debrided.
[2018-09-10] MEDS: Sodium Chloride 0.9% 1,000 ML IV SCH ×3 (06:22→21:52)
[2018-09-10] MEDS: Levothyroxine 100 MCG TAB PO SCH (06:23)
[2018-09-10 06:50] LABS: HEMOGLOBIN 8.4 g/dL (12.0-16.0); MEAN CELL VOLUME 81.6 fl (81.0-99.0); MEAN CORPUSCULAR HEMOGLOBIN 26.7 pg (27.0-31.0); MEAN CORPUSCULAR HGB CONC 32.7 g/dL (33.0-37.0); RBC 3.14 Mil/uL (3.80-5.20); RED CELL DISTRIBUTION WIDTH 15.6 % (11.5-14.5); WHITE BLOOD COUNT 6.4 K/uL (4.8-10.8)
[2018-09-10 07:07] LABS: ALB/GLOB RATIO 0.7 (1.0-2.1); ALBUMIN 2.7 g/dL (3.5-5.0); CALCIUM 8.8 mg/dL (8.4-10.2)
[2018-09-10] MEDS ORDERED: Silver Sulfadiazine 1% Cream (20 gm) TOP SCH (09:00)
--- NOTE | 2018-09-10 09:18 | PCM.OP ---
Operative Report - Operative Report Date of Surgery/Procedure: 09/09/18 Time of Surgery/Procedure: 11:45 Surgeon: Dr. Brown DPM Business Process Lead: Dr. Jerome PGY-1 Anesthesia/Sedation: IV sedation with local Pre-Operative Diagnosis: Bilateral nonhealing wounds with osteomyelitis Post-Operative Diagnosis: same Indication for Surgery: The patient is a 62 year-old female with the above diagnoses. The patient has exhausted all conservative treatment at this time and now requires surgical intervention. The patient signed the consent after careful explanation of risks, benefits, complication and alternatives for surgical procedure. No guarantees were given nor implied. NPO status was confirmed prior to taking p atient to the OR. Operative Findings: Preparation: The patient was brought in to the operating room and placed on the operating room table in a supine position. Timeout was performed for identification of the correct patient and procedure. After induction IV sedation, the patient received a total of 20 mL of a 1:1 mixture of 0.25% Marcaine plain and 2% lidocaine plain in an ankle block type fashion bilaterally with v block delivered to all wounds, bilateral extremities were then prepped and draped in normal sterile manner and the procedure began. No tourniquet was used during the procedure. Procedure/Operation Description: Attention was directed to the bilateral legs, where non-healing wounds were noted with a mixed fibrotic and granular wound base with no exposed bone or tendon appreciated. Necrotic tissue was noted to the base of the left and right heel wounds with overlying biofilm formation evident. Using Versajet on power level 4 as well as utilizing a soft tissue curette, the base of the ulcerations were excisionally debrided of all fibrotic and non-viable tissue until fresh, healthy, bleeding granular tissue appeared at the surgical field. The ulcers were then irrigated with sterile saline using a bulb syringe. Silvadene cream and sterile dressing were then applied to the wound beds. Estimated Blood Loss: 10 Complications: none Discharge & Condition: The patient tolerated the anesthesia and procedure well and was escorted to the recovery room with vital signs stable and neurovascular status intact to both legs. Patient is to remain non-weight bearing to bilateral extremities. Podiatry will continue to follow patient while in house. Patient will follow up with Dr. Brown upon discharge.
[2018-09-10] MEDS ORDERED: Oxycodone/Acetaminophen 5/325 mg Tab PO PRN ×2 (09:28)
[2018-09-10] MEDS: Insulin Regular 100 units/ml SC SCH ×4 (09:38→23:56)
[2018-09-10] MEDS: Enoxaparin 40 mg Syringe SC SCH (09:39)
[2018-09-10] MEDS: Pantoprazole 40 mg EC Tab PO SCH (09:40)
--- NOTE | 2018-09-10 10:31 | CP.PCM.PN ---
Subjective - Date & Time of Evaluation Date of Evaluation: 09/10/18 Time of Evaluation: 10:24 - Subjective Subjective: Podiatry progress note - Dr. Brown 62 y/o F patient seen and evaluated at the bedside for b/l LE infected ulcerations with underlying osteomyelitis, 1 day S/P b/l Wound debridement. Patient states that she still in pain in her lower extremities at the ulcer site but it's less now. As per Chart there was no overnight fevers, nausea, vomiting, cough,and shortness of breath. She denies any other pedal complaint at this time. Objective - Vital Signs/Intake and Output Vital Signs (last 24 hours): Temp Pulse Resp BP Pulse Ox 98.1 F 87 18 139/70 97 09/10/18 08:04 09/10/18 09:46 09/10/18 08:04 09/10/18 09:46 09/10/18 08:04 - Medications Medications: Current Medications Acetaminophen (Tylenol 325mg Tab) 650 mg PO Q6 PRN PRN Reason: Pain, Mild (1-3) Last Admin: 09/06/18 22:14 Dose: 650 mg Acetaminophen (Tylenol 325mg Tab) 650 mg PO Q6 PRN PRN Reason: Fever >100.4 F Amlodipine Besylate (Norvasc) 5 mg PO DAILY [facility] Last Admin: 09/10/18 09:46 Dose: 5 mg Aspirin (Aspirin Chewable) 81 mg PO DAILY [facility] Last Admin: 09/10/18 09:38 Dose: 81 mg Collagenase (Santyl) 1 applic TOP DAILY [facility] Last Admin: 09/09/18 09:54 Dose: Not Given Cyanocobalamin (Vitamin B12 1000 Mcg Tab) 1,000 mcg PO DAILY [facility] Last Admin: 09/10/18 09:42 Dose: 1,000 mcg Dextrose (Dextrose 50% Inj) 0 ml IV STAT PRN; Protocol PRN Reason: Hypoglycemia Protocol Dextrose (Glutose 15) 0 gm PO ONCE PRN; Protocol PRN Reason: Hypoglycemia Protocol Enoxaparin Sodium (Lovenox) 40 mg SC DAILY [facility]; Protocol Last Admin: 09/10/18 09:39 Dose: 40 mg Gabapentin (Neurontin) 400 mg PO HS [facility] Glucagon (Glucagen Diagnostic Kit) 0 mg IM STAT PRN; Protocol PRN Reason: Hypoglycemia Protocol Ceftriaxone Sodium 1 gm/ (Sodium Chloride) 100 mls @ 100 mls/hr IVPB DAILY [facility]; Protocol Last Admin: 09/10/18 09:40 Dose: 100 mls/hr Sodium Chloride (Sodium Chloride 0.9%) 1,000 mls @ 100 mls/hr IV .Q10H [facility] Last Admin: 09/10/18 06:22 Dose: 100 mls/hr Vancomycin HCl 1 gm/ Sodium (Chloride) 250 mls @ 166.667 mls/hr IVPB Q12 [facility]; Protocol Insulin Human Regular (Humulin R) 0 units SC ACHS [facility]; Protocol Last Admin: 09/10/18 09:38 Dose: Not Given Levothyroxine Sodium (Synthroid) 100 mcg PO DAILY@0630 [facility] Last Admin: 09/10/18 06:23 Dose: 100 mcg Metoprolol Succinate (Toprol Xl) 100 mg PO DAILY [facility] Mirtazapine (Remeron) 7.5 mg PO HS [facility] Morphine Sulfate (Morphine) 4 mg IVP Q6 PRN PRN Reason: Pain, severe (8-10) Last Admin: 09/09/18 18:36 Dose: 4 mg Morphine Sulfate (Morphine) 1 mg IVP Q15M PRN PRN Reason: Pain, moderate (4-7) Last Admin: 09/09/18 12:55 Dose: 1 mg Ondansetron HCl (Zofran Inj) 4 mg IVP Q6 PRN PRN Reason: Nausea/Vomiting Last Admin: 09/08/18 00:06 Dose: 4 mg Oxycodone/Acetaminophen (Percocet 5/325 Mg Tab) 1 tab PO Q4 PRN PRN Reason: Pain, moderate (4-7) Stop: 09/13/18 09:29 Oxycodone/Acetaminophen (Percocet 5/325 Mg Tab) 2 tab PO Q6 PRN PRN Reason: Pain, severe (8-10) Stop: 09/13/18 09:29 Pantoprazole Sodium (Protonix Ec Tab) 40 mg PO DAILY [facility] Last Admin: 09/10/18 09:40 Dose: 40 mg Silver Sulfadiazine (Silvadene 1% 20 Gm) 1 ea TOP DAILY [facility] Sodium Hypochlorite (Dakins Solution 0.125%) 1 appl EXT DAILY [facility] Last Admin: 09/09/18 09:52 Dose: Not Given - Labs Labs: 09/10/18 06:00 03/14/19 06:00 PT 12.7 Seconds (9.8-13.1) 09/09/18 07:05 INR 1.1 09/09/18 07:05 APTT 28.1 Seconds (25.6-37.1) 09/09/18 07:05 - Constitutional Appears: Non-toxic - Head Exam Head Exam: ATRAUMATIC, NORMOCEPHALIC - Extremities Exam Additional comments: B/L lower extremity focused exam: Vascular: DP/PT are 2/4 b/l, Cap refill < 3 seconds to all digits, Temp gradient warm to cool from proximal to distal, no edema appreciated to b/l extremities. Neuro: Gross sensation intact, protective sensation diminished. Derm: Left: An ulcer noted in the lateral aspect of the foot measuring 2 cm X 1.4 cm X 0.2 cm post debridement. Base is 90% granular, 10% fibrotic. Positive sanguineous drainage noted. No tracking, No undermining, No probe to bone. No delma-ulcerative erythema noted. Another ulcer noted in the left heel 4.3 cm X 2.5 cm X 0.4 cm post debridement. Base is 90% granular, 10% fibrotic. Positive sanguineous drainage noted. positive tracking, No undermining, Positive probe to bone. positive delma-ulcerative erythema noted. A third ulcer noted in the upper lateral aspect of the left leg measuring 1.5 cm X 1.2 cm X 0.1 cm post debridement. Base is 100% granular. Positive sanguineous drainage noted. No tracking, No undermining, Positive probe to bone. Delma-ulcerative erythema and induration noted. Right: ulcer noted in the left heel 3.9 cm X 2 cm X 0.4 cm post debridement. Base is 90% granular, 10% fibrotic. Positive sanguineous drainage noted. positive tracking, No undermining, Positive probe to bone. positive delma- ulcerative erythema noted. MSK: Muscle power 5/5 to all groups, Pain noted on palpating the delma- ulcerative areas - Neurological Exam Neurological Exam: Alert, Awake Assessment and Plan - Assessment and Plan (Free Text) Assessment: 62 y/o F patient seen and evaluated at the bedside for b/l LE infected ul cerations with underlying osteomyelitis. 1 day S/P b/l Wound debridement. Plan: -Patient seen and evaluated at the bedside. -Discussed in detail with Dr. Brown -Charts, labs and vitals reviewed; Afebrile, WBC 6.4 -Wound culture: Citrobacter diversus, Beta hemolytic strept group B -Intraoperative deep wound cultures: Pending -B/L foot x-ray: No evidence of OM -B/L ankle x-ray: Superficial ulcerations. -B/L tib/fibula x-ray: No acute findings. -LE CRISTIANE/PVR: Sever biateral LE arterial disease, distal abdominal aorta stenosis and or bilateral iliac stenosis not excluded. Concider follow up contrast CT angio of aorto-iliac system with bilateral LE runoff. -Left ankle MRI: Overall pattern is highly suggestive of osteomyelitis at the calcaneus and is difficult to exclude at the remaining midfoot/hindfoot and right ankle bony elements. Unfortunately, widespread mottled/heterogeneous Marrow edema is appreciated not only involving the ankle but osseous elements of the midfoot and hindfoot also suspicious for osteomyelitis with differentiated diagnosis of RSD order other inflammatory causes. Posttraumatic etiology is unlikely. Further clinical correlation is recommended. -Right ankle MRI: Indeterminate pattern of bony edema throughout the ankle and midfoot/hindfoot anatomy indicative of osteomyelitis particularly at the calcaneus adjacent to a soft tissue ulcer posteriorly. Abnormal Marrow signal throughout the entire midfoot and hindfoot including inferior tibia and possibly fibula may also reflect osteomyelitis though given its widespread pattern which includes various musculature as well, consider other inflammatory causes, reflex sympathetic dystrophy and other etiologies. Further clinical correlation is recommended. -Right foot MRI: Nonspecific pattern of heterogeneous abnormal edema scattered throughout the midfoot and hindfoot bony anatomy as well as the 1st and 5th metatarsal bones and proximal phalanx right great toe. For osteomyelitis or other inflammatory causes. Clinical correlation suggestive of OM. -Left foot MRI: Nonspecific heterogeneous pattern of edema primarily at the left midfoot and hindfoot bones as discussed above few cellulitis is appreciate primarily affecting midfoot and hindfoot distribution as well. The 2nd and 3rd digits are also affected at the pattern is nonspecific and could reflect osteomyelitis though other etiologies including RSD and other inflammatory causes are not excluded. Further clinical correlation suggestive of OM. -B/L Lower Extremity MRI: Edematous changes are seen in the Marrow of the osseous elements at the bilateral knee joints slightly greater the right than left. Osteomyelitis is not favored. Questionable ulcer distal posterior leg soft tissues. Mild bilateral lower extremity cellulitis. No definite abscess appreciated bilaterally. -Patient will got a PICC line yesterday for long course (4-6 weeks) of IV Abx. -ESR: >120, CRP: 167.60 -B/L LE venous duplex: No DVT, Right inguinal lymphadenopathy -Ordered Vascular consult; Reccs appreciated. -B/L ulcers cleaned with saline then dressed with Xeroform, Mepilex for the upper left leg wound and DSD and Xeroform for the rest of the ulcers. -Ordered SSD cream to be added to the dressing starting tomorrow -Patient to stay in the multipodus boot while in bed. -Patient to bear weight as tolerated in the heel offloading shoe. -ID on board Reccs appreciated. -Patient to continue IV abx as per ID. -CT angio showed no significant stenosis or blockage. -Podiatry will continue to follow up the patient while in house.
--- NOTE | 2018-09-10 11:27 | CP.PCM.PN ---
<HarveyJosie - Last Filed: 09/10/18 12:47> Subjective - Date & Time of Evaluation Date of Evaluation: 09/10/18 Time of Evaluation: 11:26 - Subjective Subjective: 62 yo female patient seen and evaluated 1 day s/p b/l foot wound debridement. Patient admits to moderate pain to both feet, however controlled with pain medications. Patients niece at bedside. No acute overnight events. Objective - Vital Signs/Intake and Output Vital Signs (last 24 hours): Temp Pulse Resp BP Pulse Ox 98.1 F 87 18 139/70 97 09/10/18 08:04 09/10/18 09:46 09/10/18 08:04 09/10/18 09:46 09/10/18 08:04 - Medications Medications: Current Medications Acetaminophen (Tylenol 325mg Tab) 650 mg PO Q6 PRN PRN Reason: Pain, Mild (1-3) Last Admin: 09/06/18 22:14 Dose: 650 mg Acetaminophen (Tylenol 325mg Tab) 650 mg PO Q6 PRN PRN Reason: Fever >100.4 F Amlodipine Besylate (Norvasc) 5 mg PO DAILY [facility] Last Admin: 09/10/18 09:46 Dose: 5 mg Aspirin (Aspirin Chewable) 81 mg PO DAILY [facility] Last Admin: 09/10/18 09:38 Dose: 81 mg Collagenase (Santyl) 1 applic TOP DAILY [facility] Last Admin: 09/09/18 09:54 Dose: Not Given Cyanocobalamin (Vitamin B12 1000 Mcg Tab) 1,000 mcg PO DAILY [facility] Last Admin: 09/10/18 09:42 Dose: 1,000 mcg Dextrose (Dextrose 50% Inj) 0 ml IV STAT PRN; Protocol PRN Reason: Hypoglycemia Protocol Dextrose (Glutose 15) 0 gm PO ONCE PRN; Protocol PRN Reason: Hypoglycemia Protocol Enoxaparin Sodium (Lovenox) 40 mg SC DAILY [facility]; Protocol Last Admin: 09/10/18 09:39 Dose: 40 mg Gabapentin (Neurontin) 400 mg PO HS [facility] Glucagon (Glucagen Diagnostic Kit) 0 mg IM STAT PRN; Protocol PRN Reason: Hypoglycemia Protocol Ceftriaxone Sodium 1 gm/ (Sodium Chloride) 100 mls @ 100 mls/hr IVPB DAILY [facility]; Protocol Last Admin: 09/10/18 09:40 Dose: 100 mls/hr Sodium Chloride (Sodium Chloride 0.9%) 1,000 mls @ 100 mls/hr IV .Q10H [facility] Last Admin: 09/10/18 06:22 Dose: 100 mls/hr Vancomycin HCl 1 gm/ Sodium (Chloride) 250 mls @ 166.667 mls/hr IVPB Q12 [facility]; Protocol Insulin Human Regular (Humulin R) 0 units SC ACHS [facility]; Protocol Last Admin: 09/10/18 09:38 Dose: Not Given Levothyroxine Sodium (Synthroid) 100 mcg PO DAILY@0630 [facility] Last Admin: 09/10/18 06:23 Dose: 100 mcg Metoprolol Succinate (Toprol Xl) 100 mg PO DAILY [facility] Mirtazapine (Remeron) 7.5 mg PO HS [facility] Morphine Sulfate (Morphine) 4 mg IVP Q6 PRN PRN Reason: Pain, severe (8-10) Last Admin: 09/09/18 18:36 Dose: 4 mg Morphine Sulfate (Morphine) 1 mg IVP Q15M PRN PRN Reason: Pain, moderate (4-7) Last Admin: 09/09/18 12:55 Dose: 1 mg Ondansetron HCl (Zofran Inj) 4 mg IVP Q6 PRN PRN Reason: Nausea/Vomiting Last Admin: 09/08/18 00:06 Dose: 4 mg Oxycodone/Acetaminophen (Percocet 5/325 Mg Tab) 1 tab PO Q4 PRN PRN Reason: Pain, moderate (4-7) Stop: 09/13/18 09:29 Oxycodone/Acetaminophen (Percocet 5/325 Mg Tab) 2 tab PO Q6 PRN PRN Reason: Pain, severe (8-10) Stop: 09/13/18 09:29 Pantoprazole Sodium (Protonix Ec Tab) 40 mg PO DAILY [facility] Last Admin: 09/10/18 09:40 Dose: 40 mg Silver Sulfadiazine (Silvadene 1% 20 Gm) 1 ea TOP DAILY [facility] Silver Sulfadiazine (Silvadene 1% 20 Gm) 1 ea TOP DAILY [facility] Sodium Hypochlorite (Dakins Solution 0.125%) 1 appl EXT DAILY [facility] Last Admin: 09/09/18 09:52 Dose: Not Given - Labs Labs: 09/10/18 06:00 09/10/18 06:00 PT 12.7 Seconds (9.8-13.1) 09/09/18 07:05 INR 1.1 09/09/18 07:05 APTT 28.1 Seconds (25.6-37.1) 09/09/18 07:05 - Constitutional Appears: Well, Non-toxic, No Acute Distress - Head Exam Head Exam: ATRAUMATIC, NORMOCEPHALIC - Eye Exam Eye Exam: Normal appearance Pupil Exam: NORMAL ACCOMODATION - ENT Exam ENT Exam: Mucous Membranes Moist - Respiratory Exam Respiratory Exam: Clear to Ausculation Bilateral, NORMAL BREATHING PATTERN - Cardiovascular Exam Cardiovascular Exam: REGULAR RHYTHM, +S1, +S2 - Neurological Exam Neurological Exam: Alert, Awake - Psychiatric Exam Psychiatric exam: Normal Affect Assessment and Plan - Assessment and Plan (Free Text) Assessment: Pt is a 62 y/o female with hx of HTN, DM, Hypothyroidism, Rheumatoid arthritis, Chronic foot ulcers admitted for multiple foot/leg ulcers w/ foul odor drainage admitted for osteomyelitis. Patient is currently getting 4-6 weeks of IV antibiotics for osteomyelitis of multiple bones in the feet. Plan: 1) Multiple Foot Ulcers, Bilaterally - Wound probed to bone by Podiatry, strong suspicion for Osteomyelitis - Afebrile, No leukocytosis, +Bandemia 4, Lactate normal, ESR 120 - Podiatry consulted, Dr. Brown; recs appreciated; wound debrided on 09/09. - ID Consulted, Dr. Contreras; recommends 4-6 weeks of IV antibiotics ; awaiting intraop cultures- possible DC with PO antibiotics - Wound Care Nursing, tight glycemic control, offloading from ulcers - MRI LE from knee to ankle :showed no OM , no abscess - MRI: Left ankle MRI :showed suggestive pattern of OM at the calcaneus and is difficult to exclude at the remaining midfoot/hindfoot and right ankle bony elements. Unfortunately, widespread mottled/heterogeneous Marrow edema is appreciated not only involving the ankle but osseous elements of the midfoot and hindfoot also suspicious for osteomyelitis with differentiated diagnosis of RSD order other inflammatory causes. MRI right ankle :Indeterminate pattern of bony edema throughout the ankle and midfoot/hindfoot anatomy indicative of osteomyelitis particularly at the calcaneus adjacent to a soft tissue ulcer posteriorly. Abnormal Marrow signal throughout the entire midfoot and hindfoot including inferior tibia and possibly fibula may also reflect osteomyelitis though given its widespread pattern which includes various musculature as well, consider other inflammatory causes, reflex sympathetic dystrophy and other etiologies. Further clinical correlation is recommended. - MRI right foot :Nonspecific pattern of heterogeneous abnormal edema scattered throughout the midfoot and hindfoot bony anatomy as well as the 1st and 5th metatarsal bones and proximal phalanx right great toe. -MRI left foot :Indeterminate pattern of bony edema throughout the ankle and midfoot/hindfoot anatomy indicative of osteomyelitis particularly at the calcaneus adjacent to a soft tissue ulcer posteriorly. Abnormal Marrow signal throughout the entire midfoot and hindfoot including inferior tibia and possibly fibula may also reflect osteomyelitis though given its widespread pattern which includes various musculature as well, consider other inflammatory causes, reflex sympathetic dystrophy and other etiologies. - Duplex Vein no DVT -Arterial duplex: severely diseased b/l LE arterial system. - Vascular consulted; Dr Mcdermott. CT Angio ordered- no vascular intervention, all vessels patent - Wcx; citrobacter diversus, beta hemolytic strep group b; c/w vancomycin and ceftriaxone - Intra-op wound cx pending - PICC Line in place 2) CKD - Stable - Renal dose adjustments for nephrotoxic medication (check Vanco trough) -Vanc trough 28.5- vanc on hold 3) Hypothyroidism -TSH 5.47, T4 6.55 -C/W with home medication, Levothyroxine 100mg daily 4) Rheumatoid Arthritis -Pain controlled with Tylenol. Morphine 4 gm q6 pRN ordered for severe pain -Prior labs reviewed: +RF, +Anti CCP, + pANCa 5) Anemia -stable - Hgb 8.4 6) Poor mobility/Debilitation - OT for ADL's - PT ordered for gait/mobility/strength 7) DVT ppx -Lovenox 40mg SQ daily given CrCl >40 8) Cognitive impairment/depression - Psych consulted; appreciate recs;recommend starting remeron 7.5 mg qhs and referral to outpatient psychiatric services on discharge - Neuro consult ordered; appreciate recs 9) Constipation - controlled 10) Hypertension -c/w home medications Next of Kin (Niece): Danni <Ernesto Palomares D - Last Filed: 09/13/18 11:27> Objective - Vital Signs/Intake and Output Vital Signs (last 24 hours): Temp Pulse Resp BP Pulse Ox 98 F 76 18 150/76 99 09/10/18 12:08 09/10/18 13:57 09/10/18 12:08 09/10/18 13:57 09/10/18 12:08 - Medications Medications: Current Medications Acetaminophen (Tylenol 325mg Tab) 650 mg PO Q6 PRN PRN Reason: Pain, Mild (1-3) Last Admin: 09/06/18 22:14 Dose: 650 mg Acetaminophen (Tylenol 325mg Tab) 650 mg PO Q6 PRN PRN Reason: Fever >100.4 F Amlodipine Besylate (Norvasc) 5 mg PO DAILY [facility] Last Admin: 09/10/18 09:46 Dose: 5 mg Aspirin (Aspirin Chewable) 81 mg PO DAILY [facility] Last Admin: 09/10/18 09:38 Dose: 81 mg Collagenase (Santyl) 1 applic TOP DAILY [facility] Last Admin: 09/09/18 09:54 Dose: Not Given Cyanocobalamin (Vitamin B12 1000 Mcg Tab) 1,000 mcg PO DAILY [facility] Last Admin: 09/10/18 09:42 Dose: 1,000 mcg Dextrose (Dextrose 50% Inj) 0 ml IV STAT PRN; Protocol PRN Reason: Hypoglycemia Protocol Dextrose (Glutose 15) 0 gm PO ONCE PRN; Protocol PRN Reason: Hypoglycemia Protocol Enoxaparin Sodium (Lovenox) 40 mg SC DAILY [facility]; Protocol Last Admin: 09/10/18 09:39 Dose: 40 mg Gabapentin (Neurontin) 400 mg PO HS [facility] Glucagon (Glucagen Diagnostic Kit) 0 mg IM STAT PRN; Protocol PRN Reason: Hypoglycemia Protocol Ceftriaxone Sodium 1 gm/ (Sodium Chloride) 100 mls @ 100 mls/hr IVPB DAILY [facility]; Protocol Last Admin: 09/10/18 09:40 Dose: 100 mls/hr Sodium Chloride (Sodium Chloride 0.9%) 1,000 mls @ 100 mls/hr IV .Q10H [facility] Last Admin: 09/10/18 06:22 Dose: 100 mls/hr Vancomycin HCl 1 gm/ Sodium (Chloride) 250 mls @ 166.667 mls/hr IVPB Q12 [facility]; Protocol Insulin Human Regular (Humulin R) 0 units SC ACHS [facility]; Protocol Last Admin: 09/10/18 13:42 Dose: Not Given Levothyroxine Sodium (Synthroid) 100 mcg PO DAILY@0630 [facility] Last Admin: 09/10/18 06:23 Dose: 100 mcg Metoprolol Succinate (Toprol Xl) 100 mg PO DAILY [facility] Last Admin: 09/10/18 13:57 Dose: 100 mg Mirtazapine (Remeron) 7.5 mg PO HS [facility] Morphine Sulfate (Morphine) 4 mg IVP Q6 PRN PRN Reason: Pain, severe (8-10) Last Admin: 09/09/18 18:36 Dose: 4 mg Morphine Sulfate (Morphine) 1 mg IVP Q15M PRN PRN Reason: Pain, moderate (4-7) Last Admin: 09/09/18 12:55 Dose: 1 mg Ondansetron HCl (Zofran Inj) 4 mg IVP Q6 PRN PRN Reason: Nausea/Vomiting Last Admin: 09/08/18 00:06 Dose: 4 mg Oxycodone/Acetaminophen (Percocet 5/325 Mg Tab) 1 tab PO Q4 PRN PRN Reason: Pain, moderate (4-7) Stop: 09/13/18 09:29 Last Admin: 09/10/18 14:07 Dose: 1 tab Oxycodone/Acetaminophen (Percocet 5/325 Mg Tab) 2 tab PO Q6 PRN PRN Reason: Pain, severe (8-10) Stop: 09/13/18 09:29 Pantoprazole Sodium (Protonix Ec Tab) 40 mg PO DAILY [facility] Last Admin: 09/10/18 09:40 Dose: 40 mg Silver Sulfadiazine (Silvadene 1% 20 Gm) 1 ea TOP DAILY [facility] Silver Sulfadiazine (Silvadene 1% 20 Gm) 1 ea TOP DAILY [facility] Sodium Hypochlorite (Dakins Solution 0.125%) 1 appl EXT DAILY [facility] Last Admin: 09/09/18 09:52 Dose: Not Given - Labs Labs: 09/10/18 06:00 09/10/18 06:00 PT 12.7 Seconds (9.8-13.1) 09/09/18 07:05 INR 1.1 09/09/18 07:05 APTT 28.1 Seconds (25.6-37.1) 09/09/18 07:05 Attending/Attestation - Attestation I have personally seen and examined this patient.: Yes I have fully participated in the care of the patient.: Yes I have reviewed all pertinent clinical information, including history, physical exam and plan: Yes Notes (Text): 09/10/18 14:13 Patient seen and examined. Case discussed and agreed with assessment.
[2018-09-10] MEDS: Metoprolol Succinate 100 mg XL Tab PO SCH (13:57)
[2018-09-10] MEDS ORDERED: Potassium Chloride 20 mEq/15 ml LIQ UD PO ONE (15:03)
[2018-09-11] MEDS: Sodium Chloride 0.9% 1,000 ML IV SCH ×2 (04:32→16:29)
[2018-09-11] MEDS: Levothyroxine 100 MCG TAB PO SCH (06:19)
[2018-09-11 06:40] LABS: HEMOGLOBIN 8.8 g/dL (12.0-16.0); MEAN CELL VOLUME 81.1 fl (81.0-99.0); MEAN CORPUSCULAR HEMOGLOBIN 27.2 pg (27.0-31.0); MEAN CORPUSCULAR HGB CONC 33.5 g/dL (33.0-37.0); RBC 3.24 Mil/uL (3.80-5.20); RED CELL DISTRIBUTION WIDTH 15.6 % (11.5-14.5); WHITE BLOOD COUNT 6.4 K/uL (4.8-10.8)
[2018-09-11 06:59] LABS: ALB/GLOB RATIO 0.7 (1.0-2.1); ALBUMIN 2.5 g/dL (3.5-5.0); ALT/SGPT 22 U/L (9-52); AST/SGOT 34 U/L (14-36); BLOOD UREA NITROGEN 15 mg/dl (7-17); CALCIUM 8.6 mg/dL (8.4-10.2); GFR NON-AFRICAN AMERICAN 45
--- NOTE | 2018-09-11 09:34 | CP.PCM.PN ---
<HarveyJosie - Last Filed: 09/11/18 10:35> Subjective - Date & Time of Evaluation Date of Evaluation: 09/11/18 Time of Evaluation: 09:29 - Subjective Subjective: 62 yo female patient seen and evaluated 2 day s/p b/l foot wound debridement. Patient admits to mild pain to both feet, however controlled with pain medications. Patients niece at bedside. No acute overnight events. Objective - Vital Signs/Intake and Output Vital Signs (last 24 hours): Temp Pulse Resp BP Pulse Ox 97.2 F L 76 18 171/74 H 100 09/11/18 08:23 09/11/18 08:23 09/11/18 08:23 09/11/18 08:23 09/11/18 08:23 - Medications Medications: Current Medications Acetaminophen (Tylenol 325mg Tab) 650 mg PO Q6 PRN PRN Reason: Pain, Mild (1-3) Last Admin: 09/06/18 22:14 Dose: 650 mg Acetaminophen (Tylenol 325mg Tab) 650 mg PO Q6 PRN PRN Reason: Fever >100.4 F Amlodipine Besylate (Norvasc) 5 mg PO DAILY [facility] Last Admin: 09/10/18 09:46 Dose: 5 mg Aspirin (Aspirin Chewable) 81 mg PO DAILY [facility] Last Admin: 09/10/18 09:38 Dose: 81 mg Cyanocobalamin (Vitamin B12 1000 Mcg Tab) 1,000 mcg PO DAILY [facility] Last Admin: 09/10/18 09:42 Dose: 1,000 mcg Dextrose (Dextrose 50% Inj) 0 ml IV STAT PRN; Protocol PRN Reason: Hypoglycemia Protocol Dextrose (Glutose 15) 0 gm PO ONCE PRN; Protocol PRN Reason: Hypoglycemia Protocol Enoxaparin Sodium (Lovenox) 40 mg SC DAILY [facility]; Protocol Last Admin: 09/10/18 09:39 Dose: 40 mg Gabapentin (Neurontin) 400 mg PO HS [facility] Last Admin: 09/10/18 21:32 Dose: 400 mg Glucagon (Glucagen Diagnostic Kit) 0 mg IM STAT PRN; Protocol PRN Reason: Hypoglycemia Protocol Ceftriaxone Sodium 1 gm/ (Sodium Chloride) 100 mls @ 100 mls/hr IVPB DAILY [facility]; Protocol Last Admin: 09/10/18 09:40 Dose: 100 mls/hr Sodium Chloride (Sodium Chloride 0.9%) 1,000 mls @ 100 mls/hr IV .Q10H [facility] Last Admin: 09/11/18 04:32 Dose: 100 mls/hr Vancomycin HCl 1 gm/ Sodium (Chloride) 250 mls @ 166.667 mls/hr IVPB DAILY [facility]; Protocol Insulin Human Regular (Humulin R) 0 units SC ACHS [facility]; Protocol Last Admin: 09/10/18 23:56 Dose: Not Given Levothyroxine Sodium (Synthroid) 100 mcg PO DAILY@0630 [facility] Last Admin: 09/11/18 06:19 Dose: 100 mcg Metoprolol Succinate (Toprol Xl) 100 mg PO DAILY [facility] Last Admin: 09/10/18 13:57 Dose: 100 mg Mirtazapine (Remeron) 7.5 mg PO HS [facility] Last Admin: 09/10/18 21:32 Dose: 7.5 mg Morphine Sulfate (Morphine) 4 mg IVP Q6 PRN PRN Reason: Pain, severe (8-10) Last Admin: 09/09/18 18:36 Dose: 4 mg Morphine Sulfate (Morphine) 1 mg IVP Q15M PRN PRN Reason: Pain, moderate (4-7) Last Admin: 09/09/18 12:55 Dose: 1 mg Ondansetron HCl (Zofran Inj) 4 mg IVP Q6 PRN PRN Reason: Nausea/Vomiting Last Admin: 09/08/18 00:06 Dose: 4 mg Oxycodone/Acetaminophen (Percocet 5/325 Mg Tab) 1 tab PO Q4 PRN PRN Reason: Pain, moderate (4-7) Stop: 09/13/18 09:29 Last Admin: 09/10/18 14:07 Dose: 1 tab Oxycodone/Acetaminophen (Percocet 5/325 Mg Tab) 2 tab PO Q6 PRN PRN Reason: Pain, severe (8-10) Stop: 09/13/18 09:29 Pantoprazole Sodium (Protonix Ec Tab) 40 mg PO DAILY [facility] Last Admin: 09/10/18 09:40 Dose: 40 mg Silver Sulfadiazine (Silvadene 1% 20 Gm) 1 ea TOP DAILY [facility] Sodium Hypochlorite (Dakins Solution 0.125%) 1 appl EXT DAILY [facility] Last Admin: 09/09/18 09:52 Dose: Not Given - Labs Labs: 09/11/18 06:00 03/15/19 06:00 PT 12.7 Seconds (9.8-13.1) 09/09/18 07:05 INR 1.1 09/09/18 07:05 APTT 28.1 Seconds (25.6-37.1) 09/09/18 07:05 - Constitutional Appears: Well, Non-toxic, No Acute Distress - Head Exam Head Exam: ATRAUMATIC, NORMOCEPHALIC - Eye Exam Eye Exam: Normal appearance - ENT Exam ENT Exam: Mucous Membranes Moist - GI/Abdominal Exam GI & Abdominal Exam: Soft, Normal Bowel Sounds - Neurological Exam Neurological Exam: Alert, Awake - Psychiatric Exam Psychiatric exam: Depressed Assessment and Plan - Assessment and Plan (Free Text) Assessment: Pt is a 62 y/o female with hx of HTN, DM, Hypothyroidism, Rheumatoid arthritis, Chronic foot ulcers admitted for multiple foot/leg ulcers w/ foul odor drainage admitted for osteomyelitis. Patient is currently getting 4-6 weeks of IV antibiotics for osteomyelitis of multiple bones in the feet. Plan: 1) Multiple Foot Ulcers, Bilaterally - Wound probed to bone by Podiatry, strong suspicion for Osteomyelitis - Afebrile, No leukocytosis, +Bandemia 4, Lactate normal, ESR 120 - Podiatry consulted, Dr. Brown; recs appreciated; wound debrided on 09/09. - ID Consulted, Dr. Contreras; recommends 4-6 weeks of IV antibiotics ; awaiting intraop cultures- possible DC with PO antibiotics - Wound Care Nursing, tight glycemic control, offloading from ulcers - MRI LE from knee to ankle :showed no OM , no abscess - MRI: Left ankle MRI :showed suggestive pattern of OM at the calcaneus and is difficult to exclude at the remaining midfoot/hindfoot and right ankle bony elements. Unfortunately, widespread mottled/heterogeneous Marrow edema is appreciated not only involving the ankle but osseous elements of the midfoot and hindfoot also suspicious for osteomyelitis with differentiated diagnosis of RSD order other inflammatory causes. MRI right ankle :Indeterminate pattern of bony edema throughout the ankle and midfoot/hindfoot anatomy indicative of osteomyelitis particularly at the calcaneus adjacent to a soft tissue ulcer posteriorly. Abnormal Marrow signal throughout the entire midfoot and hindfoot including inferior tibia and possibly fibula may also reflect osteomyelitis though given its widespread pattern which includes various musculature as well, consider other inflammatory causes, reflex sympathetic dystrophy and other etiologies. Further clinical correlation is recommended. - MRI right foot :Nonspecific pattern of heterogeneous abnormal edema scattered throughout the midfoot and hindfoot bony anatomy as well as the 1st and 5th metatarsal bones and proximal phalanx right great toe. -MRI left foot :Indeterminate pattern of bony edema throughout the ankle and midfoot/hindfoot anatomy indicative of osteomyelitis particularly at the calcaneus adjacent to a soft tissue ulcer posteriorly. Abnormal Marrow signal throughout the entire midfoot and hindfoot including inferior tibia and possibly fibula may also reflect osteomyelitis though given its widespread pattern which includes various musculature as well, consider other inflammatory causes, reflex sympathetic dystrophy and other etiologies. - Duplex Vein no DVT -Arterial duplex: severely diseased b/l LE arterial system. - Vascular consulted; Dr Mcdermott. CT Angio ordered- no vascular intervention, all vessels patent - Wcx; citrobacter diversus, beta hemolytic strep group b; c/w vancomycin and ceftriaxone - Intra-op wound cx pending - PICC Line in place 2) CKD - Stable - Renal dose adjustments for nephrotoxic medication (check Vanco trough) -Vanc trough 28.5- vanc on hold 3) Hypothyroidism -TSH 5.47, T4 6.55 -C/W with home medication, Levothyroxine 100mg daily 4) Rheumatoid Arthritis -Pain controlled with Tylenol. Morphine 4 gm q6 pRN ordered for severe pain -Prior labs reviewed: +RF, +Anti CCP, + pANCa 5) Anemia -stable - Hgb 8.4 6) Poor mobility/Debilitation - OT for ADL's - PT ordered for gait/mobility/strength 7) DVT ppx -Lovenox 40mg SQ daily given CrCl >40 8) Cognitive impairment/depression - Psych consulted; appreciate recs;recommend starting remeron 7.5 mg qhs and referral to outpatient psychiatric services on discharge - Neuro consult ordered; appreciate recs 9) Constipation - controlled 10) Hypertension -c/w home medications Next of Kin (Niece): Danni <Karoline Rousseau - Last Filed: 09/12/18 19:09> Objective - Vital Signs/Intake and Output Vital Signs (last 24 hours): Temp Pulse Resp BP Pulse Ox 98.6 F 91 H 20 146/71 99 09/12/18 15:50 09/12/18 15:50 09/12/18 15:50 09/12/18 15:50 09/12/18 15:50 - Medications Medications: Current Medications Acetaminophen (Tylenol 325mg Tab) 650 mg PO Q6 PRN PRN Reason: Pain, Mild (1-3) Last Admin: 09/11/18 15:25 Dose: 650 mg Acetaminophen (Tylenol 325mg Tab) 650 mg PO Q6 PRN PRN Reason: Fever >100.4 F Amlodipine Besylate (Norvasc) 5 mg PO DAILY [facility] Last Admin: 09/12/18 08:25 Dose: 5 mg Aspirin (Aspirin Chewable) 81 mg PO DAILY [facility] Last Admin: 09/12/18 08:25 Dose: 81 mg Cyanocobalamin (Vitamin B12 1000 Mcg Tab) 1,000 mcg PO DAILY [facility] Last Admin: 09/12/18 08:28 Dose: 1,000 mcg Dextrose (Dextrose 50% Inj) 0 ml IV STAT PRN; Protocol PRN Reason: Hypoglycemia Protocol Dextrose (Glutose 15) 0 gm PO ONCE PRN; Protocol PRN Reason: Hypoglycemia Protocol Enoxaparin Sodium (Lovenox) 40 mg SC DAILY [facility]; Protocol Last Admin: 09/12/18 08:24 Dose: 40 mg Gabapentin (Neurontin) 400 mg PO HS [facility] Last Admin: 09/11/18 21:23 Dose: 400 mg Glucagon (Glucagen Diagnostic Kit) 0 mg IM STAT PRN; Protocol PRN Reason: Hypoglycemia Protocol Ceftriaxone Sodium 1 gm/ (Sodium Chloride) 100 mls @ 100 mls/hr IVPB DAILY [facility]; Protocol Last Admin: 09/12/18 08:23 Dose: 100 mls/hr Sodium Chloride (Sodium Chloride 0.9%) 1,000 mls @ 100 mls/hr IV .Q10H [facility] Last Admin: 09/12/18 11:41 Dose: 100 mls/hr Insulin Human Regular (Humulin R) 0 units SC ACHS [facility]; Protocol Last Admin: 09/12/18 16:44 Dose: 1 unit Levothyroxine Sodium (Synthroid) 100 mcg PO DAILY@0630 [facility] Last Admin: 09/12/18 07:11 Dose: 100 mcg Metoprolol Succinate (Toprol Xl) 100 mg PO DAILY [facility] Last Admin: 09/12/18 08:28 Dose: 100 mg Mirtazapine (Remeron) 7.5 mg PO HS [facility] Last Admin: 09/11/18 21:23 Dose: 7.5 mg Ondansetron HCl (Zofran Inj) 4 mg IVP Q6 PRN PRN Reason: Nausea/Vomiting Last Admin: 09/08/18 00:06 Dose: 4 mg Oxycodone/Acetaminophen (Percocet 5/325 Mg Tab) 1 tab PO Q4 PRN PRN Reason: Pain, moderate (4-7) Stop: 09/13/18 09:29 Last Admin: 09/10/18 14:07 Dose: 1 tab Oxycodone/Acetaminophen (Percocet 5/325 Mg Tab) 2 tab PO Q6 PRN PRN Reason: Pain, severe (8-10) Stop: 09/13/18 09:29 Pantoprazole Sodium (Protonix Ec Tab) 40 mg PO DAILY [facility] Last Admin: 09/12/18 08:25 Dose: 40 mg Silver Sulfadiazine (Silvadene 1% 20 Gm) 1 ea TOP DAILY [facility] Last Admin: 09/12/18 08:27 Dose: 1 applic Sodium Hypochlorite (Dakins Solution 0.125%) 1 appl EXT DAILY [facility] Last Admin: 09/12/18 08:26 Dose: 1 appl - Labs Labs: 09/12/18 08:30 09/12/18 08:30 PT 12.7 Seconds (9.8-13.1) 09/09/18 07:05 INR 1.1 09/09/18 07:05 APTT 28.1 Seconds (25.6-37.1) 09/09/18 07:05 Attending/Attestation - Attestation I have personally seen and examined this patient.: Yes I have fully participated in the care of the patient.: Yes I have reviewed all pertinent clinical information, including history, physical exam and plan: Yes Notes (Text): 09/12/18 19:09 Agree with findings and plan as above.
[2018-09-11] MEDS: Enoxaparin 40 mg Syringe SC SCH (09:39)
[2018-09-11] MEDS: Insulin Regular 100 units/ml SC SCH ×4 (09:39→21:22)
[2018-09-11] MEDS: Pantoprazole 40 mg EC Tab PO SCH (09:40)
[2018-09-11] MEDS: Silver Sulfadiazine 1% Cream (20 gm) TOP SCH (09:42)
[2018-09-11] MEDS: Metoprolol Succinate 100 mg XL Tab PO SCH (09:43)
--- NOTE | 2018-09-11 12:55 | CP.PCM.PN ---
Subjective - Date & Time of Evaluation Date of Evaluation: 09/11/18 Time of Evaluation: 12:53 - Subjective Subjective: Podiatry progress note - Dr. Brown 62 y/o F patient seen and evaluated at the bedside for b/l LE infected ulcerations with underlying osteomyelitis, 2 days S/P b/l Wound debridement. Patient states that her pain in her lower extremities at the ulcer site is less than before. As per Chart there was no overnight fevers, nausea, vomiting, cough,and shortness of breath. She denies any other pedal complaint at this time. Objective - Vital Signs/Intake and Output Vital Signs (last 24 hours): Temp Pulse Resp BP Pulse Ox 98 F 76 18 171/74 H 99 09/11/18 09:00 09/11/18 09:43 09/11/18 09:00 09/11/18 09:43 09/11/18 09:00 - Medications Medications: Current Medications Acetaminophen (Tylenol 325mg Tab) 650 mg PO Q6 PRN PRN Reason: Pain, Mild (1-3) Last Admin: 09/06/18 22:14 Dose: 650 mg Acetaminophen (Tylenol 325mg Tab) 650 mg PO Q6 PRN PRN Reason: Fever >100.4 F Amlodipine Besylate (Norvasc) 5 mg PO DAILY [facility] Last Admin: 09/11/18 09:40 Dose: 5 mg Aspirin (Aspirin Chewable) 81 mg PO DAILY [facility] Last Admin: 09/11/18 09:38 Dose: 81 mg Cyanocobalamin (Vitamin B12 1000 Mcg Tab) 1,000 mcg PO DAILY [facility] Last Admin: 09/11/18 09:43 Dose: 1,000 mcg Dextrose (Dextrose 50% Inj) 0 ml IV STAT PRN; Protocol PRN Reason: Hypoglycemia Protocol Dextrose (Glutose 15) 0 gm PO ONCE PRN; Protocol PRN Reason: Hypoglycemia Protocol Enoxaparin Sodium (Lovenox) 40 mg SC DAILY [facility]; Protocol Last Admin: 09/11/18 09:39 Dose: 40 mg Gabapentin (Neurontin) 400 mg PO HS [facility] Last Admin: 09/10/18 21:32 Dose: 400 mg Glucagon (Glucagen Diagnostic Kit) 0 mg IM STAT PRN; Protocol PRN Reason: Hypoglycemia Protocol Ceftriaxone Sodium 1 gm/ (Sodium Chloride) 100 mls @ 100 mls/hr IVPB DAILY [facility]; Protocol Last Admin: 09/11/18 09:41 Dose: 100 mls/hr Sodium Chloride (Sodium Chloride 0.9%) 1,000 mls @ 100 mls/hr IV .Q10H [facility] Last Admin: 09/11/18 04:32 Dose: 100 mls/hr Vancomycin HCl 1 gm/ Sodium (Chloride) 250 mls @ 166.667 mls/hr IVPB DAILY [facility]; Protocol Last Admin: 09/11/18 10:56 Dose: 166.667 mls/hr Insulin Human Regular (Humulin R) 0 units SC ACHS [facility]; Protocol Last Admin: 09/11/18 12:08 Dose: Not Given Levothyroxine Sodium (Synthroid) 100 mcg PO DAILY@0630 [facility] Last Admin: 09/11/18 06:19 Dose: 100 mcg Metoprolol Succinate (Toprol Xl) 100 mg PO DAILY [facility] Last Admin: 09/11/18 09:43 Dose: 100 mg Mirtazapine (Remeron) 7.5 mg PO HS [facility] Last Admin: 09/10/18 21:32 Dose: 7.5 mg Morphine Sulfate (Morphine) 1 mg IVP Q15M PRN PRN Reason: Pain, moderate (4-7) Last Admin: 09/09/18 12:55 Dose: 1 mg Ondansetron HCl (Zofran Inj) 4 mg IVP Q6 PRN PRN Reason: Nausea/Vomiting Last Admin: 09/08/18 00:06 Dose: 4 mg Oxycodone/Acetaminophen (Percocet 5/325 Mg Tab) 1 tab PO Q4 PRN PRN Reason: Pain, moderate (4-7) Stop: 09/13/18 09:29 Last Admin: 09/10/18 14:07 Dose: 1 tab Oxycodone/Acetaminophen (Percocet 5/325 Mg Tab) 2 tab PO Q6 PRN PRN Reason: Pain, severe (8-10) Stop: 09/13/18 09:29 Pantoprazole Sodium (Protonix Ec Tab) 40 mg PO DAILY [facility] Last Admin: 09/11/18 09:40 Dose: 40 mg Silver Sulfadiazine (Silvadene 1% 20 Gm) 1 ea TOP DAILY [facility] Last Admin: 09/11/18 09:42 Dose: 1 applic Sodium Hypochlorite (Dakins Solution 0.125%) 1 appl EXT DAILY [facility] Last Admin: 09/11/18 10:20 Dose: 1 appl - Labs Labs: 09/11/18 06:00 09/11/18 06:00 PT 12.7 Seconds (9.8-13.1) 09/09/18 07:05 INR 1.1 09/09/18 07:05 APTT 28.1 Seconds (25.6-37.1) 09/09/18 07:05 - Constitutional Appears: Non-toxic, No Acute Distress - Head Exam Head Exam: ATRAUMATIC, NORMOCEPHALIC - Extremities Exam Additional comments: B/L lower extremity focused exam: Vascular: DP/PT are 2/4 b/l, Cap refill < 3 seconds to all digits, Temp gradient warm to cool from proximal to distal, no edema appreciated to b/l extremities. Neuro: Gross sensation intact, protective sensation diminished. Derm: Left: An ulcer noted in the lateral aspect of the foot measuring 2 cm X 1.4 cm X 0.2 cm post debridement. Base is 90% granular, 10% fibrotic. Positive sanguineous drainage noted. No tracking, No undermining, No probe to bone. No delma-ulcerative erythema noted. Another ulcer noted in the left heel 4.3 cm X 2.5 cm X 0.4 cm post debridement. Base is 90% granular, 10% fibrotic. Positive sanguineous drainage noted. positive tracking, No undermining, Positive probe to bone. positive delma-ulcerative erythema noted. A third ulcer noted in the upper lateral aspect of the left leg measuring 1.5 cm X 1.2 cm X 0.1 cm post debridement. Base is 100% granular. Positive sanguineous drainage noted. No tracking, No undermining, Positive probe to bone. Delma-ulcerative erythema and induration noted. Right: ulcer noted in the left heel 3.9 cm X 2 cm X 0.4 cm post debridement. Base is 90% granular, 10% fibrotic. Positive sanguineous drainage noted. positive tracking, No undermining, Positive probe to bone. positive delma- ulcerative erythema noted. MSK: Muscle power 5/5 to all groups, Pain noted on palpating the delma- ulcerative areas - Neurological Exam Neurological Exam: Alert, Awake Assessment and Plan - Assessment and Plan (Free Text) Assessment: 62 y/o F patient seen and evaluated at the bedside for b/l LE infected ulcerations with underlying osteomyelitis. 2 day S/P b/l Wound debridement. Plan: -Patient seen and evaluated at the bedside. -Discussed in detail with Dr. Brown -Charts, labs and vitals reviewed; Afebrile, WBC 6.4 -Wound culture: Citrobacter diversus, Beta hemolytic strept group B -Intraoperative deep wound cultures: No growth (preliminary) -B/L foot x-ray: No evidence of OM -B/L ankle x-ray: Superficial ulcerations. -B/L tib/fibula x-ray: No acute findings. -LE CRISTIANE/PVR: Sever biateral LE arterial disease, distal abdominal aorta stenosis and or bilateral iliac stenosis not excluded. Concider follow up contrast CT angio of aorto-iliac system with bilateral LE runoff. -Left ankle MRI: Overall pattern is highly suggestive of osteomyelitis at the calcaneus and is difficult to exclude at the remaining midfoot/hindfoot and right ankle bony elements. Unfortunately, widespread mottled/heterogeneous Marrow edema is appreciated not only involving the ankle but osseous elements of the midfoot and hindfoot also suspicious for osteomyelitis with differentiated diagnosis of RSD order other inflammatory causes. Posttraumatic etiology is unlikely. Further clinical correlation is recommended. -Right ankle MRI: Indeterminate pattern of bony edema throughout the ankle and midfoot/hindfoot anatomy indicative of osteomyelitis particularly at the calc aneus adjacent to a soft tissue ulcer posteriorly. Abnormal Marrow signal throughout the entire midfoot and hindfoot including inferior tibia and possibly fibula may also reflect osteomyelitis though given its widespread pattern which includes various musculature as well, consider other inflammatory causes, reflex sympathetic dystrophy and other etiologies. Further clinical correlation is recommended. -Right foot MRI: Nonspecific pattern of heterogeneous abnormal edema scattered throughout the midfoot and hindfoot bony anatomy as well as the 1st and 5th metatarsal bones and proximal phalanx right great toe. For osteomyelitis or other inflammatory causes. Clinical correlation suggestive of OM. -Left foot MRI: Nonspecific heterogeneous pattern of edema primarily at the left midfoot and hindfoot bones as discussed above few cellulitis is appreciate primarily affecting midfoot and hindfoot distribution as well. The 2nd and 3rd digits are also affected at the pattern is nonspecific and could reflect osteomyelitis though other etiologies including RSD and other inflammatory causes are not excluded. Further clinical correlation suggestive of OM. -B/L Lower Extremity MRI: Edematous changes are seen in the Marrow of the osseous elements at the bilateral knee joints slightly greater the right than left. Osteomyelitis is not favored. Questionable ulcer distal posterior leg soft tissues. Mild bilateral lower extremity cellulitis. No definite abscess appreciated bilaterally. -Patient will got a PICC line yesterday for long course (4-6 weeks) of IV Abx. -ESR: >120, CRP: 167.60 -B/L LE venous duplex: No DVT, Right inguinal lymphadenopathy -Ordered Vascular consult; Reccs appreciated. -B/L ulcers cleaned with saline then dressed with SSD, Mepilex for the upper left leg wound and DSD and SSD for the rest of the ulcers. -Patient to stay in the multipodus boot while in bed. -Patient to bear weight as tolerated in the heel offloading shoe. -Ordered PT evaluation and treatment. -ID on board Reccs appreciated. -Patient to continue IV abx as per ID. -CT angio showed no significant stenosis or blockage. -Podiatry will continue to follow up the patient while in house.
[2018-09-11] MEDS ORDERED: Potassium Chloride 20 mEq/15 ml LIQ UD PO ONE (13:26)
--- NOTE | 2018-09-11 16:05 | CP.PCM.PN ---
Subjective - Date & Time of Evaluation Date of Evaluation: 09/11/18 Time of Evaluation: 16:04 - Subjective Subjective: Id note- Pt. seen and examined today. denies any fever or chills. case d/w podiatry resident and as per them the necrotic regions of the wound were debrided in OR the other day and clean base remains. Objective - Vital Signs/Intake and Output Vital Signs (last 24 hours): Temp Pulse Resp BP Pulse Ox 98 F 80 18 171/74 H 98 09/11/18 09:00 09/11/18 15:06 09/11/18 09:00 09/11/18 09:43 09/11/18 15:06 - Medications Medications: Current Medications Acetaminophen (Tylenol 325mg Tab) 650 mg PO Q6 PRN PRN Reason: Pain, Mild (1-3) Last Admin: 09/11/18 15:25 Dose: 650 mg Acetaminophen (Tylenol 325mg Tab) 650 mg PO Q6 PRN PRN Reason: Fever >100.4 F Amlodipine Besylate (Norvasc) 5 mg PO DAILY [facility] Last Admin: 09/11/18 09:40 Dose: 5 mg Aspirin (Aspirin Chewable) 81 mg PO DAILY [facility] Last Admin: 09/11/18 09:38 Dose: 81 mg Cyanocobalamin (Vitamin B12 1000 Mcg Tab) 1,000 mcg PO DAILY [facility] Last Admin: 09/11/18 09:43 Dose: 1,000 mcg Dextrose (Dextrose 50% Inj) 0 ml IV STAT PRN; Protocol PRN Reason: Hypoglycemia Protocol Dextrose (Glutose 15) 0 gm PO ONCE PRN; Protocol PRN Reason: Hypoglycemia Protocol Enoxaparin Sodium (Lovenox) 40 mg SC DAILY [facility]; Protocol Last Admin: 09/11/18 09:39 Dose: 40 mg Gabapentin (Neurontin) 400 mg PO HS [facility] Last Admin: 09/10/18 21:32 Dose: 400 mg Glucagon (Glucagen Diagnostic Kit) 0 mg IM STAT PRN; Protocol PRN Reason: Hypoglycemia Protocol Ceftriaxone Sodium 1 gm/ (Sodium Chloride) 100 mls @ 100 mls/hr IVPB DAILY [facility]; Protocol Last Admin: 09/11/18 09:41 Dose: 100 mls/hr Sodium Chloride (Sodium Chloride 0.9%) 1,000 mls @ 100 mls/hr IV .Q10H [facility] Last Admin: 09/11/18 04:32 Dose: 100 mls/hr Vancomycin HCl 1 gm/ Sodium (Chloride) 250 mls @ 166.667 mls/hr IVPB DAILY [facility]; Protocol Last Admin: 09/11/18 10:56 Dose: 166.667 mls/hr Insulin Human Regular (Humulin R) 0 units SC ACHS [facility]; Protocol Last Admin: 09/11/18 12:08 Dose: Not Given Levothyroxine Sodium (Synthroid) 100 mcg PO DAILY@0630 [facility] Last Admin: 09/11/18 06:19 Dose: 100 mcg Metoprolol Succinate (Toprol Xl) 100 mg PO DAILY [facility] Last Admin: 09/11/18 09:43 Dose: 100 mg Mirtazapine (Remeron) 7.5 mg PO HS [facility] Last Admin: 09/10/18 21:32 Dose: 7.5 mg Morphine Sulfate (Morphine) 1 mg IVP Q15M PRN PRN Reason: Pain, moderate (4-7) Last Admin: 09/09/18 12:55 Dose: 1 mg Ondansetron HCl (Zofran Inj) 4 mg IVP Q6 PRN PRN Reason: Nausea/Vomiting Last Admin: 09/08/18 00:06 Dose: 4 mg Oxycodone/Acetaminophen (Percocet 5/325 Mg Tab) 1 tab PO Q4 PRN PRN Reason: Pain, moderate (4-7) Stop: 09/13/18 09:29 Last Admin: 09/10/18 14:07 Dose: 1 tab Oxycodone/Acetaminophen (Percocet 5/325 Mg Tab) 2 tab PO Q6 PRN PRN Reason: Pain, severe (8-10) Stop: 09/13/18 09:29 Pantoprazole Sodium (Protonix Ec Tab) 40 mg PO DAILY [facility] Last Admin: 09/11/18 09:40 Dose: 40 mg Silver Sulfadiazine (Silvadene 1% 20 Gm) 1 ea TOP DAILY [facility] Last Admin: 09/11/18 09:42 Dose: 1 applic Sodium Hypochlorite (Dakins Solution 0.125%) 1 appl EXT DAILY [facility] Last Admin: 09/11/18 10:20 Dose: 1 appl - Labs Labs: - Additional Findings Additional findings: - Constitutional Appears: No Acute Distress - Eye Exam Eye Exam: EOMI - ENT Exam ENT Exam: Normal Oropharynx - Neck Exam Neck exam: Positive for: Full Rom - Respiratory Exam Respiratory Exam: Clear to Auscultation Bilateral, NORMAL BREATHING PATTERN - Cardiovascular Exam Cardiovascular Exam: RRR, +S1, +S2 - GI/Abdominal Exam GI & Abdominal Exam: Normal Bowel Sounds, Soft Additional comments: NT, ND - Extremities Exam Additional comments: left lateral below knee wound , no necrosis, no pus, only mild sangionous discharge left lateral ankle with 2 round ulcerated lesions without any malodor right heel region with larger ulcer witout any pus no erythema of the surrounding skin - Neurological Exam Neurological exam: Alert Additional comments: AAO x 3 Laboratory Results - last 72 hr 09/08/18 09/08/18 09/09/18 16:05 20:56 05:48 WBC RBC Hgb Hct MCV MCH MCHC RDW Plt Count PT INR APTT Sodium Potassium Chloride Carbon Dioxide Anion Gap BUN Creatinine Est GFR ( Amer) Est GFR (Non-Af Amer) POC Glucose (mg/dL) 111 H 105 87 Random Glucose Calcium Total Bilirubin AST ALT Alkaline Phosphatase Total Protein Albumin Globulin Albumin/Globulin Ratio Stool Occult Blood Vancomycin Trough C. difficile Ag & Toxin 09/09/18 09/09/18 09/09/18 06:25 06:25 06:25 WBC 6.4 RBC 3.28 L Hgb 8.6 L Hct 26.6 L MCV 81.2 MCH 26.3 L MCHC 32.4 L RDW 15.6 H Plt Count 278 PT INR APTT Sodium 137 Potassium 3.8 Chloride 103 Carbon Dioxide 29 Anion Gap 9 L BUN 17 Creatinine 1.5 H Est GFR ( Amer) 42 Est GFR (Non-Af Amer) 35 POC Glucose (mg/dL) Random Glucose 89 Calcium 9.2 Total Bilirubin 0.2 AST 24 ALT 15 Alkaline Phosphatase 77 Total Protein 6.5 Albumin 2.8 L Globulin 3.7 Albumin/Globulin Ratio 0.8 L Stool Occult Blood Vancomycin Trough 24.5 H C. difficile Ag & Toxin 09/09/18 09/09/18 09/09/18 07:05 11:17 12:35 WBC RBC Hgb Hct MCV MCH MCHC RDW Plt Count PT 12.7 INR 1.1 APTT 28.1 Sodium Potassium Chloride Carbon Dioxide Anion Gap BUN Creatinine Est GFR ( Amer) Est GFR (Non-Af Amer) POC Glucose (mg/dL) 79 81 Random Glucose Calcium Total Bilirubin AST ALT Alkaline Phosphatase Total Protein Albumin Globulin Albumin/Globulin Ratio Stool Occult Blood Vancomycin Trough C. difficile Ag & Toxin 09/09/18 09/09/18 09/09/18 15:07 15:52 20:50 WBC RBC Hgb 9.8 L Hct 30.2 L MCV MCH MCHC RDW Plt Count PT INR APTT Sodium Potassium Chloride Carbon Dioxide Anion Gap BUN Creatinine Est GFR ( Amer) Est GFR (Non-Af Amer) POC Glucose (mg/dL) 80 93 Random Glucose Calcium Total Bilirubin AST ALT Alkaline Phosphatase Total Protein Albumin Globulin Albumin/Globulin Ratio Stool Occult Blood Vancomycin Trough C. difficile Ag & Toxin 09/10/18 09/10/18 09/10/18 05:16 06:00 06:00 WBC 6.4 RBC 3.14 L Hgb 8.4 L Hct 25.6 L MCV 81.6 MCH 26.7 L MCHC 32.7 L RDW 15.6 H Plt Count 297 PT INR APTT Sodium 137 Potassium 3.4 L Chloride 104 Carbon Dioxide 26 Anion Gap 10 BUN 18 H Creatinine 1.3 H Est GFR ( Amer) 50 Est GFR (Non-Af Amer) 41 POC Glucose (mg/dL) 115 H Random Glucose 103 Calcium 8.8 Total Bilirubin 0.2 AST 23 ALT 12 Alkaline Phosphatase 71 Total Protein 6.3 Albumin 2.7 L Globulin 3.6 Albumin/Globulin Ratio 0.7 L Stool Occult Blood Vancomycin Trough C. difficile Ag & Toxin 09/10/18 09/10/18 09/10/18 06:00 11:07 15:59 WBC RBC Hgb Hct MCV MCH MCHC RDW Plt Count PT INR APTT Sodium Potassium Chloride Carbon Dioxide Anion Gap BUN Creatinine Est GFR ( Amer) Est GFR (Non-Af Amer) POC Glucose (mg/dL) 150 H 197 H Random Glucose Calcium Total Bilirubin AST ALT Alkaline Phosphatase Total Protein Albumin Globulin Albumin/Globulin Ratio Stool Occult Blood Vancomycin Trough 28.5 H C. difficile Ag & Toxin 09/10/18 09/10/18 09/10/18 16:00 16:00 21:26 WBC RBC Hgb Hct MCV MCH MCHC RDW Plt Count PT INR APTT Sodium Potassium Chloride Carbon Dioxide Anion Gap BUN Creatinine Est GFR ( Amer) Est GFR (Non-Af Amer) POC Glucose (mg/dL) 193 H Random Glucose Calcium Total Bilirubin AST ALT Alkaline Phosphatase Total Protein Albumin Globulin Albumin/Globulin Ratio Stool Occult Blood Negative Vancomycin Trough C. difficile Ag & Toxin Negative 09/11/18 09/11/18 09/11/18 05:01 05:21 06:00 WBC 6.4 RBC 3.24 L Hgb 8.8 L Hct 26.3 L MCV 81.1 MCH 27.2 MCHC 33.5 RDW 15.6 H Plt Count 296 PT INR APTT Sodium Potassium Chloride Carbon Dioxide Anion Gap BUN Creatinine Est GFR ( Amer) Est GFR (Non-Af Amer) POC Glucose (mg/dL) 74 71 Random Glucose Calcium Total Bilirubin AST ALT Alkaline Phosphatase Total Protein Albumin Globulin Albumin/Globulin Ratio Stool Occult Blood Vancomycin Trough C. difficile Ag & Toxin 09/11/18 09/11/18 09/11/18 06:00 06:27 10:42 WBC RBC Hgb Hct MCV MCH MCHC RDW Plt Count PT INR APTT Sodium 139 Potassium 3.4 L Chloride 109 H Carbon Dioxide 24 Anion Gap 9 L BUN 15 Creatinine 1.2 Est GFR ( Amer) 55 Est GFR (Non-Af Amer) 45 POC Glucose (mg/dL) 94 97 Random Glucose 96 Calcium 8.6 Total Bilirubin < 0.1 L AST 34 ALT 22 Alkaline Phosphatase 87 Total Protein 6.1 L Albumin 2.5 L Globulin 3.6 Albumin/Globulin Ratio 0.7 L Stool Occult Blood Vancomycin Trough C. difficile Ag & Toxin Microbiology 09/09/18 14:00 Foot - Left Gram Stain - Final 09/09/18 14:00 Foot - Left Wound Culture - Preliminary No growth. 08/31/18 15:30 Blood Blood Culture - Final NO GROWTH AFTER 5 DAYS 08/31/18 15:30 Blood Gram Stain - Final TEST NOT PERFORMED 08/31/18 15:45 Blood Blood Culture - Final NO GROWTH AFTER 5 DAYS 08/31/18 15:45 Blood Gram Stain - Final TEST NOT PERFORMED 08/31/18 15:36 Drainage Gram Stain - Final 08/31/18 15:36 Drainage Wound Culture - Final Citrobacter Diversus 08/31/18 16:00 Foot - Left Gram Stain - Final 08/31/18 16:00 Foot - Left Wound Culture - Final Citrobacter Diversus Beta Hemolytic Strep Group B 09/01/18 18:00 Leg - Left Gram Stain - Final 09/01/18 18:00 Leg - Left Wound Culture - Final Citrobacter Diversus Beta Hemolytic Strep Group B 09/01/18 14:45 Urine Random Urine Culture - Final No Growth (<1,000 CFU/ML) Assessment and Plan (1) Leg ulcer Status: Acute (2) Wound infection Status: Acute (3) Diabetes mellitus type 2 in nonobese Status: Acute (4) Osteomyelitis Status: Acute - Assessment and Plan (Free Text) Assessment: A/P- 62 year old female with multiple medical conditions and chronic foot and ankle ulcers admitted with infection of these ulcers . s/p debridement of the necrotic ulcers by podiatry afebrile normal wbc High ESR MRI report as per radiology b/l ankle bone OM and right heel OM. blood cx- neg x 2 wound cx- citrobacter and strep group b left leg cx- citrobacter and beta hemolytic strep Plan- continue pt. on ceftriaoxne 1 gram daily. day #9 continue with IV vanco, keep trough <15. day #11 await Or wound cx results. advise total of 4 weeks of antibiotics, can be switched to oral antibiotics after 2 weeks of Iv Antibiotic therapy, if IV antibiotics can't be provided at home or if pt. can't go to [facility]. choice of po antibiotics cipro for the citrobacter and ampicillin for the hemolytic strep . wound care as per podiatry. all above d/w patient and with podiatry resident as well.
[2018-09-12] MEDS: Sodium Chloride 0.9% 1,000 ML IV SCH ×2 (03:21→11:41)
[2018-09-12] MEDS: Levothyroxine 100 MCG TAB PO SCH (07:11)
--- NOTE | 2018-09-12 07:16 | CP.PCM.PN ---
Subjective - Date & Time of Evaluation Date of Evaluation: 09/12/18 Time of Evaluation: 08:24 - Subjective Subjective: Podiatry progress note - Dr. Brown 62 y/o F patient seen and evaluated at the bedside for b/l LE infected ulcerations with underlying osteomyelitis, 3 days S/P b/l Wound debridement. Patient lethargic, not answering questions, however complaining of pain with movement. As per Chart no overnight fevers, nausea, vomiting, cough, and shortness of breath. Objective - Vital Signs/Intake and Output Vital Signs (last 24 hours): Temp Pulse Resp BP Pulse Ox 98.2 F 84 20 148/71 99 09/11/18 17:00 09/11/18 17:00 09/11/18 17:00 09/11/18 17:00 09/11/18 17:00 - Medications Medications: Current Medications Acetaminophen (Tylenol 325mg Tab) 650 mg PO Q6 PRN PRN Reason: Pain, Mild (1-3) Last Admin: 09/11/18 15:25 Dose: 650 mg Acetaminophen (Tylenol 325mg Tab) 650 mg PO Q6 PRN PRN Reason: Fever >100.4 F Amlodipine Besylate (Norvasc) 5 mg PO DAILY [facility] Last Admin: 09/11/18 09:40 Dose: 5 mg Aspirin (Aspirin Chewable) 81 mg PO DAILY [facility] Last Admin: 09/11/18 09:38 Dose: 81 mg Cyanocobalamin (Vitamin B12 1000 Mcg Tab) 1,000 mcg PO DAILY [facility] Last Admin: 09/11/18 09:43 Dose: 1,000 mcg Dextrose (Dextrose 50% Inj) 0 ml IV STAT PRN; Protocol PRN Reason: Hypoglycemia Protocol Dextrose (Glutose 15) 0 gm PO ONCE PRN; Protocol PRN Reason: Hypoglycemia Protocol Enoxaparin Sodium (Lovenox) 40 mg SC DAILY [facility]; Protocol Last Admin: 09/11/18 09:39 Dose: 40 mg Gabapentin (Neurontin) 400 mg PO HS [facility] Last Admin: 09/11/18 21:23 Dose: 400 mg Glucagon (Glucagen Diagnostic Kit) 0 mg IM STAT PRN; Protocol PRN Reason: Hypoglycemia Protocol Ceftriaxone Sodium 1 gm/ (Sodium Chloride) 100 mls @ 100 mls/hr IVPB DAILY [facility]; Protocol Last Admin: 09/11/18 09:41 Dose: 100 mls/hr Sodium Chloride (Sodium Chloride 0.9%) 1,000 mls @ 100 mls/hr IV .Q10H [facility] Last Admin: 09/12/18 03:21 Dose: 100 mls/hr Insulin Human Regular (Humulin R) 0 units SC ACHS [facility]; Protocol Last Admin: 09/11/18 21:22 Dose: Not Given Levothyroxine Sodium (Synthroid) 100 mcg PO DAILY@0630 [facility] Last Admin: 09/12/18 07:11 Dose: 100 mcg Metoprolol Succinate (Toprol Xl) 100 mg PO DAILY [facility] Last Admin: 09/11/18 09:43 Dose: 100 mg Mirtazapine (Remeron) 7.5 mg PO HS [facility] Last Admin: 09/11/18 21:23 Dose: 7.5 mg Morphine Sulfate (Morphine) 1 mg IVP Q15M PRN PRN Reason: Pain, moderate (4-7) Last Admin: 09/09/18 12:55 Dose: 1 mg Ondansetron HCl (Zofran Inj) 4 mg IVP Q6 PRN PRN Reason: Nausea/Vomiting Last Admin: 09/08/18 00:06 Dose: 4 mg Oxycodone/Acetaminophen (Percocet 5/325 Mg Tab) 1 tab PO Q4 PRN PRN Reason: Pain, moderate (4-7) Stop: 09/13/18 09:29 Last Admin: 09/10/18 14:07 Dose: 1 tab Oxycodone/Acetaminophen (Percocet 5/325 Mg Tab) 2 tab PO Q6 PRN PRN Reason: Pain, severe (8-10) Stop: 09/13/18 09:29 Pantoprazole Sodium (Protonix Ec Tab) 40 mg PO DAILY [facility] Last Admin: 09/11/18 09:40 Dose: 40 mg Silver Sulfadiazine (Silvadene 1% 20 Gm) 1 ea TOP DAILY [facility] Last Admin: 09/11/18 09:42 Dose: 1 applic Sodium Hypochlorite (Dakins Solution 0.125%) 1 appl EXT DAILY [facility] Last Admin: 09/11/18 10:20 Dose: 1 appl - Labs Labs: 09/11/18 06:00 09/11/18 06:00 PT 12.7 Seconds (9.8-13.1) 09/09/18 07:05 INR 1.1 09/09/18 07:05 APTT 28.1 Seconds (25.6-37.1) 09/09/18 07:05 - Constitutional Appears: Well, Non-toxic, No Acute Distress - Head Exam Head Exam: ATRAUMATIC, NORMOCEPHALIC - Extremities Exam Additional comments: B/L lower extremity focused exam: Vascular: DP/PT are 2/4 b/l, Cap refill < 3 seconds to all digits, Temp gradient warm to cool from proximal to distal, no edema appreciated to b/l extremities. Neuro: Gross sensation intact, protective sensation diminished. Derm: Left: An ulcer noted in the lateral aspect of the foot measuring 2 cm X 1.4 cm X 0.2 cm post debridement. Base is 90% granular, 10% fibrotic. Positive sanguineous drainage noted. No tracking, No undermining, No probe to bone. No delma-ulcerative erythema noted. Another ulcer noted in the left heel 4.3 cm X 2.5 cm X 0.4 cm post debridement. Base is 90% granular, 10% fibrotic. Positive sanguineous drainage noted. positive tracking, No undermining, Positive probe to bone. positive delma-ulcerative erythema noted. A third ulcer noted in the upper lateral aspect of the left leg measuring 1.5 cm X 1.2 cm X 0.1 cm post debridement. Base is 100% granular. Positive sanguineous drainage noted. No tracking, No undermining, Positive probe to bone. Delma-ulcerative erythema and induration noted. Right: ulcer noted in the left heel 3.9 cm X 2 cm X 0.4 cm post debridement. Base is 90% granular, 10% fibrotic. Positive sanguineous drainage noted. positive tracking, No undermining, Positive probe to bone. positive delma- ulcerative erythema noted. MSK: Muscle power 5/5 to all groups, Pain noted on palpating the delma- ulcerative areas - Neurological Exam Neurological Exam: Alert, Awake, Oriented x3 - Psychiatric Exam Psychiatric exam: Normal Affect, Normal Mood Assessment and Plan - Assessment and Plan (Free Text) Assessment: 62 y/o F patient seen and evaluated at the bedside for b/l LE infected ulcerations with underlying osteomyelitis, 3 days S/P Wound debridement. Plan: Patient seen and evaluated at the bedside. Discussed in detail with Dr. Brown Charts, labs and vitals reviewed; Afebrile, WBC 6.4 ESR: >120, CRP: 167.60 Wound culture: Citrobacter diversus, Beta hemolytic strept group B B/L foot/ankle/tib/fib x-ray: No evidence of OM LE CRISTIANE/PVR: Sever biateral LE arterial disease, distal abdominal aorta stenosis and or bilateral iliac stenosis not excluded. Concider follow up contrast CT angio of aorto-iliac system with bilateral LE runoff Left ankle MRI: Overall pattern is highly suggestive of osteomyelitis at the calcaneus and is difficult to exclude at the remaining midfoot/hindfoot and right ankle bony elements. Unfortunately, widespread mottled/heterogeneous Marrow edema is appreciated not only involving the ankle but osseous elements of the midfoot and hindfoot also suspicious for osteomyelitis with differentiated diagnosis of RSD order other inflammatory causes. Posttraumatic etiology is unlikely. Further clinical correlation is recommended Right ankle MRI: Indeterminate pattern of bony edema throughout the ankle and midfoot/hindfoot anatomy indicative of osteomyelitis particularly at the calcaneus adjacent to a soft tissue ulcer posteriorly. Abnormal Marrow signal throughout the entire midfoot and hindfoot including inferior tibia and possibly fibula may also reflect osteomyelitis though given its widespread pattern which includes various musculature as well, consider other inflammatory causes, reflex sympathetic dystrophy and other etiologies. Further clinical correlation is recommended Right foot MRI: Nonspecific pattern of heterogeneous abnormal edema scattered throughout the midfoot and hindfoot bony anatomy as well as the 1st and 5th metatarsal bones and proximal phalanx right great toe. For osteomyelitis or other inflammatory causes. Clinical correlation suggestive of OM. Left foot MRI: Nonspecific heterogeneous pattern of edema primarily at the left midfoot and hindfoot bones as discussed above few cellulitis is appreciate primarily affecting midfoot and hindfoot distribution as well. The 2nd and 3rd digits are also affected at the pattern is nonspecific and could reflect osteomyelitis though other etiologies including RSD and other inflammatory causes are not excluded. Further clinical correlation suggestive of OM B/L Lower Extremity MRI: Edematous changes are seen in the Marrow of the osseous elements at the bilateral knee joints slightly greater the right than left. Osteomyelitis is not favored. Questionable ulcer distal posterior leg soft tissues. Mild bilateral lower extremity cellulitis. No definite abscess appreciated bilaterally CT angio showed no significant stenosis or blockage B/L LE venous duplex: No DVT, Right inguinal lymphadenopathy Patient received PICC line yesterday for senior care course (4-6 weeks) of IV Abx Vascular consult: Reccs appreciated B/L ulcers cleaned with saline then dressed with SSD, Mepilex for the upper left leg wound and DSD and SSD Patient to stay in the multipodus boot while in bed. Patient to bear weight as tolerated in the heel offloading shoe. Continue Physical therapy ID on board Reccs appreciated. Patient to continue IV abx as per ID. Intraoperative deep wound cultures: No growth (preliminary) Podiatry will continue to follow up the patient while in house
[2018-09-12] MEDS: Insulin Regular 100 units/ml SC SCH ×4 (07:34→21:16)
[2018-09-12] MEDS: Enoxaparin 40 mg Syringe SC SCH (08:24)
[2018-09-12] MEDS: Pantoprazole 40 mg EC Tab PO SCH (08:25)
[2018-09-12] MEDS: Silver Sulfadiazine 1% Cream (20 gm) TOP SCH (08:27)
[2018-09-12] MEDS: Metoprolol Succinate 100 mg XL Tab PO SCH (08:28)
[2018-09-12 09:24] LABS: HEMOGLOBIN 8.8 g/dL (12.0-16.0); MEAN CELL VOLUME 80.8 fl (81.0-99.0); MEAN CORPUSCULAR HEMOGLOBIN 26.3 pg (27.0-31.0); MEAN CORPUSCULAR HGB CONC 32.6 g/dL (33.0-37.0); RBC 3.34 Mil/uL (3.80-5.20); RED CELL DISTRIBUTION WIDTH 15.9 % (11.5-14.5); WHITE BLOOD COUNT 5.9 K/uL (4.8-10.8)
[2018-09-12 09:39] LABS: ALB/GLOB RATIO 0.6 (1.0-2.1); ALBUMIN 2.4 g/dL (3.5-5.0); ALT/SGPT 28 U/L (9-52); AST/SGOT 40 U/L (14-36); BLOOD UREA NITROGEN 15 mg/dl (7-17); GFR NON-AFRICAN AMERICAN 28
--- NOTE | 2018-09-12 11:04 | CP.PCM.PN ---
<Margaret oHpe - Last Filed: 09/12/18 11:23> Subjective - Date & Time of Evaluation Date of Evaluation: 09/12/18 Time of Evaluation: 09:15 - Subjective Subjective: 62 yo female patient seen and evaluated at bedside s/p b/l foot wound debridement, day 3. Patient admits to mild pain to both feet when palpated however endorses is controlled with pain medications. No acute overnight events. Denies fever, nausea, chills, abd or CP. Objective - Vital Signs/Intake and Output Vital Signs (last 24 hours): Temp Pulse Resp BP Pulse Ox 97.8 F 80 20 136/74 100 09/12/18 08:05 09/12/18 08:05 09/12/18 08:05 09/12/18 08:05 09/12/18 08:05 - Medications Medications: Current Medications Acetaminophen (Tylenol 325mg Tab) 650 mg PO Q6 PRN PRN Reason: Pain, Mild (1-3) Last Admin: 09/11/18 15:25 Dose: 650 mg Acetaminophen (Tylenol 325mg Tab) 650 mg PO Q6 PRN PRN Reason: Fever >100.4 F Amlodipine Besylate (Norvasc) 5 mg PO DAILY [facility] Last Admin: 09/12/18 08:25 Dose: 5 mg Aspirin (Aspirin Chewable) 81 mg PO DAILY [facility] Last Admin: 09/12/18 08:25 Dose: 81 mg Cyanocobalamin (Vitamin B12 1000 Mcg Tab) 1,000 mcg PO DAILY [facility] Last Admin: 09/12/18 08:28 Dose: 1,000 mcg Dextrose (Dextrose 50% Inj) 0 ml IV STAT PRN; Protocol PRN Reason: Hypoglycemia Protocol Dextrose (Glutose 15) 0 gm PO ONCE PRN; Protocol PRN Reason: Hypoglycemia Protocol Enoxaparin Sodium (Lovenox) 40 mg SC DAILY [facility]; Protocol Last Admin: 09/12/18 08:24 Dose: 40 mg Gabapentin (Neurontin) 400 mg PO HS [facility] Last Admin: 09/11/18 21:23 Dose: 400 mg Glucagon (Glucagen Diagnostic Kit) 0 mg IM STAT PRN; Protocol PRN Reason: Hypoglycemia Protocol Ceftriaxone Sodium 1 gm/ (Sodium Chloride) 100 mls @ 100 mls/hr IVPB DAILY [facility]; Protocol Last Admin: 09/12/18 08:23 Dose: 100 mls/hr Sodium Chloride (Sodium Chloride 0.9%) 1,000 mls @ 100 mls/hr IV .Q10H [facility] Last Admin: 09/12/18 03:21 Dose: 100 mls/hr Insulin Human Regular (Humulin R) 0 units SC ACHS [facility]; Protocol Last Admin: 09/12/18 07:34 Dose: Not Given Levothyroxine Sodium (Synthroid) 100 mcg PO DAILY@0630 [facility] Last Admin: 09/12/18 07:11 Dose: 100 mcg Metoprolol Succinate (Toprol Xl) 100 mg PO DAILY [facility] Last Admin: 09/12/18 08:28 Dose: 100 mg Mirtazapine (Remeron) 7.5 mg PO HS [facility] Last Admin: 09/11/18 21:23 Dose: 7.5 mg Morphine Sulfate (Morphine) 1 mg IVP Q15M PRN PRN Reason: Pain, moderate (4-7) Last Admin: 09/09/18 12:55 Dose: 1 mg Ondansetron HCl (Zofran Inj) 4 mg IVP Q6 PRN PRN Reason: Nausea/Vomiting Last Admin: 09/08/18 00:06 Dose: 4 mg Oxycodone/Acetaminophen (Percocet 5/325 Mg Tab) 1 tab PO Q4 PRN PRN Reason: Pain, moderate (4-7) Stop: 09/13/18 09:29 Last Admin: 09/10/18 14:07 Dose: 1 tab Oxycodone/Acetaminophen (Percocet 5/325 Mg Tab) 2 tab PO Q6 PRN PRN Reason: Pain, severe (8-10) Stop: 09/13/18 09:29 Pantoprazole Sodium (Protonix Ec Tab) 40 mg PO DAILY [facility] Last Admin: 09/12/18 08:25 Dose: 40 mg Silver Sulfadiazine (Silvadene 1% 20 Gm) 1 ea TOP DAILY [facility] Last Admin: 09/12/18 08:27 Dose: 1 applic Sodium Hypochlorite (Dakins Solution 0.125%) 1 appl EXT DAILY [facility] Last Admin: 09/12/18 08:26 Dose: 1 appl - Labs Labs: 09/12/18 08:30 09/12/18 08:30 PT 12.7 Seconds (9.8-13.1) 09/09/18 07:05 INR 1.1 09/09/18 07:05 APTT 28.1 Seconds (25.6-37.1) 09/09/18 07:05 - Constitutional Appears: No Acute Distress, Other (Sleepy) - Head Exam Head Exam: NORMAL INSPECTION - Eye Exam Eye Exam: EOMI, PERRL - Respiratory Exam Respiratory Exam: Clear to Ausculation Bilateral, NORMAL BREATHING PATTERN - Cardiovascular Exam Cardiovascular Exam: REGULAR RHYTHM, +S1, +S2 - GI/Abdominal Exam GI & Abdominal Exam: Soft, Normal Bowel Sounds. absent: Distended, Tenderness - Extremities Exam Extremities Exam: absent: Calf Tenderness Additional comments: Clean dressing noted b/l foot. Able to move toes w/o pain or difficulty. - Neurological Exam Neurological Exam: Alert, Awake, Oriented x3 - Skin Skin Exam: Dry, Warm Assessment and Plan - Assessment and Plan (Free Text) Assessment: Pt is a 62 y/o female with hx of HTN, DM, Hypothyroidism, Rheumatoid arthritis, Chronic foot ulcers admitted for multiple foot/leg ulcers w/ foul odor drainage admitted for osteomyelitis. Patient is currently getting 4-6 weeks of IV a ntibiotics for osteomyelitis of multiple bones in the feet. Plan: 1) Multiple Foot Ulcers, Bilaterally - s/p wound debriment day 3 - Podiatry on board - Afebrile, No leukocytosis, +Bandemia 4, Lactate normal, ESR 120 - ID Consulted, Dr. Contreras; recommends 4-6 weeks of IV antibiotics - awaiting intraop cultures- possible DC with PO antibiotics - Wound Care Nursing, tight glycemic control, offloading from ulcers - MRI LE from knee to ankle :showed no OM , no abscess - MRI: Left ankle MRI :showed suggestive pattern of OM at the calcaneus and is difficult to exclude at the remaining midfoot/hindfoot and right ankle bony elements. Also suspicious for osteomyelitis with differentiated diagnosis of RSD order other inflammatory causes. MRI right ankle :Indeterminate pattern of bony edema throughout the ankle and midfoot/hindfoot anatomy indicative of osteomyelitis particularly at the calcaneus adjacent to a soft tissue ulcer posteriorly. Abnormal Marrow signal throughout the entire midfoot and hindfoot including inferior tibia and possibly fibula may also reflect osteomyelitis though given its widespread pattern which includes various musculature as well, consider other inflammatory causes, reflex sympathetic dystrophy and other etiologies. Further clinical correlation is recommended. - MRI right foot :Nonspecific pattern of heterogeneous abnormal edema scattered throughout the midfoot and hindfoot bony anatomy as well as the 1st and 5th metatarsal bones and proximal phalanx right great toe. -MRI left foot :Indeterminate pattern of bony edema throughout the ankle and midfoot/hindfoot anatomy indicative of osteomyelitis particularly at the calcaneus adjacent to a soft tissue ulcer posteriorly. Abnormal Marrow signal throughout the entire midfoot and hindfoot including inferior tibia and possibly fibula may also reflect osteomyelitis though given its widespread pattern which includes various musculature as well, consider other inflammatory causes, reflex sympathetic dystrophy and other etiologies. - Duplex Vein no DVT - Arterial duplex: severely diseased b/l LE arterial system. - Vascular consulted; Dr Mcdermott. CT Angio ordered- no vascular intervention, all vessels patent - Wcx; citrobacter diversus, beta hemolytic strep group b; c/w vancomycin and ceftriaxone - Intra-op wound cx pending - PICC Line in place 2) CKD - Stable - Renal dose adjustments for nephrotoxic medication (check Vanco trough) - Vanc trough 28.5- vanc on hold, keep trough <15 3) Hypothyroidism -TSH 5.47, T4 6.55 -C/W with home medication, Levothyroxine 100mg daily 4) Rheumatoid Arthritis -Pain controlled with Tylenol. Morphine 4 gm q6 pRN ordered for severe pain -Prior labs reviewed: +RF, +Anti CCP, + pANCa 5) Anemia - stable - Hgb 8.8 - no signs of active bleeding 6) Poor mobility/Debilitation - OT for ADL's - PT ordered for gait/mobility/strength 7) DVT ppx -Lovenox 40mg SQ daily given CrCl >40 8) Cognitive impairment/depression - Psych consulted; appreciate recs;recommend starting remeron 7.5 mg qhs and r eferral to outpatient psychiatric services on discharge - Neuro consult ordered; appreciate recs 9) Constipation - controlled 10) Hypertension -c/w home medications Case discussed with Dr Soham Natarajan PGY 2 <Karoline Rousseau - Last Filed: 09/12/18 19:06> Objective - Vital Signs/Intake and Output Vital Signs (last 24 hours): Temp Pulse Resp BP Pulse Ox 98.6 F 91 H 20 146/71 99 09/12/18 15:50 09/12/18 15:50 09/12/18 15:50 09/12/18 15:50 09/12/18 15:50 - Medications Medications: Current Medications Acetaminophen (Tylenol 325mg Tab) 650 mg PO Q6 PRN PRN Reason: Pain, Mild (1-3) Last Admin: 09/11/18 15:25 Dose: 650 mg Acetaminophen (Tylenol 325mg Tab) 650 mg PO Q6 PRN PRN Reason: Fever >100.4 F Amlodipine Besylate (Norvasc) 5 mg PO DAILY [facility] Last Admin: 09/12/18 08:25 Dose: 5 mg Aspirin (Aspirin Chewable) 81 mg PO DAILY [facility] Last Admin: 09/12/18 08:25 Dose: 81 mg Cyanocobalamin (Vitamin B12 1000 Mcg Tab) 1,000 mcg PO DAILY [facility] Last Admin: 09/12/18 08:28 Dose: 1,000 mcg Dextrose (Dextrose 50% Inj) 0 ml IV STAT PRN; Protocol PRN Reason: Hypoglycemia Protocol Dextrose (Glutose 15) 0 gm PO ONCE PRN; Protocol PRN Reason: Hypoglycemia Protocol Enoxaparin Sodium (Lovenox) 40 mg SC DAILY [facility]; Protocol Last Admin: 09/12/18 08:24 Dose: 40 mg Gabapentin (Neurontin) 400 mg PO HS [facility] Last Admin: 09/11/18 21:23 Dose: 400 mg Glucagon (Glucagen Diagnostic Kit) 0 mg IM STAT PRN; Protocol PRN Reason: Hypoglycemia Protocol Ceftriaxone Sodium 1 gm/ (Sodium Chloride) 100 mls @ 100 mls/hr IVPB DAILY [facility]; Protocol Last Admin: 09/12/18 08:23 Dose: 100 mls/hr Sodium Chloride (Sodium Chloride 0.9%) 1,000 mls @ 100 mls/hr IV .Q10H [facility] Last Admin: 09/12/18 11:41 Dose: 100 mls/hr Insulin Human Regular (Humulin R) 0 units SC ACHS [facility]; Protocol Last Admin: 09/12/18 16:44 Dose: 1 unit Levothyroxine Sodium (Synthroid) 100 mcg PO DAILY@0630 [facility] Last Admin: 09/12/18 07:11 Dose: 100 mcg Metoprolol Succinate (Toprol Xl) 100 mg PO DAILY [facility] Last Admin: 09/12/18 08:28 Dose: 100 mg Mirtazapine (Remeron) 7.5 mg PO HS [facility] Last Admin: 09/11/18 21:23 Dose: 7.5 mg Ondansetron HCl (Zofran Inj) 4 mg IVP Q6 PRN PRN Reason: Nausea/Vomiting Last Admin: 09/08/18 00:06 Dose: 4 mg Oxycodone/Acetaminophen (Percocet 5/325 Mg Tab) 1 tab PO Q4 PRN PRN Reason: Pain, moderate (4-7) Stop: 09/13/18 09:29 Last Admin: 09/10/18 14:07 Dose: 1 tab Oxycodone/Acetaminophen (Percocet 5/325 Mg Tab) 2 tab PO Q6 PRN PRN Reason: Pain, severe (8-10) Stop: 09/13/18 09:29 Pantoprazole Sodium (Protonix Ec Tab) 40 mg PO DAILY [facility] Last Admin: 09/12/18 08:25 Dose: 40 mg Silver Sulfadiazine (Silvadene 1% 20 Gm) 1 ea TOP DAILY [facility] Last Admin: 09/12/18 08:27 Dose: 1 applic Sodium Hypochlorite (Dakins Solution 0.125%) 1 appl EXT DAILY [facility] Last Admin: 09/12/18 08:26 Dose: 1 appl - Labs Labs: 09/12/18 08:30 09/12/18 08:30 PT 12.7 Seconds (9.8-13.1) 09/09/18 07:05 INR 1.1 09/09/18 07:05 APTT 28.1 Seconds (25.6-37.1) 09/09/18 07:05 Attending/Attestation - Attestation I have personally seen and examined this patient.: Yes I have fully participated in the care of the patient.: Yes I have reviewed all pertinent clinical information, including history, physical exam and plan: Yes Notes (Text): 09/12/18 19:06 Agree with findings and plan as above.
[2018-09-13] MEDS: Sodium Chloride 0.9% 1,000 ML IV SCH ×4 (01:56→22:59)
[2018-09-13] MEDS: Levothyroxine 100 MCG TAB PO SCH (06:01)
[2018-09-13 06:58] LABS: HEMOGLOBIN 7.6 g/dL (12.0-16.0); MEAN CELL VOLUME 81.2 fl (81.0-99.0); MEAN CORPUSCULAR HEMOGLOBIN 26.4 pg (27.0-31.0); MEAN CORPUSCULAR HGB CONC 32.5 g/dL (33.0-37.0); RBC 2.89 Mil/uL (3.80-5.20); RED CELL DISTRIBUTION WIDTH 15.6 % (11.5-14.5); WHITE BLOOD COUNT 5.1 K/uL (4.8-10.8)
[2018-09-13 07:15] LABS: ALB/GLOB RATIO 0.6 (1.0-2.1); ALBUMIN 2.2 g/dL (3.5-5.0); ALT/SGPT 25 U/L (9-52); AST/SGOT 37 U/L (14-36); BLOOD UREA NITROGEN 19 mg/dl (7-17); CALCIUM 8.3 mg/dL (8.4-10.2); GFR NON-AFRICAN AMERICAN 24
[2018-09-13] MEDS: Insulin Regular 100 units/ml SC SCH ×4 (07:54→21:37)
--- NOTE | 2018-09-13 08:49 | CP.PCM.PN ---
Subjective - Date & Time of Evaluation Date of Evaluation: 09/13/18 Time of Evaluation: 08:47 - Subjective Subjective: Podiatry progress note - Dr. Brown 62 y/o F patient seen and evaluated at the bedside for b/l LE infected ulcerations with underlying osteomyelitis, 4 days S/P b/l Wound debridement. Patient lethargic, not answering questions, however complaining of pain with movement. As per Chart no overnight fevers, nausea, vomiting, cough, and shortness of breath. Objective - Vital Signs/Intake and Output Vital Signs (last 24 hours): Temp Pulse Resp BP Pulse Ox 97.7 F 84 20 146/71 98 09/13/18 08:06 09/13/18 08:06 09/13/18 08:06 09/12/18 15:50 09/13/18 08:06 - Medications Medications: Current Medications Acetaminophen (Tylenol 325mg Tab) 650 mg PO Q6 PRN PRN Reason: Pain, Mild (1-3) Last Admin: 09/12/18 23:55 Dose: 650 mg Acetaminophen (Tylenol 325mg Tab) 650 mg PO Q6 PRN PRN Reason: Fever >100.4 F Amlodipine Besylate (Norvasc) 5 mg PO DAILY [facility] Last Admin: 09/12/18 08:25 Dose: 5 mg Aspirin (Aspirin Chewable) 81 mg PO DAILY [facility] Last Admin: 09/12/18 08:25 Dose: 81 mg Cyanocobalamin (Vitamin B12 1000 Mcg Tab) 1,000 mcg PO DAILY [facility] Last Admin: 09/12/18 08:28 Dose: 1,000 mcg Dextrose (Dextrose 50% Inj) 0 ml IV STAT PRN; Protocol PRN Reason: Hypoglycemia Protocol Dextrose (Glutose 15) 0 gm PO ONCE PRN; Protocol PRN Reason: Hypoglycemia Protocol Gabapentin (Neurontin) 400 mg PO HS [facility] Last Admin: 09/12/18 21:15 Dose: 400 mg Glucagon (Glucagen Diagnostic Kit) 0 mg IM STAT PRN; Protocol PRN Reason: Hypoglycemia Protocol Ceftriaxone Sodium 1 gm/ (Sodium Chloride) 100 mls @ 100 mls/hr IVPB DAILY [facility]; Protocol Last Admin: 09/12/18 08:23 Dose: 100 mls/hr Sodium Chloride (Sodium Chloride 0.9%) 1,000 mls @ 100 mls/hr IV .Q10H [facility] Last Admin: 09/13/18 01:56 Dose: 100 mls/hr Insulin Human Regular (Humulin R) 0 units SC ACHS [facility]; Protocol Last Admin: 09/13/18 07:54 Dose: Not Given Levothyroxine Sodium (Synthroid) 100 mcg PO DAILY@0630 [facility] Last Admin: 09/13/18 06:01 Dose: 100 mcg Metoprolol Succinate (Toprol Xl) 100 mg PO DAILY [facility] Last Admin: 09/12/18 08:28 Dose: 100 mg Mirtazapine (Remeron) 7.5 mg PO HS [facility] Last Admin: 09/12/18 21:14 Dose: 7.5 mg Ondansetron HCl (Zofran Inj) 4 mg IVP Q6 PRN PRN Reason: Nausea/Vomiting Last Admin: 09/08/18 00:06 Dose: 4 mg Oxycodone/Acetaminophen (Percocet 5/325 Mg Tab) 1 tab PO Q4 PRN PRN Reason: Pain, moderate (4-7) Stop: 09/13/18 09:29 Last Admin: 09/10/18 14:07 Dose: 1 tab Oxycodone/Acetaminophen (Percocet 5/325 Mg Tab) 2 tab PO Q6 PRN PRN Reason: Pain, severe (8-10) Stop: 09/13/18 09:29 Pantoprazole Sodium (Protonix Ec Tab) 40 mg PO DAILY [facility] Last Admin: 09/12/18 08:25 Dose: 40 mg Silver Sulfadiazine (Silvadene 1% 20 Gm) 1 ea TOP DAILY [facility] Last Admin: 09/12/18 08:27 Dose: 1 applic Sodium Hypochlorite (Dakins Solution 0.125%) 1 appl EXT DAILY [facility] Last Admin: 09/12/18 08:26 Dose: 1 appl - Labs Labs: 09/13/18 05:10 09/13/18 05:10 PT 12.7 Seconds (9.8-13.1) 09/09/18 07:05 INR 1.1 09/09/18 07:05 APTT 28.1 Seconds (25.6-37.1) 09/09/18 07:05 - Constitutional Appears: Well, Non-toxic, No Acute Distress - Head Exam Head Exam: ATRAUMATIC, NORMOCEPHALIC - Extremities Exam Additional comments: Dressing clean, dry and intact at this time - Neurological Exam Neurological Exam: Alert, Awake, Oriented x3 - Psychiatric Exam Psychiatric exam: Normal Affect, Normal Mood Assessment and Plan - Assessment and Plan (Free Text) Assessment: 62 y/o F patient seen and evaluated at the bedside for b/l LE infected ulcerations with underlying osteomyelitis, 4 days S/P Wound debridement. Plan: Patient seen and evaluated at the bedside. Discussed in detail with Dr. Brown Charts, labs and vitals reviewed; Afebrile, WBC 6.4 ESR: >120, CRP: 167.60 Wound culture: Citrobacter diversus, Beta hemolytic strept group B B/L foot/ankle/tib/fib x-ray: No evidence of OM LE CRISTIANE/PVR: Sever biateral LE arterial disease, distal abdominal aorta stenosis and or bilateral iliac stenosis not excluded. Concider follow up contrast CT angio of aorto-iliac system with bilateral LE runoff Left ankle MRI: Overall pattern is highly suggestive of osteomyelitis at the calcaneus and is difficult to exclude at the remaining midfoot/hindfoot and right ankle bony elements. Unfortunately, widespread mottled/heterogeneous Marrow edema is appreciated not only involving the ankle but osseous elements of the midfoot and hindfoot also suspicious for osteomyelitis with differentiated diagnosis of RSD order other inflammatory causes. Posttraumatic etiology is unlikely. Further clinical correlation is recommended Right ankle MRI: Indeterminate pattern of bony edema throughout the ankle and midfoot/hindfoot anatomy indicative of osteomyelitis particularly at the calcaneus adjacent to a soft tissue ulcer posteriorly. Abnormal Marrow signal throughout the entire midfoot and hindfoot including inferior tibia and possibly fibula may also reflect osteomyelitis though given its widespread pattern which includes various musculature as well, consider other inflammatory causes, reflex sympathetic dystrophy and other etiologies. Further clinical correlation is recommended Right foot MRI: Nonspecific pattern of heterogeneous abnormal edema scattered throughout the midfoot and hindfoot bony anatomy as well as the 1st and 5th metatarsal bones and proximal phalanx right great toe. For osteomyelitis or other inflammatory causes. Clinical correlation suggestive of OM. Left foot MRI: Nonspecific heterogeneous pattern of edema primarily at the left midfoot and hindfoot bones as discussed above few cellulitis is appreciate primarily affecting midfoot and hindfoot distribution as well. The 2nd and 3rd digits are also affected at the pattern is nonspecific and could reflect osteomyelitis though other etiologies including RSD and other inflammatory causes are not excluded. Further clinical correlation suggestive of OM B/L Lower Extremity MRI: Edematous changes are seen in the Marrow of the osseous elements at the bilateral knee joints slightly greater the right than left. Osteomyelitis is not favored. Questionable ulcer distal posterior leg soft tissues. Mild bilateral lower extremity cellulitis. No definite abscess appreciated bilaterally CT angio showed no significant stenosis or blockage B/L LE venous duplex: No DVT, Right inguinal lymphadenopathy Patient received PICC line yesterday for chcf course (4-6 weeks) of IV Abx Vascular consult: Reccs appreciated Patient to stay in the multipodus boot while in bed. Patient to bear weight as tolerated in the heel offloading shoe. Continue Physical therapy ID on board Reccs appreciated. Patient to continue IV abx as per ID. Intra-operative deep wound cultures: Final no growth NO dressing change today as patient in pain, will change again 09/14/18 Podiatry will continue to follow up the patient while in house
[2018-09-13] MEDS: Silver Sulfadiazine 1% Cream (20 gm) TOP SCH (09:07)
[2018-09-13] MEDS: Pantoprazole 40 mg EC Tab PO SCH (09:07)
[2018-09-13] MEDS: Metoprolol Succinate 100 mg XL Tab PO SCH (09:08)
--- NOTE | 2018-09-13 11:05 | CP.PCM.PN ---
<Neville Wilson - Last Filed: 09/13/18 12:56> Subjective - Date & Time of Evaluation Date of Evaluation: 09/13/18 Time of Evaluation: 07:30 - Subjective Subjective: Patient seen and examined at [facility] s/p B/L foot wound debridement, day 4. Pt report moderate pain on feet upon paalpation, however endorses is controlled with pain medication. No acute event overnight. Denies nausea, vomiting, fever chills, chest pain, abdominal pain. Objective - Vital Signs/Intake and Output Vital Signs (last 24 hours): Temp Pulse Resp BP Pulse Ox 97.7 F 84 20 170/71 H 98 09/13/18 08:06 09/13/18 09:08 09/13/18 08:06 09/13/18 09:08 09/13/18 08:06 - Medications Medications: Current Medications Acetaminophen (Tylenol 325mg Tab) 650 mg PO Q6 PRN PRN Reason: Pain, Mild (1-3) Last Admin: 09/12/18 23:55 Dose: 650 mg Acetaminophen (Tylenol 325mg Tab) 650 mg PO Q6 PRN PRN Reason: Fever >100.4 F Amlodipine Besylate (Norvasc) 5 mg PO DAILY [facility] Last Admin: 09/13/18 09:07 Dose: 5 mg Aspirin (Aspirin Chewable) 81 mg PO DAILY [facility] Last Admin: 09/13/18 09:05 Dose: 81 mg Cyanocobalamin (Vitamin B12 1000 Mcg Tab) 1,000 mcg PO DAILY [facility] Last Admin: 09/13/18 09:08 Dose: 1,000 mcg Dextrose (Dextrose 50% Inj) 0 ml IV STAT PRN; Protocol PRN Reason: Hypoglycemia Protocol Dextrose (Glutose 15) 0 gm PO ONCE PRN; Protocol PRN Reason: Hypoglycemia Protocol Gabapentin (Neurontin) 400 mg PO HS [facility] Last Admin: 09/12/18 21:15 Dose: 400 mg Glucagon (Glucagen Diagnostic Kit) 0 mg IM STAT PRN; Protocol PRN Reason: Hypoglycemia Protocol Ceftriaxone Sodium 1 gm/ (Sodium Chloride) 100 mls @ 100 mls/hr IVPB DAILY [facility]; Protocol Last Admin: 09/13/18 09:11 Dose: 100 mls/hr Sodium Chloride (Sodium Chloride 0.9%) 1,000 mls @ 100 mls/hr IV .Q10H [facility] Last Admin: 09/13/18 01:56 Dose: 100 mls/hr Insulin Human Regular (Humulin R) 0 units SC ACHS [facility]; Protocol Last Admin: 09/13/18 07:54 Dose: Not Given Levothyroxine Sodium (Synthroid) 100 mcg PO DAILY@0630 [facility] Last Admin: 09/13/18 06:01 Dose: 100 mcg Metoprolol Succinate (Toprol Xl) 100 mg PO DAILY [facility] Last Admin: 09/13/18 09:08 Dose: 100 mg Mirtazapine (Remeron) 7.5 mg PO HS [facility] Last Admin: 09/12/18 21:14 Dose: 7.5 mg Ondansetron HCl (Zofran Inj) 4 mg IVP Q6 PRN PRN Reason: Nausea/Vomiting Last Admin: 09/08/18 00:06 Dose: 4 mg Pantoprazole Sodium (Protonix Ec Tab) 40 mg PO DAILY [facility] Last Admin: 09/13/18 09:07 Dose: 40 mg Silver Sulfadiazine (Silvadene 1% 20 Gm) 1 ea TOP DAILY [facility] Last Admin: 09/13/18 09:07 Dose: Not Given Sodium Hypochlorite (Dakins Solution 0.125%) 1 appl EXT DAILY [facility] Last Admin: 09/13/18 09:06 Dose: Not Given - Labs Labs: 09/13/18 05:10 09/13/18 05:10 PT 12.7 Seconds (9.8-13.1) 09/09/18 07:05 INR 1.1 09/09/18 07:05 APTT 28.1 Seconds (25.6-37.1) 09/09/18 07:05 Assessment and Plan - Assessment and Plan (Free Text) Assessment: Pt is a 62 y/o female with hx of HTN, DM, Hypothyroidism, Rheumatoid arthritis, Chronic foot ulcers admitted for multiple foot/leg ulcers w/ foul odor drainage admitted for osteomyelitis. Day 4 Plan: 1) Multiple Foot Ulcers, Bilaterally - s/p wound debriment day 4 - Podiatry on board - Afebrile, No leukocytosis, +Bandemia 4, Lactate normal, ESR 120 - ID Consulted, Dr. Contreras; recommends 4-6 weeks of IV antibiotics - awaiting intraop cultures- possible DC with PO antibiotics - Wound Care Nursing, tight glycemic control, offloading from ulcers - MRI LE from knee to ankle :showed no OM , no abscess - Duplex Vein no DVT - Arterial duplex: severely diseased b/l LE arterial system. - Vascular consulted; Dr Mcdermott. CT Angio ordered- no vascular intervention, all vessels patent - Wcx; citrobacter diversus, beta hemolytic strep group b; c/w vancomycin and ceftriaxone - Intra-op wound cx pending - PICC Line in place 2) CKD - Stable - Renal dose adjustments for nephrotoxic medication (check Vanco trough) - Vanc trough 28.5- vanc on hold, keep trough <15 3) Hypothyroidism -TSH 5.47, T4 6.55 -C/W with home medication, Levothyroxine 100mg daily 4) Rheumatoid Arthritis -Pain controlled with Tylenol. Morphine 4 gm q6 pRN ordered for severe pain -Prior labs reviewed: +RF, +Anti CCP, + pANCa 5) Anemia - stable - Hgb 8.8 - no signs of active bleeding 6) Poor mobility/Debilitation - OT for ADL's - PT ordered for gait/mobility/strength 7) DVT ppx -Lovenox 40mg SQ daily given CrCl >40 8) Cognitive impairment/depression - Psych consulted; appreciate recs;recommend starting remeron 7.5 mg qhs and referral to outpatient psychiatric services on discharge - Neuro consult ordered; appreciate recs 9) Constipation - controlled 10) Hypertension -c/w home medications <Ernesto Palomares D - Last Filed: 09/13/18 16:35> Objective - Vital Signs/Intake and Output Vital Signs (last 24 hours): Temp Pulse Resp BP Pulse Ox 98.4 F 78 20 158/80 H 100 09/13/18 16:19 09/13/18 16:19 09/13/18 16:19 09/13/18 16:19 09/13/18 16:19 - Medications Medications: Current Medications Acetaminophen (Tylenol 325mg Tab) 650 mg PO Q6 PRN PRN Reason: Pain, Mild (1-3) Last Admin: 09/12/18 23:55 Dose: 650 mg Acetaminophen (Tylenol 325mg Tab) 650 mg PO Q6 PRN PRN Reason: Fever >100.4 F Amlodipine Besylate (Norvasc) 5 mg PO DAILY [facility] Last Admin: 09/13/18 09:07 Dose: 5 mg Aspirin (Aspirin Chewable) 81 mg PO DAILY [facility] Last Admin: 09/13/18 09:05 Dose: 81 mg Cyanocobalamin (Vitamin B12 1000 Mcg Tab) 1,000 mcg PO DAILY [facility] Last Admin: 09/13/18 09:08 Dose: 1,000 mcg Dextrose (Dextrose 50% Inj) 0 ml IV STAT PRN; Protocol PRN Reason: Hypoglycemia Protocol Dextrose (Glutose 15) 0 gm PO ONCE PRN; Protocol PRN Reason: Hypoglycemia Protocol Enoxaparin Sodium (Lovenox) 30 mg SC DAILY [facility]; Protocol Gabapentin (Neurontin) 400 mg PO HS [facility] Last Admin: 09/12/18 21:15 Dose: 400 mg Glucagon (Glucagen Diagnostic Kit) 0 mg IM STAT PRN; Protocol PRN Reason: Hypoglycemia Protocol Ceftriaxone Sodium 1 gm/ (Sodium Chloride) 100 mls @ 100 mls/hr IVPB DAILY [facility]; Protocol Last Admin: 09/13/18 09:11 Dose: 100 mls/hr Sodium Chloride (Sodium Chloride 0.9%) 1,000 mls @ 150 mls/hr IV .Q6H40M [facility] Insulin Human Regular (Humulin R) 0 units SC ACHS [facility]; Protocol Last Admin: 09/13/18 16:15 Dose: 1 unit Levothyroxine Sodium (Synthroid) 100 mcg PO DAILY@0630 [facility] Last Admin: 09/13/18 06:01 Dose: 100 mcg Metoprolol Succinate (Toprol Xl) 100 mg PO DAILY [facility] Last Admin: 09/13/18 09:08 Dose: 100 mg Mirtazapine (Remeron) 7.5 mg PO HS [facility] Last Admin: 09/12/18 21:14 Dose: 7.5 mg Ondansetron HCl (Zofran Inj) 4 mg IVP Q6 PRN PRN Reason: Nausea/Vomiting Last Admin: 09/08/18 00:06 Dose: 4 mg Pantoprazole Sodium (Protonix Ec Tab) 40 mg PO DAILY [facility] Last Admin: 09/13/18 09:07 Dose: 40 mg Silver Sulfadiazine (Silvadene 1% 20 Gm) 1 ea TOP DAILY [facility] Last Admin: 09/13/18 09:07 Dose: Not Given Sodium Hypochlorite (Dakins Solution 0.125%) 1 appl EXT DAILY [facility] Last Admin: 09/13/18 09:06 Dose: Not Given - Labs Labs: 09/13/18 05:10 09/13/18 05:10 PT 12.7 Seconds (9.8-13.1) 09/09/18 07:05 INR 1.1 09/09/18 07:05 APTT 28.1 Seconds (25.6-37.1) 09/09/18 07:05 Attending/Attestation - Attestation I have personally seen and examined this patient.: Yes I have fully participated in the care of the patient.: Yes I have reviewed all pertinent clinical information, including history, physical exam and plan: Yes Notes (Text): 09/13/18 16:33 Patient seen and examined with resident. Case discussed and agreed with assessment. Patient is a 62 yo female with non-healing and infected ulcers of both legs with strong probability of osteomyelitis.
[2018-09-14] MEDS: Sodium Chloride 0.9% 1,000 ML IV SCH ×3 (05:39→17:09)
[2018-09-14] MEDS: Levothyroxine 100 MCG TAB PO SCH (06:30)
[2018-09-14 07:27] LABS: HEMOGLOBIN 7.9 g/dL (12.0-16.0); MEAN CELL VOLUME 81.3 fl (81.0-99.0); MEAN CORPUSCULAR HEMOGLOBIN 26.4 pg (27.0-31.0); MEAN CORPUSCULAR HGB CONC 32.5 g/dL (33.0-37.0); RED CELL DISTRIBUTION WIDTH 16.2 % (11.5-14.5); WHITE BLOOD COUNT 5.2 K/uL (4.8-10.8)
[2018-09-14 07:37] LABS: ALB/GLOB RATIO 0.7 (1.0-2.1); ALBUMIN 2.2 g/dL (3.5-5.0); ALT/SGPT 24 U/L (9-52); AST/SGOT 33 U/L (14-36); BLOOD UREA NITROGEN 19 mg/dl (7-17); CALCIUM 8.2 mg/dL (8.4-10.2); GFR NON-AFRICAN AMERICAN 24
--- NOTE | 2018-09-14 08:09 | CP.PCM.PN ---
Subjective - Date & Time of Evaluation Date of Evaluation: 09/14/18 Time of Evaluation: 08:09 - Subjective Subjective: Podiatry Progress Note: Dr. Brown 62 year old female patient seen and evaluated for b/l LE ulcerations with underlying OM. Patient is 5 days s/p b/l wound debridement. Patient alert, however not responding to questions at this time. Per chart, no acute events overnight. Objective - Vital Signs/Intake and Output Vital Signs (last 24 hours): Temp Pulse Resp BP Pulse Ox 98.5 F 83 20 152/78 H 100 09/14/18 00:07 09/14/18 00:07 09/14/18 00:07 09/14/18 00:07 09/14/18 00:07 - Medications Medications: Current Medications Acetaminophen (Tylenol 325mg Tab) 650 mg PO Q6 PRN PRN Reason: Pain, Mild (1-3) Last Admin: 09/12/18 23:55 Dose: 650 mg Acetaminophen (Tylenol 325mg Tab) 650 mg PO Q6 PRN PRN Reason: Fever >100.4 F Amlodipine Besylate (Norvasc) 5 mg PO DAILY [facility] Last Admin: 09/13/18 09:07 Dose: 5 mg Aspirin (Aspirin Chewable) 81 mg PO DAILY [facility] Last Admin: 09/13/18 09:05 Dose: 81 mg Cyanocobalamin (Vitamin B12 1000 Mcg Tab) 1,000 mcg PO DAILY [facility] Last Admin: 09/13/18 09:08 Dose: 1,000 mcg Dextrose (Dextrose 50% Inj) 0 ml IV STAT PRN; Protocol PRN Reason: Hypoglycemia Protocol Dextrose (Glutose 15) 0 gm PO ONCE PRN; Protocol PRN Reason: Hypoglycemia Protocol Enoxaparin Sodium (Lovenox) 30 mg SC DAILY [facility]; Protocol Gabapentin (Neurontin) 400 mg PO HS [facility] Last Admin: 09/13/18 21:25 Dose: 400 mg Glucagon (Glucagen Diagnostic Kit) 0 mg IM STAT PRN; Protocol PRN Reason: Hypoglycemia Protocol Ceftriaxone Sodium 1 gm/ (Sodium Chloride) 100 mls @ 100 mls/hr IVPB DAILY [facility]; Protocol Last Admin: 09/13/18 09:11 Dose: 100 mls/hr Sodium Chloride (Sodium Chloride 0.9%) 1,000 mls @ 150 mls/hr IV .Q6H40M [facility] Last Admin: 09/14/18 06:04 Dose: 150 mls/hr Insulin Human Regular (Humulin R) 0 units SC ACHS [facility]; Protocol Last Admin: 09/13/18 21:37 Dose: Not Given Levothyroxine Sodium (Synthroid) 100 mcg PO DAILY@0630 [facility] Last Admin: 09/14/18 06:30 Dose: 100 mcg Metoprolol Succinate (Toprol Xl) 100 mg PO DAILY [facility] Last Admin: 09/13/18 09:08 Dose: 100 mg Mirtazapine (Remeron) 7.5 mg PO HS [facility] Last Admin: 09/13/18 21:25 Dose: 7.5 mg Ondansetron HCl (Zofran Inj) 4 mg IVP Q6 PRN PRN Reason: Nausea/Vomiting Last Admin: 09/08/18 00:06 Dose: 4 mg Pantoprazole Sodium (Protonix Ec Tab) 40 mg PO DAILY [facility] Last Admin: 09/13/18 09:07 Dose: 40 mg Silver Sulfadiazine (Silvadene 1% 20 Gm) 1 ea TOP DAILY [facility] Last Admin: 09/13/18 09:07 Dose: Not Given Sodium Hypochlorite (Dakins Solution 0.125%) 1 appl EXT DAILY [facility] Last Admin: 09/13/18 09:06 Dose: Not Given - Labs Labs: 09/14/18 06:15 09/14/18 06:15 PT 12.7 Seconds (9.8-13.1) 09/09/18 07:05 INR 1.1 09/09/18 07:05 APTT 28.1 Seconds (25.6-37.1) 09/09/18 07:05 - Constitutional Appears: Non-toxic, No Acute Distress - Extremities Exam Additional comments: B/L lower extremity focused exam: Vascular: DP/PT are 2/4 b/l, Cap refill < 3 seconds to all digits, Temp gradient warm to cool from proximal to distal, no edema appreciated to b/l extremities. Neuro: Gross sensation intact, protective sensation diminished. Derm: Left: An ulcer noted in the lateral aspect of the foot measuring 2 cm X 1.4 cm X 0.2 cm. Base is 90% granular, 10% fibrotic. Positive sanginous drainage noted. No tracking, No undermining, No probe to bone. No delma-ulcerative erythema noted. Another ulcer noted in the left heel 4.3 cm X 2.5 cm X 0.4 cm post debridement. Base is 90% granular, 10% fibrotic. Positive sanguineous drainage noted. positive tracking, No undermining, Positive probe to bone. positive delma- ulcerative erythema noted. A third ulcer noted in the upper lateral aspect of the left leg measuring 1.5 cm X 1.2 cm X 0.1 cm. Base is 100% granular. No tracking, No undermining, Positive probe to bone. Delma-ulcerative erythema and induration noted. Right: ulcer noted in the left heel 3.9 cm X 2 cm X 0.4 cm. Base is 90% granular, 10% fibrotic. Positive sanguineous drainage noted. positive tracking, No undermining, Positive probe to bone. positive delma-ulcerative erythema noted. Ortho: Muscle power 5/5 to all groups, Pain noted on palpating the delma- ulcerative areas - Neurological Exam Neurological Exam: Alert, Awake Assessment and Plan - Assessment and Plan (Free Text) Assessment: 62F with b/l LE infected ulcerations with underlying osteomyelitis, 5 days s/p w ound debridement. Plan: Patient seen and evaluated at the bedside. Discussed in detail with Dr. Brown Afebrile, WBC 5.2, ESR: >120, CRP: 167.60 Wound culture: Citrobacter diversus, Beta hemolytic strept group B B/L foot/ankle/tib/fib x-ray: No evidence of OM LE CRISTIANE/PVR: Sever biateral LE arterial disease, distal abdominal aorta stenosis and or bilateral iliac stenosis not excluded. Concider follow up contrast CT angio of aorto-iliac system with bilateral LE runoff Left ankle MRI: Overall pattern is highly suggestive of osteomyelitis at the calcaneus and is difficult to exclude at the remaining midfoot/hindfoot and right ankle bony elements. Unfortunately, widespread mottled/heterogeneous Marrow edema is appreciated not only involving the ankle but osseous elements of the midfoot and hindfoot also suspicious for osteomyelitis with differentiated diagnosis of RSD order other inflammatory causes. Posttraumatic etiology is unlikely. Further clinical correlation is recommended Right ankle MRI: Indeterminate pattern of bony edema throughout the ankle and midfoot/hindfoot anatomy indicative of osteomyelitis particularly at the calcaneus adjacent to a soft tissue ulcer posteriorly. Abnormal Marrow signal throughout the entire midfoot and hindfoot including inferior tibia and possibly fibula may also reflect osteomyelitis though given its widespread pattern which includes various musculature as well, consider other inflammatory causes, reflex sympathetic dystrophy and other etiologies. Further clinical correlation is recommended Right foot MRI: Nonspecific pattern of heterogeneous abnormal edema scattered throughout the midfoot and hindfoot bony anatomy as well as the 1st and 5th metatarsal bones and proximal phalanx right great toe. For osteomyelitis or other inflammatory causes. Clinical correlation suggestive of OM. Left foot MRI: Nonspecific heterogeneous pattern of edema primarily at the left midfoot and hindfoot bones as discussed above few cellulitis is appreciate primarily affecting midfoot and hindfoot distribution as well. The 2nd and 3rd digits are also affected at the pattern is nonspecific and could reflect osteomyelitis though other etiologies including RSD and other inflammatory causes are not excluded. Further clinical correlation suggestive of OM B/L Lower Extremity MRI: Edematous changes are seen in the Marrow of the osseous elements at the bilateral knee joints slightly greater the right than left. Osteomyelitis is not favored. Questionable ulcer distal posterior leg soft tissues. Mild bilateral lower extremity cellulitis. No definite abscess appreciated bilaterally CT angio showed no significant stenosis or blockage B/L LE venous duplex: No DVT, Right inguinal lymphadenopathy Vascular consult: Reccs appreciated Patient to stay in the multipodus boot while in bed. Patient to bear weight as tolerated in the heel offloading shoe. Continue Physical therapy Patient to continue IV abx as per ID. Intra-operative deep wound cultures: Final no growth Podiatry will continue to follow up the patient while in house
[2018-09-14] MEDS: Pantoprazole 40 mg EC Tab PO SCH (08:31)
[2018-09-14] MEDS: Enoxaparin 30 mg Syringe SC SCH (08:31)
[2018-09-14] MEDS: Metoprolol Succinate 100 mg XL Tab PO SCH (08:32)
[2018-09-14] MEDS: Silver Sulfadiazine 1% Cream (20 gm) TOP SCH (08:33)
[2018-09-14] MEDS: Insulin Regular 100 units/ml SC SCH ×4 (08:34→21:47)
--- NOTE | 2018-09-14 10:36 | CP.PCM.PN ---
<HarveyJosie - Last Filed: 09/14/18 15:49> Subjective - Date & Time of Evaluation Date of Evaluation: 09/14/18 Time of Evaluation: 10:33 - Subjective Subjective: Patient seen and examined at bedside s/p B/L foot wound debridement. Reports pain to lower extremity. No acute event overnight. Denies nausea, vomiting, fever chills, chest pain, abdominal pain. Objective - Vital Signs/Intake and Output Vital Signs (last 24 hours): Temp Pulse Resp BP Pulse Ox 97.6 F 86 20 168/76 H 98 09/14/18 09:00 09/14/18 09:00 09/14/18 09:00 09/14/18 09:00 09/14/18 09:00 - Medications Medications: Current Medications Acetaminophen (Tylenol 325mg Tab) 650 mg PO Q6 PRN PRN Reason: Pain, Mild (1-3) Last Admin: 09/12/18 23:55 Dose: 650 mg Acetaminophen (Tylenol 325mg Tab) 650 mg PO Q6 PRN PRN Reason: Fever >100.4 F Amlodipine Besylate (Norvasc) 5 mg PO DAILY [facility] Last Admin: 09/14/18 08:32 Dose: 5 mg Aspirin (Aspirin Chewable) 81 mg PO DAILY [facility] Last Admin: 09/14/18 08:32 Dose: 81 mg Cyanocobalamin (Vitamin B12 1000 Mcg Tab) 1,000 mcg PO DAILY [facility] Last Admin: 09/14/18 08:33 Dose: 1,000 mcg Dextrose (Dextrose 50% Inj) 0 ml IV STAT PRN; Protocol PRN Reason: Hypoglycemia Protocol Dextrose (Glutose 15) 0 gm PO ONCE PRN; Protocol PRN Reason: Hypoglycemia Protocol Enoxaparin Sodium (Lovenox) 30 mg SC DAILY [facility]; Protocol Last Admin: 09/14/18 08:31 Dose: 30 mg Gabapentin (Neurontin) 400 mg PO HS [facility] Last Admin: 09/13/18 21:25 Dose: 400 mg Glucagon (Glucagen Diagnostic Kit) 0 mg IM STAT PRN; Protocol PRN Reason: Hypoglycemia Protocol Ceftriaxone Sodium 1 gm/ (Sodium Chloride) 100 mls @ 100 mls/hr IVPB DAILY [facility]; Protocol Last Admin: 09/14/18 08:33 Dose: 100 mls/hr Sodium Chloride (Sodium Chloride 0.9%) 1,000 mls @ 150 mls/hr IV .Q6H40M [facility] Last Admin: 09/14/18 06:04 Dose: 150 mls/hr Insulin Human Regular (Humulin R) 0 units SC ACHS [facility]; Protocol Last Admin: 09/14/18 08:34 Dose: Not Given Levothyroxine Sodium (Synthroid) 100 mcg PO DAILY@0630 [facility] Last Admin: 09/14/18 06:30 Dose: 100 mcg Metoprolol Succinate (Toprol Xl) 100 mg PO DAILY [facility] Last Admin: 09/14/18 08:32 Dose: 100 mg Mirtazapine (Remeron) 7.5 mg PO HS [facility] Last Admin: 09/13/18 21:25 Dose: 7.5 mg Ondansetron HCl (Zofran Inj) 4 mg IVP Q6 PRN PRN Reason: Nausea/Vomiting Last Admin: 09/08/18 00:06 Dose: 4 mg Pantoprazole Sodium (Protonix Ec Tab) 40 mg PO DAILY [facility] Last Admin: 09/14/18 08:31 Dose: 40 mg Silver Sulfadiazine (Silvadene 1% 20 Gm) 1 ea TOP DAILY [facility] Last Admin: 09/14/18 08:33 Dose: 1 applic Sodium Hypochlorite (Dakins Solution 0.125%) 1 appl EXT DAILY [facility] Last Admin: 09/14/18 08:34 Dose: 1 appl - Labs Labs: 09/14/18 06:15 09/14/18 06:15 PT 12.7 Seconds (9.8-13.1) 09/09/18 07:05 INR 1.1 09/09/18 07:05 APTT 28.1 Seconds (25.6-37.1) 09/09/18 07:05 - Constitutional Appears: Well, Non-toxic, No Acute Distress - Head Exam Head Exam: ATRAUMATIC, NORMOCEPHALIC - Eye Exam Eye Exam: Normal appearance Pupil Exam: NORMAL ACCOMODATION - ENT Exam ENT Exam: Mucous Membranes Moist - Respiratory Exam Respiratory Exam: NORMAL BREATHING PATTERN - Cardiovascular Exam Cardiovascular Exam: REGULAR RHYTHM, +S1, +S2 - Neurological Exam Neurological Exam: Alert, Awake, Oriented x3 - Psychiatric Exam Psychiatric exam: Normal Affect Assessment and Plan - Assessment and Plan (Free Text) Assessment: Pt is a 62 y/o female with hx of HTN, DM, Hypothyroidism, Rheumatoid arthritis, Chronic foot ulcers admitted for multiple foot/leg ulcers w/ foul odor drainage admitted for osteomyelitis. Plan: 1) Multiple Foot Ulcers, Bilaterally - s/p wound debriment day 4 - Podiatry on board - Afebrile, No leukocytosis, +Bandemia 4, Lactate normal, ESR 120 - ID Consulted, Dr. Contreras; recommends 4-6 weeks of IV antibiotics - awaiting intraop cultures- possible DC with PO antibiotics - Wound Care Nursing, tight glycemic control, offloading from ulcers - MRI LE from knee to ankle :showed no OM , no abscess - Duplex Vein no DVT - Arterial duplex: severely diseased b/l LE arterial system. - Vascular consulted; Dr Mcdermott. CT Angio ordered- no vascular intervention, all vessels patent - Wcx; citrobacter diversus, beta hemolytic strep group b; c/w vancomycin and ceftriaxone - Intra-op wound cx pending - PICC Line in place 2) CKD - Stable - Renal dose adjustments for nephrotoxic medication (check Vanco trough) - Vanc trough 28.5- vanc on hold at this time, keep trough <15 3) Hypothyroidism -TSH 5.47, T4 6.55 -C/W with home medication, Levothyroxine 100mg daily 4) Rheumatoid Arthritis -Pain controlled with Tylenol. Morphine 4 gm q6 pRN ordered for severe pain -Prior labs reviewed: +RF, +Anti CCP, + pANCa 5) Anemia - acute - Hgb 7.9; 1 unit of PRBC to be transfused - no signs of active bleeding 6) Poor mobility/Debilitation - OT for ADL's - PT ordered for gait/mobility/strength; WBAT in heel offloading shoe 7) DVT ppx -Lovenox 40mg SQ daily given CrCl >40 8) Cognitive impairment/depression - Psych consulted; appreciate recs;recommend starting remeron 7.5 mg qhs and referral to outpatient psychiatric services on discharge - Neuro consult ordered; appreciate recs 9) Constipation - controlled 10) Hypertension -c/w home medications <Ernesto Palomares D - Last Filed: 09/14/18 16:48> Objective - Vital Signs/Intake and Output Vital Signs (last 24 hours): Temp Pulse Resp BP Pulse Ox 98.8 F 76 18 159/80 H 98 09/14/18 15:18 09/14/18 15:34 09/14/18 15:18 09/14/18 15:18 09/14/18 15:34 Intake and Output: 09/14/18 09/14/18 06:59 18:59 Intake Total 375 Balance 375 - Medications Medications: Current Medications Acetaminophen (Tylenol 325mg Tab) 650 mg PO Q6 PRN PRN Reason: Pain, Mild (1-3) Last Admin: 09/12/18 23:55 Dose: 650 mg Acetaminophen (Tylenol 325mg Tab) 650 mg PO Q6 PRN PRN Reason: Fever >100.4 F Amlodipine Besylate (Norvasc) 5 mg PO DAILY [facility] Last Admin: 09/14/18 08:32 Dose: 5 mg Aspirin (Aspirin Chewable) 81 mg PO DAILY [facility] Last Admin: 09/14/18 08:32 Dose: 81 mg Cyanocobalamin (Vitamin B12 1000 Mcg Tab) 1,000 mcg PO DAILY [facility] Last Admin: 09/14/18 08:33 Dose: 1,000 mcg Dextrose (Dextrose 50% Inj) 0 ml IV STAT PRN; Protocol PRN Reason: Hypoglycemia Protocol Dextrose (Glutose 15) 0 gm PO ONCE PRN; Protocol PRN Reason: Hypoglycemia Protocol Enoxaparin Sodium (Lovenox) 30 mg SC DAILY [facility]; Protocol Last Admin: 09/14/18 08:31 Dose: 30 mg Gabapentin (Neurontin) 400 mg PO HS [facility] Last Admin: 09/13/18 21:25 Dose: 400 mg Glucagon (Glucagen Diagnostic Kit) 0 mg IM STAT PRN; Protocol PRN Reason: Hypoglycemia Protocol Ceftriaxone Sodium 1 gm/ (Sodium Chloride) 100 mls @ 100 mls/hr IVPB DAILY [facility]; Protocol Last Admin: 09/14/18 08:33 Dose: 100 mls/hr Sodium Chloride (Sodium Chloride 0.9%) 1,000 mls @ 150 mls/hr IV .Q6H40M [facility] Last Admin: 09/14/18 06:04 Dose: 150 mls/hr Insulin Human Regular (Humulin R) 0 units SC ACHS [facility]; Protocol Last Admin: 09/14/18 12:25 Dose: 1 unit Levothyroxine Sodium (Synthroid) 100 mcg PO DAILY@0630 [facility] Last Admin: 09/14/18 06:30 Dose: 100 mcg Metoprolol Succinate (Toprol Xl) 100 mg PO DAILY [facility] Last Admin: 09/14/18 08:32 Dose: 100 mg Mirtazapine (Remeron) 7.5 mg PO HS [facility] Last Admin: 09/13/18 21:25 Dose: 7.5 mg Ondansetron HCl (Zofran Inj) 4 mg IVP Q6 PRN PRN Reason: Nausea/Vomiting Last Admin: 09/08/18 00:06 Dose: 4 mg Pantoprazole Sodium (Protonix Ec Tab) 40 mg PO DAILY [facility] Last Admin: 09/14/18 08:31 Dose: 40 mg Silver Sulfadiazine (Silvadene 1% 20 Gm) 1 ea TOP DAILY [facility] Last Admin: 09/14/18 08:33 Dose: 1 applic Sodium Hypochlorite (Dakins Solution 0.125%) 1 appl EXT DAILY [facility] Last Admin: 09/14/18 08:34 Dose: 1 appl - Labs Labs: 09/14/18 06:15 09/14/18 06:15 PT 12.7 Seconds (9.8-13.1) 09/09/18 07:05 INR 1.1 09/09/18 07:05 APTT 28.1 Seconds (25.6-37.1) 09/09/18 07:05 Attending/Attestation - Attestation I have personally seen and examined this patient.: Yes I have fully participated in the care of the patient.: Yes I have reviewed all pertinent clinical information, including history, physical exam and plan: Yes Notes (Text): 09/14/18 16:28 Patient seen and examined with resident. Case discussed and agreed with assessment. Patient is post debridement and receiving 1 unit of PRBC. Presently on Rocephin with Vanco on hold since 09/11. We'll start patient on Unasyn 3gm IV q 12hrs.
[2018-09-15] MEDS: Sodium Chloride 0.9% 1,000 ML IV SCH ×5 (01:39→15:05)
[2018-09-15] MEDS: Insulin Regular 100 units/ml SC SCH ×4 (05:45→21:30)
[2018-09-15 06:41] LABS: HEMOGLOBIN 8.8 g/dL (12.0-16.0); MEAN CELL VOLUME 81.7 fl (81.0-99.0); MEAN CORPUSCULAR HEMOGLOBIN 26.9 pg (27.0-31.0); MEAN CORPUSCULAR HGB CONC 32.9 g/dL (33.0-37.0); RBC 3.29 Mil/uL (3.80-5.20); WHITE BLOOD COUNT 5.3 K/uL (4.8-10.8)
[2018-09-15 06:55] LABS: ALB/GLOB RATIO 0.6 (1.0-2.1); ALBUMIN 2.1 g/dL (3.5-5.0); CALCIUM 8.2 mg/dL (8.4-10.2)
[2018-09-15] MEDS: Levothyroxine 100 MCG TAB PO SCH (07:01)
--- NOTE | 2018-09-15 09:16 | CP.PCM.PN ---
<HarveyJosie - Last Filed: 09/15/18 11:22> Subjective - Date & Time of Evaluation Date of Evaluation: 09/15/18 Time of Evaluation: 09:15 - Subjective Subjective: Patient seen and examined at bedside s/p B/L foot wound debridement. Reports pain to lower extremity. No acute event overnight. Denies nausea, vomiting, fever chills, chest pain, abdominal pain. Objective - Vital Signs/Intake and Output Vital Signs (last 24 hours): Temp Pulse Resp BP Pulse Ox 98.3 F 80 19 153/77 H 99 09/15/18 08:17 09/15/18 08:17 09/15/18 08:17 09/15/18 08:17 09/15/18 08:17 - Medications Medications: Current Medications Acetaminophen (Tylenol 325mg Tab) 650 mg PO Q6 PRN PRN Reason: Pain, Mild (1-3) Last Admin: 09/12/18 23:55 Dose: 650 mg Acetaminophen (Tylenol 325mg Tab) 650 mg PO Q6 PRN PRN Reason: Fever >100.4 F Amlodipine Besylate (Norvasc) 5 mg PO DAILY [facility] Last Admin: 09/14/18 08:32 Dose: 5 mg Aspirin (Aspirin Chewable) 81 mg PO DAILY [facility] Last Admin: 09/14/18 08:32 Dose: 81 mg Cyanocobalamin (Vitamin B12 1000 Mcg Tab) 1,000 mcg PO DAILY [facility] Last Admin: 09/14/18 08:33 Dose: 1,000 mcg Dextrose (Dextrose 50% Inj) 0 ml IV STAT PRN; Protocol PRN Reason: Hypoglycemia Protocol Dextrose (Glutose 15) 0 gm PO ONCE PRN; Protocol PRN Reason: Hypoglycemia Protocol Enoxaparin Sodium (Lovenox) 30 mg SC DAILY [facility]; Protocol Last Admin: 09/14/18 08:31 Dose: 30 mg Gabapentin (Neurontin) 400 mg PO HS [facility] Last Admin: 09/14/18 21:32 Dose: 400 mg Glucagon (Glucagen Diagnostic Kit) 0 mg IM STAT PRN; Protocol PRN Reason: Hypoglycemia Protocol Ceftriaxone Sodium 1 gm/ (Sodium Chloride) 100 mls @ 100 mls/hr IVPB DAILY [facility]; Protocol Last Admin: 09/14/18 08:33 Dose: 100 mls/hr Sodium Chloride (Sodium Chloride 0.9%) 1,000 mls @ 150 mls/hr IV .Q6H40M [facility] Last Admin: 09/15/18 01:42 Dose: 150 mls/hr Ampicillin Sodium/Sulbactam (Sodium 3 gm/ Sodium Chloride) 100 mls @ 100 mls/hr IVPB Q12 [facility]; Protocol Last Admin: 09/14/18 20:59 Dose: 100 mls/hr Insulin Human Regular (Humulin R) 0 units SC ACHS [facility]; Protocol Last Admin: 09/14/18 21:47 Dose: Not Given Levothyroxine Sodium (Synthroid) 100 mcg PO DAILY@0630 [facility] Last Admin: 09/15/18 07:01 Dose: 100 mcg Metoprolol Succinate (Toprol Xl) 100 mg PO DAILY [facility] Last Admin: 09/14/18 08:32 Dose: 100 mg Mirtazapine (Remeron) 7.5 mg PO HS [facility] Last Admin: 09/14/18 22:21 Dose: 7.5 mg Ondansetron HCl (Zofran Inj) 4 mg IVP Q6 PRN PRN Reason: Nausea/Vomiting Last Admin: 09/08/18 00:06 Dose: 4 mg Pantoprazole Sodium (Protonix Ec Tab) 40 mg PO DAILY [facility] Last Admin: 09/14/18 08:31 Dose: 40 mg Silver Sulfadiazine (Silvadene 1% 20 Gm) 1 ea TOP DAILY [facility] Last Admin: 09/14/18 08:33 Dose: 1 applic Sodium Hypochlorite (Dakins Solution 0.125%) 1 appl EXT DAILY [facility] Last Admin: 09/14/18 08:34 Dose: 1 appl - Labs Labs: 09/15/18 05:50 09/15/18 05:50 PT 12.7 Seconds (9.8-13.1) 09/09/18 07:05 INR 1.1 09/09/18 07:05 APTT 28.1 Seconds (25.6-37.1) 09/09/18 07:05 - Constitutional Appears: Well, Non-toxic, No Acute Distress - Head Exam Head Exam: ATRAUMATIC, NORMOCEPHALIC - Eye Exam Eye Exam: Normal appearance - ENT Exam ENT Exam: Mucous Membranes Moist - Cardiovascular Exam Cardiovascular Exam: REGULAR RHYTHM, +S1, +S2 - Neurological Exam Neurological Exam: Alert, Awake, Oriented x3 - Psychiatric Exam Psychiatric exam: Depressed, Normal Affect - Skin Skin Exam: Normal Color Assessment and Plan - Assessment and Plan (Free Text) Assessment: Pt is a 62 y/o female with hx of HTN, DM, Hypothyroidism, Rheumatoid arthritis, Chronic foot ulcers admitted for multiple foot/leg ulcers w/ foul odor drainage admitted for osteomyelitis. Plan: 1) Multiple Foot Ulcers, Bilaterally - s/p wound debridement day 5 - Podiatry on board - Afebrile, No leukocytosis, +Bandemia 4, Lactate normal, ESR 120 - ID Consulted, Dr. Contreras; recommends 4-6 weeks of IV antibiotics - awaiting intraop cultures- possible DC with PO antibiotics - Wound Care Nursing, tight glycemic control, offloading from ulcers - MRI LE from knee to ankle :showed no OM , no abscess - Duplex Vein no DVT - Arterial duplex: severely diseased b/l LE arterial system. - Vascular consulted; Dr Mcdermott. CT Angio ordered- no vascular intervention, all vessels patent - Wcx; citrobacter diversus, beta hemolytic strep group b; c/w vancomycin and ceftriaxone - Intra-op wound cx pending - PICC Line in place 2) CKD - Stable - Renal dose adjustments for nephrotoxic medication (check Vanco trough) - Vanc trough 11.2 3) Hypothyroidism -TSH 5.47, T4 6.55 -C/W with home medication, Levothyroxine 100mg daily 4) Rheumatoid Arthritis -Pain controlled with Tylenol. Morphine 4 gm q6 pRN ordered for severe pain -Prior labs reviewed: +RF, +Anti CCP, + pANCa 5) Anemia - acute - Hgb 8.8 - no signs of active bleeding 6) Poor mobility/Debilitation - OT for ADL's - PT ordered for gait/mobility/strength; WBAT in heel offloading shoe 7) DVT ppx -Lovenox 40mg SQ daily given CrCl >40 8) Cognitive impairment/depression - Psych consulted; appreciate recs;recommend starting remeron 15 mg qhs and referral to outpatient psychiatric services on discharge - Neuro consult ordered; appreciate recs 9) Constipation - controlled 10) Hypertension -c/w home medications <Ernesto Palomares D - Last Filed: 09/15/18 20:06> Objective - Vital Signs/Intake and Output Vital Signs (last 24 hours): Temp Pulse Resp BP Pulse Ox 98.4 F 75 20 124/67 100 09/15/18 16:34 09/15/18 16:34 09/15/18 16:34 09/15/18 16:34 09/15/18 16:34 - Medications Medications: Current Medications Acetaminophen (Tylenol 325mg Tab) 650 mg PO Q6 PRN PRN Reason: Pain, Mild (1-3) Last Admin: 09/15/18 11:24 Dose: 650 mg Acetaminophen (Tylenol 325mg Tab) 650 mg PO Q6 PRN PRN Reason: Fever >100.4 F Amlodipine Besylate (Norvasc) 5 mg PO DAILY [facility] Last Admin: 09/15/18 09:41 Dose: 5 mg Aspirin (Aspirin Chewable) 81 mg PO DAILY [facility] Last Admin: 09/15/18 09:42 Dose: 81 mg Cyanocobalamin (Vitamin B12 1000 Mcg Tab) 1,000 mcg PO DAILY [facility] Last Admin: 09/15/18 09:35 Dose: 1,000 mcg Dextrose (Dextrose 50% Inj) 0 ml IV STAT PRN; Protocol PRN Reason: Hypoglycemia Protocol Dextrose (Glutose 15) 0 gm PO ONCE PRN; Protocol PRN Reason: Hypoglycemia Protocol Enoxaparin Sodium (Lovenox) 30 mg SC DAILY [facility]; Protocol Last Admin: 09/15/18 09:34 Dose: 30 mg Gabapentin (Neurontin) 400 mg PO HS [facility] Last Admin: 09/14/18 21:32 Dose: 400 mg Glucagon (Glucagen Diagnostic Kit) 0 mg IM STAT PRN; Protocol PRN Reason: Hypoglycemia Protocol Ceftriaxone Sodium 1 gm/ (Sodium Chloride) 100 mls @ 100 mls/hr IVPB DAILY [facility]; Protocol Last Admin: 09/15/18 11:26 Dose: 100 mls/hr Sodium Chloride (Sodium Chloride 0.9%) 1,000 mls @ 150 mls/hr IV .Q6H40M [facility] Last Admin: 09/15/18 15:05 Dose: Not Given Ampicillin Sodium/Sulbactam (Sodium 3 gm/ Sodium Chloride) 100 mls @ 100 mls/hr IVPB Q12 [facility]; Protocol Last Admin: 09/15/18 09:44 Dose: 100 mls/hr Insulin Human Regular (Humulin R) 0 units SC ACHS [facility]; Protocol Last Admin: 09/15/18 12:41 Dose: Not Given Levothyroxine Sodium (Synthroid) 100 mcg PO DAILY@0630 [facility] Last Admin: 09/15/18 07:01 Dose: 100 mcg Metoprolol Succinate (Toprol Xl) 100 mg PO DAILY [facility] Last Admin: 09/15/18 09:34 Dose: 100 mg Mirtazapine (Remeron) 15 mg PO HS [facility] Ondansetron HCl (Zofran Inj) 4 mg IVP Q6 PRN PRN Reason: Nausea/Vomiting Last Admin: 09/08/18 00:06 Dose: 4 mg Pantoprazole Sodium (Protonix Ec Tab) 40 mg PO DAILY [facility] Last Admin: 09/15/18 09:34 Dose: 40 mg Silver Sulfadiazine (Silvadene 1% 20 Gm) 1 ea TOP DAILY [facility] Last Admin: 09/15/18 15:03 Dose: 1 applic Sodium Hypochlorite (Dakins Solution 0.125%) 1 appl EXT DAILY [facility] Last Admin: 09/15/18 15:02 Dose: 1 appl - Labs Labs: 09/15/18 05:50 09/15/18 05:50 PT 12.7 Seconds (9.8-13.1) 09/09/18 07:05 INR 1.1 09/09/18 07:05 APTT 28.1 Seconds (25.6-37.1) 09/09/18 07:05 Attending/Attestation - Attestation I have personally seen and examined this patient.: Yes I have fully participated in the care of the patient.: Yes I have reviewed all pertinent clinical information, including history, physical exam and plan: Yes Notes (Text): 09/15/18 20:06 Patient seen and examined with resident. Case discussed and agreed with assessment and plan of management.
[2018-09-15] MEDS: Pantoprazole 40 mg EC Tab PO SCH (09:34)
[2018-09-15] MEDS: Enoxaparin 30 mg Syringe SC SCH (09:34)
[2018-09-15] MEDS: Metoprolol Succinate 100 mg XL Tab PO SCH (09:34)
--- NOTE | 2018-09-15 11:20 | CP.PCM.PN ---
Subjective - Date & Time of Evaluation Date of Evaluation: 09/15/18 Time of Evaluation: 11:15 - Subjective Subjective: Patient seen and examined at bedside s/p B/L foot wound debridement. Reports mild pain to lower extremity. Physical therapy seen at bedside. No acute event overnight. Denies nausea, vomiting, fever chills, chest pain, abdominal pain. Objective - Vital Signs/Intake and Output Vital Signs (last 24 hours): Temp Pulse Resp BP Pulse Ox 98.3 F 77 19 156/77 H 98 09/15/18 08:17 09/15/18 10:41 09/15/18 08:17 09/15/18 09:34 09/15/18 10:41 - Medications Medications: Current Medications Acetaminophen (Tylenol 325mg Tab) 650 mg PO Q6 PRN PRN Reason: Pain, Mild (1-3) Last Admin: 09/12/18 23:55 Dose: 650 mg Acetaminophen (Tylenol 325mg Tab) 650 mg PO Q6 PRN PRN Reason: Fever >100.4 F Amlodipine Besylate (Norvasc) 5 mg PO DAILY [facility] Last Admin: 09/15/18 09:41 Dose: 5 mg Aspirin (Aspirin Chewable) 81 mg PO DAILY [facility] Last Admin: 09/15/18 09:42 Dose: 81 mg Cyanocobalamin (Vitamin B12 1000 Mcg Tab) 1,000 mcg PO DAILY [facility] Last Admin: 09/15/18 09:35 Dose: 1,000 mcg Dextrose (Dextrose 50% Inj) 0 ml IV STAT PRN; Protocol PRN Reason: Hypoglycemia Protocol Dextrose (Glutose 15) 0 gm PO ONCE PRN; Protocol PRN Reason: Hypoglycemia Protocol Enoxaparin Sodium (Lovenox) 30 mg SC DAILY [facility]; Protocol Last Admin: 09/15/18 09:34 Dose: 30 mg Gabapentin (Neurontin) 400 mg PO HS [facility] Last Admin: 09/14/18 21:32 Dose: 400 mg Glucagon (Glucagen Diagnostic Kit) 0 mg IM STAT PRN; Protocol PRN Reason: Hypoglycemia Protocol Ceftriaxone Sodium 1 gm/ (Sodium Chloride) 100 mls @ 100 mls/hr IVPB DAILY [facility]; Protocol Last Admin: 09/14/18 08:33 Dose: 100 mls/hr Sodium Chloride (Sodium Chloride 0.9%) 1,000 mls @ 150 mls/hr IV .Q6H40M [facility] Last Admin: 09/15/18 01:42 Dose: 150 mls/hr Ampicillin Sodium/Sulbactam (Sodium 3 gm/ Sodium Chloride) 100 mls @ 100 mls/hr IVPB Q12 [facility]; Protocol Last Admin: 09/15/18 09:44 Dose: 100 mls/hr Insulin Human Regular (Humulin R) 0 units SC ACHS [facility]; Protocol Last Admin: 09/15/18 09:32 Dose: Not Given Levothyroxine Sodium (Synthroid) 100 mcg PO DAILY@0630 [facility] Last Admin: 09/15/18 07:01 Dose: 100 mcg Metoprolol Succinate (Toprol Xl) 100 mg PO DAILY [facility] Last Admin: 09/15/18 09:34 Dose: 100 mg Mirtazapine (Remeron) 7.5 mg PO HS [facility] Last Admin: 09/14/18 22:21 Dose: 7.5 mg Ondansetron HCl (Zofran Inj) 4 mg IVP Q6 PRN PRN Reason: Nausea/Vomiting Last Admin: 09/08/18 00:06 Dose: 4 mg Pantoprazole Sodium (Protonix Ec Tab) 40 mg PO DAILY [facility] Last Admin: 09/15/18 09:34 Dose: 40 mg Silver Sulfadiazine (Silvadene 1% 20 Gm) 1 ea TOP DAILY [facility] Last Admin: 09/14/18 08:33 Dose: 1 applic Sodium Hypochlorite (Dakins Solution 0.125%) 1 appl EXT DAILY [facility] Last Admin: 09/14/18 08:34 Dose: 1 appl - Labs Labs: 09/15/18 05:50 09/15/18 05:50 PT 12.7 Seconds (9.8-13.1) 09/09/18 07:05 INR 1.1 09/09/18 07:05 APTT 28.1 Seconds (25.6-37.1) 09/09/18 07:05 - Constitutional Appears: Well, Non-toxic, No Acute Distress - Head Exam Head Exam: ATRAUMATIC, NORMOCEPHALIC - Eye Exam Eye Exam: Normal appearance Pupil Exam: NORMAL ACCOMODATION - ENT Exam ENT Exam: Mucous Membranes Moist - Cardiovascular Exam Cardiovascular Exam: REGULAR RHYTHM, +S1, +S2 - Neurological Exam Neurological Exam: Alert, Awake - Psychiatric Exam Psychiatric exam: Depressed, Normal Affect
--- NOTE | 2018-09-15 11:53 | CP.PCM.CON ---
History of Present Illness - History of Present Illness History of Present Illness: Psychiatry consult follow-up note CC: "I feel regular." HPI: 62 yo female w/ h/o HTN, DM, Hypothyroidism, HLD, admitted w/ bilateral f oot wounds. Patient currently A + O x self, hospital and 2019. She denies feeling acutely depressed and described her mood as "regular", but patient's sister, Josefina, who was present during the interview stated that patient continues to be depressed w/ intermittent episodes of crying. Patient reports poor appetite. She reports improved sleep. No AH/VH/SI/HI. MSE: A + O x self, hospital and 2019, able to read date off the board. Calm, cooperative, mood- "regular", affect- broad, thought process- coherent, good eye contact, speech soft, no AH/VH/SI/HI. Impression: 62 yo female w/ depressive disorder. -Increase Remeron to 15 mg PO HS -No acute psychiatric admission indicated at this time Past Patient History - Infectious Disease Hx of Infectious Diseases: None - Past Medical History & Family History Past Medical History?: Yes - Past Social History Smoking Status: Never Smoked - CARDIAC Hx Hypercholesterolemia: Yes Hx Hypertension: Yes - PULMONARY Hx Respiratory Disorders: No - NEUROLOGICAL Hx Neurological Disorder: No - HEENT Hx HEENT Problems: No - RENAL Hx Chronic Kidney Disease: Yes - ENDOCRINE/METABOLIC Hx Diabetes Mellitus Type 2: Yes Hx Hypothyroidism: Yes - HEMATOLOGICAL/ONCOLOGICAL Hx Blood Disorders: Yes Hx Anemia: Yes Hx Sickle Cell Disease: No - INTEGUMENTARY Hx Dermatological Problems: No - MUSCULOSKELETAL/RHEUMATOLOGICAL Hx Rheumatoid Arthritis: Yes - GASTROINTESTINAL Hx Gastrointestinal Disorders: No - GENITOURINARY/GYNECOLOGICAL Hx Genitourinary Disorders: No - PSYCHIATRIC Hx Psychophysiologic Disorder: No Hx Substance Use: No - SURGICAL HISTORY Hx Surgeries: Yes Other/Comment: left wrist surgery, brain surgery - ANESTHESIA Hx Anesthesia: Yes Hx Anesthesia Reactions: No Meds Allergies/Adverse Reactions: Allergies Allergy/AdvReac Type Severity Reaction Status Date / Time No Known Allergies Allergy Verified 06/24/18 11:09 - Medications Medications: Current Medications Acetaminophen (Tylenol 325mg Tab) 650 mg PO Q6 PRN PRN Reason: Pain, Mild (1-3) Last Admin: 09/15/18 11:24 Dose: 650 mg Acetaminophen (Tylenol 325mg Tab) 650 mg PO Q6 PRN PRN Reason: Fever >100.4 F Amlodipine Besylate (Norvasc) 5 mg PO DAILY [facility] [place] Last Admin: 09/15/18 09:41 Dose: 5 mg Aspirin (Aspirin Chewable) 81 mg PO DAILY [facility] [place] Last Admin: 09/15/18 09:42 Dose: 81 mg Cyanocobalamin (Vitamin B12 1000 Mcg Tab) 1,000 mcg PO DAILY [facility] [place] Last Admin: 09/15/18 09:35 Dose: 1,000 mcg Dextrose (Dextrose 50% Inj) 0 ml IV STAT PRN; Protocol PRN Reason: Hypoglycemia Protocol Dextrose (Glutose 15) 0 gm PO ONCE PRN; Protocol PRN Reason: Hypoglycemia Protocol Enoxaparin Sodium (Lovenox) 30 mg SC DAILY [facility] [place]; Protocol Last Admin: 09/15/18 09:34 Dose: 30 mg Gabapentin (Neurontin) 400 mg PO HS [facility] [place] Last Admin: 09/14/18 21:32 Dose: 400 mg Glucagon (Glucagen Diagnostic Kit) 0 mg IM STAT PRN; Protocol PRN Reason: Hypoglycemia Protocol Ceftriaxone Sodium 1 gm/ (Sodium Chloride) 100 mls @ 100 mls/hr IVPB DAILY [facility] [place]; Protocol Last Admin: 09/15/18 11:26 Dose: 100 mls/hr Sodium Chloride (Sodium Chloride 0.9%) 1,000 mls @ 150 mls/hr IV .Q6H40M [facility] [place] Last Admin: 09/15/18 01:42 Dose: 150 mls/hr Ampicillin Sodium/Sulbactam (Sodium 3 gm/ Sodium Chloride) 100 mls @ 100 mls/hr IVPB Q12 [facility] [place]; Protocol Last Admin: 09/15/18 09:44 Dose: 100 mls/hr Insulin Human Regular (Humulin R) 0 units SC ACHS [facility] [place]; Protocol Last Admin: 09/15/18 09:32 Dose: Not Given Levothyroxine Sodium (Synthroid) 100 mcg PO DAILY@0630 [facility] [place] Last Admin: 09/15/18 07:01 Dose: 100 mcg Metoprolol Succinate (Toprol Xl) 100 mg PO DAILY [facility] [place] Last Admin: 09/15/18 09:34 Dose: 100 mg Mirtazapine (Remeron) 7.5 mg PO HS [facility] [place] Last Admin: 09/14/18 22:21 Dose: 7.5 mg Ondansetron HCl (Zofran Inj) 4 mg IVP Q6 PRN PRN Reason: Nausea/Vomiting Last Admin: 09/08/18 00:06 Dose: 4 mg Pantoprazole Sodium (Protonix Ec Tab) 40 mg PO DAILY [facility] Last Admin: 09/15/18 09:34 Dose: 40 mg Silver Sulfadiazine (Silvadene 1% 20 Gm) 1 ea TOP DAILY [facility] Last Admin: 09/14/18 08:33 Dose: 1 applic Sodium Hypochlorite (Dakins Solution 0.125%) 1 appl EXT DAILY [facility] Last Admin: 09/14/18 08:34 Dose: 1 appl Results - Vital Signs Recent Vital Signs: Last Vital Signs Temp 98.3 F 09/15/18 08:17 Pulse 77 09/15/18 10:41 Resp 19 09/15/18 08:17 BP 156/77 H 09/15/18 09:34 Pulse Ox 98 09/15/18 10:41 - Labs Result Diagrams: 09/15/18 05:50 09/15/18 05:50 Labs: Laboratory Results - last 24 hr 09/14/18 09/14/18 09/14/18 10:40 16:59 21:16 WBC RBC Hgb Hct MCV MCH MCHC RDW Plt Count Sodium Potassium Chloride Carbon Dioxide Anion Gap BUN Creatinine Est GFR ( Amer) Est GFR (Non-Af Amer) POC Glucose (mg/dL) 218 H 181 H Random Glucose Calcium Total Bilirubin AST ALT Alkaline Phosphatase Total Protein Albumin Globulin Albumin/Globulin Ratio Vancomycin Trough Blood Type O POSITIVE Antibody Screen Negative Crossmatch See Detail BBK History Checked Patient has bt 09/15/18 09/15/18 09/15/18 05:50 05:50 05:50 WBC 5.3 RBC 3.29 L Hgb 8.8 L Hct 26.9 L MCV 81.7 MCH 26.9 L MCHC 32.9 L RDW 16.0 H Plt Count 303 Sodium 140 Potassium 3.7 Chloride 109 H Carbon Dioxide 22 Anion Gap 13 BUN 20 H Creatinine 2.1 H Est GFR ( Amer) 29 Est GFR (Non-Af Amer) 24 POC Glucose (mg/dL) Random Glucose 95 Calcium 8.2 L Total Bilirubin 0.1 L AST 33 ALT 28 Alkaline Phosphatase 82 Total Protein 5.4 L Albumin 2.1 L Globulin 3.3 Albumin/Globulin Ratio 0.6 L Vancomycin Trough 11.2 H Blood Type Antibody Screen Crossmatch BBK History Checked 09/15/18 09/15/18 06:16 11:05 WBC RBC Hgb Hct MCV MCH MCHC RDW Plt Count Sodium Potassium Chloride Carbon Dioxide Anion Gap BUN Creatinine Est GFR ( Amer) Est GFR (Non-Af Amer) POC Glucose (mg/dL) 100 125 H Random Glucose Calcium Total Bilirubin AST ALT Alkaline Phosphatase Total Protein Albumin Globulin Albumin/Globulin Ratio Vancomycin Trough Blood Type Antibody Screen Crossmatch BBK History Checked
[2018-09-15] MEDS: Silver Sulfadiazine 1% Cream (20 gm) TOP SCH (15:03)
[2018-09-15 16:35] VITALS: O2SAT 100
--- NOTE | 2018-09-15 19:20 | CP.PCM.PN ---
Subjective - Date & Time of Evaluation Date of Evaluation: 09/15/18 Time of Evaluation: 19:20 - Subjective Subjective: Podiatry Progress Note: Dr. Brown 62 year old female patient seen and evaluated for b/l LE ulcerations with underlying OM. Patient is 6 days s/p b/l wound debridement. Patient resting comfortably in bedside chair. Reports mild pain to b/l feet. Objective - Vital Signs/Intake and Output Vital Signs (last 24 hours): Temp Pulse Resp BP Pulse Ox 98.4 F 75 20 124/67 100 09/15/18 16:34 09/15/18 16:34 09/15/18 16:34 09/15/18 16:34 09/15/18 16:34 - Medications Medications: Current Medications Acetaminophen (Tylenol 325mg Tab) 650 mg PO Q6 PRN PRN Reason: Pain, Mild (1-3) Last Admin: 09/15/18 11:24 Dose: 650 mg Acetaminophen (Tylenol 325mg Tab) 650 mg PO Q6 PRN PRN Reason: Fever >100.4 F Amlodipine Besylate (Norvasc) 5 mg PO DAILY [facility] Last Admin: 09/15/18 09:41 Dose: 5 mg Aspirin (Aspirin Chewable) 81 mg PO DAILY [facility] Last Admin: 09/15/18 09:42 Dose: 81 mg Cyanocobalamin (Vitamin B12 1000 Mcg Tab) 1,000 mcg PO DAILY [facility] Last Admin: 09/15/18 09:35 Dose: 1,000 mcg Dextrose (Dextrose 50% Inj) 0 ml IV STAT PRN; Protocol PRN Reason: Hypoglycemia Protocol Dextrose (Glutose 15) 0 gm PO ONCE PRN; Protocol PRN Reason: Hypoglycemia Protocol Enoxaparin Sodium (Lovenox) 30 mg SC DAILY [facility]; Protocol Last Admin: 09/15/18 09:34 Dose: 30 mg Gabapentin (Neurontin) 400 mg PO HS [facility] Last Admin: 09/14/18 21:32 Dose: 400 mg Glucagon (Glucagen Diagnostic Kit) 0 mg IM STAT PRN; Protocol PRN Reason: Hypoglycemia Protocol Ceftriaxone Sodium 1 gm/ (Sodium Chloride) 100 mls @ 100 mls/hr IVPB DAILY [facility]; Protocol Last Admin: 09/15/18 11:26 Dose: 100 mls/hr Sodium Chloride (Sodium Chloride 0.9%) 1,000 mls @ 150 mls/hr IV .Q6H40M [facility] Last Admin: 09/15/18 15:05 Dose: Not Given Ampicillin Sodium/Sulbactam (Sodium 3 gm/ Sodium Chloride) 100 mls @ 100 mls/hr IVPB Q12 [facility]; Protocol Last Admin: 09/15/18 09:44 Dose: 100 mls/hr Insulin Human Regular (Humulin R) 0 units SC ACHS [facility]; Protocol Last Admin: 09/15/18 12:41 Dose: Not Given Levothyroxine Sodium (Synthroid) 100 mcg PO DAILY@0630 [facility] Last Admin: 09/15/18 07:01 Dose: 100 mcg Metoprolol Succinate (Toprol Xl) 100 mg PO DAILY [facility] Last Admin: 09/15/18 09:34 Dose: 100 mg Mirtazapine (Remeron) 15 mg PO HS [facility] Ondansetron HCl (Zofran Inj) 4 mg IVP Q6 PRN PRN Reason: Nausea/Vomiting Last Admin: 09/08/18 00:06 Dose: 4 mg Pantoprazole Sodium (Protonix Ec Tab) 40 mg PO DAILY [facility] Last Admin: 09/15/18 09:34 Dose: 40 mg Silver Sulfadiazine (Silvadene 1% 20 Gm) 1 ea TOP DAILY [facility] Last Admin: 09/15/18 15:03 Dose: 1 applic Sodium Hypochlorite (Dakins Solution 0.125%) 1 appl EXT DAILY [facility] Last Admin: 09/15/18 15:02 Dose: 1 appl - Labs Labs: 09/15/18 05:50 09/15/18 05:50 PT 12.7 Seconds (9.8-13.1) 09/09/18 07:05 INR 1.1 09/09/18 07:05 APTT 28.1 Seconds (25.6-37.1) 09/09/18 07:05 - Constitutional Appears: Non-toxic, No Acute Distress - Head Exam Head Exam: ATRAUMATIC, NORMOCEPHALIC - Extremities Exam Additional comments: B/L lower extremity focused exam: Vascular: DP/PT are 2/4 b/l, Cap refill < 3 seconds to all digits, Temp gradient warm to cool from proximal to distal, no edema appreciated to b/l extremities. Neuro: Gross sensation intact, protective sensation diminished. Derm: Left: An ulcer noted in the lateral aspect of the foot measuring 2 cm X 1.4 cm X 0.2 cm. Base is 90% granular, 10% fibrotic. Positive sanginous drainage noted. No tracking, No undermining, No probe to bone. No delma-ulcerative erythema noted. Another ulcer noted in the left heel 4.3 cm X 2.5 cm X 0.4 cm post debridement. Base is 90% granular, 10% fibrotic. Positive sanguineous drainage noted. positive tracking, No undermining, Positive probe to bone. positive delma- ulcerative erythema noted. A third ulcer noted in the upper lateral aspect of the left leg measuring 1.5 cm X 1.2 cm X 0.1 cm. Base is 100% granular. No tracking, No undermining, Positive probe to bone. Delma-ulcerative erythema and induration noted. Right: ulcer noted in the left heel 3.9 cm X 2 cm X 0.4 cm. Base is 90% granular, 10% fibrotic. Positive sanguineous drainage noted. positive tracking, No undermining, Positive probe to bone. positive delma-ulcerative erythema noted. Ortho: Muscle power 5/5 to all groups, Pain noted on palpating the delma- ulcerative areas Assessment and Plan - Assessment and Plan (Free Text) Assessment: 62F with b/l LE infected ulcerations with underlying OM, 6 days s/p wound debridement. Plan: Patient seen and evaluated at the bedside. Discussed in detail with Dr. Brown Wound culture: Citrobacter diversus, Beta hemolytic strept group B B/L foot/ankle/tib/fib x-ray: No evidence of OM LE CRISTIANE/PVR: Sever biateral LE arterial disease, distal abdominal aorta stenosis and or bilateral iliac stenosis not excluded. Concider follow up contrast CT angio of aorto-iliac system with bilateral LE runoff Left ankle MRI: Overall pattern is highly suggestive of osteomyelitis at the calcaneus and is difficult to exclude at the remaining midfoot/hindfoot and right ankle bony elements. Unfortunately, widespread mottled/heterogeneous Marrow edema is appreciated not only involving the ankle but osseous elements of the midfoot and hindfoot also suspicious for osteomyelitis with differentiated diagnosis of RSD order other inflammatory causes. Posttraumatic etiology is unlikely. Further clinical correlation is recommended Right ankle MRI: Indeterminate pattern of bony edema throughout the ankle and midfoot/hindfoot anatomy indicative of osteomyelitis particularly at the calcaneus adjacent to a soft tissue ulcer posteriorly. Abnormal Marrow signal throughout the entire midfoot and hindfoot including inferior tibia and possibly fibula may also reflect osteomyelitis though given its widespread pattern which includes various musculature as well, consider other inflammatory causes, reflex sympathetic dystrophy and other etiologies. Further clinical correlation is recommended Right foot MRI: Nonspecific pattern of heterogeneous abnormal edema scattered throughout the midfoot and hindfoot bony anatomy as well as the 1st and 5th metatarsal bones and proximal phalanx right great toe. For osteomyelitis or other inflammatory causes. Clinical correlation suggestive of OM. Left foot MRI: Nonspecific heterogeneous pattern of edema primarily at the left midfoot and hindfoot bones as discussed above few cellulitis is appreciate primarily affecting midfoot and hindfoot distribution as well. The 2nd and 3rd digits are also affected at the pattern is nonspecific and could reflect osteomyelitis though other etiologies including RSD and other inflammatory causes are not excluded. Further clinical correlation suggestive of OM B/L Lower Extremity MRI: Edematous changes are seen in the Marrow of the osseous elements at the bilateral knee joints slightly greater the right than left. Osteomyelitis is not favored. Questionable ulcer distal posterior leg soft tissues. Mild bilateral lower extremity cellulitis. No definite abscess appreciated bilaterally CT angio showed no significant stenosis or blockage B/L LE venous duplex: No DVT, Right inguinal lymphadenopathy Vascular consult: Reccs appreciated Patient to stay in the multipodus boot while in bed. Patient to bear weight as tolerated in the heel offloading shoe. Continue Physical therapy Patient to continue IV abx as per ID. Intra-operative deep wound cultures: Final no growth
[2018-09-16] MEDS: Sodium Chloride 0.9% 1,000 ML IV SCH ×3 (01:15→13:08)
[2018-09-16] MEDS: Levothyroxine 100 MCG TAB PO SCH (05:49)
[2018-09-16 07:07] LABS: HEMOGLOBIN 8.9 g/dL (12.0-16.0); MEAN CORPUSCULAR HEMOGLOBIN 26.8 pg (27.0-31.0); MEAN CORPUSCULAR HGB CONC 32.7 g/dL (33.0-37.0); RBC 3.34 Mil/uL (3.80-5.20); RED CELL DISTRIBUTION WIDTH 15.9 % (11.5-14.5); WHITE BLOOD COUNT 5.7 K/uL (4.8-10.8)
[2018-09-16 07:17] LABS: ALB/GLOB RATIO 0.6 (1.0-2.1); ALBUMIN 2.1 g/dL (3.5-5.0); CALCIUM 8.1 mg/dL (8.4-10.2)
--- NOTE | 2018-09-16 07:20 | CP.PCM.PN ---
Subjective - Date & Time of Evaluation Date of Evaluation: 09/16/18 Time of Evaluation: 07:20 - Subjective Subjective: Podiatry Progress Note: Dr. Brown 62 year old female patient seen and evaluated for b/l LE ulcerations. Patient is 7 days s/p b/l wound debridement. Patient resting comfortably and in NAD. Reports a small amount of pain to b/l feet. Denies nausea/vomiting/fever. Objective - Vital Signs/Intake and Output Vital Signs (last 24 hours): Temp Pulse Resp BP Pulse Ox 98.4 F 87 19 148/76 100 09/16/18 00:01 09/16/18 00:01 09/16/18 00:01 09/16/18 00:01 09/16/18 00:01 - Medications Medications: Current Medications Acetaminophen (Tylenol 325mg Tab) 650 mg PO Q6 PRN PRN Reason: Pain, Mild (1-3) Last Admin: 09/15/18 11:24 Dose: 650 mg Acetaminophen (Tylenol 325mg Tab) 650 mg PO Q6 PRN PRN Reason: Fever >100.4 F Amlodipine Besylate (Norvasc) 5 mg PO DAILY [facility] Last Admin: 09/15/18 09:41 Dose: 5 mg Aspirin (Aspirin Chewable) 81 mg PO DAILY [facility] Last Admin: 09/15/18 09:42 Dose: 81 mg Cyanocobalamin (Vitamin B12 1000 Mcg Tab) 1,000 mcg PO DAILY [facility] Last Admin: 09/15/18 09:35 Dose: 1,000 mcg Dextrose (Dextrose 50% Inj) 0 ml IV STAT PRN; Protocol PRN Reason: Hypoglycemia Protocol Dextrose (Glutose 15) 0 gm PO ONCE PRN; Protocol PRN Reason: Hypoglycemia Protocol Enoxaparin Sodium (Lovenox) 30 mg SC DAILY [facility]; Protocol Last Admin: 09/15/18 09:34 Dose: 30 mg Gabapentin (Neurontin) 400 mg PO HS [facility] Last Admin: 09/15/18 21:34 Dose: 400 mg Glucagon (Glucagen Diagnostic Kit) 0 mg IM STAT PRN; Protocol PRN Reason: Hypoglycemia Protocol Ceftriaxone Sodium 1 gm/ (Sodium Chloride) 100 mls @ 100 mls/hr IVPB DAILY [facility]; Protocol Last Admin: 09/15/18 11:26 Dose: 100 mls/hr Sodium Chloride (Sodium Chloride 0.9%) 1,000 mls @ 150 mls/hr IV .Q6H40M [facility] Last Admin: 09/16/18 04:19 Dose: Not Given Ampicillin Sodium/Sulbactam (Sodium 3 gm/ Sodium Chloride) 100 mls @ 100 mls/hr IVPB Q12 [facility]; Protocol Last Admin: 09/15/18 21:33 Dose: 100 mls/hr Insulin Human Regular (Humulin R) 0 units SC ACHS [facility]; Protocol Last Admin: 09/15/18 21:30 Dose: Not Given Levothyroxine Sodium (Synthroid) 100 mcg PO DAILY@0630 [facility] Last Admin: 09/16/18 05:49 Dose: 100 mcg Metoprolol Succinate (Toprol Xl) 100 mg PO DAILY [facility] Last Admin: 09/15/18 09:34 Dose: 100 mg Mirtazapine (Remeron) 15 mg PO HS [facility] Last Admin: 09/15/18 21:35 Dose: 15 mg Ondansetron HCl (Zofran Inj) 4 mg IVP Q6 PRN PRN Reason: Nausea/Vomiting Last Admin: 09/08/18 00:06 Dose: 4 mg Pantoprazole Sodium (Protonix Ec Tab) 40 mg PO DAILY [facility] Last Admin: 09/15/18 09:34 Dose: 40 mg Silver Sulfadiazine (Silvadene 1% 20 Gm) 1 ea TOP DAILY [facility] Last Admin: 09/15/18 15:03 Dose: 1 applic Sodium Hypochlorite (Dakins Solution 0.125%) 1 appl EXT DAILY [facility] Last Admin: 09/15/18 15:02 Dose: 1 appl - Labs Labs: 09/16/18 05:45 09/16/18 05:45 PT 12.7 Seconds (9.8-13.1) 09/09/18 07:05 INR 1.1 09/09/18 07:05 APTT 28.1 Seconds (25.6-37.1) 09/09/18 07:05 - Constitutional Appears: Non-toxic, No Acute Distress - Head Exam Head Exam: ATRAUMATIC, NORMOCEPHALIC - Extremities Exam Additional comments: B/L lower extremity focused exam: Vascular: DP/PT are 2/4 b/l, Cap refill < 3 seconds to all digits, Temp gradient warm to cool from proximal to distal, no edema appreciated to b/l extremities. Neuro: Gross sensation intact, protective sensation diminished. Derm: Left: An ulcer noted in the lateral aspect of the foot measuring 1.7 cm X 1.4 cm X 0.2 cm. Base is 90% granular, 10% fibrotic. Positive sanginous drainage noted. No tracking, No undermining, No probe to bone. No diana-ulcerative erythema noted. Another ulcer noted in the left heel 4.3 cm X 2.5 cm X 0.4 cm post debridement. Base is 90% granular, 10% fibrotic. Positive sanguineous drainage noted. positive tracking, No undermining, Positive probe to bone. positive diana-ulcerative erythema noted. A third ulcer noted in the upper lateral aspect of the left leg measuring 1.5 cm X 1.2 cm X 0.1 cm. Base is 100% granular. No tracking, No undermining, Positive probe to bone. Diana-ulcerative erythema and induration noted. Right: ulcer noted in the left heel 3.9 cm X 2 cm X 0.4 cm. Base is 90% granular, 10% fibrotic. Positive sanguineous drainage noted. positive tracking, No undermining, Positive probe to bone. positive diana-ulcerative erythema noted. Ortho: Muscle power 5/5 to all groups, Pain noted on palpating the diana- ulcerative areas Assessment and Plan - Assessment and Plan (Free Text) Assessment: 62F with b/l LE infected ulcerations, with underlying OM, 7 days s/p wound debridement Plan: Patient seen and evaluated at the bedside. Discussed in detail with Dr. Brown Wound culture: Citrobacter diversus, Beta hemolytic strept group B B/L foot/ankle/tib/fib x-ray: No evidence of OM LE CRISTIANE/PVR: Sever biateral LE arterial disease, distal abdominal aorta stenosis and or bilateral iliac stenosis not excluded. Concider follow up contrast CT angio of aorto-iliac system with bilateral LE runoff Left ankle MRI: Overall pattern is highly suggestive of osteomyelitis at the donte caneus and is difficult to exclude at the remaining midfoot/hindfoot and right ankle bony elements. Unfortunately, widespread mottled/heterogeneous Marrow edema is appreciated not only involving the ankle but osseous elements of the midfoot and hindfoot also suspicious for osteomyelitis with differentiated diagnosis of RSD order other inflammatory causes. Posttraumatic etiology is unlikely. Further clinical correlation is recommended Right ankle MRI: Indeterminate pattern of bony edema throughout the ankle and midfoot/hindfoot anatomy indicative of OM particularly at the calcaneus adjacent to a soft tissue ulcer posteriorly. Abnormal Marrow signal throughout the ent leticia midfoot and hindfoot including inferior tibia and possibly fibula may also reflect OM though given its widespread pattern which includes various musculature as well, consider other inflammatory causes, reflex sympathetic dystrophy and other etiologies. Further clinical correlation is recommended Right foot MRI: Nonspecific pattern of heterogeneous abnormal edema scattered throughout the midfoot and hindfoot bony anatomy as well as the 1st and 5th metatarsal bones and proximal phalanx right great toe. For OM or other inflammatory causes. Clinical correlation suggestive of OM. Left foot MRI: Nonspecific heterogeneous pattern of edema primarily at the left midfoot and hindfoot bones as discussed above few cellulitis is appreciate primarily affecting midfoot and hindfoot distribution as well. The 2nd and 3rd digits are also affected at the pattern is nonspecific and could reflect osteomyelitis though other etiologies including RSD and other inflammatory causes are not excluded. Further clinical correlation suggestive of OM CT angio showed no significant stenosis or blockage B/L LE venous duplex: No DVT, Right inguinal lymphadenopathy Vascular consult: Reccs appreciated Patient to stay in the multipodus boot while in bed. Patient to bear weight as tolerated in the heel offloading shoe. Continue Physical therapy Patient to continue IV abx as per ID. Intra-operative deep wound cultures: Final no growth
[2018-09-16] MEDS: Insulin Regular 100 units/ml SC SCH ×3 (09:02→16:22)
[2018-09-16] MEDS: Enoxaparin 30 mg Syringe SC SCH (09:03)
[2018-09-16] MEDS: Silver Sulfadiazine 1% Cream (20 gm) TOP SCH (09:03)
[2018-09-16] MEDS: Pantoprazole 40 mg EC Tab PO SCH (09:03)
[2018-09-16] MEDS: Metoprolol Succinate 100 mg XL Tab PO SCH (09:04)
--- NOTE | 2018-09-16 11:30 | CP.PCM.PN ---
<Josie Harvey - Last Filed: 09/16/18 11:28> Subjective - Date & Time of Evaluation Date of Evaluation: 09/16/18 Time of Evaluation: 11:28 - Subjective Subjective: Pt is a 62 y/o female with hx of HTN, DM, Hypothyroidism, Rheumatoid arthritis, Chronic foot ulcers admitted for multiple foot/leg ulcers w/ foul odor drainage admitted for osteomyelitis.Patient seen and examined at bedside s/p B/L foot wound debridement. Reports pain to lower extremity. No acute event overnight. Denies nausea, vomiting, fever chills, chest pain, abdominal pain. Objective - Vital Signs/Intake and Output Vital Signs (last 24 hours): Temp Pulse Resp BP Pulse Ox 97.6 F 84 20 156/71 H 100 09/16/18 08:37 09/16/18 09:04 09/16/18 08:37 09/16/18 09:04 09/16/18 08:37 - Medications Medications: Current Medications Acetaminophen (Tylenol 325mg Tab) 650 mg PO Q6 PRN PRN Reason: Pain, Mild (1-3) Last Admin: 09/16/18 09:22 Dose: 650 mg Acetaminophen (Tylenol 325mg Tab) 650 mg PO Q6 PRN PRN Reason: Fever >100.4 F Amlodipine Besylate (Norvasc) 5 mg PO DAILY [facility] Last Admin: 09/16/18 09:03 Dose: 5 mg Aspirin (Aspirin Chewable) 81 mg PO DAILY [facility] Last Admin: 09/16/18 09:01 Dose: 81 mg Cyanocobalamin (Vitamin B12 1000 Mcg Tab) 1,000 mcg PO DAILY [facility] Last Admin: 09/16/18 09:04 Dose: 1,000 mcg Dextrose (Dextrose 50% Inj) 0 ml IV STAT PRN; Protocol PRN Reason: Hypoglycemia Protocol Dextrose (Glutose 15) 0 gm PO ONCE PRN; Protocol PRN Reason: Hypoglycemia Protocol Enoxaparin Sodium (Lovenox) 30 mg SC DAILY [facility]; Protocol Last Admin: 09/16/18 09:03 Dose: 30 mg Gabapentin (Neurontin) 400 mg PO HS [facility] Last Admin: 09/15/18 21:34 Dose: 400 mg Glucagon (Glucagen Diagnostic Kit) 0 mg IM STAT PRN; Protocol PRN Reason: Hypoglycemia Protocol Ceftriaxone Sodium 1 gm/ (Sodium Chloride) 100 mls @ 100 mls/hr IVPB DAILY [facility]; Protocol Last Admin: 09/16/18 08:43 Dose: 100 mls/hr Sodium Chloride (Sodium Chloride 0.9%) 1,000 mls @ 150 mls/hr IV .Q6H40M [facility] Last Admin: 09/16/18 04:19 Dose: Not Given Ampicillin Sodium/Sulbactam (Sodium 3 gm/ Sodium Chloride) 100 mls @ 100 mls/hr IVPB Q12 [facility]; Protocol Last Admin: 09/16/18 08:43 Dose: 100 mls/hr Insulin Human Regular (Humulin R) 0 units SC ACHS [facility]; Protocol Last Admin: 09/16/18 09:02 Dose: Not Given Levothyroxine Sodium (Synthroid) 100 mcg PO DAILY@0630 [facility] Last Admin: 09/16/18 05:49 Dose: 100 mcg Metoprolol Succinate (Toprol Xl) 100 mg PO DAILY [facility] Last Admin: 09/16/18 09:04 Dose: 100 mg Mirtazapine (Remeron) 15 mg PO HS [facility] Last Admin: 09/15/18 21:35 Dose: 15 mg Ondansetron HCl (Zofran Inj) 4 mg IVP Q6 PRN PRN Reason: Nausea/Vomiting Last Admin: 09/08/18 00:06 Dose: 4 mg Pantoprazole Sodium (Protonix Ec Tab) 40 mg PO DAILY [facility] Last Admin: 09/16/18 09:03 Dose: 40 mg Silver Sulfadiazine (Silvadene 1% 20 Gm) 1 ea TOP DAILY [facility] Last Admin: 09/16/18 09:03 Dose: 1 applic Sodium Hypochlorite (Dakins Solution 0.125%) 1 appl EXT DAILY [facility] Last Admin: 09/16/18 09:01 Dose: 1 appl - Labs Labs: 09/16/18 05:45 09/16/18 05:45 PT 12.7 Seconds (9.8-13.1) 09/09/18 07:05 INR 1.1 09/09/18 07:05 APTT 28.1 Seconds (25.6-37.1) 09/09/18 07:05 - Constitutional Appears: Well, Non-toxic, No Acute Distress - Head Exam Head Exam: ATRAUMATIC, NORMOCEPHALIC - Eye Exam Eye Exam: Normal appearance Pupil Exam: NORMAL ACCOMODATION - ENT Exam ENT Exam: Mucous Membranes Moist - Respiratory Exam Respiratory Exam: NORMAL BREATHING PATTERN - Cardiovascular Exam Cardiovascular Exam: REGULAR RHYTHM, +S1, +S2 - GI/Abdominal Exam GI & Abdominal Exam: Normal Bowel Sounds - Rectal Exam Rectal Exam: NORMAL INSPECTION - Extremities Exam Additional comments: bilateral lower extremity dressing c/d/i - Neurological Exam Neurological Exam: Alert, Awake, Oriented x3 - Psychiatric Exam Psychiatric exam: Normal Affect - Skin Skin Exam: Normal Color Assessment and Plan - Assessment and Plan (Free Text) Assessment: Pt is a 62 y/o female with hx of HTN, DM, Hypothyroidism, Rheumatoid arthritis, Chronic foot ulcers admitted for multiple foot/leg ulcers w/ foul odor drainage admitted for osteomyelitis. Plan: 1) Multiple Foot Ulcers, Bilaterally - s/p wound debridement day 5 - Podiatry on board - Afebrile, No leukocytosis, +Bandemia 4, Lactate normal, ESR 120 - ID Consulted, Dr. Contreras; recommends 4-6 weeks of IV antibiotics - awaiting intraop cultures- possible DC with PO antibiotics - Wound Care Nursing, tight glycemic control, offloading from ulcers - MRI LE from knee to ankle :showed no OM , no abscess - Duplex Vein no DVT - Arterial duplex: severely diseased b/l LE arterial system. - Vascular consulted; Dr Mcdermott. CT Angio ordered- no vascular intervention, all vessels patent - Wcx; citrobacter diversus, beta hemolytic strep group b; c/w unasyn and ceftriaxone - Intra-op wound cx pending - PICC Line in place 2) CKD - Stable - Renal dose adjustments for nephrotoxic medication (check Vanco trough) - Vanc trough 11.2 3) Hypothyroidism -TSH 5.47, T4 6.55 -C/W with home medication, Levothyroxine 100mg daily 4) Rheumatoid Arthritis -Pain controlled with Tylenol. Morphine 4 gm q6 pRN ordered for severe pain -Prior labs reviewed: +RF, +Anti CCP, + pANCa 5) Anemia - acute - Hgb 8.9 - no signs of active bleeding 6) Poor mobility/Debilitation - OT for ADL's - PT ordered for gait/mobility/strength; WBAT in heel offloading shoe 7) DVT ppx -Lovenox 40mg SQ daily given CrCl >40 8) Cognitive impairment/depression - Psych consulted; appreciate recs;recommend starting remeron 15 mg qhs and referral to outpatient psychiatric services on discharge - Neuro consult ordered; appreciate recs 9) Constipation - controlled 10) Hypertension -c/w home medications <Karoline Rousseau - Last Filed: 09/17/18 11:24> Objective - Vital Signs/Intake and Output Vital Signs (last 24 hours): Temp Pulse Resp BP Pulse Ox 98.7 F 83 18 116/54 L 100 09/16/18 16:22 09/16/18 16:22 09/16/18 16:22 09/16/18 16:22 09/16/18 16:22 - Labs Labs: 09/16/18 05:45 09/16/18 05:45 PT 12.7 Seconds (9.8-13.1) 09/09/18 07:05 INR 1.1 09/09/18 07:05 APTT 28.1 Seconds (25.6-37.1) 09/09/18 07:05 Attending/Attestation - Attestation I have personally seen and examined this patient.: Yes I have fully participated in the care of the patient.: Yes I have reviewed all pertinent clinical information, including history, physical exam and plan: Yes Notes (Text): 09/17/18 11:24 Agree with findings and plan as above
--- NOTE | 2018-09-16 12:42 | CP.PCM.DIS ---
<Josie Harvey - Last Filed: 09/16/18 12:39> Provider - Provider Date of Admission: 08/31/18 16:13 Attending physician: Karoline Rousseau DO Consults: 08/31/18 15:28 Podiatry Consult Stat Comment: Consulting Provider: Chirag Brown Consulting Physician: Chirag Brown Reason for Consult: FOOT ULCERS 08/31/18 16:16 Infectious Disease Consult Stat Comment: Consulting Provider: Gabi Contreras Consulting Physician: Gabi Contreras Reason for Consult: infected leg ulcers 08/31/18 20:57 Wound Care [Nursing Referral for Wound Care] Routine Comment: Physician Instructions: Reason For Exam: LE ulcers 09/03/18 06:33 Vascular Surgery Routine Comment: Consulting Provider: Yohan Mcdermott Physician Instructions: Reason For Exam: B/L LE wounds, B/L LE arterial disease by duplex. 09/07/18 11:02 Psychiatry Consult Routine Comment: Consulting Provider: Madison Ortega Consulting Physician: Madison Ortega Reason for Consult: depression Psychology Consult Routine Comment: Consulting Provider: Luzma Oviedo Consulting Physician: Luzma Oviedo Reason for Consult: cognitive assessment Time Spent in preparation of Discharge (in minutes): 30 Diagnosis - Discharge Diagnosis (1) Osteomyelitis Status: Acute Hospital Course - Lab Results Lab Results: Micro Results 09/09/18 14:00 Foot - Left Gram Stain - Final 09/09/18 14:00 Foot - Left Wound Culture - Final No growth. 08/31/18 15:30 Blood Blood Culture - Final NO GROWTH AFTER 5 DAYS 08/31/18 15:30 Blood Gram Stain - Final TEST NOT PERFORMED 08/31/18 15:45 Blood Blood Culture - Final NO GROWTH AFTER 5 DAYS 08/31/18 15:45 Blood Gram Stain - Final TEST NOT PERFORMED 08/31/18 15:36 Drainage Gram Stain - Final 08/31/18 15:36 Drainage Wound Culture - Final Citrobacter Diversus 08/31/18 16:00 Foot - Left Gram Stain - Final 08/31/18 16:00 Foot - Left Wound Culture - Final Citrobacter Diversus Beta Hemolytic Strep Group B 09/01/18 18:00 Leg - Left Gram Stain - Final 09/01/18 18:00 Leg - Left Wound Culture - Final Citrobacter Diversus Beta Hemolytic Strep Group B 09/01/18 14:45 Urine Random Urine Culture - Final No Growth (<1,000 CFU/ML) Most Recent Lab Values WBC 5.7 K/uL (4.8-10.8) 09/16/18 05:45 RBC 3.34 Mil/uL (3.80-5.20) L 09/16/18 05:45 Hgb 8.9 g/dL (12.0-16.0) L 09/16/18 05:45 Hct 27.3 % (34.0-47.0) L 09/16/18 05:45 MCV 82.0 fl (81.0-99.0) 09/16/18 05:45 MCH 26.8 pg (27.0-31.0) L 09/16/18 05:45 MCHC 32.7 g/dL (33.0-37.0) L 09/16/18 05:45 RDW 15.9 % (11.5-14.5) H 09/16/18 05:45 Plt Count 287 K/uL (130-400) 09/16/18 05:45 MPV 8.3 fl (7.2-11.7) 09/01/18 05:55 Neut % (Auto) 81.8 % (50.0-75.0) H 09/01/18 05:55 Lymph % (Auto) 6.6 % (20.0-40.0) L 09/01/18 05:55 [place] % (Auto) 8.6 % (0.0-10.0) 09/01/18 05:55 Eos % (Auto) 2.8 % (0.0-4.0) 09/01/18 05:55 Baso % (Auto) 0.2 % (0.0-2.0) 09/01/18 05:55 Neut # (Auto) 6.1 K/uL (1.8-7.0) 09/01/18 05:55 Lymph # (Auto) 0.5 K/uL (1.0-4.3) L 09/01/18 05:55 [place] # (Auto) 0.6 K/uL (0.0-0.8) 09/01/18 05:55 Eos # (Auto) 0.2 K/uL (0.0-0.7) 09/01/18 05:55 Baso # (Auto) 0.0 K/uL (0.0-0.2) 09/01/18 05:55 Neutrophils % (Manual) 77 % (42-75) H 08/31/18 15:30 Band Neutrophils % 4 % (0-2) H 08/31/18 15:30 Lymphocytes % (Manual) 8 % (20-50) L 08/31/18 15:30 Monocytes % (Manual) 11 % (0-10) H 08/31/18 15:30 Platelet Estimate Normal (NORMAL) 08/31/18 15:30 Polychromasia Slight 08/31/18 15:30 Hypochromasia (manual) Moderate 08/31/18 15:30 Poikilocytosis (manual Moderate 08/31/18 15:30 Anisocytosis (manual) Marked 08/31/18 15:30 Microcytosis (manual) Moderate 08/31/18 15:30 Ovalocytes Slight 08/31/18 15:30 Schistocytes Slight 08/31/18 15:30 ESR > 120 mm/hr (0-30) H 08/31/18 15:30 PT 12.7 Seconds (9.8-13.1) 09/09/18 07:05 INR 1.1 09/09/18 07:05 APTT 28.1 Seconds (25.6-37.1) 09/09/18 07:05 pO2 28 mm/Hg (30-55) L 08/31/18 15:47 VBG pH 7.39 (7.32-7.43) 08/31/18 15:47 VBG pCO2 50 mmHg (40-60) 08/31/18 15:47 VBG HCO3 27.0 mmol/L 08/31/18 15:47 VBG Total CO2 31.8 mmol/L (22-28) H 08/31/18 15:47 VBG O2 Sat (Calc) 52.9 % (40-65) 08/31/18 15:47 VBG Base Excess 4.2 mmol/L (0.0-2.0) H 08/31/18 15:47 VBG Potassium 4.3 mmol/L (3.6-5.2) 08/31/18 15:47 Sodium 135.0 mmol/L (132-148) 08/31/18 15:47 Chloride 100.0 mmol/L (98-107) 08/31/18 15:47 Glucose 165 mg/dL (65-105) H 08/31/18 15:47 Lactate 1.8 mmol/L (0.7-2.1) 08/31/18 15:47 FiO2 21.0 % 08/31/18 15:47 Sodium 142 mmol/l (132-148) 09/16/18 05:45 Potassium 3.8 MMOL/L (3.6-5.0) 09/16/18 05:45 Chloride 109 mmol/L (98-107) H 09/16/18 05:45 Carbon Dioxide 22 mmol/L (22-30) 09/16/18 05:45 Anion Gap 15 (10-20) 09/16/18 05:45 BUN 19 mg/dl (7-17) H 09/16/18 05:45 Creatinine 2.3 mg/dl (0.7-1.2) H 09/16/18 05:45 Est GFR ( Amer) 26 09/16/18 05:45 Est GFR (Non-Af Amer) 21 09/16/18 05:45 POC Glucose (mg/dL) 181 mg/dL (65-110) H 09/16/18 11:35 Random Glucose 98 mg/dL (65-105) 09/16/18 05:45 Hemoglobin A1c 6.0 % (4.2-6.5) 09/03/18 11:30 Calcium 8.1 mg/dL (8.4-10.2) L 09/16/18 05:45 Phosphorus 4.2 mg/dl (2.5-4.5) 08/31/18 15:30 Magnesium 2.3 MG/DL (1.6-2.3) 08/31/18 15:30 Iron 13 ug/dL (37-170) L 09/01/18 09:15 TIBC 180 ug/dL (250-450) L 09/01/18 09:15 % Saturation 7 % (20-55) L 09/01/18 09:15 Ferritin 318.0 ng/Ml (11.1-264.0) H 09/01/18 09:15 Total Bilirubin 0.1 mg/dl (0.2-1.3) L 09/16/18 05:45 AST 33 U/L (14-36) 09/16/18 05:45 ALT 24 U/L (9-52) 09/16/18 05:45 Alkaline Phosphatase 86 U/L (38-126) 09/16/18 05:45 C-Reactive Protein 167.60 mg/L (0.0-9.9) H 08/31/18 17:03 Total Protein 5.6 G/DL (6.3-8.2) L 09/16/18 05:45 Albumin 2.1 g/dL (3.5-5.0) L 09/16/18 05:45 Globulin 3.5 gm/dL (2.2-3.9) 09/16/18 05:45 Albumin/Globulin Ratio 0.6 (1.0-2.1) L 09/16/18 05:45 Thyroxine (T4) 6.55 ug/dl (5.5-11.0) 09/01/18 05:55 TSH 3rd Generation 5.47 mIU/ML (0.46-4.68) H 09/01/18 05:55 Venous Blood Potassium 4.3 mmol/L (3.6-5.2) 08/31/18 15:47 Urine Color Yellow (YELLOW) 09/01/18 13:00 Urine Clarity Cloudy (Clear) 09/01/18 13:00 Urine pH 5.0 (5.0-8.0) 09/01/18 13:00 Ur Specific [place] 1.019 (1.003-1.030) 09/01/18 13:00 Urine Protein 30 mg/dL (NEGATIVE) 09/01/18 13:00 Urine Glucose (UA) Neg mg/dL (NEGATIVE) 09/01/18 13:00 Urine Ketones Negative mg/dL (NEGATIVE) 09/01/18 13:00 Urine Blood Small (NEGATIVE) 09/01/18 13:00 Urine Nitrate Negative (NEGATIVE) 09/01/18 13:00 Urine Bilirubin Negative (NEGATIVE) 09/01/18 13:00 Urine Urobilinogen 0.2-1.0 mg/dL (0.2-1.0) 09/01/18 13:00 Ur Leukocyte Esterase Neg [place]/uL (Negative) 09/01/18 13:00 Urine RBC (Auto) 5 /hpf (0-3) H 09/01/18 13:00 Urine Microscopic WBC 1 /hpf (0-5) 09/01/18 13:00 Ur Squamous Epith Cells 8 /hpf (0-5) H 09/01/18 13:00 Urine Bacteria Rare (<OCC) 09/01/18 13:00 Hyaline Casts 0-2 /hpf (0-2) 09/01/18 13:00 Stool Occult Blood Negative (NEGATIVE) 09/10/18 16:00 Vancomycin Trough 11.2 ug/mL (5.0-10.0) H 09/15/18 05:50 Random Vancomycin 11.2 ug/mL 09/04/18 06:15 RPR Nonreactive (NONREACTIVE) 09/02/18 06:00 C. difficile Ag & Toxin Negative (NEGATIVE) 09/10/18 16:00 Blood Type O POSITIVE 09/14/18 10:40 Antibody Screen Negative 09/14/18 10:40 Crossmatch See Detail 09/14/18 10:40 BBK History Checked Patient has bt 09/14/18 10:40 - Hospital Course Hospital Course: Pt is a 62 y/o female with hx of HTN, DM, Hypothyroidism, Rheumatoid arthritis, Chronic foot ulcers admitted for multiple foot/leg ulcers w/ foul odor drainage admitted for osteomyelitis. Patient has chronic anemia HGB 8.9 upon discharge, total of 3 units of PRBC transfused during patients stay. Patient has osteomyelitis of multiple bones in her feet, patient has recieved IV antibiotics (vnacomycin and ceftriaxone) for 16 days, patient to continue IV antibiotics for total of 4-6 weeks (unasyn and ceftriaxone). Continue with hypothyroid medications, pain control for RA, and remerol for depression. Patient to be discahrged to [facility] - Date & Time of H&P Date of H&P: 09/16/18 Time of H&P: 12:42 Discharge Exam - Head Exam Head Exam: ATRAUMATIC, NORMOCEPHALIC - Eye Exam Eye Exam: Normal appearance Pupil Exam: NORMAL ACCOMODATION - ENT Exam ENT Exam: Mucous Membranes Moist - Neck Exam Neck exam: Normal Inspection - Respiratory Exam Respiratory Exam: NORMAL BREATHING PATTERN - Cardiovascular Exam Cardiovascular Exam: REGULAR RHYTHM, +S1, +S2 - Neurological Exam Neurological exam: Alert, Oriented x3 - Psychiatric Exam Psychiatric exam: Depressed, Normal Affect - Skin Skin Exam: Normal Color Discharge Plan - Discharge Medications Prescriptions: AMPicillin/Sulbactam [Unasyn 2 Gm-1 Gm] 3 gm IV Q12 28 Days #56 vial cefTRIAXone 1 gm [Rocephin 1 gram IVPB] 1 gm IVPB DAILY #28 bag - Follow Up Plan Condition: STABLE Disposition: REHAB FACILITY/REHAB UNIT Instructions: Wound Care (DC), Wound Infection, Sepsis (DC) Additional Instructions: RIGHT UPPER ARM PICC GOOD BLOOD RETURN. GORGE. FOOT DRESSING -CLEANSE ULCER WITH SALINE AND APPLY SILVADINE CREAM AND DRY STERILE DRESSING. LEFT LATERAL LEG ULCER AND SACRAL DRESSSING APPLY MEDIHONEY AND MEPILEX DRESSING. Referrals: [facility] [Outside] Marie Salinas MD [Resident] - [facility] [place] [Outside] <Karoline Rousseau - Last Filed: 09/17/18 11:21> Provider - Provider Date of Admission: 08/31/18 16:13 Attending physician: Karoline Rousseau DO Consults: 08/31/18 15:28 Podiatry Consult Stat Comment: Consulting Provider: Chirag Brown Consulting Physician: Chirag Brown Reason for Consult: FOOT ULCERS 08/31/18 16:16 Infectious Disease Consult Stat Comment: Consulting Provider: Gabi Contreras Consulting Physician: Gabi Contreras Reason for Consult: infected leg ulcers 08/31/18 20:57 Wound Care [Nursing Referral for Wound Care] Routine Comment: Physician Instructions: Reason For Exam: LE ulcers 09/03/18 06:33 Vascular Surgery Routine Comment: Consulting Provider: Yohan Mcdermott Physician Instructions: Reason For Exam: B/L LE wounds, B/L LE arterial disease by duplex. 09/07/18 11:02 Psychiatry Consult Routine Comment: Consulting Provider: Madison Ortega Consulting Physician: Madison Ortega Reason for Consult: depression Psychology Consult Routine Comment: Consulting Provider: Luzma Oviedo Consulting Physician: Luzma Oviedo Reason for Consult: cognitive assessment Hospital Course - Lab Results Lab Results: Micro Results 09/09/18 14:00 Foot - Left Gram Stain - Final 09/09/18 14:00 Foot - Left Wound Culture - Final No growth. 08/31/18 15:30 Blood Blood Culture - Final NO GROWTH AFTER 5 DAYS 08/31/18 15:30 Blood Gram Stain - Final TEST NOT PERFORMED 08/31/18 15:45 Blood Blood Culture - Final NO GROWTH AFTER 5 DAYS 08/31/18 15:45 Blood Gram Stain - Final TEST NOT PERFORMED 08/31/18 15:36 Drainage Gram Stain - Final 08/31/18 15:36 Drainage Wound Culture - Final Citrobacter Diversus 08/31/18 16:00 Foot - Left Gram Stain - Final 08/31/18 16:00 Foot - Left Wound Culture - Final Citrobacter Diversus Beta Hemolytic Strep Group B 09/01/18 18:00 Leg - Left Gram Stain - Final 09/01/18 18:00 Leg - Left Wound Culture - Final Citrobacter Diversus Beta Hemolytic Strep Group B 09/01/18 14:45 Urine Random Urine Culture - Final No Growth (<1,000 CFU/ML) Most Recent Lab Values WBC 5.7 K/uL (4.8-10.8) 09/16/18 05:45 RBC 3.34 Mil/uL (3.80-5.20) L 09/16/18 05:45 Hgb 8.9 g/dL (12.0-16.0) L 09/16/18 05:45 Hct 27.3 % (34.0-47.0) L 09/16/18 05:45 MCV 82.0 fl (81.0-99.0) 09/16/18 05:45 MCH 26.8 pg (27.0-31.0) L 09/16/18 05:45 MCHC 32.7 g/dL (33.0-37.0) L 09/16/18 05:45 RDW 15.9 % (11.5-14.5) H 09/16/18 05:45 Plt Count 287 K/uL (130-400) 09/16/18 05:45 MPV 8.3 fl (7.2-11.7) 09/01/18 05:55 Neut % (Auto) 81.8 % (50.0-75.0) H 09/01/18 05:55 Lymph % (Auto) 6.6 % (20.0-40.0) L 09/01/18 05:55 [place] % (Auto) 8.6 % (0.0-10.0) 09/01/18 05:55 Eos % (Auto) 2.8 % (0.0-4.0) 09/01/18 05:55 Baso % (Auto) 0.2 % (0.0-2.0) 09/01/18 05:55 Neut # (Auto) 6.1 K/uL (1.8-7.0) 09/01/18 05:55 Lymph # (Auto) 0.5 K/uL (1.0-4.3) L 09/01/18 05:55 [place] # (Auto) 0.6 K/uL (0.0-0.8) 09/01/18 05:55 Eos # (Auto) 0.2 K/uL (0.0-0.7) 09/01/18 05:55 Baso # (Auto) 0.0 K/uL (0.0-0.2) 09/01/18 05:55 Neutrophils % (Manual) 77 % (42-75) H 08/31/18 15:30 Band Neutrophils % 4 % (0-2) H 08/31/18 15:30 Lymphocytes % (Manual) 8 % (20-50) L 08/31/18 15:30 Monocytes % (Manual) 11 % (0-10) H 08/31/18 15:30 Platelet Estimate Normal (NORMAL) 08/31/18 15:30 Polychromasia Slight 08/31/18 15:30 Hypochromasia (manual) Moderate 08/31/18 15:30 Poikilocytosis (manual Moderate 08/31/18 15:30 Anisocytosis (manual) Marked 08/31/18 15:30 Microcytosis (manual) Moderate 08/31/18 15:30 Ovalocytes Slight 08/31/18 15:30 Schistocytes Slight 08/31/18 15:30 ESR > 120 mm/hr (0-30) H 08/31/18 15:30 PT 12.7 Seconds (9.8-13.1) 09/09/18 07:05 INR 1.1 09/09/18 07:05 APTT 28.1 Seconds (25.6-37.1) 09/09/18 07:05 pO2 28 mm/Hg (30-55) L 08/31/18 15:47 VBG pH 7.39 (7.32-7.43) 08/31/18 15:47 VBG pCO2 50 mmHg (40-60) 08/31/18 15:47 VBG HCO3 27.0 mmol/L 08/31/18 15:47 VBG Total CO2 31.8 mmol/L (22-28) H 08/31/18 15:47 VBG O2 Sat (Calc) 52.9 % (40-65) 08/31/18 15:47 VBG Base Excess 4.2 mmol/L (0.0-2.0) H 08/31/18 15:47 VBG Potassium 4.3 mmol/L (3.6-5.2) 08/31/18 15:47 Sodium 135.0 mmol/L (132-148) 08/31/18 15:47 Chloride 100.0 mmol/L (98-107) 08/31/18 15:47 Glucose 165 mg/dL (65-105) H 08/31/18 15:47 Lactate 1.8 mmol/L (0.7-2.1) 08/31/18 15:47 FiO2 21.0 % 08/31/18 15:47 Sodium 142 mmol/l (132-148) 09/16/18 05:45 Potassium 3.8 MMOL/L (3.6-5.0) 09/16/18 05:45 Chloride 109 mmol/L (98-107) H 09/16/18 05:45 Carbon Dioxide 22 mmol/L (22-30) 09/16/18 05:45 Anion Gap 15 (10-20) 09/16/18 05:45 BUN 19 mg/dl (7-17) H 09/16/18 05:45 Creatinine 2.3 mg/dl (0.7-1.2) H 09/16/18 05:45 Est GFR ( Amer) 26 09/16/18 05:45 Est GFR (Non-Af Amer) 21 09/16/18 05:45 POC Glucose (mg/dL) 151 mg/dL (65-110) H 09/16/18 15:28 Random Glucose 98 mg/dL (65-105) 09/16/18 05:45 Hemoglobin A1c 6.0 % (4.2-6.5) 09/03/18 11:30 Calcium 8.1 mg/dL (8.4-10.2) L 09/16/18 05:45 Phosphorus 4.2 mg/dl (2.5-4.5) 08/31/18 15:30 Magnesium 2.3 MG/DL (1.6-2.3) 08/31/18 15:30 Iron 13 ug/dL (37-170) L 09/01/18 09:15 TIBC 180 ug/dL (250-450) L 09/01/18 09:15 % Saturation 7 % (20-55) L 09/01/18 09:15 Ferritin 318.0 ng/Ml (11.1-264.0) H 09/01/18 09:15 Total Bilirubin 0.1 mg/dl (0.2-1.3) L 09/16/18 05:45 AST 33 U/L (14-36) 09/16/18 05:45 ALT 24 U/L (9-52) 09/16/18 05:45 Alkaline Phosphatase 86 U/L (38-126) 09/16/18 05:45 C-Reactive Protein 167.60 mg/L (0.0-9.9) H 08/31/18 17:03 Total Protein 5.6 G/DL (6.3-8.2) L 09/16/18 05:45 Albumin 2.1 g/dL (3.5-5.0) L 09/16/18 05:45 Globulin 3.5 gm/dL (2.2-3.9) 09/16/18 05:45 Albumin/Globulin Ratio 0.6 (1.0-2.1) L 09/16/18 05:45 Thyroxine (T4) 6.55 ug/dl (5.5-11.0) 09/01/18 05:55 TSH 3rd Generation 5.47 mIU/ML (0.46-4.68) H 09/01/18 05:55 Venous Blood Potassium 4.3 mmol/L (3.6-5.2) 08/31/18 15:47 Urine Color Yellow (YELLOW) 09/01/18 13:00 Urine Clarity Cloudy (Clear) 09/01/18 13:00 Urine pH 5.0 (5.0-8.0) 09/01/18 13:00 Ur Specific [place] 1.019 (1.003-1.030) 09/01/18 13:00 Urine Protein 30 mg/dL (NEGATIVE) 09/01/18 13:00 Urine Glucose (UA) Neg mg/dL (NEGATIVE) 09/01/18 13:00 Urine Ketones Negative mg/dL (NEGATIVE) 09/01/18 13:00 Urine Blood Small (NEGATIVE) 09/01/18 13:00 Urine Nitrate Negative (NEGATIVE) 09/01/18 13:00 Urine Bilirubin Negative (NEGATIVE) 09/01/18 13:00 Urine Urobilinogen 0.2-1.0 mg/dL (0.2-1.0) 09/01/18 13:00 Ur Leukocyte Esterase Neg [place]/uL (Negative) 09/01/18 13:00 Urine RBC (Auto) 5 /hpf (0-3) H 09/01/18 13:00 Urine Microscopic WBC 1 /hpf (0-5) 09/01/18 13:00 Ur Squamous Epith Cells 8 /hpf (0-5) H 09/01/18 13:00 Urine Bacteria Rare (<OCC) 09/01/18 13:00 Hyaline Casts 0-2 /hpf (0-2) 09/01/18 13:00 Stool Occult Blood Negative (NEGATIVE) 09/10/18 16:00 Vancomycin Trough 11.2 ug/mL (5.0-10.0) H 09/15/18 05:50 Random Vancomycin 11.2 ug/mL 09/04/18 06:15 RPR Nonreactive (NONREACTIVE) 09/02/18 06:00 C. difficile Ag & Toxin Negative (NEGATIVE) 09/10/18 16:00 Blood Type O POSITIVE 09/14/18 10:40 Antibody Screen Negative 09/14/18 10:40 Crossmatch See Detail 09/14/18 10:40 BBK History Checked Patient has bt 09/14/18 10:40 Attending/Attestation - Attestation I have personally seen and examined this patient.: Yes I have fully participated in the care of the patient.: Yes I have reviewed all pertinent clinical information, including history, physical exam and plan: Yes Notes (Text): 09/17/18 11:21 Agree with findings and plan as above
[2018-09-16 16:22] VITALS: BP 116/54; PULSE 83; RESP 18; TEMP 98.7
--- NOTE | 2018-09-22 14:25 | PQF ---
PROVIDER RESPONSE TEXT: No Sepsis REVIEWER QUERY TEXT: Rule Out Sepsis Clarification Sepsis is documented in the Medical Record. Please clarify whether: -- Patient has sepsis - Please document confirmed, suspected or probable causative organism - Please document confirmed, suspected or probable localized infection - Please clarify if sepsis is related to a device - Please clarify if sepsis was present on admission -- Sepsis was ruled out (include corresponding diagnosis for patient?s clinical picture and treatment ) -- Patient had sepsis which is resolved -- Other, please specify The patient's Clinical Indicators include: ED Physician Documentation Report under clinical impression documented sepsis. Query created by: Cally Ayers on 09/17/2018 1:02 PM Electronically signed by: Carmen Burks MD 09/22/2018 2:22 PM
== END 2018-09-16 18:05 | DRG 344 ==
LOC: H.ER 14:06 → H.ERHOLD 16:13 → H.MEDSURG1 21:49
PROVIDERS: ADMIT Student in an Organized Health Care Education/Training Program; ATTEND Student in an Organized Health Care Education/Training Program
PROC: 30233N1 Transfusion of Nonautologous Red Blood Cells into Peripheral Vein, Percutaneous Approach (ICD-10-PCS; 2018-09-01)
PROC: 02HV33Z Insertion of Infusion Device into Superior Vena Cava, Percutaneous Approach (ICD-10-PCS; 2018-09-01)
PROC: 0JBQ0ZZ Excision of Right Foot Subcutaneous Tissue and Fascia, Open Approach (ICD-10-PCS; 2018-09-09)
PROC: 0JBR0ZZ Excision of Left Foot Subcutaneous Tissue and Fascia, Open Approach (ICD-10-PCS; principal; 2018-09-09 11:30)
DX: E11.69 Type 2 diabetes mellitus with other specified complication (principal); M86.9 Osteomyelitis, unspecified; G93.40 Encephalopathy, unspecified; E11.22 Type 2 diabetes mellitus with diabetic chronic kidney disease; E11.621 Type 2 diabetes mellitus with foot ulcer; L03.115 Cellulitis of right lower limb; D51.9 Vitamin B12 deficiency anemia, unspecified; L03.116 Cellulitis of left lower limb; L97.319 Non-pressure chronic ulcer of right ankle with unspecified severity; L97.329 Non-pressure chronic ulcer of left ankle with unspecified severity; L97.419 Non-pressure chronic ulcer of right heel and midfoot with unspecified severity; E03.9 Hypothyroidism, unspecified; E78.5 Hyperlipidemia, unspecified; E78.00 Pure hypercholesterolemia, unspecified; I12.9 Hypertensive chronic kidney disease with stage 1 through stage 4 chronic kidney disease, or unspecified chronic kidney disease; M06.9 Rheumatoid arthritis, unspecified; R53.81 Other malaise; R32 Unspecified urinary incontinence; Z79.82 Long term (current) use of aspirin; Z79.890 Hormone replacement therapy; D63.8 Anemia in other chronic diseases classified elsewhere; N18.3 Chronic kidney disease, stage 3 (moderate); F06.31 Mood disorder due to known physiological condition with depressive features; B95.1 Streptococcus, group B, as the cause of diseases classified elsewhere; K59.00 Constipation, unspecified; I87.2 Venous insufficiency (chronic) (peripheral)